=== PATIENT | male | born 1965 | race Caucasian/White ===

== ENCOUNTER 2017-08-13 16:33 | Emergency (ER) | payer OTHER, SELFPAY | END 2017-08-13 18:17 | disposition home or self-care (01) | PROVIDERS: Emergency Provider Nurse Practitioner Family; Visit Provider Nurse Practitioner Family | DX: S92.424A Nondisplaced fracture of distal phalanx of right great toe, initial encounter for closed fracture (principal); Y93.89 Activity, other specified; Y92.89 Other specified places as the place of occurrence of the external cause; Y99.0 Civilian activity done for income or pay; W20.8XXA Other cause of strike by thrown, projected or falling object, initial encounter | CPT/HCPCS: 73630; 73660; 99203 ==

== ENCOUNTER 2017-08-14 07:54 | Outpatient (POV) | payer SELFPAY | END 2017-08-14 13:50 | disposition home or self-care (01) | PROVIDERS: Visit Provider Podiatrist | DX: S92.404A Nondisplaced unspecified fracture of right great toe, initial encounter for closed fracture (principal); S91.201A Unspecified open wound of right great toe with damage to nail, initial encounter | CPT/HCPCS: 11730; 10140; 99202 ==

== ENCOUNTER 2017-08-21 08:04 | Outpatient (POV) | payer OTHER, SELFPAY | END 2017-08-21 13:59 | disposition home or self-care (01) | PROVIDERS: Visit Provider Podiatrist | DX: S92.404D Nondisplaced unspecified fracture of right great toe, subsequent encounter for fracture with routine healing (principal) | CPT/HCPCS: 99212 ==

== ENCOUNTER 2018-01-16 13:58 | Outpatient (CLI) | payer SELFPAY | END 2018-01-16 16:02 | disposition home or self-care (01) | LOC: UTC.OUT 13:59 | PROVIDERS: Visit Provider Nurse Practitioner Family | DX: Z02.4 Encounter for examination for driving license (principal) ==

== ENCOUNTER 2021-10-28 13:24 | Emergency (ER) | payer BC, SELFPAY ==
[2021-10-28 13:47] VITALS: BP 142/92; PULSE 65; RESP 16; TEMP 36.4; O2SAT 95; BMI 29.5
--- NOTE | 2021-10-28 14:40 | HMH.EDUTC ---
[facility] [place] Disposition Clinical Impression: Vertigo Disposition: Home, Self-Care Condition on Discharge: Good Instructions: Vertigo Additional Instructions: Drink plenty of fluids. Take tylenol or ibuprofen for pain. Take the medications as directed. Follow up with your regular doctor. GO TO THE ER FOR ANY WORSENING SYMPTOMS Referrals: Provider,Referral, MD [Primary Care Provider] - Forms: Work/School Release Time of Disposition: 15:32 Medical Decision Making - Medical Records Medical records reviewed: No: I reviewed the patient's medical records. - Jamil Inquiry Pt receiving controlled substance: No Vital Signs: 10/28/21 13:47 10/28/21 15:01 10/28/21 15:42 Temperature 97.6 F 97.6 F Temperature Source Temporal Artery Scan Pulse Rate 61 Pulse Rate [Left] 65 Pulse Rate [Orthostatic Lying] 61 Pulse Rate [Orthostatic Sitting] 63 Pulse Rate [Orthostatic Standing] 70 Respiratory Rate 16 16 Blood Pressure 132/81 Blood Pressure [Orthostatic Lying] 132/81 Blood Pressure [Orthostatic Sitting] 149/90 H Blood Pressure [Orthostatic Standing] 150/88 H Blood Pressure [Right Arm] 142/92 H Blood Pressure Mean [Right Arm] 108 02 Sat by Pulse Oximetry 95 - Lab Data Lab Results 10/28/21 15:35: WBC 9.6, RBC 5.54, Hgb 17.7, Hct 52.7 H, MCV 95.2 H, MCH 31.9 H, MCHC 33.5, RDW 13.1, Plt Count 333, MPV 7.7, Neut % (Auto) 56.7, Lymph % (Auto) 31.1, [place] % (Auto) 6.5, Eos % (Auto) 4.6, Baso % (Auto) 1.2, Neut # (Auto) 5.5, Lymph # (Auto) 3.0, [place] # (Auto) 0.6, Eos # (Auto) 0.4, Baso # (Auto) 0.1 10/28/21 15:35: Sodium 141, Potassium 4.6, Chloride 106, Carbon Dioxide 28, Anion Gap 11.6, BUN 22 H, Creatinine 0.90, Estimated Creat Clear 135, Estimated GFR 87, Est GFR ( Amer) 105, Glucose 105 H, Calcium 10.3 H, Total Bilirubin 0.9, AST 32, ALT 30, Alkaline Phosphatase 74, Total Protein 8.4 H, Albumin 4.7, Globulin 3.7 H, Albumin/Globulin Ratio 1.3 Result diagrams: 10/28/21 15:35 10/28/21 15:35 [facility] [place] HPI - General Stated complaint: elevated bp, dizziness Time Seen by Provider: 10/28/21 14:40 Mode of Arrival: Ambulatory Source of Information: Patient Limitations: No Limitations Description of Symptoms (Recalled from Triage Doc. by RN): pt states this am he had a episode of dizziness and weakness. pt states he is feeling completely fine at this time. HEENT Symptoms (Recalled from RN notes): No Resp Symptoms (Recalled from RN notes): No Skin Symptoms (Recalled from RN notes): No MS Symptoms (Recalled from RN notes): No Functional Status (Recalled from RN notes): wnl - History of Present Illness Provider Complaint: He states that when he first got out of bed this morning he had dizziness for a short period of time. He got ready and went on to work. The dizziness resolved after a few minutes. He has felt fine since. He denies any chest pain, shortness of breath - Related Data Previous Rx's Medication Instructions Recorded hydrOXYzine pamoate [Vistaril 25mg 25 mg PO Q6HP PRN #20 cap 07/12/18 capsule] Allergies Allergy/AdvReac Type Severity Reaction Status Date / Time CONTRAST DYE Allergy Unknown Uncoded 09/17/18 10:25 - Worker's Comp Is this a Worker's Comp case?: No [facility] History - Hepatitis A Screen Drug use history?: No High risk sexual behaviors?: No History of sexually transmitted infection?: No Currently employed?: No Childcare worker?: No Do you have indoor plumbing?: Yes Do you have electricity?: Yes Attestation statement:: This patient has been screened for Hepatitis A risk factors. I have reviewed the patient's past medical history: Yes - Social History Smoking Status: Former smoker Alcohol Intake: never Occupational Status: employed Family Hx:: Diabetes ROS Obtained: Yes All systems reviewed & no additional complaints - Constitutional Constitutional: Denies chills, Denies fever(s) - Eyes Eyes: Denies eye discharge - ENT
--- NOTE | 2021-10-28 14:50 | ECG_ITS ---
APPROVED REPORT Exam: Resting ECG HR:62 bpm ECG Measurements Heart Rate 62 AXES MS 165 P 53 QRSd 117 QRS 55 QT 389 T 43 QTc 395 Conclusion SINUS RHYTHM INCOMPLETE RIGHT BUNDLE BRANCH BLOCK [90+ ms QRS DURATION, TERMINAL R IN V1/V2, 40+ ms S IN I/aVL/V4/V5/V6] BORDERLINE ECG UNCONFIRMED REPORT Electronically signed by : Saroj Virgen MD 11/02/2021 16:16:55
[2021-10-28 15:01] VITALS: BP 132/81; BP 149/90; BP 150/88; PULSE 61; PULSE 63; PULSE 70
[2021-10-28 15:42] VITALS: BP 132/81; PULSE 61; RESP 16; TEMP 36.4
[2021-10-28 15:44] LABS: Basophils # 0.1 K/mm3 (0-0.2); Basophils % 1.2 % (0.1-2.0); Eosinophils # 0.4 K/mm3 (0.0-0.4); Eosinophils % 4.6 % (0.1-12.0); Hematocrit 52.7 % (42.0-52.0); Hemoglobin 17.7 g/dL (14.1-18.0); Lymphocytes % 31.1 % (10-50); Mean Corpuscular HGB Conc 33.5 g/dL (31.8-35.4); Mean Corpuscular Hemoglobin 31.9 pg (27.0-31.2); Mean Corpuscular Volume 95.2 fl (80-94); Mean Platelet Volume 7.7 fl (7.4-10.4); Monocytes # 0.6 K/mm3 (0.1-1.0); Monocytes % 6.5 % (1.7-9.3); Neutrophils # 5.5 K/mm3 (1.8-7.8); Neutrophils % 56.7 % (37.0-80.0); Platelet Count 333 K/mm3 (142-424); Red Blood Count 5.54 M/mm3 (4.60-6.20); Red Cell Distribution Width 13.1 % (11.5-17.5); White Blood Count 9.6 K/mm3 (4.8-10.8)
[2021-10-28 15:57] LABS: Alanine Aminotransferase 30 U/L (12-78); Albumin Level 4.7 g/dl (3.5-5.0); Albumin/Globulin Ratio 1.3 (1.1-1.8); Alkaline Phosphatase 74 U/L (38-126); Anion Gap 11.6 mEq/L (5-15); Aspartate Amino Transferase 32 U/L (17-59); Bilirubin,Total 0.9 mg/dl (0.2-1.3); Blood Urea Nitrogen 22 mg/dl (9-20); Carbon Dioxide 28 mmol/L (22.0-30.0); Chloride 106 mmol/L (98-107); Creatinine Clearance Estimated 135 mL/min (50-200); Estimated Glomerular Filt Rate 87 ml/min (>60); GFR (African American) 105 ML/MIN (>60); Globulin 3.7 g/dL (1.3-3.2); Potassium 4.6 mmoL/L (3.5-5.1); Sodium 141 mmol/L (136-145); Total Protein,Serum 8.4 g/dl (6.3-8.2)
[2021-10-28 16:03] LABS: Calcium 10.3 mg/dl (8.4-10.2); Glucose 105 mg/dl (74-100)
== END 2021-10-28 15:43 | disposition home or self-care (01) ==
PROVIDERS: Emergency Provider Nurse Practitioner Family
DX: R42 Dizziness and giddiness (principal); R03.0 Elevated blood-pressure reading, without diagnosis of hypertension; Z87.891 Personal history of nicotine dependence
CPT/HCPCS: 80053; 85025; 93005; 93041; 99202; 99212; 99213; G0463

== ENCOUNTER 2022-07-08 19:58 | Emergency (ER) | payer OTHER, SELFPAY ==
[2022-07-08 20:13] VITALS: BP 154/89; PULSE 58; RESP 18; TEMP 36.6; O2SAT 97; BMI 30.9
[2022-07-08 20:54] LABS: Microscopic, Urine URINE MICROSCOPIC (MICROSCOPIC)
[2022-07-08 20:58] LABS: Appearance,Urine CLEAR (Clear); Bilirubin,Urine Negative (Negative); Blood, Urine 2+ (Negative); Color,Urine YELLOW (Yellow); Glucose,Urine (UA) Negative (Negative); Ketones,Urine Negative (Negative); Leukocyte Esterase,Urine Negative (Negative); Nitrate,Urine Negative (Negative); Protein,Urine Negative (Negative); Specific Gravity, Urine 1.025 (1.005-1.030); Urobilinogen,Urine >=8.0 EU/dl (0.2)
[2022-07-08 21:00] VITALS: BP 156/87; PULSE 58; O2SAT 95
[2022-07-08 21:10] LABS: Basophils # 0.2 K/mm3 (0-0.2); Basophils % 1.6 % (0.1-2.0); Eosinophils # 0.4 K/mm3 (0.0-0.4); Eosinophils % 4.1 % (0.1-12.0); Hematocrit 46.4 % (42.0-52.0); Hemoglobin 15.2 g/dL (14.1-18.0); Lymphocytes # 3.6 K/mm3 (0.7-4.5); Lymphocytes % 33.1 % (10-50); Mean Corpuscular HGB Conc 32.9 g/dL (31.8-35.4); Mean Corpuscular Hemoglobin 31.2 pg (27.0-31.2); Mean Corpuscular Volume 94.9 fl (80-94); Mean Platelet Volume 7.9 fl (7.4-10.4); Monocytes # 0.8 K/mm3 (0.1-1.0); Monocytes % 7.2 % (1.7-9.3); Neutrophils # 5.9 K/mm3 (1.8-7.8); Neutrophils % 53.9 % (37.0-80.0); Platelet Count 310 K/mm3 (142-424); Red Blood Count 4.88 M/mm3 (4.60-6.20); Red Cell Distribution Width 13.2 % (11.5-17.5); White Blood Count 10.9 K/mm3 (4.8-10.8)
--- NOTE | 2022-07-08 21:10 | CT_ITS ---
PROCEDURE INFORMATION: Exam: CT Abdomen And Pelvis Without Contrast Exam date and time: 07/08/2022 10:15 PM Age: 57 years old Clinical indication: Abdominal pain; Localized; Lower; Additional info: Abd pain TECHNIQUE: Imaging protocol: Computed tomography of the abdomen and pelvis without contrast. Radiation optimization: All CT scans at this facility use at least one of these dose optimization techniques: automated exposure control; mA and/or kV adjustment per patient size (includes targeted exams where dose is matched to clinical indication); or iterative reconstruction. COMPARISON: No relevant prior studies available. FINDINGS: Lungs: Lung bases are unremarkable. Liver: No focal hepatic lesions within the limits of noncontrast examination. Hepatic steatosis noted Gallbladder and bile ducts: Gallbladder is distended without radiopaque cholelithiasis. No biliary ductal dilation. Pancreas: No peripancreatic fluid stranding. No main pancreatic ductal dilation. Spleen: Splenic granulomas noted. No splenomegaly Adrenal glands: Normal. No mass. Kidneys and ureters: No nephrolithiasis or hydroureteronephrosis on either side. Stomach and bowel: Unremarkable. No obstruction. No mucosal thickening. Appendix: A normal appendix is identified. Intraperitoneal space: Unremarkable. No free air. No significant fluid collection. Vasculature: Unremarkable. No abdominal aortic aneurysm. Lymph nodes: Unremarkable. No enlarged lymph nodes. Urinary bladder: Unremarkable as visualized. Reproductive: Unremarkable as visualized. Bones/joints: Mild multilevel degenerative changes more pronounced at L4-L5 and L5-S1. No acute osseous abnormality. Soft tissues: Unremarkable. IMPRESSION: No acute abnormality in the abdomen or pelvis
[2022-07-08 21:12] LABS: Chloride 105 mmol/L (98-107); Potassium 3.9 mmoL/L (3.5-5.1); Sodium 142 mmol/L (136-145)
[2022-07-08 21:13] LABS: Squamous Epithelial Cell,Urine Occasional #/hpf (0-5); WBC,Urine Occasional #/hpf (0-3)
[2022-07-08 21:15] LABS: Alanine Aminotransferase 23 U/L (12-78); Albumin Level 4.1 g/dl (3.5-5.0); Albumin/Globulin Ratio 1.3 (1.1-1.8); Alkaline Phosphatase 82 U/L (38-126); Anion Gap 14.9 mEq/L (5-15); Aspartate Amino Transferase 30 U/L (17-59); Bilirubin,Total 0.4 mg/dl (0.2-1.3); Blood Urea Nitrogen 18 mg/dl (9-20); Carbon Dioxide 26 mmol/L (22.0-30.0); Creatinine Clearance Estimated 141 mL/min (50-200); Estimated Glomerular Filt Rate 86 ml/min (>60); GFR (African American) 105 ML/MIN (>60); Globulin 3.1 g/dL (1.3-3.2); Total Protein,Serum 7.2 g/dl (6.3-8.2)
[2022-07-08 21:16] LABS: Glucose 94 mg/dl (74-100)
[2022-07-08 21:19] LABS: Amylase 62 U/L (30-110); Lipase 36 U/L (23-300)
--- NOTE | 2022-07-08 21:19 | PC.NURSE ---
PT gone to RAD for CT
[2022-07-08 21:30] VITALS: BP 153/87; PULSE 49; O2SAT 97
[2022-07-08 22:00] VITALS: BP 162/92; PULSE 53; O2SAT 97
--- NOTE | 2022-07-08 22:00 | HMH.EDABDPAI ---
Discharge Plan Disposition Patient Disposition: Home, Self-Care Chief Complaint: Abdominal Pain Prescriptions Prescriptions: No Action hydroxyzine pamoate 25 MG capsule 25 mg PO Q6HP PRN (Reason: Anxiety) Qty: 20 0RF Referrals Follow up/Referrals: Provider,MD Delilah [Primary Care Provider] - See instructions Bhaskar Moura MD [Staff Physician] - See instructions Smooth Flor MD [Staff Physician] - See instructions Clinical Impressions Clinical Impression: Hernia, umbilical Instructions Patient Instructions: DI for Ventral Hernia Discharge ED Provider: Dannie Toro Abdominal Pain HPI General Chief Complaint: Abdominal Pain Stated Complaint: ADM PAIN Time Seen by Provider: 07/08/22 22:00 Mode of Arrival: Ambulatory Source of Information: Patient, Relative and Medical Record Limitations: No Limitations Description of Symptoms (Recalled from ER Triage Doc. by RN): Pt c/o lower quadarnt abd pain that started this afternoon. He says pain is constant and sharp. Pt reports BM yesterday or the day before and he has frequent constipation at baseline. Pt deneis N/V/D or fevers. History of Present Illness HPI narrative: pt with periumbilcal pain today with no fever or vomiting complaint: abdominal pain Onset (ago): hour(s) Consistency: intermittent Location: periumbilical Severity: moderate Associated symptoms: nausea Related Data Previous Rx's Medication Instructions Recorded hydroxyzine pamoate 25 mg capsule 25 mg PO Q6HP PRN Anxiety #20 caps 07/12/18 Allergies Allergy/AdvReac Type Severity Reaction Status Date / Time CONTRAST DYE Allergy Unknown Uncoded 09/17/18 10:25 PFSH PFSH Social History Smoking Status: Former smoker alcohol intake: never current occupational status: employed Travel in the last 8 weeks: None ROS Obtained: Yes All systems reviewed & no additional complaints except as documented Physical Exam General General appearance: alert Head Head exam: normocephalic Eye Eye exam: Present PERRL and EOMI ENT ENT exam: Present mucous membranes moist Neck Neck exam: Present trachea midline Respiratory Respiratory exam: Present normal lung sounds bilaterally; Absent respiratory distress Cardiovascular Cardiovascular exam: Present regular rate Abdominal Exam Abdominal exam: Present soft and hernia (reducible umbilical hernia ) Abdominal tenderness: Present moderate Extremities Exam Extremities exam: Present full ROM Neurological Exam Neurological exam: Present alert, oriented X3 and CN II-XII intact Psychiatric Psychiatric exam: Present normal affect Skin Skin exam: Absent rash Medical Decision Making Medical Records Medical records reviewed: Yes I reviewed the patient's medical records. Jamil Inquiry Pt receiving controlled substance: No Vital Signs: 07/08/22 20:13 Temperature 97.9 F Temperature Source Oral Pulse Rate [Right Radial] 58 L Respiratory Rate 18 Blood Pressure [Right Arm] 154/89 H Blood Pressure Mean [Right Arm] 110 Blood Pressure Source [Right Arm] Automatic Cuff Blood Pressure Position [Right Arm] Sitting 02 Sat by Pulse Oximetry 97 Oxygen Delivery Method Room Air Lab Data Lab results reviewed: Yes I reviewed the patient's lab results. Lab Results 07/08/22 20:48: Urine Color Yellow, Urine Appearance Clear, Urine pH 6.0, Ur Specific [place] 1.025, Urine Protein Negative, Urine Glucose (UA) Negative, Urine Ketones Negative, Urine Blood 2+, Urine Nitrate Negative, Urine Bilirubin Negative, Urine Urobilinogen >=8.0, Ur Leukocyte Esterase Negative, Urine RBC 10-20, Urine WBC Occasional, Ur Squamous Epith Cells Occasional, Urine Bacteria None 07/08/22 21:02: WBC 10.9 H, RBC 4.88, Hgb 15.2, Hct 46.4, MCV 94.9 H, MCH 31.2, MCHC 32.9, RDW 13.2, Plt Count 310, MPV 7.9, Neut % (Auto) 53.9, Lymph % (Auto) 33.1, [place] % (Auto) 7.2, Eos % (Auto) 4.1, Baso % (Auto) 1.6, Neut # (Auto) 5.9, Lymph # (Auto) 3.6, [place] # (Auto) 0.8, Eos #
[2022-07-08 22:31] VITALS: BP 156/97; PULSE 54; O2SAT 97
[2022-07-08 22:48] VITALS: BP 161/94; PULSE 57; RESP 16; TEMP 36.7; O2SAT 98
== END 2022-07-08 22:55 | disposition home or self-care (01) ==
PROVIDERS: Emergency Provider Emergency Medicine
DX: K42.9 Umbilical hernia without obstruction or gangrene (principal)
CPT/HCPCS: 74176; 80053; 81001; 82150; 83690; 85025; 99284

== ENCOUNTER 2022-07-22 20:01 | Emergency (ER) | payer OTHER, SELFPAY ==
[2022-07-22 20:01] VITALS: BP 119/76; PULSE 85; RESP 16; TEMP 37.4; O2SAT 97; BMI 30.9
[2022-07-22 21:23] VITALS: BMI 30.9
--- NOTE | 2022-07-22 21:23 | XR_ITS ---
PROCEDURE INFORMATION: Exam: XR Chest Exam date and time: 07/22/2022 9:21 PM Age: 57 years old Clinical indication: Other: Congestion TECHNIQUE: Imaging protocol: Radiologic exam of the chest. Views: 2 views. COMPARISON: CR CXR2V XR chest 2V 07/11/2018 10:51 PM FINDINGS: Lungs: No evidence of pneumonia or interstitial edema. Pleural spaces: Unremarkable. No pleural effusion. No pneumothorax. Heart/Mediastinum: Unremarkable. No cardiomegaly. Bones/joints: Unremarkable. IMPRESSION: No evidence of pneumonia or interstitial edema.
[2022-07-22 21:30] LABS: Coronavirus 19, PCR Not Detected (NotDetected); Influenza B, PCR Not Detected (NotDetected)
[2022-07-22 21:53] LABS: Influenza A, PCR Detected (NotDetected)
[2022-07-22 22:05] VITALS: RESP 16; TEMP 37.4; O2SAT 97
--- NOTE | 2022-07-22 22:23 | HMH.EDURI ---
Discharge Plan Disposition Patient Disposition: Home, Self-Care Prescriptions Prescriptions: New oseltamivir [Tamiflu] 75 mg capsule 75 mg PO BID 5 Days Qty: 10 0RF No Action hydroxyzine pamoate 25 MG capsule 25 mg PO Q6HP PRN (Reason: Anxiety) Qty: 20 0RF Referrals Follow up/Referrals: Karen Diamond DO [Primary Care Provider] - See instructions Clinical Impressions Clinical Impression: Influenza A Instructions Patient Instructions: DI for Influenza -- Adult Discharge ED Provider: Dannie Toro URI/Sore Throat HPI General Chief Complaint: Upper Respiratory Infection Stated Complaint: h/a, body aches, cough, weakness Time Seen by Provider: 07/22/22 22:23 Mode of Arrival: Wheelchair Source of Information: Patient and Medical Record Limitations: No Limitations Description of Symptoms (Recalled from ER Triage Doc. by RN): pt c/o fever, Hart,body aches, cough, congestion that stareted last night History of Present Illness HPI Narrative: headache and cough over the last 24 hrs - no rash - MD Complaint: fever and cough Onset (ago): day(s) Duration: intermittent Severity: moderate Associated symptoms: denies other symptoms Related Data Previous Rx's Medication Instructions Recorded hydroxyzine pamoate 25 mg capsule 25 mg PO Q6HP PRN Anxiety #20 caps 07/12/18 oseltamivir 75 mg capsule (Tamiflu) 75 mg PO BID 5 days #10 caps 07/22/22 Allergies Allergy/AdvReac Type Severity Reaction Status Date / Time CONTRAST DYE Allergy Unknown Uncoded 07/16/22 10:07 [facility] Social History Smoking Status: Former smoker alcohol intake: never current occupational status: employed Travel in the last 8 weeks: None ROS Obtained: Yes All systems reviewed & no additional complaints except as documented Physical Exam General General appearance: alert Head Head exam: normocephalic Eye Eye exam: Present PERRL and EOMI; Absent scleral icterus ENT ENT exam: Present mucous membranes moist Neck Neck exam: Present trachea midline Respiratory Respiratory exam: Present normal lung sounds bilaterally; Absent respiratory distress Cardiovascular Cardiovascular exam: Present regular rate Abdominal Exam Abdominal exam: Present soft Extremities Exam Extremities exam: Present full ROM Neurological Exam Neurological exam: Present alert, oriented X3 and CN II-XII intact Psychiatric Psychiatric exam: Present normal affect Skin Skin exam: Absent rash Medical Decision Making Medical Records Medical records reviewed: Yes I reviewed the patient's medical records. Jamil Inquiry Pt receiving controlled substance: No Vital Signs: 07/22/22 20:01 07/22/22 22:05 Temperature 99.3 F 99.3 F Temperature Source Oral Oral Pulse Rate [Right] 85 Respiratory Rate 16 16 Blood Pressure [Right Arm] 119/76 Blood Pressure Mean [Right Arm] 90 02 Sat by Pulse Oximetry 97 97 Lab Data Lab results reviewed: Yes I reviewed the patient's lab results. Lab Results 07/22/22 21:22: SARS-CoV-2 (PCR) Not detected, Influenza A Untype (PCR) Detected A, Influenza Type B (PCR) Not detected Orders (Tests/Meds): ORDERS Category Date Time Status Chest XR 2 view (NOT portable) [XR chest 2V] Stat Exams 07/22/22 21:23 Completed Rapid PCR Covid and Flu A/B Stat Lab 07/22/22 21:22 Completed Radiology Data #1: Image(s): Chest Image Reviewed: Yes I have reviewed radiologist's interpretation Preliminary Findings: Normal/NAD Medical Decision Narrative: pt with stable exam and has positive flu a Critical Care Time Critical Care Time Critical Care Time: No Attestation: On 07/22/22, the high probability of a clinically significant, sudden or life threatening deterioration of the following system(s) required my full and direct attention, intervention and personal management. The time I documented below is in addition to time s
[2022-07-22 23:17] VITALS: BP 127/87; PULSE 80; RESP 16; TEMP 37.1; O2SAT 97
== END 2022-07-22 23:18 | disposition home or self-care (01) ==
PROVIDERS: Emergency Provider Emergency Medicine; PCP Family Medicine
DX: J10.1 Influenza due to other identified influenza virus with other respiratory manifestations (principal)
CPT/HCPCS: 71046; 99283; C9803; U0003; U0005

== ENCOUNTER → 2022-09-06 12:41 | Outpatient (CLI) | payer OTHER, SELFPAY ==
--- NOTE | 2022-09-06 12:45 | CT_ITS ---
FINAL REPORT TECHNIQUE: Axial images were obtained from the lung apex to the mid abdomen by computed tomography. Coronal reformatted images were obtained. This study was performed with techniques to keep radiation doses as low as reasonably achievable, (ALARA). Individualized dose reduction techniques using automated exposure control or adjustment of mA and/or kV according to the patient''s size were employed. CLINICAL HISTORY: weight loss, tobacco abuse, hoarseness COMPARISON: None FINDINGS: There is no axillary adenopathy. There is no hilar or mediastinal adenopathy. Heart size is normal. There is no pericardial or pleural effusion. Limited images of the upper abdomen are unremarkable. No suspicious infiltrate or nodule is identified. IMPRESSION: No acute process. Reviewed, Interpreted and Dictated by Tram Ortiz MD Transcribed by Abby Yao Authenticated and [facility]
--- NOTE | 2022-09-06 12:45 | CT_ITS ---
FINAL REPORT TECHNIQUE: Thin section axial CT images with coronal and sagittal reformats were performed through the neck. This study was performed with techniques to keep radiation doses as low as reasonably achievable (ALARA). Individualized dose reduction techniques using automated exposure control or adjustment of mA and/or kV according to the patient''s size were employed. CLINICAL HISTORY: weight loss, tobacco abuse, hoarseness COMPARISON: None FINDINGS: No adenopathy or mass lesion is present . Salivary glands are normal. Larynx is unremarkable. Thyroid gland is unremarkable. IMPRESSION: No acute process. Reviewed, Interpreted and Dictated by Tram Ortiz MD Transcribed by Abby Yao Authenticated and [facility]
== END ==
PROVIDERS: PCP Family Medicine; Visit Provider Family Medicine
DX: R49.0 Dysphonia (principal); R63.4 Abnormal weight loss; Z87.891 Personal history of nicotine dependence
CPT/HCPCS: 70490; 71250

== ENCOUNTER 2022-09-12 09:20 | Day surgery (SDC) | payer OTHER, SELFPAY ==
[2022-09-12 09:36] VITALS: BP 135/80; PULSE 59; RESP 18; TEMP 36.3; O2SAT 95; BMI 28.5
[2022-09-12 10:01] VITALS: O2SAT 95
--- NOTE | 2022-09-12 10:17 | HMH.SCOPE ---
Procedure: Date: 09/12/22 Patient Date of :: 1965 Procedure Performed:: screening colonoscopy Indications:: Screening for colorectal cancer, constipation Performing Provider:: Andie Valencia MD Referring Provider:: Karen Zamora Sedation:: Propofol Procedure:: After placing the patient in the left lateral decubitus position, the colonoscopy was gently inserted into the rectum and under direct visualization advanced to the cecum which was identified by transillumination in the right lower quadrant, identification of the ileocecal valve, appendiceal orifice, and cecal strap. Color, texture, mucosa, and anatomy of the colon were carefully examined with the scope. Findings:: Anal canal: normal Rectum: normal Sigmoid colon: normal without polyps or inflammatory changes Descending colon: normal without polyps or inflammatory changes Splenic flexure: normal Transverse colon: normal without polyps or inflammatory changes Hepatic flexure: normal Ascending colon: normal without polyps or inflammatory changes Cecum: normal Terminal ileum: not visualized Impression: Normal colonoscopy Specimens:: None Recommendations:: Follow up examination in about TEN years or so, sooner if clinically indicated Complications:: None Estimated blood obtained (mL): 0
[2022-09-12 10:19] VITALS: BP 109/72; PULSE 69; RESP 14; TEMP 36.2; O2SAT 90
--- NOTE | 2022-09-12 10:21 | EXP.ANES.CKL ---
[facility] Disclaimer: The information contained in this section may have been updated after the patient was seen, as this information can be updated by other users. Medical History Influenza A Osteophyte Urinary problem in male Vertigo Surgical History Hx of cardiac cath Family History Other Family history of diabetes mellitus type II Social History Smoking Status: Former smoker how long ago did patient quit smokin years alcohol intake: never substance use type: denies use current occupational status: employed Travel in the last 8 weeks: None household members: significant other housing: house lives independently: Yes marital status: special hallie needs: No agree to transfusion: No do you feel safe at home: Yes victim of physical abuse: No victim of emotional abuse: No victim of sexual abuse: No would you like helpful sources: No [facility] Anesthesia Checklist Patient Identification Patient Identification: Verbal (Name & ) Structural Data Admitted From: Home Planned Operative Procedure/s: colonoscopy Consent for Planned Operative Procedure(s) Verified: Yes Airway Assessment C-Spine Mobility Assessed: Yes TMJ Mobility Assessed: Yes Dentition: Good Dentition Neurological Assessment Level of Consciousness: Awake, Alert and Appropriate Anesthesia Plan Anesthesia Risk discussed: Yes Anesthesia Plan: Verified ASA Class: III Anesthesia Type: MAC
[2022-09-12 10:29] VITALS: BP 104/66; PULSE 56; RESP 16; O2SAT 94
[2022-09-12 10:39] VITALS: BP 113/69; PULSE 58; RESP 16; O2SAT 97
[2022-09-12 11:05] VITALS: BP 116/55; PULSE 59; RESP 17; O2SAT 97
== END 2022-09-12 11:05 | disposition home or self-care (01) ==
PROVIDERS: PCP Family Medicine; Visit Provider Internal Medicine Gastroenterology
PROC: 0DJD8ZZ Inspection of Lower Intestinal Tract, Via Natural or Artificial Opening Endoscopic (ICD-10-PCS; CPT 45378; principal; 2022-09-12 10:30)
DX: K59.00 Constipation, unspecified (principal); R63.4 Abnormal weight loss
CPT/HCPCS: 45378

== ENCOUNTER → 2022-10-01 11:31 | Outpatient (CLI) | payer OTHER, SELFPAY ==
[2022-10-01 11:43] LABS: MANUAL DIFFERENTIAL MANUAL DIFFERENTIAL (MANUAL DIFF)
[2022-10-01 11:43] LABS: Microscopic, Urine URINE MICROSCOPIC (MICROSCOPIC)
[2022-10-01 12:14] LABS: Basophils # 0.1 K/mm3 (0-0.2); Basophils % 1.4 % (0.1-2.0); Eosinophils # 0.3 K/mm3 (0.0-0.4); Eosinophils % 2.9 % (0.1-12.0); Hematocrit 53.2 % (42.0-52.0); Hemoglobin 17.4 g/dL (14.1-18.0); Lymphocytes # 2.4 K/mm3 (0.7-4.5); Lymphocytes % 25.7 % (10-50); Mean Corpuscular HGB Conc 32.7 g/dL (31.8-35.4); Mean Corpuscular Hemoglobin 31.3 pg (27.0-31.2); Mean Corpuscular Volume 95.8 fl (80-94); Mean Platelet Volume 8.2 fl (7.4-10.4); Monocytes # 0.6 K/mm3 (0.1-1.0); Monocytes % 6.6 % (1.7-9.3); Neutrophils % 63.3 % (37.0-80.0); Platelet Count 356 K/mm3 (142-424); Red Blood Count 5.55 M/mm3 (4.60-6.20); Red Cell Distribution Width 13.5 % (11.5-17.5); White Blood Count 9.4 K/mm3 (4.8-10.8)
[2022-10-01 12:16] LABS: Appearance,Urine CLEAR (Clear); Bilirubin,Urine Negative (Negative); Blood, Urine 1+ (Negative); Color,Urine YELLOW (Yellow); Glucose,Urine (UA) Negative (Negative); Ketones,Urine Negative (Negative); Leukocyte Esterase,Urine Negative (Negative); Nitrate,Urine Negative (Negative); Protein,Urine Negative (Negative)
[2022-10-01 12:52] LABS: Squamous Epithelial Cell,Urine Occasional #/hpf (0-5); WBC,Urine Occasional #/hpf (0-3)
[2022-10-01 12:59] LABS: Eosinophils % 1 % (0-3); Lymphocytes % 25 % (10-50); Monocytes % 4 % (2-9); Neutrophils % 70 % (42-76); Platelet Estimate Normal; RBC Morphology Normal; Total Cells Counted 100
[2022-10-01 13:28] LABS: Hemoglobin A1C 5.5 % (4.0-6.0)
[2022-10-01 15:10] LABS: Chloride 107 mmol/L (98-107); Potassium 4.8 mmoL/L (3.5-5.1); Sodium 141 mmol/L (136-145)
[2022-10-01 15:13] LABS: Alanine Aminotransferase 24 U/L (12-78); Albumin Level 4.6 g/dl (3.5-5.0); Albumin/Globulin Ratio 1.4 (1.1-1.8); Alkaline Phosphatase 90 U/L (38-126); Anion Gap 9.8 mEq/L (5-15); Aspartate Amino Transferase 25 U/L (17-59); Bilirubin,Total 0.6 mg/dl (0.2-1.3); Blood Urea Nitrogen 16 mg/dl (9-20); Calcium 10.4 mg/dl (8.4-10.2); Carbon Dioxide 29 mmol/L (22.0-30.0); Chol/HDL Ratio 5.4 (1-3.5); Cholesterol 249 mg/dl (140-200); Estimated Glomerular Filt Rate 76 ml/min (>60); GFR (African American) 93 ML/MIN (>60); Globulin 3.2 g/dL (1.3-3.2); Glucose 93 mg/dl (74-100); HDL Cholesterol 46 mg/dl (40-60); Total Protein,Serum 7.8 g/dl (6.3-8.2); Triglycerides 110 mg/dl (30-150); VLDL Cholesterol 22 mg/dL (0-40)
[2022-10-01 15:25] LABS: Direct LDL Cholesterol 163.96 mg/dL (100-129)
[2022-10-01 15:44] LABS: Thyroid Stimulating Hormone 2.09 uIU/mL (0.465-4.68)
[2022-10-01 16:44] LABS: Prostate Specific Ag Screen 0.3 ng/ml (0.0-4.0)
[2022-10-08 01:18] LABS: Testosterone, Total, LC/MS 503.7 ng/dL (264.0-916.0); Testosterone,Free 7.3 pg/mL (7.2-24.0)
== END ==
PROVIDERS: PCP Family Medicine; Visit Provider Family Medicine
DX: K59.00 Constipation, unspecified (principal); R05 Cough; R49.0 Dysphonia; R63.4 Abnormal weight loss; E11.9 Type 2 diabetes mellitus without complications; Z87.891 Personal history of nicotine dependence; Z12.5 Encounter for screening for malignant neoplasm of prostate
CPT/HCPCS: 36415; 80053; 80061; 81001; 83036; 84402; 84403; 84443; 85007; 85014; 85018; 85048; 85049; G0103

== ENCOUNTER → 2022-12-02 17:06 | Outpatient (CLI) | payer OTHER, SELFPAY | PROVIDERS: PCP Nurse Practitioner Family; Visit Provider Nurse Practitioner Family | DX: N39.0 Urinary tract infection, site not specified (principal) | CPT/HCPCS: 87086 ==

== ENCOUNTER 2022-12-17 18:35 | Emergency (ER) | payer OTHER, SELFPAY ==
--- NOTE | 2022-12-17 18:49 | EXP.UTC ---
Discharge Plan Disposition Patient Disposition: Home, Self-Care Condition: Good Prescriptions Prescriptions: New ibuprofen [ibuprofen] 600 mg tablet 600 mg PO Q6HP PRN (Reason: Mild Pain) Qty: 30 0RF Referrals Follow up/Referrals: Karen Diamond DO [Staff Physician] - See instructions Israel Hernandez JR, MD [Physician] - See instructions Activity Restrictions/Add. Instructions Additional Instructions/Restrictions: Rest the extremity, apply ice for 15 minutes as tolerated three or four times per day, Elevate the extremity as tolerated while you are resting. Take ibuprofen for pain. I sent in a prescription to your pharmacy. Follow up with Dr. Hernandez (orthopedics). I put in a referral but you need to call his office and schedule an appointment. Follow up with your regular doctor. 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 He fell backwards and caught himself with his left hand. Since then he has had left hand and wrist pain. Related Data Previous Rx's Medication Instructions Recorded ibuprofen 600 mg tablet 600 mg PO Q6HP PRN Mild Pain #30 12/17/22 tabs Allergies Allergy/AdvReac Type Severity Reaction Status Date / Time CONTRAST DYE Allergy Unknown Uncoded 12/17/22 19:19 [facility] Disclaimer: The information contained in this section may have been updated after the patient was seen, as this information can be updated by other users. Medical History Osteophyte Urinary problem in male Vertigo Surgical History Hx of cardiac cath Family History Other Family history of diabetes mellitus type II Social History Smoking Status: Former smoker how long ago did patient quit smokin years alcohol intake: never substance use type: denies use current occupational status: employed Travel in the last 8 weeks: None household members: significant other housing: house lives independently: Yes marital status: special hallie needs: No agree to transfusion: No do you feel safe at home: Yes victim of physical abuse: No victim of emotional abuse: No victim of sexual abuse: No would you like helpful sources: No ROS Obtained: Yes All systems reviewed & no additional complaints except as documented Constitutional Constitutional: Denies chills and Denies fever(s) Eyes Eyes: Denies eye discharge ENT Ears, Nose, Mouth, and Throat: Denies dizziness, Denies otalgia and Denies sore throat Cardiovascular Cardiovascular: Denies chest pain Respiratory Respiratory: Denies shortness of breath, Denies chest congestion, Denies cough, Denies stridor and Denies wheezing Gastrointestinal Gastrointestingal: Denies nausea or vomiting Musculoskeletal Musculoskeletal: Reports as per HPI Integumentary/Breasts Skin/Breast: Denies redness, Denies rash and Denies wounds Neurologic Neurologic: Denies dizziness and Denies paresthesias Allergic/Immunologic Allergic/Immunologic: Denies wheezing Physical Exam General General appearance: alert and in no apparent distress Head Head exam: atraumatic, normocephalic and normal inspection Eye Eye exam: Present normal appearance, PERRL and EOMI ENT ENT exam: Present normal exam, normal oropharynx, mucous membranes moist, TM's normal bilaterally and normal external ear exam Neck N
[2022-12-17 19:00] VITALS: BP 148/82; PULSE 63; RESP 20; TEMP 36.9; O2SAT 96; BMI 29.8
--- NOTE | 2022-12-17 19:09 | XR_ITS ---
PROCEDURE INFORMATION: Exam: XR Left Wrist Exam date and time: 12/17/2022 7:27 PM Age: 57 years old Clinical indication: Pain; Wrist; Left TECHNIQUE: Imaging protocol: Radiologic exam of the left wrist. Views: 3 or more views. COMPARISON: CR Hand L 12/17/2022 7:25 PM FINDINGS: Bones/joints: Acute fracture of the distal radius with nondisplaced central articular penetration in the distal radial articular surface and suspected nondisplaced oblique extension to the medial metaphyseal margin suggesting nondisplaced radial styloid type fracture. On the oblique view, question additional nondisplaced dorsal medial fracture extension towards the DRUJ. No significant scapholunate widening. No carpal bone fractures. Distal ulna intact. Soft tissues: Mild soft tissue swelling around the wrist. No foreign body. IMPRESSION: 1. Nondisplaced distal radial articular fracture detailed above. 2. Mild soft tissue swelling around the wrist.
--- NOTE | 2022-12-17 19:09 | XR_ITS ---
PROCEDURE INFORMATION: Exam: XR Left Hand Exam date and time: 12/17/2022 7:25 PM Age: 57 years old Clinical indication: Pain; Hand; Left TECHNIQUE: Imaging protocol: Radiologic exam of the left hand. Views: 3 or more views. COMPARISON: No relevant prior studies available. FINDINGS: Bones/joints: Acute fracture of the distal radius with dorsal metaphyseal involvement demonstrating about 2 mm displacement on the lateral view, and nondisplaced articular extension in the central portion of the distal radial articular surface on the AP view, with no significant articular gap or step-off. No other acute fractures. Carpal relationships are normal. Distal radioulnar alignment is normal. No blastic or lytic lesions. No articular erosive changes. Mild osteoarthritic changes in the distal interphalangeal joints. Soft tissues: Grid limits soft tissue detail. No periostitis or osteolysis. No gross soft tissue abnormalities. No radiopaque foreign bodies. IMPRESSION: 1. Distal radial fracture detailed above. 2. Minor osteoarthritic changes.
--- NOTE | 2022-12-17 19:09 | XR_ITS ---
PROCEDURE INFORMATION: Exam: XR Left Forearm Exam date and time: 12/17/2022 7:29 PM Age: 57 years old Clinical indication: Pain; Lower or forearm; Left TECHNIQUE: Imaging protocol: Radiologic exam of the left forearm. Views: 2 views. COMPARISON: CR Wrist L 12/17/2022 7:27 PM FINDINGS: Bones/joints: Acute nondisplaced fracture of the distal radius again noted, please see wrist x-ray report. No fractures are identified in the mid or proximal forearm. Proximal and distal radioulnar alignment is normal. Elbow joint alignment is normal. Carpal relationships are normal. No blastic or lytic lesions. No elbow joint effusion. No articular erosions. Soft tissues: No periostitis or osteolysis. Mild soft tissue swelling around the wrist and over the posterior elbow. No radiopaque foreign bodies are identified. IMPRESSION: 1. Acute nondisplaced articular fracture of the distal radius again noted, please see wrist x-ray report. 2. No fractures in the mid or proximal forearm. 3. Soft tissue swelling around the wrist and over the posterior elbow. No foreign body.
[2022-12-17 20:33] VITALS: BP 148/82; PULSE 63; RESP 20; TEMP 36.9; O2SAT 96
--- NOTE | 2022-12-17 20:35 | PC.NURSE ---
Orthoglass applied to pt and made sure that there was space in between for circulation. Pt said it felt fine and not to tight.
== END 2022-12-17 20:33 | disposition home or self-care (01) ==
PROVIDERS: Emergency Provider Nurse Practitioner Family; PCP Nurse Practitioner Family
DX: S52.572A Other intraarticular fracture of lower end of left radius, initial encounter for closed fracture (principal); W11.XXXA Fall on and from ladder, initial encounter; Z87.891 Personal history of nicotine dependence
CPT/HCPCS: 29125; 73090; 73110; 73130; 99213; 99214; G0463

== ENCOUNTER 2022-12-19 11:31 | Outpatient (RCR) | payer OTHER, SELFPAY | END 2022-12-19 12:30 | disposition home or self-care (01) | LOC: OT 11:31 | PROVIDERS: Visit Provider Orthopaedic Surgery | DX: S52.502A Unspecified fracture of the lower end of left radius, initial encounter for closed fracture (principal) | CPT/HCPCS: 97763 ==

== ENCOUNTER → 2023-01-16 09:42 | Outpatient (CLI) | payer OTHER, SELFPAY ==
--- NOTE | 2023-01-16 09:46 | XR_ITS ---
FINAL REPORT CLINICAL HISTORY: lt wrist fx COMPARISON: 12/17/2022 FINDINGS: LEFT WRIST Three views demonstrate a vertical fracture involving the distal radius extending to the radiocarpal joint. Bony alignment is stable. There is mild degenerative change of the radial aspect of the wrist. The soft tissues are unremarkable. IMPRESSION: Stable alignment distal radius fracture. Reviewed, Interpreted and Dictated by Bhaskar Castro III, MD Transcribed by Abby Yao Authenticated and [facility]
== END ==
PROVIDERS: PCP Nurse Practitioner Family; Visit Provider Orthopaedic Surgery
DX: S52.502A Unspecified fracture of the lower end of left radius, initial encounter for closed fracture (principal)
CPT/HCPCS: 73110

== ENCOUNTER → 2023-04-09 07:23 | Outpatient (CLI) | payer OTHER, SELFPAY ==
[2023-04-09 08:02] LABS: Basophils # 0.1 K/mm3 (0-0.2); Basophils % 1.2 % (0.1-2.0); Eosinophils # 0.3 K/mm3 (0.0-0.4); Eosinophils % 3.4 % (0.1-12.0); Hematocrit 50.3 % (42.0-52.0); Hemoglobin 16.1 g/dL (14.1-18.0); Lymphocytes # 2.4 K/mm3 (0.7-4.5); Lymphocytes % 30.5 % (10-50); Mean Corpuscular Hemoglobin 30.5 pg (27.0-31.2); Mean Corpuscular Volume 95.3 fl (80-94); Mean Platelet Volume 8.1 fl (7.4-10.4); Monocytes # 0.6 K/mm3 (0.1-1.0); Monocytes % 7.7 % (1.7-9.3); Neutrophils # 4.4 K/mm3 (1.8-7.8); Neutrophils % 57.1 % (37.0-80.0); Platelet Count 300 K/mm3 (142-424); Red Blood Count 5.29 M/mm3 (4.60-6.20); Red Cell Distribution Width 13.3 % (11.5-17.5); White Blood Count 7.8 K/mm3 (4.8-10.8)
[2023-04-09 08:58] LABS: Alanine Aminotransferase 20 U/L (12-78); Albumin Level 3.9 g/dl (3.5-5.0); Albumin/Globulin Ratio 1.4 (1.1-1.8); Alkaline Phosphatase 92 U/L (38-126); Anion Gap 10.4 mEq/L (5-15); Aspartate Amino Transferase 21 U/L (17-59); Bilirubin,Total 0.6 mg/dl (0.2-1.3); Blood Urea Nitrogen 18 mg/dl (9-20); Carbon Dioxide 24 mmol/L (22.0-30.0); Chloride 108 mmol/L (98-107); Chol/HDL Ratio 5.4 (1-3.5); Cholesterol 225 mg/dl (140-200); Estimated Glomerular Filt Rate 76 ml/min (>60); GFR (African American) 92 ML/MIN (>60); Globulin 2.8 g/dL (1.3-3.2); Glucose 101 mg/dl (74-100); HDL Cholesterol 42 mg/dl (40-60); Iron 96 ug/dL (49-181); Magnesium 2.1 mg/dl (1.6-2.3); Potassium 4.4 mmoL/L (3.5-5.1); Sodium 138 mmol/L (136-145); Total Protein,Serum 6.7 g/dl (6.3-8.2); Triglycerides 106 mg/dl (30-150); VLDL Cholesterol 21 mg/dL (0-40)
[2023-04-09 09:09] LABS: Direct LDL Cholesterol 143.36 mg/dL (100-129); Total Iron Binding Capacity 302 ug/dL (261-462)
[2023-04-09 09:34] LABS: Ferritin 83.2 ng/ml (17.9-464)
[2023-04-09 09:48] LABS: Vitamin B12 229 pg/mL (239-931)
== END ==
PROVIDERS: PCP Nurse Practitioner Family; Visit Provider Nurse Practitioner Family
DX: E78.5 Hyperlipidemia, unspecified (principal); I10 Essential (primary) hypertension; R25.2 Cramp and spasm
CPT/HCPCS: 36415; 80053; 80061; 82306; 82607; 82728; 83540; 83550; 83735; 85025

== ENCOUNTER → 2023-06-13 12:51 | Outpatient (CLI) | payer OTHER, SELFPAY ==
--- NOTE | 2023-06-13 12:53 | US_ITS ---
FINAL REPORT CLINICAL HISTORY: BLE numbness, tingling,HTN,HLD,EX SMOKER,REST PAIN, FINDINGS: ANKLE-BRACHIAL PRESSURE INDICES Pressure indices are as follows: RIGHT LOWER EXTREMITY: Ankle-brachial pressure index: 1.2 Comments: Normal LEFT LOWER EXTREMITY: Ankle-brachial pressure index: 1.1 Comments: Normal IMPRESSION: No evidence of significant obstructive peripheral vascular disease of the lower extremities Reviewed, Interpreted and Dictated by Bhaskar Castro III, MD Transcribed by Maria C Monge Authenticated and [facility]
== END ==
PROVIDERS: PCP Nurse Practitioner Family; Visit Provider Nurse Practitioner Family
DX: R20.0 Anesthesia of skin (principal); R20.2 Paresthesia of skin
CPT/HCPCS: 93923

== ENCOUNTER → 2023-07-18 13:18 | Outpatient (CLI) | payer OTHER, SELFPAY | PROVIDERS: PCP Nurse Practitioner Family; Visit Provider Internal Medicine | DX: R30.0 Dysuria (principal); R35.0 Frequency of micturition | CPT/HCPCS: 87086 ==

== ENCOUNTER 2024-11-19 07:50 | Outpatient (CLI) | payer OTHER, SELFPAY ==
--- NOTE | 2024-11-19 07:55 | XR_ITS ---
FINAL REPORT CLINICAL HISTORY: knee pain,,no truama COMPARISON: None FINDINGS: LEFT KNEE 3 views of the left knee were obtained. There is no acute fracture or dislocation. Visualized joint spaces are normally aligned. Mild degenerative changes present. No joint effusion is present. Soft tissues are unremarkable. IMPRESSION: Mild degenerative change with no acute bony abnormality. Reviewed, Interpreted and Dictated by Tram Ortiz MD Transcribed by Elle Main Authenticated and . [facility]
--- NOTE | 2024-11-19 07:55 | XR_ITS ---
FINAL REPORT CLINICAL HISTORY: knee pain..no trauma COMPARISON: None FINDINGS: RIGHT KNEE 3 views of the right knee were obtained. There is no acute fracture or dislocation. Mild degenerative changes present. Visualized joint spaces are normally aligned. Soft tissues are unremarkable. No joint effusion is noted. IMPRESSION: Mild degenerative change with no acute bony abnormality. Reviewed, Interpreted and Dictated by Tram Ortiz MD Transcribed by Elle Main Authenticated and . [facility]
== END 2024-11-19 23:59 | disposition home or self-care (01) ==
LOC: RAD 07:52
PROVIDERS: PCP Nurse Practitioner Family; Visit Provider Student in an Organized Health Care Education/Training Program
DX: M25.561 Pain in right knee (principal); M25.562 Pain in left knee
CPT/HCPCS: 73562

== ENCOUNTER 2024-11-25 17:29 | Emergency (ER) | payer OTHER, SELFPAY ==
[2024-11-25 17:49] VITALS: BP 157/82; PULSE 76; RESP 18; TEMP 36.6; O2SAT 100; BMI 29.5
[2024-11-25 17:52] VITALS: BP 150/84; PULSE 75; O2SAT 94
[2024-11-25 19:29] VITALS: BP 155/83; PULSE 71; RESP 18; TEMP 37; O2SAT 100
--- NOTE | 2024-11-25 21:11 | HMH.EDGENADL ---
Discharge Plan Disposition Patient Disposition: Home, Self-Care Condition: Good Prescriptions Prescriptions: No Action meloxicam 15 mg tablet 15 mg PO DAILY Qty: 30 0RF Referrals Follow up/Referrals: Provider,Referral, MD [Primary Care Provider] - See instructions Activity Restrictions/Add. Instructions Additional Instructions/Restrictions: You were evaluated in the ER and are appropriate for discharge at this time. Take Tylenol and ibuprofen if needed for pain, do not exceed the recommended dose on the bottle. Drink water and eat small snack each time you take these medications to avoid side effects make an appointment with your primary care doctor for reevaluation in 2 to 3 days. Return to the ER with any new, worsening, or otherwise concerning symptoms. Clinical Impressions Clinical Impression: Neck pain on left side Print Language Print Language: Malay Discharge ED Provider: Caleb Lynne General Adult HPI <Caleb Lynne MD - Last Filed: 11/25/24 23:08> General Chief complaint: PAIN Stated complaint: AO 3-25 knot on neck from box falling Time Seen by Provider: 11/25/24 20:54 Mode of Arrival: Ambulatory Source of Information: Patient Description of Symptoms (Recalled from ER Triage Doc. by RN): Pt states he was at work on friday and a box fell onto the left side of his neck and he is having pain to his left shoulder/neck History of Present Illness HPI narrative: Please note that above description of symptoms, in this electronic medical record under categorization of recalled from ER triage doctor by RN are reflective of an initial nursing assessment, however, is not reflective of my full history and physical exam that was personally taken and clarified. Consequentially, this preceding description of symptoms, which may include the patient's categorized chief complaint in the EMR, do not reflect my personal clinical impression, and the ultimate description of history of present illness and patient stated complaints should be deferred to this section of the note. Unless stated otherwise or congruent with this section of the note, additional signs, symptoms, or incongruence should be interpreted as inaccurate with my clinical impression. Related Data Previous Rx's ?Medication ?Instructions ?Recorded meloxicam 15 mg tablet 15 mg PO DAILY #30 tabs 11/15/24 Allergies Allergy/AdvReac Type Severity Reaction Status Date / Time CONTRAST DYE Allergy Unknown Uncoded 11/15/24 17:07 PFSH <Caleb Lynne MD - Last Filed: 11/25/24 23:08> [facility] Disclaimer: The information contained in this section may have been updated after the patient was seen, as this information can be updated by other users. Medical History Nasal bleeding right nare Paralysis of right vocal cord Dysphonia Distal radius fracture, left Urinary tract infection Osteophyte sciatica spur removed Constipation History of tobacco abuse Weight loss Hoarseness of voice Laryngitis Hernia, umbilical Vertigo Urinary problem in male Cough Surgical History Hx of cardiac cath Family History Other Family history of diabetes mellitus type II Social History Smoking Status: Never smoker how long ago did patient quit smokin years alcohol intake: never substance use type: denies use current occupational status: employed Travel in the last 8 weeks: None household members: none housing: house lives independently: Yes marital status: single special hallie needs: No agree to transfusion: No do you feel safe at home: Yes victim of physical abuse: No victim of emotional abuse: No victim of sexual abuse: No would you like helpful sources: No Have you lived/traveled outside [place] in past 30 days?: No Contact w/someone who lives/traveled outside US past 30 days?: No Exposure to someone with infectious disease in past 14 days?: No Do you have a fever (greater than 100.4 F or 38 C)?: No Have you tested positive for COVID-19: No Exposed to someone with COVID-19 in past 14 days?: No Do you have a sore throat?: No Do you have a cough?: No Do you have any weakness?: No Do you have any diarrhea?: No Are you experiencing any unusual bleeding?: No Do you have any muscle aches/pain?: No Do you have any abdominal pain?: No Are you experiencing loss of taste or smell?: No Other Medical History Have you received the Flu Vaccine for this season: No Have you received the Pneumonia Vaccine: No <Caleb Lynne MD - Last Filed: 11/25/24 23:08> CHONG Obtained: Yes All systems reviewed & no additional complaints except as documented Physical Exam <Caleb Lynne MD - Last Filed: 11/25/24 23:08> General General appearance: alert Head Head exam: atraumatic and normocephalic Eye Eye exam: Present normal appearance, PERRL and EOMI Neck Neck exam: Present normal inspection, full ROM, trachea midline and tenderness (Tenderness and swelling to the left side of the neck at the base of the neck near the clavicle) Respiratory Respiratory exam: Absent respiratory distress, wheezes, stridor, accessory muscle use or prolonged expiratory phase Cardiovascular Cardiovascular exam: Present other (Pulses equal symmetric in upper and lower extremities) Abdominal Exam Abdominal exam: Present soft; Absent distention, tenderness or pulsatile mass Extremities Exam Extremities exam: Absent edema Neurological Exam Neurological exam: Present alert, oriented X3 and CN II-XII intact; Absent motor sensory deficit Skin Skin exam: Present warm and dry; Absent diaphoresis or erythema Medical Decision Making <Caleb Lynne MD - Last Filed: 11/25/24 23:08> Medical Records Medical records reviewed: Yes I reviewed the patient's medical records. Screening: Per USPSTF and CDC recommendations, given the prevalence of disease in our region, it is our hospital?s policy to screen for HIV and viral Hepatitis for all patients aged 18 and over and those with ongoing risk factors. Jamil Inquiry Pt receiving controlled substance: No Jamil was queried for this patient: No Vital Signs: 11/25/24 17:49 11/25/24 17:52 11/25/24 19:29 Temperature 98 F 98.6 F Temperature Source Temporal Artery Scan Oral Pulse Rate 75 71 Pulse Rate [Right] 76 Respiratory Rate 18 18 Blood Pressure 150/84 H 155/83 H Blood Pressure [Right Arm] 157/82 H Blood Pressure Mean [Right Arm] 107 Blood Pressure Source Automatic Cuff Blood Pressure Source [Right Arm] Automatic Cuff Blood Pressure Position Supine Sitting Blood Pressure Position [Right Arm] Sitting 02 Sat by Pulse Oximetry 100 94 L 100 Oxygen Delivery Method Room Air Nasal Cannula Room Air Room Air Lab Data Lab Results 11/25/24 22:49: WBC 12.2 H, RBC 4.47 L, Hgb 13.4 L, Hct 41.1 L, MCV 91.9, MCH 30.0, MCHC 32.6, RDW 13.4, Plt Count 314, MPV 9.3, Neut % (Auto) 68.1, Lymph % (Auto) 18.6, [place] % (Auto) 9.0, Eos % (Auto) 3.1, Baso % (Auto) 0.8, Neut # (Auto) 8.3 H, Lymph # (Auto) 2.3, [place] # (Auto) 1.1 H, Eos # (Auto) 0.4, Baso # (Auto) 0.1, Sodium 136, Potassium 4.5, Chloride 103, Carbon Dioxide 25, Anion Gap 12.5, BUN 13, Creatinine 0.90, Estimated Creat Clear 117, Estimated GFR 86, Est GFR ( Amer) 104, Glucose 97, Calcium 10.4 H, Total Bilirubin 0.9, AST 22, ALT 14, Alkaline Phosphatase 106, Total Protein 7.4, Albumin 4.1, Globulin 3.3 H, Albumin/Globulin Ratio 1.2 11/25/24 22:49 11/25/24 22:49 Orders (Tests/Meds): ED MEDICATIONS Discontinued Medications Generic Name Dose Route Start Last Admin Trade Name Cori PRN Reason Stop Dose Admin Diphenhydramine HCl 25 mg 11/25/24 22:31 11/25/24 22:55 Diphenhydramine 50mg/Ml Vial IV 11/25/24 22:32 25 mg ONCE ONE Administration Iopamidol 80 ml 11/25/24 23:11 11/25/24 23:12 Iopamidol-370 (76%);100ml Bottle IV 11/25/24 23:12 80 ml ONCE ONE Administration Methylprednisolone Sodium Succinate 125 mg 11/25/24 22:31 11/25/24 22:54 Methylprednisolone Sod Succ 125mg Vial IV 11/25/24 22:32 125 mg ONCE ONE Administration Sodium Chloride 50 ml 11/25/24 23:11 11/25/24 23:13 0.9 % Sodium Chloride 50 Ml Vial IV 11/25/24 23:12 50 ml ONCE ONE Administration Sodium Chloride 10 ml 11/25/24 23:11 11/25/24 23:12 Sodium Chloride 0.9% 10ml Syr (Rad Only) IV 11/25/24 23:12 10 ml ONCE ONE Administration ORDERS Category Date Time Status CT angio neck Stat Cat Scan 11/25/24 21:41 Completed CBC w/Auto Diff [Complete Blood Count Auto Diff] Stat Lab 11/25/24 22:49 Completed CMP [Comprehensive Metabolic Panel] Stat Lab 11/25/24 22:49 Completed Medical Decision Narrative: 59-year-old male history of hypertension, hyperlipidemia presenting with left-sided neck pain. He states that he was working on a truck couple days prior to this, an 80 pound box slid and hit him in the neck at the base of his neck at his clavicle. No shortness of breath,, neurologic deficits, vision deficits, or any other concerns. On arrival, patient complaining of mild pain, but neurovascularly intact, vision is intact per report, motor and sensory exams normal. Neurologically intact. Does have some swelling at the base of his neck on the left with no audible bruit. Minimally tender. Differential includes venous injury, arterial injury, hematoma, benign MSK trauma, among others. Labs were obtained, hemoglobin 13.4. Chemistry pending. CT angiogram of the neck was ordered. Patient's contrast allergy is unknown. He states that he was told it was either contrast or anesthesia and it was just not feeling well, so Benadryl and Solu-Medrol were given out of abundance of caution prior to scan. Prior to scan and disposition, care handed off to oncoming physician. Bar Host/Hostess disclaimer Much of this encounter note is an electronic landfill gas collection operator spoken language to printed text. Electronic landfill gas collection operator of the spoken language may permit errors. Although I have reviewed the note, some errors may still exist. <Sonido Barillas MD - Last Filed: 11/26/24 00:43> Vital Signs: 11/25/24 17:49 11/25/24 17:52 11/25/24 19:29 Temperature 98 F 98.6 F Temperature Source Temporal Artery Scan Oral Pulse Rate 75 71 Pulse Rate [Right] 76 Respiratory Rate 18 18 Blood Pressure 150/84 H 155/83 H Blood Pressure [Right Arm] 157/82 H Blood Pressure Mean [Right Arm] 107 Blood Pressure Source Automatic Cuff Blood Pressure Source [Right Arm] Automatic Cuff Blood Pressure Position Supine Sitting Blood Pressure Position [Right Arm] Sitting 02 Sat by Pulse Oximetry 100 94 L 100 Oxygen Delivery Method Room Air Nasal Cannula Room Air Room Air Lab Data Lab Results 11/25/24 22:49: WBC 12.2 H, RBC 4.47 L, Hgb 13.4 L, Hct 41.1 L, MCV 91.9, MCH 30.0, MCHC 32.6, RDW 13.4, Plt Count 314, MPV 9.3, Neut % (Auto) 68.1, Lymph % (Auto) 18.6, [place] % (Auto) 9.0, Eos % (Auto) 3.1, Baso % (Auto) 0.8, Neut # (Auto) 8.3 H, Lymph # (Auto) 2.3, [place] # (Auto) 1.1 H, Eos # (Auto) 0.4, Baso # (Auto) 0.1, Sodium 136, Potassium 4.5, Chloride 103, Carbon Dioxide 25, Anion Gap 12.5, BUN 13, Creatinine 0.90, Estimated Creat Clear 117, Estimated GFR 86, Est GFR ( Amer) 104, Glucose 97, Calcium 10.4 H, Total Bilirubin 0.9, AST 22, ALT 14, Alkaline Phosphatase 106, Total Protein 7.4, Albumin 4.1, Globulin 3.3 H, Albumin/Globulin Ratio 1.2 Orders (Tests/Meds): ED MEDICATIONS Discontinued Medications Generic Name Dose Route Start Last Admin Trade Name Freq PRN Reason Stop Dose Admin Diphenhydramine HCl 25 mg 11/25/24 22:31 11/25/24 22:55 Diphenhydramine 50mg/Ml Vial IV 11/25/24 22:32 25 mg ONCE ONE Administration Iopamidol 80 ml 11/25/24 23:11 11/25/24 23:12 Iopamidol-370 (76%);100ml Bottle IV 11/25/24 23:12 80 ml ONCE ONE Administration Methylprednisolone Sodium Succinate 125 mg 11/25/24 22:31 11/25/24 22:54 Methylprednisolone Sod Succ 125mg Vial IV 11/25/24 22:32 125 mg ONCE ONE Administration Sodium Chloride 50 ml 11/25/24 23:11 11/25/24 23:13 0.9 % Sodium Chloride 50 Ml Vial IV 11/25/24 23:12 50 ml ONCE ONE Administration Sodium Chloride 10 ml 11/25/24 23:11 11/25/24 23:12 Sodium Chloride 0.9% 10ml Syr (Rad Only) IV 11/25/24 23:12 10 ml ONCE ONE Administration ORDERS Category Date Time Status CT angio neck Stat Cat Scan 11/25/24 21:41 Completed CBC w/Auto Diff [Complete Blood Count Auto Diff] Stat Lab 11/25/24 22:49 Completed CMP [Comprehensive Metabolic Panel] Stat Lab 11/25/24 22:49 Completed Medical Decision Narrative: 59-year-old male history of hypertension, hyperlipidemia presenting with left-sided neck pain. He states that he was working on a truck couple days prior to this, an 80 pound box slid and hit him in the neck at the base of his neck at his clavicle. No shortness of breath,, neurologic deficits, vision deficits, or any other concerns. On arrival, patient complaining of mild pain, but neurovascularly intact, vision is intact per report, motor and sensory exams normal. Neurologically intact. Does have some swelling at the base of his neck on the left with no audible bruit. Minimally tender. Differential includes venous injury, arterial injury, hematoma, benign MSK trauma, among others. Labs were obtained, hemoglobin 13.4. Chemistry pending. CT angiogram of the neck was ordered. Patient's contrast allergy is unknown. He states that he was told it was either contrast or anesthesia and it was just not feeling well, so Benadryl and Solu-Medrol were given out of abundance of caution prior to scan. Prior to scan and disposition, care handed off to oncoming physician. Bar Host/Hostess disclaimer Much of this encounter note is an electronic landfill gas collection operator spoken language to printed text. Electronic landfill gas collection operator of the spoken language may permit errors. Although I have reviewed the note, some errors may still exist. Barillas: Upon my assumption of care patient was stable and resting comfortably. I agree with the assessment and plan from Dr. Lynne. I reviewed labs which demonstrate mild leukocytosis and trace anemia but nothing actionable or specifically concerning, normal platelets, CMP nonactionable. Labs overall reassuring.. I personally interpreted CTA neck and do not appreciate obvious dissection or hematoma. See radiology read for full interpretation. Radiology read does not demonstrate any acute traumatic injuries or vascular injuries. On reassessment patient is resting comfortably. I discussed with him outpatient management and monitoring of symptoms, follow-up instructions, and strict return precautions for the ER. He indicated understanding to verbal and written instructions. Patient was discharged in stable condition. Critical Care <Caleb Lynne MD - Last Filed: 11/25/24 23:08> Critical Care Time Critical Care Time: No
--- NOTE | 2024-11-25 21:41 | CT_ITS ---
PROCEDURE INFORMATION: Exam: CTA Neck With Contrast Exam date and time: 11/25/2024 11:04 PM Age: 59 years old Clinical indication: Injury or trauma; Additional info: Trauma and hematoma L side of neck after trauma TECHNIQUE: Imaging protocol: Computed tomographic angiography of the neck with contrast. Exam focused on the cervical segments of the vasculature. 3D rendering (Not supervised by radiologist): MIP and/or 3D reconstructed images were created by the technologist. Radiation optimization: All CT scans at this facility use at least one of these dose optimization techniques: automated exposure control; mA and/or kV adjustment per patient size (includes targeted exams where dose is matched to clinical indication); or iterative reconstruction. Contrast material: ISOVUE; Contrast volume: 80 ml; Contrast route: INTRAVENOUS (IV); COMPARISON: No relevant prior studies available. FINDINGS: Right common carotid artery: No stenosis. No dissection or occlusion. Right internal carotid artery: No stenosis of the extracranial segment. No dissection or occlusion. Right external carotid artery: No occlusion or stenosis of the origin. Left common carotid artery: No stenosis. No dissection or occlusion. Left internal carotid artery: No stenosis of the extracranial segment. No dissection or occlusion. Left external carotid artery: No occlusion or stenosis of the origin. Right vertebral artery: No stenosis. No dissection or occlusion. Left vertebral artery: No stenosis. No dissection or occlusion. Soft tissues: Normal. No significant soft tissue swelling. Bones/joints: No acute fracture. IMPRESSION: No posttraumatic stenosis or occlusion. REFERENCES: NASCET CRITERIA. The degree of stenosis in the cervical segment of the internal carotid artery is based on NASCET criteria. Normal is no stenosis. Mild is less than 50% stenosis. Moderate is 50-69% stenosis. Severe is 70% to 99% stenosis. Total occlusion is no detectable patent lumen.
[2024-11-25] MEDS: METHYLPREDNISOLONE SOD SUCC 125MG VIAL 125 MG IV (22:54)
[2024-11-25 22:55] LABS: Basophils # 0.1 K/mm3 (0-0.2); Basophils % 0.8 % (0.1-2.0); Eosinophils # 0.4 K/mm3 (0.0-0.4); Eosinophils % 3.1 % (0.1-12.0); Hematocrit 41.1 % (42.0-52.0); Hemoglobin 13.4 g/dL (14.1-18.0); Lymphocytes # 2.3 K/mm3 (0.7-4.5); Lymphocytes % 18.6 % (10-50); Mean Corpuscular HGB Conc 32.6 g/dL (31.8-35.4); Mean Corpuscular Volume 91.9 fl (80-94); Mean Platelet Volume 9.3 fl (7.4-10.4); Monocytes # 1.1 K/mm3 (0.1-1.0); Neutrophils # 8.3 K/mm3 (1.8-7.8); Neutrophils % 68.1 % (37.0-80.0); Platelet Count 314 K/mm3 (142-424); Red Blood Count 4.47 M/mm3 (4.60-6.20); Red Cell Distribution Width 13.4 % (11.5-17.5); White Blood Count 12.2 K/mm3 (4.8-10.8)
[2024-11-25] MEDS: diphenhydrAMINE 50MG/ML VIAL 25 MG IV (22:55)
[2024-11-25 23:08] LABS: Albumin Level 4.1 g/dl (3.5-5.0); Chloride 103 mmol/L (98-107); Potassium 4.5 mmoL/L (3.5-5.1); Sodium 136 mmol/L (136-145)
[2024-11-25 23:11] LABS: Alanine Aminotransferase 14 U/L (12-78); Albumin/Globulin Ratio 1.2 (1.1-1.8); Alkaline Phosphatase 106 U/L (38-126); Anion Gap 12.5 mEq/L (5-15); Aspartate Amino Transferase 22 U/L (17-59); Bilirubin,Total 0.9 mg/dl (0.2-1.3); Blood Urea Nitrogen 13 mg/dl (9-20); Carbon Dioxide 25 mmol/L (22.0-30.0); Creatinine Clearance Estimated 117 mL/min (50-200); Estimated Glomerular Filt Rate 86 ml/min (>60); GFR (African American) 104 ML/MIN (>60); Globulin 3.3 g/dL (1.3-3.2); Total Protein,Serum 7.4 g/dl (6.3-8.2)
[2024-11-25 23:12] LABS: Calcium 10.4 mg/dl (8.4-10.2); Glucose 97 mg/dl (74-100)
[2024-11-25] MEDS: SODIUM CHLORIDE 0.9% 10ML SYR (RAD ONLY) 10 ML IV (23:12)
[2024-11-25] MEDS: IOPAMIDOL-370 (76%);100ML BOTTLE 80 ML IV (23:12)
[2024-11-25] MEDS: 0.9 % SODIUM CHLORIDE 50 ML VIAL IV (23:13)
[2024-11-26 00:40] VITALS: BP 148/82; PULSE 98; RESP 20; TEMP 36.6; O2SAT 99
--- NOTE | 2024-11-26 00:41 | PC.NURSE ---
Pt contacted and states he took out his own IV and stated he threw it in the trash can. Inventory Control/Shipping Receiving verified that a 20 gauge IV was in the trash can.
== END 2024-11-26 00:44 | disposition home or self-care (01) ==
PROVIDERS: Emergency Provider Emergency Medicine
DX: M54.2 Cervicalgia (principal); M25.512 Pain in left shoulder; I10 Essential (primary) hypertension; E78.5 Hyperlipidemia, unspecified; W22.8XXA Striking against or struck by other objects, initial encounter; Y93.89 Activity, other specified; Y92.9 Unspecified place or not applicable
CPT/HCPCS: 70498; 80053; 85025; 96374; 96375; 99285; J1200; J2919; Q9967

== ENCOUNTER 2025-03-12 08:33 | Outpatient (CLI) | payer OTHER, SELFPAY ==
[2025-03-12 09:18] LABS: Hematocrit 44.1 % (42.0-52.0); Hemoglobin 14.7 g/dL (14.1-18.0); Immature Granulocytes % 0.2 %; Mean Corpuscular HGB Conc 33.3 g/dL (31.8-35.4); Mean Corpuscular Hemoglobin 30.2 pg (27.0-31.2); Mean Corpuscular Volume 90.7 fl (80-94); Nucleated Red Blood Cells % 0 %; Platelet Count 399 K/mm3 (142-424); Red Blood Count 4.86 M/mm3 (4.60-6.20); Red Cell Distribution Width-SD 47.0 fL; White Blood Count 8.8 K/mm3 (4.8-10.8)
[2025-03-12 09:56] LABS: Alanine Aminotransferase 13 U/L (12-78); Albumin Level 3.4 g/dl (3.5-5.0); Albumin/Globulin Ratio 1.2 (1.1-1.8); Alkaline Phosphatase 112 U/L (38-126); Anion Gap 15.4 mEq/L (5-15); Aspartate Amino Transferase 18 U/L (17-59); Bilirubin,Total 0.5 mg/dl (0.2-1.3); Blood Urea Nitrogen 17 mg/dl (9-20); Calcium 10.0 mg/dl (8.4-10.2); Carbon Dioxide 21 mmol/L (22.0-30.0); Chloride 106 mmol/L (98-107); Cholesterol 192 mg/dl (140-200); Creatinine,Serum 0.90 mg/dl (0.66-1.25); Estimated Glomerular Filt Rate 86 ml/min (>60); GFR (African American) 103 ML/MIN (>60); Globulin 2.8 g/dL (1.3-3.2); Glucose 96 mg/dl (74-100); HDL Cholesterol 39 mg/dl (40-60); Potassium 4.4 mmoL/L (3.5-5.1); Sodium 138 mmol/L (136-145); Total Protein,Serum 6.2 g/dl (6.3-8.2); Triglycerides 67 mg/dl (30-150)
== END 2025-03-12 23:59 | disposition home or self-care (01) ==
LOC: LAB 08:33
PROVIDERS: PCP Internal Medicine; Visit Provider Internal Medicine
DX: E78.5 Hyperlipidemia, unspecified (principal); D64.9 Anemia, unspecified; E83.52 Hypercalcemia; Z13.220 Encounter for screening for lipoid disorders
CPT/HCPCS: 36415; 80053; 80061; 85025

== ENCOUNTER 2025-03-18 08:09 | Outpatient (CLI) | payer OTHER, SELFPAY ==
--- OUTSIDE RECORDS SUMMARY | 2025-03-18 08:11 | XMS_ITS | Clinical Summary ---
Author Organization [facility] Address [address] [place] [address] Care Team Providers Care Sinker Puller Name Role Phone Unavailable Primary Care Provider Unavailabl e Social History Tobacco Use Types Packs/Day Years Used Date Smoking Tobacco: Never Assessed Abuse Screen Answer Date Recorded Unsafe at Home or Work/School Not on file Feels Threatened by Someone? Not on file Does Anyone Keep You from Co ntacting Others or Doint Things Outside the Home? Not on file 05/21/2024 Physical Sign of Abuse Present Not on file 0 05/21/2024 Housing Stability Answer Date Recorded Current Living Arrangements Not on file 05/03 Potentially Unsafe Housing Conditions Not on cristiano e 05/21/2024 Family and Community Support Answer Rommel e Recorded Help with Day-to-Day Activities Not on file 05/21/2024 Lonely or Isolated Not on file 05/21/2024 Employment Answer Date Recorded Do you want help finding or keeping work or a nash b? Not on file 05/21/2024 Disabilities Answer Date Recorded Concentrating, Remembering, or Making Decisions Difficulty Not on file 05/21/2024 Doing Errands Independently Difficulty Not on fi le 05/21/2024 Education Answer Date Recorded Help with school or training? Not on file Preferred Language Not on file 05/21/2024 Sex and Gender Information Value Date Recorded Sex Assigned at Not on file Legal Sex Male 9:41 AM EDT Gender Identity Not on file Sexual Orientation Not on file Plan of Treatment Health Maintenance Due Date Last Done Comments ANNUAL PHYSICAL 1965 HEPATITIS C SCREENING 1965 TDAP/TD VACCINES (1 - Tdap) 1982 COLOGUARD 01/29/2008 COLON CANCER SCREENING 5 YEAR SIGMOIDOSCOPY 01/29/2008 COLONOSCOPY 01/29/2008 COLORECTAL CANCER SCREENING 01/29/2008 CT COLONOGRAPHY 01/29/2008 FECAL OCCULT BLOOD TEST 01/29/2008 FIT Testing (1 year) 01/29/2008 Pneumococcal Vaccine 50+ (1 of 1 - PCV) 2013 ZOSTER VACCINE (1 of 2) 2013 COVID-19 Vaccine (1 - 2023- season) 2024 INFLUENZA VACCINE 06/01/2025
--- NOTE | 2025-03-18 08:30 | US_ITS ---
FINAL REPORT TECHNIQUE: Multiple transverse and longitudinal images CLINICAL HISTORY: Umbilical hernia, pain FINDINGS: The gallbladder shows no wall thickening, distention or stone disease. No biliary ductal dilatation is appreciated. No fluid collections are seen. There is fatty infiltration of the liver. There is a dilated lower pole right renal collecting system. Pancreas is largely obscured. There is no obvious hernia or mass. IMPRESSION: Fatty changes of liver. No acute gallbladder disease or acute cholelithiasis. Dilated lower pole right renal collecting system. Further evaluation of CT recommended with contrast to include delayed imaging. No gross abnormality in the region of the umbilicus. Reviewed, Interpreted and Dictated by Tram Ortiz MD Transcribed by Sonja Arroyo Authenticated and [facility]
== END 2025-03-18 23:59 | disposition home or self-care (01) ==
LOC: RAD 08:09
PROVIDERS: PCP Internal Medicine; Visit Provider Internal Medicine
DX: K76.0 Fatty (change of) liver, not elsewhere classified (principal); N28.89 Other specified disorders of kidney and ureter
CPT/HCPCS: 76705

== ENCOUNTER 2025-03-18 17:10 | Emergency (ER) | payer OTHER, SELFPAY ==
--- NOTE | 2025-03-18 18:09 | ED_ITS ---
Discharge Plan Disposition Patient Disposition: Home, Self-Care Condition: Good Prescriptions Prescriptions: New levofloxacin 500 mg tablet 500 mg PO DAILY 10 Days Qty: 10 0RF No Action sennosides [Senna Lax] 8.6 mg tablet 8.6 mg PO BID PRN (Reason: constipation) Qty: 60 0RF meloxicam 15 mg tablet 15 mg PO DAILY Qty: 30 0RF Referrals Follow up/Referrals: Marlee Perrin DO [Emergency Provider, Emergency Medicine] - See instructions Travis Colon MD [Referring, Urology] - See instructions Dannie Burch MD [Staff Physician, Oncology] - See instructions Activity Restrictions/Add. Instructions Additional Instructions/Restrictions: You need to follow-up with both urology and oncology. I have sent you with the referrals, call Friday to schedule an appointment. Take the antibiotics as prescribed. Return to the emergency department if you have continued worsening swelling of your scrotum, severe pain or redness. Clinical Impressions Clinical Impression: Lymphadenopathy Print Language Print Language: Vietnamese Discharge ED Provider: Marlee Perrin General Adult HPI General Chief complaint: PAIN Stated complaint: Swelling in arms,feet,legs,private area Time Seen by Provider: 03/18/25 18:09 History of Present Illness HPI narrative: Patient is a 60-year-old gentleman who presented to the emergency department with swelling in multiple areas. Patient states that for the last 4 to 5 months he has had swelling in his left arm as well as his left leg. Patient states that he has noted some neck swelling as well that seems to be worse in the morning. Patient denies any flushing with this. Patient states that he has been followed by his primary care provider who is obtaining the labs. Patient states that over the last few days he has had some associated swelling in his scrotum as well which is what brought him here to the emergency department today. Patient denies any penile discharge fevers or significant pain of the scrotum. Patient denies any testicular pain. Patient denies any lower abdominal pain. Patient states that he feels that the swelling is worse on the left than on the right. Patient states that he does not have a history of blood clots. Patient denies any chest pain or shortness of breath. Related Data Previous Rx's ?Medication ?Instructions ?Recorded meloxicam 15 mg tablet 15 mg PO DAILY #30 tabs 10/30 03/25 sennosides 8.6 mg tablet (Senna 8.6 mg PO BID PRN cons tipation #60 03/11/25 Lax) tabs levofloxacin 500 mg tablet 500 mg PO DAILY 10 days #10 tabs 03/18/25 Allergies Allergy/AdvReac Type Severity Reaction Status Date / Time CONTRAST DYE Allergy Unknown Uncoded 03/18/25 08:40 [facility] Disclaimer: The information contained in this section may have been updated after the patient was seen, as this information can be updated by other users. Medical History (Updated 03/18/25 @ 22:07 by Marlee Perrin DO) Constipation Nasal bleeding Paralysis of right vocal cord Dysphonia Distal radius fracture, left Urinary tract infection Osteophyte History of tobacco abuse Weight loss Hoarseness of voice Laryngitis Hernia, umbilical Vertigo Urinary problem in male Cough Surgical History Hx of cardiac cath Family History Other Family history of diabetes mellitus type II Social History Smoking Status: Former smoker how long ago did patient quit smokin years alcohol intake: never substance use type: denies use current occupational status: employed Travel in the last 8 weeks?: None household members: none housing: house lives independently: Yes marital status: single special hallie needs: No agree to transfusion: No do you feel safe at home: Yes victim of physical abuse: No victim of emotional abuse: No victim of sexual abuse: No would you like helpful sources: No Other Medical History Have you received the Flu Vaccine for this season: No Have you received the Pneumonia Vaccine: No ROS Obtained: Yes All systems reviewed & no additional complaints except as documented and Yes Systems reviewed as appropriate & no additional complaints except as documented Physical Exam General General appearance: alert and in no apparent distress Head Head exam: atraumatic, normocephalic and normal inspection Eye Eye exam: Present normal appearance, PERRL and EOMI; Absent scleral icterus ENT ENT exam: Present normal exam and normal external ear exam Neck Neck exam: Present normal inspection, full ROM and other (No appreciable swelling of the neck) Chest Chest inspection: Present normal inspection and symmetric chest wall rise Respiratory Respiratory exam: Present normal lung sounds bilaterally; Absent respiratory distress or wheezes Cardiovascular Cardiovascular exam: Present regular rate, normal rhythm and normal heart sounds Abdominal Exam Abdominal exam: Present soft and distention; Absent tenderness, guarding or rebound exam: Present other (Scrotum with mild swelling, no redness no tenderness, normal lie of the testicles) Extremities Exam Extremities exam: Present normal inspection, full ROM and other (Mild swelling of the left upper extremity in comparison to the right, mild swelling at the left ankle comparison to right) Back Exam Back exam: Present normal inspection and full ROM Neurological Exam Neurological exam: Present alert and oriented X3 Psychiatric Psychiatric exam: Present normal affect and normal mood Skin Skin exam: Present warm and dry Medical Decision Making Medical Records Screening: Per USPSTF and CDC recommendations, given the prevalence of disease in our region, it is our hospital?s policy to screen for HIV and viral Hepatitis for all patients aged 18 and over and those with ongoing risk factors. Jamil Inquiry Pt receiving controlled substance: No Vital Signs: 03/18/25 18:15 03/18/25 22:28 Temperature 98.4 F 98 F Temperature Source Oral Pulse Rate 72 Pulse Rate [Right Brachial] 72 Respiratory Rate 20 20 Blood Pressure 155/83 H Blood Pressure [Right Arm] 155/83 H Blood Pressure Mean [Right Arm] 107 Blood Pressure Source [Right Arm] Automatic Cuff Blood Pressure Position [Right Arm] Sitting 02 Sat by Pulse Oximetry 97 Oxygen Delivery Method Room Air Room Air Lab Data Lab results reviewed: Yes I reviewed the patient's lab results. Lab Results 03/18/25 18:57: Urine Color Yellow, Urine Appearance Clear, Urine pH 6.0, Ur Specific Hector >= 1.030, Urine Protein Negative, Urine Glucose (UA) Negative, Urine Ketones Negative, Urine Blood 1+ A, Urine Nitrate Negative, Urine Bilirubin Negative, Urine Urobilinogen 4.0, Ur Leukocyte Esterase Negative, Urine RBC 3-5, Urine WBC Occasional, Ur Squamous Epith Cells Occasional, Calcium Oxalate Crystal 2+, Urine Bacteria 1+, Urine Mucus 1+, Ur C. trach DNA (PCR) Negative, U N.gonorrhoeae DNA PCR Negative, T. vaginalis (PCR) Negative 03/18/25 19:05: WBC 9.6, RBC 4.92, Hgb 14.7, Hct 45.1, MCV 91.7, MCH 29.9, MCHC 32.6, RDW 14.0, Plt Count 433 H, MPV 9.4, Neut % (Auto) 66.3, Lymph % (Auto) 17.9, [place] % (Auto) 9.2, Eos % (Auto) 5.0, Baso % (Auto) 1.3, Neut # (Auto) 6.3, Lymph # (Auto) 1.7, [place] # (Auto) 0.9, Eos # (Auto) 0.5 H, Baso # (Auto) 0.1, Sodium 139, Potassium 3.8, Chloride 107, Carbon Dioxide 28, Anion Gap 7.8, BUN 18, Creatinine 1.00, Estimated Creat Clear 115, Estimated GFR 76, Est GFR ( Amer) 92, Glucose 84, Calcium 10.3 H, Total Bilirubin 0.4, AST 23, ALT 14, Alkaline Phosphatase 108, Troponin I < 0.01, NT-Pro-B Natriuret Pep 112, Total Protein 7.0, Albumin 3.8, Globulin 3.2, Albumin/Globulin Ratio 1.2 03/18/25 19:05 03/18/25 19:05 Orders (Tests/Meds): ED MEDICATIONS Discontinued Medications Generic Name Dose Route Start Last Admin Trade Name Freq PRN Reason Stop Dose Admin Iopamidol 70 ml 03/18/25 19:34 03/18/25 19:35 Iopamidol-370 (76%);100ml Bottle IV 03/18/25 19:35 70 ml ONCE ONE Administration Sodium Chloride 50 ml 03/18/25 19:34 03/18/25 19:35 0.9 % Sodium Chloride 50 Ml Vial IV 03/18/25 19:35 50 ml ONCE ONE Administration Sodium Chloride 10 ml 03/18/25 19:34 03/18/25 19:35 Sodium Chloride 0.9% 10ml Syr (Rad Only) IV 03/18/25 19:35 10 ml ONCE ONE Administration ORDERS Category Date Time Status CT abdomen pelvis w con Stat Cat Scan 03/18/25 18:[address] angio chest PE protocol Stat Cat Scan 03/18/25 18:40 Completed BNP [NT Pro Brain Natriuretic Pep.] Stat Lab 03/18/25 19:05 Completed CBC w/Auto Diff [Complete Blood Count Auto Diff] Stat Lab 03/18/25 19:05 Completed CMP [Comprehensive Metabolic Panel] Stat Lab 03/18/25 19:05 Completed Trop I [Troponin I] Stat Lab 03/18/25 19:05 Completed UA [Urinalysis and Microscopic] Stat Lab 03/18/25 18:57 Completed Urine Chlam/Gono/Trich, MILLA Routine Lab 03/18/25 18:57 Completed Urine Culture Stat Micro 03/18/25 18:57 Completed Medical Decision Narrative: Patient is a 60-year-old gentleman who presented to the emergency department with swelling of his extremities as well as the scrotum. On arrival, patient was hemodynamically stable with unremarkable vital signs. Differential includes but not limited to heart failure, DVT, SVC syndrome, orchitis, testicular torsion, epididymitis, pulmonary embolism, amongst others. Given patient's unilateral swelling, CT chest and CT abdomen were obtained to evaluate for any compressive symptoms. Patient's exam showed mild swelling no tenderness no erythema no lower abdominal tenderness to suggest testicular torsion. Patient's exam likely consistent with orchitis at this time. Patient's labs were reviewed and interpreted by myself, CBC showed no leukocytosis, mildly elevated platelets, hemoglobin stable. CMP was unremarkable. UA had some bacteria white blood cells no leukocytes no nitrates. Initial troponin was less than 0.01. Gonorrhea and Chlamydia were negative. CT chest and CT abdomen showed concern for multiple enlarged lymphadenopathy throughout the chest and the left upper extremity. No other acute findings. At this time, given that patient was stable I felt that patient was appropriate for discharge home. However I discussed with the patient my concern that his new lymphadenopathy could be cancerous in nature. Patient was sent with outpatient oncology follow-up and recommends to call them on Friday to schedule an appointment. Patient was sent with [facility] for concern for bilateral hydroceles and possible orchitis. Patient was sent with urology follow-up and recommended to call on Friday to schedule an appointment as well. Patient was instructed to return to the emergency department for any acute or worsening symptoms. Patient understood and I discussed this care with the patient's daughter as well who understood and stated she would help the patient get his appointments set up. At this time, patient was stable and appropriate for discharge home. Critical Care Critical Care Time Critical Care Time: No
[2025-03-18 18:15] VITALS: BP 155/83; PULSE 72; RESP 20; TEMP 36.9; O2SAT 97; BMI 29.2
--- NOTE | 2025-03-18 18:40 | CT_ITS ---
PROCEDURE INFORMATION: Exam: CTA Chest With Contrast Exam date and time: 03/18/2025 7:35 PM Age: 60 years old Clinical indication: Other: Lue swelling TECHNIQUE: Imaging protocol: Computed tomographic angiography of the chest with contrast. Exam focused on the arteries. 3D rendering (Not supervised by radiologist): MIP and/or 3D reconstructed images were created by the technologist. Radiation optimization: All CT scans at this facility use at least one of these dose optimization techniques: automated exposure control; mA and/or kV adjustment per patient size (includes targeted exams where dose is matched to clinical indication); or iterative reconstruction. Contrast material: ISO 370; Contrast volume: 70 ml; Contrast route: INTRAVENOUS (IV); COMPARISON: CT CHEST WO CON 09/06/2022 12:55 PM FINDINGS: Pulmonary arteries: The bolus is not optimal. There is no definite acute pulmonary embolus appreciated. Aorta: Unremarkable. No aortic aneurysm. No aortic dissection. Lungs: See Pleural spaces finding. Pleural spaces: There are small bilateral pleural effusions. Motion artifact limits the evaluation of the lungs. There is scattered atelectasis. There is no focal consolidation appreciated. There is a tiny subpleural nodule within the anterior right middle lobe that was present on September 06, 2022. Heart: Unremarkable. No cardiomegaly. No pericardial effusion. Lymph nodes: There are several new small lymph nodes adjacent to the right trachea at the thoracic inlet that measure up to 9 mm in short axis diameter. There are several anterior and central mediastinal lymph nodes that are relatively small. There is an enlarged right hilar lymph node with a short axis diameter of 2.1 cm. There are small left hilar lymph nodes, some of which are calcified. There are small lymph nodes within the upper abdomen adjacent to the lesser curvature of the stomach and the inferior vena cava. Bones/joints: Unremarkable. No acute fracture. Soft tissues: There is mild subcutaneous edema of the chest that is much more prominent on the left. There are several left axillary lymph nodes that are larger than the right axillary lymph nodes. Mild enlargement of the lower left lobe of the thyroid however no discrete mass identified. IMPRESSION: 1. Suboptimal bolus. No acute pulmonary embolus identified. 2. Tiny bilateral pleural effusions. No focal consolidation seen within the lungs. 3. Several new and enlarged mediastinal lymph nodes compared to the previous examination with an enlarged right hilar lymph node measuring 2.1 cm in short axis diameter. 4. Left chest wall edema and mild edema within the upper mediastinal fat. Mildly enlarged left axillary lymph nodes. 5. Other findings as above. The extensive adenopathy seen within the left axilla, mediastinum, right hilum, mesentery and the inguinal regions on the comparison CT abdomen and pelvis performed at the same time raise the possibility of a lymphoproliferative process such as leukemia or lymphoma.
--- NOTE | 2025-03-18 18:40 | CT_ITS ---
PROCEDURE INFORMATION: Exam: CT Abdomen And Pelvis With Contrast Exam date and time: 03/18/2025 7:35 PM Age: 60 years old Clinical indication: Other: Swelling in lue/lle TECHNIQUE: Imaging protocol: Computed tomography of the abdomen and pelvis with contrast. 3D rendering (Not supervised by radiologist): MIP and/or 3D reconstructed images were created by the technologist. Radiation optimization: All CT scans at this facility use at least one of these dose optimization techniques: automated exposure control; mA and/or kV adjustment per patient size (includes targeted exams where dose is matched to clinical indication); or iterative reconstruction. Contrast material: ISOVUE; Contrast volume: 70 ml; Contrast route: IV; COMPARISON: CT ABDOMEN PELVIS WO CON 07/08/2022 10:15 PM FINDINGS: Pleural spaces: Tiny bilateral pleural effusions. Calcifications at the aortic root. Tiny pericardial effusion. Liver: Normal. No mass. Gallbladder and biliary ducts: Normal. No calcified stones. No ductal dilation. Pancreas: Normal. No ductal dilation. Spleen: Normal-size spleen with multiple calcified granulomata. Adrenal glands: Normal. No mass. Kidneys and ureters: Bilateral extrarenal pelvis again demonstrated that is similar to the previous examination. No definite hydronephrosis. Stomach and bowel: Unremarkable. No obstruction. No mucosal thickening. Appendix: Small atrophic retrocecal appendix again appears to be present. Intraperitoneal space: See Vasculature finding. Vasculature: Mild atherosclerotic plaquing abdominal aorta. No aneurysm. Mild narrowing at the origin of the celiac axis. There is a mild patchy increase in attenuation within the mesentery with prominent veins. There is probably mesenteric venous congestion. There is a small amount of free fluid within the pelvis. Lymph nodes: 1.5 cm lymph node with a short axis diameter anterior to the inferior vena cava within the upper abdomen. Second adjacent 0.9 cm lymph node. There are several small mesenteric lymph nodes. Urinary bladder: Unremarkable as visualized. Reproductive: Moderately large bilateral scrotal hydroceles. Bones/joints: L4-L5 fusion is again noted with facet joint arthritis within the lower lumbar spine. Soft tissues: There is mild subcutaneous edema there is mild edema involving the umbilicus. Small fat containing right inguinal hernia. Mild edema noted within the upper thighs. IMPRESSION: 1. Tiny pericardial effusion, tiny bilateral pleural effusions, subcutaneous edema, small amount of free fluid within the pelvis and bilateral scrotal hydroceles. The findings are consistent with generalized edema. 2. There does appear to be venous congestion within the mesentery which has a marnie appearance. No portal vein thrombosis. 3. Several small mesenteric lymph nodes are now present which do not appear bulky. Probable reactive lymph nodes. 4. There is no evidence of an obstruction or other acute finding seen within the abdomen or pelvis.
[2025-03-18 19:05] LABS: Microscopic, Urine URINE MICROSCOPIC (MICROSCOPIC)
[2025-03-18 19:08] LABS: Bilirubin,Urine Negative (Negative); Color,Urine YELLOW (Yellow); Glucose,Urine (UA) Negative (Negative); Ketones,Urine Negative (Negative); Leukocyte Esterase,Urine Negative (Negative); PH,Urine 6.0 (5.0-8.5); Protein,Urine Negative (Negative); Specific Gravity, Urine >= 1.030 (1.005-1.030); Urobilinogen,Urine 4.0 EU/dl (0.2)
[2025-03-18 19:13] LABS: Hematocrit 45.1 % (42.0-52.0); Hemoglobin 14.7 g/dL (14.1-18.0); Immature Granulocytes % 0.3 %; Mean Corpuscular HGB Conc 32.6 g/dL (31.8-35.4); Mean Corpuscular Hemoglobin 29.9 pg (27.0-31.2); Mean Corpuscular Volume 91.7 fl (80-94); Nucleated Red Blood Cells % 0 %; Platelet Count 433 K/mm3 (142-424); Red Blood Count 4.92 M/mm3 (4.60-6.20); Red Cell Distribution Width-SD 47.3 fL; White Blood Count 9.6 K/mm3 (4.8-10.8)
--- NOTE | 2025-03-18 19:16 | PC.NURSE ---
Report received on patient at this time
[2025-03-18 19:26] LABS: Alanine Aminotransferase 14 U/L (12-78); Albumin Level 3.8 g/dl (3.5-5.0); Albumin/Globulin Ratio 1.2 (1.1-1.8); Alkaline Phosphatase 108 U/L (38-126); Anion Gap 7.8 mEq/L (5-15); Aspartate Amino Transferase 23 U/L (17-59); Bilirubin,Total 0.4 mg/dl (0.2-1.3); Blood Urea Nitrogen 18 mg/dl (9-20); Calcium 10.3 mg/dl (8.4-10.2); Carbon Dioxide 28 mmol/L (22.0-30.0); Chloride 107 mmol/L (98-107); Creatinine Clearance Estimated 115 mL/min (50-200); Creatinine,Serum 1.00 mg/dl (0.66-1.25); Estimated Glomerular Filt Rate 76 ml/min (>60); GFR (African American) 92 ML/MIN (>60); Globulin 3.2 g/dL (1.3-3.2); Glucose 84 mg/dl (74-100); Potassium 3.8 mmoL/L (3.5-5.1); Sodium 139 mmol/L (136-145); Total Protein,Serum 7.0 g/dl (6.3-8.2)
[2025-03-18 19:28] LABS: Bacteria,Urine 1+ /lpf; Squamous Epithelial Cell,Urine Occasional #/hpf (0-5); WBC,Urine Occasional #/hpf (0-3)
[2025-03-18 19:29] LABS: Calcium Oxalate Crystals,Urine 2+ /lpf; Mucus,Urine 1+ /lpf
[2025-03-18] MEDS: SODIUM CHLORIDE 0.9% 10ML SYR (RAD ONLY) 10 ML IV (19:35)
[2025-03-18] MEDS: IOPAMIDOL-370 (76%);100ML BOTTLE 70 ML IV (19:35)
[2025-03-18] MEDS: 0.9 % SODIUM CHLORIDE 50 ML VIAL IV (19:35)
[2025-03-18 19:37] LABS: NT Pro Brain Natriuretic Pep. 112 pg/mL (0-125)
[2025-03-18 19:39] LABS: Troponin I < 0.01 ng/ml (0.00-0.034)
--- NOTE | 2025-03-18 21:29 | PC.NURSE ---
Decision to move patient to different room so provider can have sensitive conversation with patient.
[2025-03-18 22:28] VITALS: BP 155/83; PULSE 72; RESP 20; TEMP 36.6; O2SAT 97
== END 2025-03-18 22:30 | disposition home or self-care (01) ==
PROVIDERS: Emergency Provider Student in an Organized Health Care Education/Training Program; PCP Internal Medicine
DX: R59.1 Generalized enlarged lymph nodes (principal); I10 Essential (primary) hypertension; Z87.891 Personal history of nicotine dependence
CPT/HCPCS: 71275; 74177; 80053; 81001; 83880; 84484; 85025; 87086; 87491; 87591; 87661; 99284; Q9967

== ENCOUNTER 2025-03-31 14:41 | Outpatient (CLI) | payer OTHER, SELFPAY ==
--- OUTSIDE RECORDS SUMMARY | 2025-03-31 14:44 | XMS_ITS | Clinical Summary ---
[facility] Address [address] [place] [address] Care Team Providers Care Sonoscope Operator Name Role Phone Unavailable Primary Care Provider [...]
[2025-03-31 15:55] LABS: Creatine Kinase 47 U/L (55-170)
[2025-03-31 16:01] LABS: C-Reactive Protein 30.1 mg/L (0-4)
== END 2025-03-31 23:59 | disposition home or self-care (01) ==
LOC: LAB 14:41
PROVIDERS: PCP Internal Medicine; Visit Provider Internal Medicine Medical Oncology
DX: R59.1 Generalized enlarged lymph nodes (principal); D64.9 Anemia, unspecified
CPT/HCPCS: 36415; 82550; 83615; 85651; 86140

== ENCOUNTER 2025-04-01 08:56 | Outpatient (CLI) | payer OTHER, SELFPAY ==
--- OUTSIDE RECORDS SUMMARY | 2025-04-01 08:59 | XMS_ITS | Clinical Summary ---
[facility] Address [address] [place] [address] Care Team Providers Care Clerk General Name Role Phone Unavailable Primary Care Provider [...]
--- NOTE | 2025-04-01 09:30 | CA_ITS ---
APPROVED REPORT EXAM: Comprehensive 2D, Doppler, and color-flow Echocardiogram Physical Plant Manager: Isabela Connors RT(R) Ht: 6 ft 3 in Wt: 234lbs BSA: 2.35 BP: 143/77 mmHg Indications: pericardial effusion seen on CT abdomen, history of PE 03/18/25 2D Dimensions LVEF (Kate's) 64.00 % M: 52 - 72 LV Volume 120.30 mL M: 62 - 150 LV Volume Index 51.2 mL/m2 M: 34 - 74 LA Volume 18.90 mL LA Volume Index 8.04 mL/m2 (M/F) 16-34 EF AP4 66.00 % EF AP2 62.2 % EF BP 64.0 % GL Strain -16.6 % M-Mode Dimensions RVDd 3.10 cm (0.9-2.6) LA Diam 3.79 cm (1.9-4.0) LVDd 4.88 cm (3.5-5.7) LVDs 3.82 cm (3.5-5.7) IVSd 0.76 cm (0.6-1.1) PWd 0.85 cm (0.6-1.1) EF (Teich) 43.90% FS 21.70% EDV (Teich) 111.70 mL ESV (Teich) 62.70 mL LV Diastology E Decel Time 330 (160-240 msec) E/A Ratio 0.9 Mitral Valve MV E Max Jayce. 83.0 (40-130 cm/s) MV A Velocity 96.0 (40-130 cm/s) E/A Ratio 0.87 MV PHT 97.0 ms Left Ventricle The left ventricle is normal size. Left ventricular systolic function is normal. The left ventricular ejection fraction is within the normal range. There is increased left ventricular wall thickness. There is normal LV segmental wall motion. Transmitral Doppler flow pattern suggests impaired LV relaxation. LVEF is 55% Right Ventricle The right ventricle is normal size. The right ventricular systolic function is normal. Atria The left atrium size is normal. The right atrium size is normal. There is no color Doppler evidence of interatrial shunt. Aortic Valve The aortic valve is mildly thickened. There is no hemodynamically significant aortic valvular stenosis. No aortic regurgitation is present. Mitral Valve The mitral valve is normal in structure. No evidence of mitral valve stenosis. Trace mitral regurgitation is present. Tricuspid Valve The tricuspid valve leaflets are thin and pliable. Trace tricuspid regurgitation. There is insufficient TR jet to estimate RVSP. Pulmonic Valve The pulmonary valve is grossly normal in structure. Trace pulmonic valve regurgitation is present. Great Vessels The aortic root is normal in size. IVC is normal in size and collapses >50% with inspiration. Pericardium There is a small-sized, circumferential pericardial effusion. The largest pocket is noted anteriorly and measures 0.3 cm in diastole. No echo indications of tamponade. Other Information Study Quality: Fair Conclusion Normal biventricular size and systolic function. No significant valvular stenosis or regurgitation. Small-sized, circumferential pericardial effusion. The largest pocket is noted anteriorly and measures 0.3 cm in diastole. No echo indications of tamponade. Electronically signed by : Kathleen Gutierrez MD 04/02/2025 12:19:24
--- NOTE | 2025-04-01 10:25 | US_ITS ---
FINAL REPORT TECHNIQUE: Limited sonographic images of the thyroid were obtained. CLINICAL HISTORY: Thyroid mass FINDINGS: The right lobe of the thyroid measures 2.6 x 5.1 x 2.0 cm. There are 2 isoechoic nodules, largest measures 13 mm. There is a hyperechoic nodule measuring 9 mm. The left lobe of the thyroid measures 6.3 x 2.5 x 2.6 cm. Colloid cyst is seen in the upper pole. There is a 21 mm hypoechoic nodule in the deep left thyroid consistent with TR 4. There is a third isoechoic nodule measuring 20 mm consistent with TR 3. IMPRESSION: TR4 left thyroid nodule. FNA should be considered but may be difficult due to the depth of the nodule. Bilateral TR 3 nodules. Recommend continued follow-up. Reviewed, Interpreted and Dictated by Anayeli Rojas MD Transcribed by Sonja Arroyo Authenticated and . [facility]
--- NOTE | 2025-04-01 14:00 | US_ITS ---
FINAL REPORT CLINICAL HISTORY: Swelling FINDINGS: Limited sonographic images of the soft tissues in the neck were obtained. The right submandibular and parotid glands appear homogeneous. There are mildly enlarged lymph nodes in the right neck, largest measures 2.8 cm. The left submandibular and parotid glands appear homogeneous. There are mildly enlarged left cervical lymph nodes, largest measures 2.5 cm. IMPRESSION: No salivary gland mass. Bilateral nonspecific cervical lymphadenopathy. Reviewed, Interpreted and Dictated by Anayeli Rojas MD Transcribed by Sonja Arroyo Authenticated and [facility]
--- NOTE | 2025-04-01 14:30 | CA_ITS ---
FINAL REPORT TECHNIQUE: Graded compression, spectral analysis and ultrasound images of the venous system of the upper extremity were obtained. CLINICAL HISTORY: SWELLING LT ARM AND NECK X SEVERAL MONTHS FINDINGS: There is incomplete compression of the left internal jugular vein with nonocclusive thrombus. The other veins are patent and compressible. IMPRESSION: Nonocclusive left internal jugular vein thrombus. Reviewed, Interpreted and Dictated by Anayeli Rojas MD Transcribed by Sonja Arroyo Authenticated and [facility]
--- NOTE | 2025-04-01 15:15 | CA_ITS ---
FINAL REPORT TECHNIQUE: Ultrasound images of the deep venous system were obtained from the left groin to the calf veins. CLINICAL HISTORY: SWELLING LLE X SEVERAL MONTHS,NKI FINDINGS: The deep venous system is normally compressible. Normal flow is identified. There are enlarged but benign appearing lymph nodes in the left groin. IMPRESSION: No evidence of left lower extremity DVT. Reviewed, Interpreted and Dictated by Anayeli Rojas MD Transcribed by Sonja Arroyo Authenticated and [facility]
== END 2025-04-01 23:59 | disposition home or self-care (01) ==
LOC: RT 08:57
PROVIDERS: PCP Internal Medicine; Visit Provider Internal Medicine
DX: I31.39 Other pericardial effusion (noninflammatory) (principal); I82.C12 Acute embolism and thrombosis of left internal jugular vein; E04.1 Nontoxic single thyroid nodule; R59.1 Generalized enlarged lymph nodes; R60.0 Localized edema
CPT/HCPCS: 76536; 93306; 93971

== ENCOUNTER 2025-04-03 11:13 | Emergency (ER) | payer OTHER, SELFPAY ==
--- OUTSIDE RECORDS SUMMARY | 2025-04-02 18:54 | XMS_ITS | Encounter Summary ---
Author Organization [facility] Address [address] [place] [address] Care Team Providers Care Bander And Cellophaner Machine Helper Name Role Phone Rupesh Arvizu Primary Care Provider + Reason for Visit * Reason Comments Arm Swelling Encounter Details Date Type Department Care Team (Late st Contact Info) Description 04/02/2025 6:54 PM EDT - 04/02/2025 9:27 PM EDT Emergency [facility] [address] [facility] [place] [phone] Patric Cooney MD [address] [place] [address] Edema, unspecified type (Primary Dx) [...] 6:53 PM EDT Raegan Silva, PATI * [place] Suicide Severity Rating Scale (Screener/Recent Self-Report) Question [...] sent through Care Everywhere. * Peripheral Edema ([place]oz[place]) * Edema ([place]) documented in this encounter Medications at Time of Discharge furosemide (LASIX) 20 MG tablet Take 1 tablet by mouth Daily for 5 days. 5 tablet 04/02/2025 04/07/2025 documented as of this encounter Plan of Treatment Not on [...] * Telemetry Scan (04/02/2025 8:44 PM EDT) [facility] Onbase ECG ORDERABLES Final Result * (ABNORMAL) Urinalysis, Microscopic Only - Urine, Clean Catch (04/02/2025 7:50 PM EDT) RBC, UA 6-10(A) None Seen, 0-2 /HPF 04/02/2025 8:46 PM EDT [facility] WBC, UA 0-2 None Seen, 0-2 /HPF 04/02/2025 8:46 PM EDT [facility] Bacteria, UA None Seen None Seen /HPF 04/02/2025 8:46 PM EDT [facility] Squamous Epithelial Cells, UA 0-2 None Seen, 0-2 /HPF 04/02/2025 8:46 PM EDT [facility] Hyaline Casts, UA None Seen None Seen /LPF 04/02/2025 8:46 PM EDT [facility] Calcium Oxalate Crystals, UA Large/3+ None Seen /HPF 04/02/2025 8:46 PM EDT [facility] Methodology Manual Light Microscopy 04/02/2025 8:46 PM EDT [facility] Urine Urine specimen obtained by clean catch procedure / Unknown Collection / Unknown 04/02/2025 7:50 PM EDT 04/02/2025 7:57 PM EDT Oumar PALOMARES URINE ORDERABLES Final Result [facility]
[address] [place] [address], * (ABNORMAL) CBC Auto Differential (04/02/2025 7:50 PM EDT) WBC 11.29(H) 3.40 - 10.80 10*3/mm3 04/02/2025 7:59 PM EDT [facility] RBC 5.08 4.14 - 5.80 10*6/mm3 04/02/2025 7:59 PM EDT [facility] Hemoglobin 15.3 13.0 - 17.7 g/dL 04/02/2025 7:59 PM EDT [facility] Hematocrit 47.0 37.5 - 51.0 % 04/02/2025 7:59 PM EDT [facility] MCV 92.5 79.0 - 97.0 fL 04/02/2025 7:59 PM EDT [facility] MCH 30.1 26.6 - 33.0 pg 04/02/2025 7:59 PM EDT [facility] MCHC 32.6 31.5 - 35.7 g/dL 04/02/2025 7:59 PM EDT [facility] RDW 13.7 12.3 - 15.4 % 04/02/2025 7:59 PM EDT [facility] RDW-SD 46.5 37.0 - 54.0 fl 04/02/2025 7:59 PM EDT [facility] MPV 9.3 6.0 - 12.0 fL 04/02/2025 7:59 PM EDT [facility] Platelets 380 140 - 450 10*3/mm3 04/02/2025 7:59 PM EDT [facility] Neutrophil % 70.9 42.7 - 76.0 % 04/02/2025 7:59 PM EDT [facility] Lymphocyte % 15.5(L) 19.6 - 45.3 % 04/02/2025 7:59 PM EDT [facility] Monocyte % 8.9 5.0 - 12.0 % 04/02/2025 7:59 PM EDT [facility] Eosinophil % 3.4 0.3 - 6.2 % 04/02/2025 7:59 PM EDT [facility] Basophil % 0.9 0.0 - 1.5 % 04/02/2025 7:59 PM EDT [facility] Immature Grans % 0.4 0.0 - 0.5 % 04/02/2025 7:59 PM EDT [facility] Neutrophils, Absolute 8.02(H) 1.70 - 7.00 10*3/mm3 04/02/2025 7:59 PM EDT [facility] Lymphocytes, Absolute 1.75 0.70 - 3.10 10*3/mm3 04/02/2025 7:59 PM EDT [facility] Monocytes, Absolute 1.00(H) 0.10 - 0.90 10*3/mm3 04/02/2025 7:59 PM EDT [facility] Eosinophils, Absolute 0.38 0.00 - 0.40 10*3/mm3 04/02/2025 7:59 PM EDT [facility] Basophils, Absolute 0.10 0.00 - 0.20 10*3/mm3 04/02/2025 7:59 PM EDT [facility] Immature Grans, Absolute 0.04 0.00 - 0.05 10*3/mm3 04/02/2025 7:59 PM EDT [facility] nRBC 0.0 0.0 - 0.2 /100 WBC 04/02/2025 7:59 PM EDT [facility] Blood Venipuncture / Unknown 04/02/2025 7:50 PM EDT 04/02/2025 7:57 PM EDT us Oumar PALOMARES LAB BLOOD ORDERABLES Final Resu lt [facility]
[address] [place] [address], * BNP (04/02/2025 7:50 PM EDT) proBNP 107.0 0.0 - 900.0 pg/mL 04/02/2025 8:22 PM EDT [facility] Blood Venipuncture / Unknown 04/02/2025 7:50 PM EDT 04/02/2025 7:57 PM EDT Narrative [facility] - 04/02/2025 8:22 PM EDT [...] >75 Positive >1800 [place] 300-1800 Negative <300 us Oumar PALOMARES LAB BLOOD ORDERABLES Final Resu lt [facility]
[address] [place] [address], * (ABNORMAL) Urinalysis With Microscopic If Indicated (No Culture) - Urine, Clean Catch (04/02/2025 7:50 PM EDT) Color, UA Yellow Yellow, Straw 04/02/2025 8:27 PM EDT [facility] Appearance, UA Cloudy(A) Clear 04/02/2025 8:27 PM EDT [facility] pH, UA 6.5 5.0 - 8.0 04/02/2025 8:27 PM EDT [facility] Specific [place], UA 1.019 1.005 - 1.030 04/02/2025 8:27 PM EDT [facility] Glucose, UA Negative Negative 04/02/2025 8:27 PM EDT [facility] Ketones, UA Negative Negative 04/02/2025 8:27 PM EDT [facility] Bilirubin, UA Negative Negative 04/02/2025 8:27 PM EDT [facility] Blood, UA Trace(A) Negative 04/02/2025 8:27 PM EDT [facility] Protein, UA Negative Negative 04/02/2025 8:27 PM EDT [facility] Leuk Esterase, UA Negative Negative 04/02/2025 8:27 PM EDT [facility] Nitrite, UA Negative Negative 04/02/2025 8:27 PM EDT [facility] Urobilinogen, UA 1.0 E.U./dL 0.2 - 1.0 E.U./dL 04/02/2025 8:27 PM EDT [facility] Urine Urine specimen obtained by clean catch procedure / Unknown Collection / Unknown 04/02/2025 7:50 PM EDT 04/02/2025 7:57 PM EDT Oumra PALOMARES URINE ORDERABLES Final Result [facility]
[address] [place] [address], * (ABNORMAL) Comprehensive Metabolic Panel (04/02/2025 7:50 PM EDT) Pathologist [facility] Glucose 74 65 - 99 mg/dL 04/02/2025 8:22 PM EDT [facility] BUN 13.6 8.0 - 23.0 mg/dL 04/02/2025 8:22 PM EDT [facility] Creatinine 0.99 0.76 - 1.27 mg/dL 04/02/2025 8:22 PM EDT [facility] Sodium 139 136 - 145 mmol/L 04/02/2025 8:22 PM EDT [facility] Potassium 4.0 3.5 - 5.2 mmol/L 04/02/2025 8:22 PM EDT [facility] Chloride 108(H) 98 - 107 mmol/L 04/02/2025 8:22 PM EDT [facility] CO2 24.5 22.0 - 29.0 mmol/L 04/02/2025 8:22 PM EDT [facility] Calcium 9.6 8.6 - 10.5 mg/dL 04/02/2025 8:22 PM EDT [facility] Total Protein 6.2 6.0 - 8.5 g/dL 04/02/2025 8:22 PM EDT [facility] Albumin 2.9(L) 3.5 - 5.2 g/dL 04/02/2025 8:22 PM EDT [facility] ALT (SGPT) 8 1 - 41 U/L 04/02/2025 8:22 PM EDT [facility] AST (SGOT) 15 1 - 40 U/L 04/02/2025 8:22 PM EDT [facility] Alkaline Phosphatase 140(H) 39 - 117 U/L 04/02/2025 8:22 PM EDT [facility] Total Bilirubin 0.4 0.0 - 1.2 mg/dL 04/02/2025 8:22 PM EDT [facility] Globulin 3.3 gm/dL 04/02/2025 8:22 PM EDT [facility] Comment:Calculated Result A/G Ratio 0.9 g/dL 04/02/2025 8:22 PM EDT [facility] BUN/Creatinine Ratio 13.7 7.0 - 25.0 04/02/2025 8:22 PM EDT [facility] Anion Gap 6.5 5.0 - 15.0 mmol/L 04/02/2025 8:22 PM EDT [facility] eGFR 86.1 >60.0 mL/min/1.7 3 04/02/2025 8:22 PM EDT [facility] Blood Venipuncture / Unknown 04/02/2025 7:50 PM EDT 04/02/2025 7:57 PM EDT [facility] - 04/02/2025 8:22 PM EDT GFR [...] PALOMARES LAB BLOOD ORDERABLES Final Resu lt [facility]
[address] [place] [address], * XR Chest 1 View (04/02/2025 7:41 PM EDT) Anatomical Region Laterality Modality Body N/A Radiographic Sejal ging 04/02/2025 7:44 PM EDT Impressions 04/02/2025 7:47 PM EDT Impression: No acute cardiopulmonary process. Electronically Signed: Israel Euceda MD 04/02/2025 7:47 PM EDT Workstation ID: [id number] Narrative 04/02/2025 7:47 PM EDT XR CHEST [...] MD 04/02/2025 7:47 PM EDT Workstation ID: [id number] Oumar PALOMARES IMG DIAGNOSTIC IMAGING ORDERABL ES [...] RN) documented in this encounter Care Teams Bander And Cellophaner Machine Helper Relationship Specialty Start Date End Date Rupesh Arvizu DO [address] [place] [id number] PCP - General Internal Medicine 04/02/25 documented as of this encounter
--- OUTSIDE RECORDS SUMMARY | 2025-04-03 11:23 | XMS_ITS | Encounter Summary ---
Author Organization [facility] Address [address] [place] [address] Care Team Providers Care Farmworkers Name Role Phone Rupesh Arvizu Primary Care Provider + Encounter Details Date Type Department Care Team (Latest Contact Info) Description 04/02/2025 Travel Social History Tobacco Use Types Packs/Day Years [...] on file documented as of this encounter Functional Status * Calculated C-SSRS Risk Score (Lifetime/Recent) Answer Date of Assessment Author No Risk Indicated 04/02/2025 6:53 PM EDT Raegan Silva, PATI * [place] Suicide Severity Rating Scale (Screener/Recent Self-Report) Question Answer Date of Assessment Author 1. Wish to be (Past 1 Month) No 025 6:53 PM EDT Raegan Silva, PATI 2. Non-Specific Active Suici brendan Thoughts (Past 1 Month) No 04/02/2025 6:53 PM EDT Raegan Silva , PATI 6. Suicidal Behavior (Lifetime) No 5 6:53 PM EDT Raegan Silva, PATI documented as of this encounter Plan of Treatment Not on file documented as of this encounter Visit Diagnoses Not on filedocumented in this encounter Care Teams Farmworkers Relationship Specialty Start Date End Date Rupesh Arvizu DO [address] [place] [address] PCP - General Internal Medicine 04/02/25 documented as of this encounter
--- OUTSIDE RECORDS SUMMARY | 2025-04-03 11:23 | XMS_ITS | Clinical Summary ---
[facility] Organization [facility] Address [address] [place] [address] Care Team Providers Care Abstract Maker Name Role Phone Rupesh Arvizu Primary Care Provider + Allergies No known active allergies Medications furosemide (LASIX) 20 MG tablet Take 1 tablet by mouth Daily for 5 days. 5 tablet 04/02/2025 Active Encounters Date Type Department Care Team Description 04/02/2025 6:54 PM EDT - 04/02/2025 9:27 PM EDT Emergency [facility] [address] [place] [phone] Patric Cooney MD Edema, unspecified type (Primary Dx) Discharge Disposition: Home or Self Care 04/02/2025 Travel from Last 3 Months Social History Tobacco Use Types Packs/Day Years [...] on file Sexual Orientation Not on file Last Filed Vital Signs Vital Sign Reading [...] Mass Index 30.37 04/02/2025 6:48 PM EDT Plan of Treatment Health Maintenance Due Date Last Done Comments ANNUAL PHYSICAL 1965 HEPATITIS C SCREENING 1965 TDAP/TD VACCINES (2 - Tdap) 11/01/2006 11/01/1996 COLOGUARD 01/29/2008 COLON CANCER SCREENING 5 YEAR SIGMOIDOSCOPY 01/29/2008 COLONOSCOPY 01/29/2008 COLORECTAL CANCER SCREENING 01/29/2008 CT COLONOGRAPHY 01/29/2008 FECAL OCCULT BLOOD TEST 01/29/2008 FIT Testing (1 year) 01/29/2008 Pneumococcal Vaccine 50+ (1 of 1 - PCV) 2013 ZOSTER VACCINE (1 of 2) 2013 COVID-19 Vaccine (1 - season) 2024 INFLUENZA VACCINE 06/01/2025 Procedures Procedure Name Priority Date/Time Associated Diagnosis Comments SCANNED - TELEMETRY 04/02/2025 8 :44 PM EDT CBC AND DIFFERENTIAL STAT 04/02/2025 7:50 PM EDT URINALYSIS, MICROSCOPIC ONLY STAT 04/02/2025 7:50 PM EDT CBC WITH AUTO DIFFERENTIAL STAT 04/02/2025 7:50 PM EDT B-TYPE NATRIURETIC PEPTIDE STAT 04/02/2025 7:50 PM EDT URINALYSIS W/ MICROSCOPIC IF INDICATED (NO CULTURE) STAT 04/02/2025 7:50 PM EDT COMPREHENSIVE METABOLIC PANEL STAT 04/02/2025 7:50 PM EDT XR CHEST 1 VW STAT 04/02/2025 7:41 PM EDT from Last 3 Months Results * Telemetry Scan (04/02/2025 8:44 PM EDT) [facility] ORDER[facility] Final Result * (ABNORMAL) Urinalysis, Microscopic Only - Urine, Clean Catch (04/02/2025 7:50 PM EDT) RBC, UA 6-10(A) None Seen, 0-2 /HPF 04/02/2025 8:46 PM EDT [facility] WBC, UA 0-2 None Seen, 0-2 /HPF 04/02/2025 8:46 PM EDT [facility] Bacteria, UA None Seen None Seen /HPF 04/02/2025 8:46 PM EDT [facility] Squamous Epithelial Cells, UA 0-2 None Seen, 0-2 /HPF 04/02/2025 8:46 PM EDT [facility] Hyaline Casts, UA None Seen None Seen /LPF 04/02/2025 8:46 PM EDT [facility] Calcium Oxalate Crystals, UA Large/3+ None Seen /HPF 04/02/2025 8:46 PM EDT [facility] Methodology Manual Light Microscopy 04/02/2025 8:46 PM EDT [facility] Urine Urine specimen obtained by clean catch procedure / Unknown Collection / Unknown 04/02/2025 7:50 PM EDT 04/02/2025 7:57 PM EDT Oumar PALOMARES URINE ORDERABLES Final Result [facility]
[address] [place] [address], * (ABNORMAL) Urinalysis With Microscopic If Indicated (No Culture) - Urine, Clean Catch (04/02/2025 7:50 PM EDT) Color, UA Yellow Yellow, Straw 04/02/2025 8:27 PM EDT [facility] Appearance, UA Cloudy(A) Clear 04/02/2025 8:27 PM EDT [facility] pH, UA 6.5 5.0 - 8.0 04/02/2025 8:27 PM EDT [facility] Specific [place], UA 1.019 1.005 - 1.030 04/02/2025 8:27 PM EDT [facility] Glucose, UA Negative Negative 04/02/2025 8:27 PM EDT [facility] Ketones, UA Negative Negative 04/02/2025 8:27 PM EDT [facility] Bilirubin, UA Negative Negative 04/02/2025 8:27 PM EDT [facility] Blood, UA Trace(A) Negative 04/02/2025 8:27 PM EDT [facility] Protein, UA Negative Negative 04/02/2025 8:27 PM EDT [facility] Leuk Esterase, UA Negative Negative 04/02/2025 8:27 PM EDT [facility] Nitrite, UA Negative Negative 04/02/2025 8:27 PM EDT [facility] Urobilinogen, UA 1.0 E.U./dL 0.2 - 1.0 E.U./dL 04/02/2025 8:27 PM EDT [facility] Urine Urine specimen obtained by clean catch procedure / Unknown Collection / Unknown 04/02/2025 7:50 PM EDT 04/02/2025 7:57 PM EDT Oumar PALOMARES URINE ORDERABLES Final Result [facility]
[address] [place] [address], * (ABNORMAL) CBC Auto Differential (04/02/2025 7:50 PM EDT) WBC 11.29(H) 3.40 - 10.80 10*3/mm3 04/02/2025 7:59 PM EDT [facility] RBC 5.08 4.14 - 5.80 10*6/mm3 04/02/2025 7:59 PM EDT [facility] Hemoglobin 15.3 13.0 - 17.7 g/dL 04/02/2025 7:59 PM EDT [facility] Hematocrit 47.0 37.5 - 51.0 % 04/02/2025 7:59 PM EDT [facility] MCV 92.5 79.0 - 97.0 fL 04/02/2025 7:59 PM EDT [facility] MCH 30.1 26.6 - 33.0 pg 04/02/2025 7:59 PM EDT [facility] MCHC 32.6 31.5 - 35.7 g/dL 04/02/2025 7:59 PM EDT [facility] RDW 13.7 12.3 - 15.4 % 04/02/2025 7:59 PM EDT [facility] RDW-SD 46.5 37.0 - 54.0 fl 04/02/2025 7:59 PM EDT [facility] MPV 9.3 6.0 - 12.0 fL 04/02/2025 7:59 PM EDT [facility] Platelets 380 140 - 450 10*3/mm3 04/02/2025 7:59 PM [facility] Neutrophil % 70.9 42.7 - 76.0 % 04/02/2025 7:59 PM [facility] Lymphocyte % 15.5(L) 19.6 - 45.3 % 04/02/2025 7:59 PM [facility] Monocyte % 8.9 5.0 - 12.0 % 04/02/2025 7:59 PM [facility] Eosinophil % 3.4 0.3 - 6.2 % 04/02/2025 7:59 PM [facility] Basophil % 0.9 0.0 - 1.5 % 04/02/2025 7:59 PM [facility] Immature Grans % 0.4 0.0 - 0.5 % 04/02/2025 7:59 PM [facility] Neutrophils, Absolute 8.02(H) 1.70 - 7.00 10*3/mm3 04/02/2025 7:59 PM [facility] Lymphocytes, Absolute 1.75 0.70 - 3.10 10*3/mm3 04/02/2025 7:59 PM [facility] Monocytes, Absolute 1.00(H) 0.10 - 0.90 10*3/mm3 04/02/2025 7:59 PM [facility] Eosinophils, Absolute 0.38 0.00 - 0.40 10*3/mm3 04/02/2025 7:59 PM [facility] Basophils, Absolute 0.10 0.00 - 0.20 10*3/mm3 04/02/2025 7:59 PM [facility] Immature Grans, Absolute 0.04 0.00 - 0.05 10*3/mm3 04/02/2025 7:59 PM [facility] nRBC 0.0 0.0 - 0.2 /100 WBC 04/02/2025 7:59 PM [facility] Blood Venipuncture / Unknown 04/02/2025 7:50 PM EDT 04/02/2025 7:57 PM EDT Oumar PALOMARES LAB BLOOD ORDERABLES Final Resu lt Performing Organization Address [facility]/ZIP Co de Phone Number [facility]
[address] [place] [address], * BNP (04/02/2025 7:50 PM EDT) proBNP 107.0 0.0 - 900.0 pg/mL 04/02/2025 8:22 PM EDT [facility] Blood Venipuncture / Unknown 04/02/2025 7:50 PM EDT 04/02/2025 7:57 PM EDT Narrative [facility] - 04/02/2025 8:22 PM EDT [...] Positive >1800 [place] 300-1800 Negative <300 Oumar PALOAMRES LAB BLOOD ORDERABLES Final Resu lt Performing Organization Address [facility]/ZIP Co de Phone Number [facility]
[address] [place] [address], [place] [phone] * (ABNORMAL) Comprehensive Metabolic Panel (04/02/2025 7:50 PM EDT) Glucose 74 65 - 99 mg/dL 04/02/2025 8:22 PM EDT [facility] BUN 13.6 8.0 - 23.0 mg/dL 04/02/2025 8:22 PM [facility] Creatinine 0.99 0.76 - 1.27 mg/dL 04/02/2025 8:22 PM [facility] Sodium 139 136 - 145 mmol/L 04/02/2025 8:22 PM [facility] Potassium 4.0 3.5 - 5.2 mmol/L 04/02/2025 8:22 PM [facility] Chloride 108(H) 98 - 107 mmol/L 04/02/2025 8:22 PM [facility] CO2 24.5 22.0 - 29.0 mmol/L 04/02/2025 8:22 PM [facility] Calcium 9.6 8.6 - 10.5 mg/dL 04/02/2025 8:22 PM [facility] Total Protein 6.2 6.0 - 8.5 g/dL 04/02/2025 8:22 PM [facility] Albumin 2.9(L) 3.5 - 5.2 g/dL 04/02/2025 8:22 PM [facility] ALT (SGPT) 8 1 - 41 U/L 04/02/2025 8:22 PM [facility] AST (SGOT) 15 1 - 40 U/L 04/02/2025 8:22 PM [facility] Alkaline Phosphatase 140(H) 39 - 117 U/L 04/02/2025 8:22 PM [facility] Total Bilirubin 0.4 0.0 - 1.2 mg/dL 04/02/2025 8:22 PM [facility] Globulin 3.3 gm/dL 04/02/2025 8:22 PM [facility] Comment:Calculated Result A/G Ratio 0.9 g/dL 04/02/2025 8:22 PM [facility] BUN/Creatinine Ratio 13.7 7.0 - 25.0 04/02/2025 8:22 PM [facility] Anion Gap 6.5 5.0 - 15.0 mmol/L 04/02/2025 8:22 PM EDT [facility] eGFR 86.1 >60.0 mL/min/1.7 3 04/02/2025 8:22 PM EDT [facility] Blood Venipuncture / Unknown 04/02/2025 7:50 PM EDT 04/02/2025 7:57 PM EDT Narrative [facility] - 04/02/2025 8:22 PM EDT [...] PALOMARES LAB BLOOD ORDERABLES Final Resu lt [facility]
[address] [place] [address], * XR Chest 1 View (04/02/2025 7:41 PM EDT) Anatomical Region Laterality Modality Body N/A Radiographic Sejal ging 04/02/2025 7:44 PM EDT Impressions 04/02/2025 7:47 PM EDT Impression: No acute cardiopulmonary process. Electronically Signed: Israel Euceda MD 04/02/2025 7:47 PM EDT Workstation ID: [id number] Narrative 04/02/2025 7:47 PM EDT XR CHEST [...] MD 04/02/2025 7:47 PM EDT Workstation ID: [id number] Oumar PALOMARES IMG DIAGNOSTIC IMAGING ORDERABL ES Final Result from Last 3 Months Insurance [facility] Care Teams Abstract Maker Relationship Specialty Start Date End Date Rupesh Arvizu DO [address] [place] [id number] PCP - General Internal Medicine 04/02/25
[2025-04-03 11:25] VITALS: BP 126/82; PULSE 67; RESP 16; TEMP 36.7; O2SAT 96; BMI 29.2
[2025-04-03 11:37] LABS: Microscopic, Urine URINE MICROSCOPIC (MICROSCOPIC)
[2025-04-03 11:46] LABS: Bilirubin,Urine Negative (Negative); Color,Urine RED (Yellow); Glucose,Urine (UA) Negative (Negative); Ketones,Urine TRACE (Negative); Leukocyte Esterase,Urine 1+ (Negative); PH,Urine 7.0 (5.0-8.5); Protein,Urine 2+ (Negative); Specific Gravity, Urine 1.010 (1.005-1.030); Urobilinogen,Urine 4.0 EU/dl (0.2)
[2025-04-03 12:09] LABS: Hematocrit 46.2 % (42.0-52.0); Hemoglobin 15.5 g/dL (14.1-18.0); Immature Granulocytes % 0.3 %; Mean Corpuscular HGB Conc 33.5 g/dL (31.8-35.4); Mean Corpuscular Hemoglobin 30.6 pg (27.0-31.2); Mean Corpuscular Volume 91.3 fl (80-94); Nucleated Red Blood Cells % 0 %; Platelet Count 409 K/mm3 (142-424); Red Blood Count 5.06 M/mm3 (4.60-6.20); Red Cell Distribution Width-SD 46.5 fL; White Blood Count 10.2 K/mm3 (4.8-10.8)
[2025-04-03 12:10] LABS: Bacteria,Urine 2+ /lpf; RBC,Urine TNTC #/hpf (0-3)
[2025-04-03 12:15] LABS: Albumin Level 2.9 g/dl (3.5-5.0); Chloride 105 mmol/L (98-107); Potassium 4.0 mmoL/L (3.5-5.1); Sodium 134 mmol/L (136-145)
[2025-04-03 12:17] LABS: Activated Partial Thrombo Time 27.5 seconds (22.8-30.6); INR 1.05 (0.9-1.1); Prothrombin Time 11.6 seconds (10.1-12.5)
[2025-04-03 12:18] LABS: Alanine Aminotransferase 14 U/L (12-78); Albumin/Globulin Ratio 0.7 (1.1-1.8); Alkaline Phosphatase 167 U/L (38-126); Anion Gap 5.0 mEq/L (5-15); Aspartate Amino Transferase 23 U/L (17-59); Bilirubin,Total 0.6 mg/dl (0.2-1.3); Blood Urea Nitrogen 13 mg/dl (9-20); Carbon Dioxide 28 mmol/L (22.0-30.0); Creatinine Clearance Estimated 115 mL/min (50-200); Creatinine,Serum 0.80 mg/dl (0.66-1.25); Estimated Glomerular Filt Rate 98 ml/min (>60); GFR (African American) 119 ML/MIN (>60); Globulin 3.9 g/dL (1.3-3.2); Total Protein,Serum 6.8 g/dl (6.3-8.2)
[2025-04-03 12:19] LABS: Calcium 10.2 mg/dl (8.4-10.2); Glucose 93 mg/dl (74-100)
--- NOTE | 2025-04-03 12:38 | HMH.EDGENADL ---
Discharge Plan Disposition Patient Disposition: Home, Self-Care Condition: Fair Prescriptions Prescriptions: New cefdinir 300 mg capsule 300 mg PO BID 10 Days Qty: 20 0RF No Action sennosides [Senna Lax] 8.6 mg tablet 8.6 mg PO BID PRN (Reason: constipation) Qty: 60 0RF levofloxacin 500 mg tablet 500 mg PO DAILY 10 Days Qty: 10 0RF Referrals Follow up/Referrals: Rupesh Arvizu DO [Primary Care Provider, Family Practice] - See instructions Activity Restrictions/Add. Instructions Additional Instructions/Restrictions: Today you were evaluated in the emergency department and diagnosed with a complicated urinary tract infection and hematuria. Please increase your fluid intake, take your antibiotics as directed. Please call the urologist office in the morning and tell them about your hematuria and your recent diagnosis of UTI and that you are currently taking an antibiotic. Please return to the ED for any worsening of your condition as we discussed. Clinical Impressions Clinical Impression: Acute UTI, Hematuria, Complicated urinary tract infection Instructions Patient Instructions: DI for Urinary Tract Infection (UTI) Print Language Print Language: Armenian Discharge ED Provider: Marlee Perrin General Adult HPI <Radha Dhaliwal APRN - Last Filed: 04/03/25 13:33> General Chief complaint: Urogenital-Male Stated complaint: blood in urine Time Seen by Provider: 04/03/25 11:31 Mode of Arrival: Ambulatory Source of Information: Patient Description of Symptoms (Recalled from ER Triage Doc. by RN): pt reports urinating blood since last night. had a cystoscopy on . started on Eliquis and has taken it since. pt was also evaluated @[facility], [place], operated by [facility] last night. History of Present Illness HPI narrative: patient is a 60-year-old male PMHx hx of pericardial effusion, lymphadenopathy, hypertension, hyperlipidemia, history of thyroid mass on Eliquis who presents to the ED for complaints of hematuria that started today. Patient most recently had a cystoscopy this past , started having blood in his urine yesterday. Related Data Previous Rx's ?Medication ?Instructions ?Recorded sennosides 8.6 mg tablet (Senna 8.6 mg PO BID PRN constipation #60 03/11/25 Lax) tabs levofloxacin 500 mg tablet 500 mg PO DAILY 10 days #10 tabs 03/18/25 cefdinir 300 mg capsule 300 mg PO BID 10 days #20 caps 04/03/25 Allergies Allergy/AdvReac Type Severity Reaction Status Date / Time CONTRAST DYE Allergy Unknown Uncoded 04/01/25 08:33 [facility] <Radha Dhaliwal APRN - Last Filed: 04/03/25 13:33> [facility] Disclaimer: The information contained in this section may have been updated after the patient was seen, as this information can be updated by other users. Medical History Constipation Nasal bleeding right nare Paralysis of right vocal cord Dysphonia Distal radius fracture, left Urinary tract infection Osteophyte sciatica spur removed History of tobacco abuse Weight loss Hoarseness of voice Laryngitis Hernia, umbilical Vertigo Urinary problem in male Cough Surgical History Hx of cardiac cath Family History Other Family history of diabetes mellitus type II Social History Smoking Status: Former smoker how long ago did patient quit smokin years alcohol intake: never substance use type: denies use current occupational status: employed Travel in the last 8 weeks?: None household members: none housing: house lives independently: Yes marital status: single special hallie needs: No agree to transfusion: No do you feel safe at home: Yes victim of physical abuse: No victim of emotional abuse: No victim of sexual abuse: No would you like helpful sources: No Have you lived/traveled outside US in past 30 days?: No Contact w/someone who lives/traveled outside US past 30 days?: No Exposure to someone with infectious disease in past 14 days?: No Do you have a fever (greater than 100.4 F or 38 C)?: No Have you tested positive for COVID-19?: No Exposed to someone with COVID-19 in past 14 days?: No Do you have a sore throat?: No Do you have a cough?: No Do you have any weakness?: No Do you have any diarrhea?: No Are you experiencing any unusual bleeding?: No Do you have any muscle aches/pain?: No Do you have any abdominal pain?: No Are you experiencing loss of taste or smell?: No Other Medical History Have you received the Flu Vaccine for this season: No Have you received the Pneumonia Vaccine: No <Radha DhaliwalJENNIFER kwok - Last Filed: 04/03/25 13:33> ROS Obtained: Yes Systems reviewed as appropriate & no additional complaints except as documented Physical Exam <Radha DhaliwalJENNIFER kwok - Last Filed: 04/03/25 13:33> General General appearance: alert and in no apparent distress Head Head exam: atraumatic Eye Eye exam: Present normal appearance ENT ENT exam: Present normal exam Respiratory Respiratory exam: Present normal lung sounds bilaterally Cardiovascular Cardiovascular exam: Present regular rate Abdominal Exam Abdominal exam: Present soft; Absent distention or tenderness Back Exam Back exam: Present full ROM Neurological Exam Neurological exam: Present alert and oriented X3 Skin Skin exam: Present warm and dry Medical Decision Making <Radha DhaliwalJENNIFER kwok - Last Filed: 04/03/25 13:33> Medical Records Screening: Per USPSTF and CDC recommendations, given the prevalence of disease in our region, it is our hospital?s policy to screen for HIV and viral Hepatitis for all patients aged 18 and over and those with ongoing risk factors. Jamil Inquiry Pt receiving controlled substance: No Vital Signs: 04/03/25 11:25 04/03/25 13:31 Temperature 98.1 F 98.1 F Temperature Source Oral Pulse Rate 67 Pulse Rate [Right] 67 Respiratory Rate 16 16 Blood Pressure 126/82 Blood Pressure [Left Arm] 126/82 Blood Pressure Mean [Left Arm] 96 02 Sat by Pulse Oximetry 96 Oxygen Delivery Method Room Air Lab Data Lab Results 04/03/25 11:25: Urine Color Red, Urine Appearance Turbid, Urine pH 7.0, Ur Specific [place] 1.010, Urine Protein 2+ A, Urine Glucose (UA) Negative, Urine Ketones Trace, Urine Blood 3+ A, Urine Nitrate Positive A, Urine Bilirubin Negative, Urine Urobilinogen 4.0, Ur Leukocyte Esterase 1+ A, Urine RBC Tntc, Urine WBC 5-10, Ur Squamous Epith Cells None, Urine Bacteria 2+ 04/03/25 11:50: WBC 10.2, RBC 5.06, Hgb 15.5, Hct 46.2, MCV 91.3, MCH 30.6, MCHC 33.5, RDW 13.9, Plt Count 409, MPV 9.4, Neut % (Auto) 73.6, Lymph % (Auto) 14.1, [place] % (Auto) 7.7, Eos % (Auto) 3.2, Baso % (Auto) 1.1, Neut # (Auto) 7.5, Lymph # (Auto) 1.4, [place] # (Auto) 0.8, Eos # (Auto) 0.3, Baso # (Auto) 0.1, PT 11.6, INR 1.05, APTT 27.5, Sodium 134 L, Potassium 4.0, Chloride 105, Carbon Dioxide 28, Anion Gap 5.0, BUN 13, Creatinine 0.80, Estimated Creat Clear 115, Estimated GFR 98, Est GFR ( Amer) 119, Glucose 93, Calcium 10.2, Total Bilirubin 0.6, AST 23, ALT 14, Alkaline Phosphatase 167 H, Total Protein 6.8, Albumin 2.9 L, Globulin 3.9 H, Albumin/Globulin Ratio 0.7 L 04/03/25 11:50 04/03/25 11:50 Orders (Tests/Meds): ED MEDICATIONS Discontinued Medications Generic Name Dose Route Start Last Admin Trade Name Freq PRN Reason Stop Dose Admin Ceftriaxone Sodium 1 gm/ 50 mls @ 100 mls/hr 04/03/25 13:00 04/03/25 13:07 Sodium Chloride IV 04/03/25 13:29 100 mls/hr ONCE ONE Administration ORDERS Category Date Time Status CBC w/Auto Diff [Complete Blood Count Auto Diff] Stat Lab 04/03/25 11:50 Completed CMP [Comprehensive Metabolic Panel] Stat Lab 04/03/25 11:50 Completed PT/INR [Prothrombin Time INR] Stat Lab 04/03/25 11:50 Completed PTT [Activated Partial Thrombo Time] Stat Lab 04/03/25 11:50 Completed UA [Urinalysis and Microscopic] Stat Lab 04/03/25 11:25 Completed Urine Culture Stat Micro 04/03/25 11:25 Results Medical Decision Narrative: In summary, patient is a 60-year-old male PMHx hx of pericardial effusion, lymphadenopathy, hypertension, hyperlipidemia, history of thyroid mass on Eliquis who presents to the ED for complaints of hematuria that started today. Patient most recently had a cystoscopy this past , started having blood in his urine yesterday. Patient denies any additional symptoms other than the blood in the urine. He denies fever, chills, body aches, headache, posterior neck pain, chest pain, shortness of breath, abdominal pain, dysuria, frequency, nausea, vomiting, back pain. Upon initial evaluation patient is alert, oriented and cooperative. He is hemodynamically stable. His abdomen is soft and nontender. Discussed with patient that this is most likely expected post cystoscopy bleeding and is perhaps worse due to being on a blood thinner. I advised him we will proceed with labs and urinalysis. Labs reviewed, CBC unremarkable, stable H&H. CMP overall unremarkable. Bleeding times normal. Urinalysis positive for blood and nitrite. Discussed with patient and daughter that patient has a urinary tract infection which we will treat with Rocephin IV here in the ED and prescription for cefdinir at the pharmacy. I discussed increase fluid intake. Advised him to call the urologist office first thing in the morning to report the hematuria, UTI and new antibiotics. We discussed very strict return precautions to the ED and patient and daughter verbalized understanding. He was hemodynamically stable upon leaving the ED <Marlee Perrin, DO - Last Filed: 04/05/25 17:57> Vital Signs: 04/03/25 11:25 04/03/25 13:31 Temperature 98.1 F 98.1 F Temperature Source Oral Pulse Rate 67 Pulse Rate [Right] 67 Respiratory Rate 16 16 Blood Pressure 126/82 Blood Pressure [Left Arm] 126/82 Blood Pressure Mean [Left Arm] 96 02 Sat by Pulse Oximetry 96 Oxygen Delivery Method Room Air Lab Data Lab Results 04/03/25 11:25: Urine Color Red, Urine Appearance Turbid, Urine pH 7.0, Ur Specific [place] 1.010, Urine Protein 2+ A, Urine Glucose (UA) Negative, Urine Ketones Trace, Urine Blood 3+ A, Urine Nitrate Positive A, Urine Bilirubin Negative, Urine Urobilinogen 4.0, Ur Leukocyte Esterase 1+ A, Urine RBC Tntc, Urine WBC 5-10, Ur Squamous Epith Cells None, Urine Bacteria 2+ 04/03/25 11:50: WBC 10.2, RBC 5.06, Hgb 15.5, Hct 46.2, MCV 91.3, MCH 30.6, MCHC 33.5, RDW 13.9, Plt Count 409, MPV 9.4, Neut % (Auto) 73.6, Lymph % (Auto) 14.1, [place] % (Auto) 7.7, Eos % (Auto) 3.2, Baso % (Auto) 1.1, Neut # (Auto) 7.5, Lymph # (Auto) 1.4, [place] # (Auto) 0.8, Eos # (Auto) 0.3, Baso # (Auto) 0.1, PT 11.6, INR 1.05, APTT 27.5, Sodium 134 L, Potassium 4.0, Chloride 105, Carbon Dioxide 28, Anion Gap 5.0, BUN 13, Creatinine 0.80, Estimated Creat Clear 115, Estimated GFR 98, Est GFR ( Amer) 119, Glucose 93, Calcium 10.2, Total Bilirubin 0.6, AST 23, ALT 14, Alkaline Phosphatase 167 H, Total Protein 6.8, Albumin 2.9 L, Globulin 3.9 H, Albumin/Globulin Ratio 0.7 L Orders (Tests/Meds): ED MEDICATIONS Discontinued Medications Generic Name Dose Route Start Last Admin Trade Name Warrenq PRN Reason Stop Dose Admin Ceftriaxone Sodium 1 gm/ 50 mls @ 100 mls/hr 04/03/25 13:00 04/03/25 13:07 Sodium Chloride IV 04/03/25 13:29 100 mls/hr ONCE ONE Administration ORDERS Category Date Time Status CBC w/Auto Diff [Complete Blood Count Auto Diff] Stat Lab 04/03/25 11:50 Completed CMP [Comprehensive Metabolic Panel] Stat Lab 04/03/25 11:50 Completed PT/INR [Prothrombin Time INR] Stat Lab 04/03/25 11:50 Completed PTT [Activated Partial Thrombo Time] Stat Lab 04/03/25 11:50 Completed UA [Urinalysis and Microscopic] Stat Lab 04/03/25 11:25 Completed Urine Culture Stat Micro 04/03/25 11:25 Results Medical Decision Narrative: In summary, patient is a 60-year-old male PMHx hx of pericardial effusion, lymphadenopathy, hypertension, hyperlipidemia, history of thyroid mass on Eliquis who presents to the ED for complaints of hematuria that started today. Patient most recently had a cystoscopy this past , started having blood in his urine yesterday. Patient denies any additional symptoms other than the blood in the urine. He denies fever, chills, body aches, headache, posterior neck pain, chest pain, shortness of breath, abdominal pain, dysuria, frequency, nausea, vomiting, back pain. Upon initial evaluation patient is alert, oriented and cooperative. He is hemodynamically stable. His abdomen is soft and nontender. Differential includes but not limited to: Postoperative bleeding, supratherapeutic INR, UTI, hemorrhagic cystitis, amongst others Discussed with patient that this is most likely expected post cystoscopy bleeding and is perhaps worse due to being on a blood thinner. I advised him we will proceed with labs and urinalysis. Labs reviewed, CBC unremarkable, stable H&H. CMP overall unremarkable. Bleeding times normal. Urinalysis positive for blood and nitrite. Discussed with patient and daughter that patient has a urinary tract infection which we will treat with Rocephin IV here in the ED and prescription for cefdinir at the pharmacy. I discussed increase fluid intake. Advised him to call the urologist office first thing in the morning to report the hematuria, UTI and new antibiotics. We discussed very strict return precautions to the ED and patient and daughter verbalized understanding. He was hemodynamically stable upon leaving the ED Critical Care <Radha Dhaliwal APRN - Last Filed: 04/03/25 13:33> Critical Care Time Critical Care Time: No
[2025-04-03 13:31] VITALS: BP 126/82; PULSE 67; RESP 16; TEMP 36.7
== END 2025-04-03 13:32 | disposition home or self-care (01) ==
PROVIDERS: Nurse Practitioner; Emergency Provider Student in an Organized Health Care Education/Training Program; PCP Internal Medicine
DX: N39.0 Urinary tract infection, site not specified (principal); R31.9 Hematuria, unspecified; I10 Essential (primary) hypertension; E78.5 Hyperlipidemia, unspecified; Z87.891 Personal history of nicotine dependence
CPT/HCPCS: 80053; 81001; 85025; 85610; 85730; 87077; 87086; 96365; 99284; J0696

== ENCOUNTER 2025-04-08 11:05 | Outpatient (CLI) | payer OTHER, SELFPAY ==
--- OUTSIDE RECORDS SUMMARY | 2025-04-02 18:54 | XMS_ITS | Encounter Summary ---
Author Organization [facility] Address [address] [place] [address] Care Team Providers Care Cam Milling Machine Operator Name Role Phone Rupesh Arvizu Primary Care Provider + Reason for Visit * Reason Comments Arm Swelling Encounter Details Date Type Department Care Team (Late st Contact Info) Description 04/02/2025 6:54 PM EDT - 04/02/2025 9:27 PM EDT Emergency [facility] [address] [facility] [place] [phone] Patric Cooney MD [address] [place] [address] Edema, unspecified type (Primary Dx) [...] 6:53 PM EDT Raegan Silva, PATI * [place] Suicide Severity Rating Scale (Screener/Recent Self-Report) Question [...] sent through Care Everywhere. * Peripheral Edema (Welsh) * Edema (Welsh) documented in this encounter Medications at Time [...] care of Dr. Burch, an oncologist in [place], who diagnosed partial carotidartery blockage. The patient's daughter and [id number], who is a nurse, noted worsening of [...] pH, UA 6.5 5.0 - 8.0 Specific [place], UA 1.019 1.005 - 1.030 Glucose, UA [...] MD 04/02/2025 7:47 PM EDT Workstation ID: [id number] [x] Radiologist's Report Reviewed: I ordered and [...] DO [address] [place] [address] Schedule an appointment as soon as possible for a visit Call for follow up with primary care [facility] [address] [facility] [phone] Go to If symptoms worsen Medication List New Prescriptions furosemide 20 MG tablet Commonly known as: LASIX Take 1 tablet by mouth Daily for 5 days. Where to Get Your Medications These medications were sent to [facility] 59[facility] [place] [facility] [place] [address] [phone] [place] [phone] [place] [address] furosemide 20 MG tablet Oumar Valdez PA [...] * Telemetry Scan (04/02/2025 8:44 PM EDT) [facility] Final Result * (ABNORMAL) Urinalysis, Microscopic Only - Urine, Clean Catch (04/02/2025 7:50 PM EDT) RBC, UA 6-10(A) None Seen, 0-2 /HPF 04/02/2025 8:46 PM EDT [facility] WBC, UA 0-2 None Seen, 0-2 /HPF 04/02/2025 8:46 PM EDT [facility] Bacteria, UA None Seen None Seen /HPF 04/02/2025 8:46 PM EDT [facility] Squamous Epithelial Cells, UA 0-2 None Seen, 0-2 /HPF 04/02/2025 8:46 PM EDT [facility] Hyaline Casts, UA None Seen None Seen /LPF 04/02/2025 8:46 PM EDT [facility] Calcium Oxalate Crystals, UA Large/3+ None Seen /HPF 04/02/2025 8:46 PM EDT [facility] Methodology Manual Light Microscopy 04/02/2025 8:46 PM EDT [facility] Urine Urine specimen obtained by clean catch procedure / Unknown Collection / Unknown 04/02/2025 7:50 PM EDT 04/02/2025 7:57 PM EDT Oumar PALOMARES URINE ORDERABLES Final Result [facility]
[address] [place] [address], * (ABNORMAL) CBC Auto Differential (04/02/2025 7:50 PM EDT) WBC 11.29(H) 3.40 - 10.80 10*3/mm3 04/02/2025 7:59 PM EDT [facility] RBC 5.08 4.14 - 5.80 10*6/mm3 04/02/2025 7:59 PM EDT [facility] Hemoglobin 15.3 13.0 - 17.7 g/dL 04/02/2025 7:59 PM EDT [facility] Hematocrit 47.0 37.5 - 51.0 % 04/02/2025 7:59 PM EDT [facility] MCV 92.5 79.0 - 97.0 fL 04/02/2025 7:59 PM EDT [facility] MCH 30.1 26.6 - 33.0 pg 04/02/2025 7:59 PM EDT [facility] MCHC 32.6 31.5 - 35.7 g/dL 04/02/2025 7:59 PM EDT [facility] RDW 13.7 12.3 - 15.4 % 04/02/2025 7:59 PM EDT [facility] RDW-SD 46.5 37.0 - 54.0 fl 04/02/2025 7:59 [facility] MPV 9.3 6.0 - 12.0 fL 04/02/2025 7:59 PM EDT [facility] Platelets 380 140 - 450 10*3/mm3 04/02/2025 7:59 PM EDT [facility] Neutrophil % 70.9 42.7 - 76.0 % 04/02/2025 7:59 PM [facility] Lymphocyte % 15.5(L) 19.6 - 45.3 % 04/02/2025 7:59 PM [facility] Monocyte % 8.9 5.0 - 12.0 % 04/02/2025 7:59 PM [facility] Eosinophil % 3.4 0.3 - 6.2 % 04/02/2025 7:59 PM [facility] Basophil % 0.9 0.0 - 1.5 % 04/02/2025 7:59 PM [facility] Immature Grans % 0.4 0.0 - 0.5 % 04/02/2025 7:59 PM [facility] Neutrophils, Absolute 8.02(H) 1.70 - 7.00 10*3/mm3 04/02/2025 7:59 PM EDT [facility] Lymphocytes, Absolute 1.75 0.70 - 3.10 10*3/mm3 04/02/2025 7:59 PM EDT [facility] Monocytes, Absolute 1.00(H) 0.10 - 0.90 10*3/mm3 04/02/2025 7:59 PM [facility] Eosinophils, Absolute 0.38 0.00 - 0.40 10*3/mm3 04/02/2025 7:59 PM EDT [facility] Basophils, Absolute 0.10 0.00 - 0.20 10*3/mm3 04/02/2025 7:59 PM EDT [facility] Immature Grans, Absolute 0.04 0.00 - 0.05 10*3/mm3 04/02/2025 7:59 PM EDT [facility] nRBC 0.0 0.0 - 0.2 /100 WBC 04/02/2025 7:59 PM EDT [facility] Blood Venipuncture / Unknown 04/02/2025 7:50 PM EDT 04/02/2025 7:57 PM EDT Oumar PALOMARES LAB BLOOD ORDERABLES Final Resu lt Performing Organization Address [facility] Co de Phone Number [facility]
[address] [place] [address], * BNP (04/02/2025 7:50 PM EDT) [facility] proBNP 107.0 0.0 - 900.0 pg/mL 04/02/2025 8:22 PM EDT [facility] Blood Venipuncture / Unknown 04/02/2025 7:50 PM EDT 04/02/2025 7:57 PM EDT Narrative [facility] - 04/02/2025 8:22 PM EDT [...] PALOMARES LAB BLOOD ORDERABLES Final Resu lt [facility]
[address] [place] [address], [place] [phone] * (ABNORMAL) Urinalysis With Microscopic If Indicated (No Culture) - Urine, Clean Catch (04/02/2025 7:50 PM EDT) Color, UA Yellow Yellow, Straw 04/02/2025 8:27 PM EDT [facility] Appearance, UA Cloudy(A) Clear 04/02/2025 8:27 PM EDT [facility] pH, UA 6.5 5.0 - 8.0 04/02/2025 8:27 PM EDT [facility] Specific [place], UA 1.019 1.005 - 1.030 04/02/2025 8:27 PM EDT [facility] Glucose, UA Negative Negative 04/02/2025 8:27 PM EDT [facility] Ketones, UA Negative Negative 04/02/2025 8:27 PM EDT [facility] Bilirubin, UA Negative Negative 04/02/2025 8:27 PM EDT [facility] Blood, UA Trace(A) Negative 04/02/2025 8:27 PM EDT [facility] Protein, UA Negative Negative 04/02/2025 8:27 PM EDT [facility] Leuk Esterase, UA Negative Negative 04/02/2025 8:27 PM EDT [facility] Nitrite, UA Negative Negative 04/02/2025 8:27 PM EDT [facility] Urobilinogen, UA 1.0 E.U./dL 0.2 - 1.0 E.U./dL 04/02/2025 8:27 PM EDT [facility] Urine Urine specimen obtained by clean catch procedure / Unknown Collection / Unknown 04/02/2025 7:50 PM EDT 04/02/2025 7:57 PM EDT Oumar PALOMARES URINE ORDERABLES Final Result [facility]
[address] [place] [address], * (ABNORMAL) Comprehensive Metabolic Panel (04/02/2025 7:50 PM EDT) [facility] Glucose 74 65 - 99 mg/dL 04/02/2025 8:22 PM EDT [facility] BUN 13.6 8.0 - 23.0 mg/dL 04/02/2025 8:22 PM EDT [facility] Creatinine 0.99 0.76 - 1.27 mg/dL 04/02/2025 8:22 PM EDT [facility] Sodium 139 136 - 145 mmol/L 04/02/2025 8:22 PM EDT [facility] Potassium 4.0 3.5 - 5.2 mmol/L 04/02/2025 8:22 PM EDT [facility] Chloride 108(H) 98 - 107 mmol/L 04/02/2025 8:22 PM EDT [facility] CO2 24.5 22.0 - 29.0 mmol/L 04/02/2025 8:22 PM EDT [facility] Calcium 9.6 8.6 - 10.5 mg/dL 04/02/2025 8:22 PM EDT [facility] Total Protein 6.2 6.0 - 8.5 g/dL 04/02/2025 8:22 PM EDT [facility] Albumin 2.9(L) 3.5 - 5.2 g/dL 04/02/2025 8:22 PM EDT [facility] ALT (SGPT) 8 1 - 41 U/L 04/02/2025 8:22 PM EDT [facility] AST (SGOT) 15 1 - 40 U/L 04/02/2025 8:22 PM EDT [facility] Alkaline Phosphatase 140(H) 39 - 117 U/L 04/02/2025 8:22 PM EDT [facility] Total Bilirubin 0.4 0.0 - 1.2 mg/dL 04/02/2025 8:22 PM EDT [facility] Globulin 3.3 gm/dL 04/02/2025 8:22 PM EDT [facility] Comment:Calculated Result A/G Ratio 0.9 g/dL 04/02/2025 8:22 PM EDT [facility] BUN/Creatinine Ratio 13.7 7.0 - 25.0 04/02/2025 8:22 PM EDT [facility] Anion Gap 6.5 5.0 - 15.0 mmol/L 04/02/2025 8:22 PM EDT [facility] eGFR 86.1 >60.0 mL/min/1.7 3 04/02/2025 8:22 PM EDT [facility] Blood Venipuncture / Unknown 04/02/2025 7:50 PM EDT 04/02/2025 7:57 PM EDT Narrative [facility] - 04/02/2025 8:22 PM EDT [...] [facility] BLOOD ORDERABLES Final Resu lt [facility]
[address] [place] [address], * XR Chest 1 View (04/02/2025 7:41 PM EDT) Anatomical Region Laterality Modality Body N/A Radiographic Sejal ging 04/02/2025 7:44 PM EDT Impressions 04/02/2025 7:47 PM EDT Impression: No acute cardiopulmonary process. Electronically Signed: Israel Euceda MD 04/02/2025 7:47 PM EDT Workstation ID: [id number] Narrative 04/02/2025 7:47 PM EDT XR CHEST [...] MD 04/02/2025 7:47 PM EDT Workstation ID: [id number] [facility] ORDERABL ES [...] RN) documented in this encounter Care Teams Cam Milling Machine Operator Relationship Specialty Start Date End Date Rupesh Arvizu DO [address] [place] [id number] PCP - General Internal Medicine 04/02/25 documented as of this encounter
--- OUTSIDE RECORDS SUMMARY | 2025-04-08 11:16 | XMS_ITS | Clinical Summary ---
[facility] Address [address] [place] [address] Care Team Providers Care Laboratory Administrative Director Name Role Phone Rupesh Arvizu Primary Care Provider + Allergies No known active allergies Medications furosemide (LASIX) 20 MG tablet Take 1 tablet by mouth Daily for 5 days. 5 tablet 04/02/2025 Active Encounters Date Type Department Care Team Description 04/02/2025 6:54 PM EDT - 04/02/2025 9:27 PM EDT Emergency [facility] [address] [place] [address] Patric Cooney MD Edema, unspecified type [...] PM EDT) [facility] ECG ORDERABLES Final Result * (ABNORMAL) Urinalysis, Microscopic Only - Urine, Clean Catch (04/02/2025 7:50 PM EDT) RBC, UA 6-10(A) None Seen, 0-2 /HPF 04/02/2025 8:46 PM EDT [facility] WBC, UA 0-2 None Seen, 0-2 /HPF 04/02/2025 8:46 PM EDT [facility] Bacteria, UA None Seen None Seen /HPF 04/02/2025 8:46 PM EDT [facility] Squamous Epithelial Cells, UA 0-2 None Seen, 0-2 /HPF 04/02/2025 8:46 PM EDT [facility] Hyaline Casts, UA None Seen None Seen /LPF 04/02/2025 8:46 PM EDT [facility] Calcium Oxalate Crystals, UA Large/3+ None Seen /HPF 04/02/2025 8:46 PM EDT [facility] Methodology Manual Light Microscopy 04/02/2025 8:46 PM EDT [facility] Urine Urine specimen obtained by clean catch procedure / Unknown Collection / Unknown 04/02/2025 7:50 PM EDT 04/02/2025 7:57 PM EDT [facility]AR[facility] URINE ORDERABLES Final Result [facility]
[address] [place] [address], * (ABNORMAL) Urinalysis With Microscopic If Indicated (No Culture) - Urine, Clean Catch (04/02/2025 7:50 PM EDT) Color, UA Yellow Yellow, Straw 04/02/2025 8:27 PM EDT [facility] Appearance, UA Cloudy(A) Clear 04/02/2025 8:27 PM EDT [facility] pH, UA 6.5 5.0 - 8.0 04/02/2025 8:27 PM EDT [facility] Specific [place], UA 1.019 1.005 - 1.030 04/02/2025 8:27 PM EDT [facility] Glucose, UA Negative Negative 04/02/2025 8:27 PM EDT [facility] Ketones, UA Negative Negative 04/02/2025 8:27 PM EDT [facility] Bilirubin, UA Negative Negative 04/02/2025 8:27 PM EDT [facility] Blood, UA Trace(A) Negative 04/02/2025 8:27 PM EDT [facility] Protein, UA Negative Negative 04/02/2025 8:27 PM EDT [facility] Leuk Esterase, UA Negative Negative 04/02/2025 8:27 PM EDT [facility] Nitrite, UA Negative Negative 04/02/2025 8:27 PM EDT [facility] Urobilinogen, UA 1.0 E.U./dL 0.2 - 1.0 E.U./dL 04/02/2025 8:27 PM EDT [facility] Urine Urine specimen obtained by clean catch procedure / Unknown Collection / Unknown 04/02/2025 7:50 PM EDT 04/02/2025 7:57 PM EDT [facility] PALOMAR[facility] URINE ORDERABLES Final Result [facility]
[address] [place] [address], * (ABNORMAL) CBC Auto Differential (04/02/2025 7:50 PM EDT) WBC 11.29(H) 3.40 - 10.80 10*3/mm3 04/02/2025 7:59 PM EDT [facility] RBC 5.08 4.14 - 5.80 10*6/mm3 04/02/2025 7:59 PM EDT [facility] Hemoglobin 15.3 13.0 - 17.7 g/dL 04/02/2025 7:59 PM EDT [facility] Hematocrit 47.0 37.5 - 51.0 % 04/02/2025 7:59 PM EDT [facility] MCV 92.5 79.0 - 97.0 fL 04/02/2025 7:59 PM EDT [facility] MCH 30.1 26.6 - 33.0 pg 04/02/2025 7:59 PM EDT [facility] MCHC 32.6 31.5 - 35.7 g/dL 04/02/2025 7:59 PM EDT [facility] RDW 13.7 12.3 - 15.4 % 04/02/2025 7:59 PM EDT [facility] RDW-SD 46.5 37.0 - 54.0 fl 04/02/2025 7:59 PM EDT [facility] MPV 9.3 6.0 - 12.0 fL 04/02/2025 7:59 PM EDT [facility] Platelets 380 140 - 450 10*3/mm3 04/02/2025 7:59 PM [facility] Neutrophil % 70.9 42.7 - 76.0 % 04/02/2025 7:59 PM [facility] Lymphocyte % 15.5(L) 19.6 - 45.3 % 04/02/2025 7:59 PM [facility] Monocyte % 8.9 5.0 - 12.0 % 04/02/2025 7:59 PM [facility] Eosinophil % 3.4 0.3 - 6.2 % 04/02/2025 7:59 PM [facility] Basophil % 0.9 0.0 - 1.5 % 04/02/2025 7:59 PM [facility] Immature Grans % 0.4 0.0 - 0.5 % 04/02/2025 7:59 PM [facility] Neutrophils, Absolute 8.02(H) 1.70 - 7.00 10*3/mm3 04/02/2025 7:59 PM [facility] Lymphocytes, Absolute 1.75 0.70 - 3.10 10*3/mm3 04/02/2025 7:59 PM [facility] Monocytes, Absolute 1.00(H) 0.10 - 0.90 10*3/mm3 04/02/2025 7:59 PM [facility] Eosinophils, Absolute 0.38 0.00 - 0.40 10*3/mm3 04/02/2025 7:59 PM [facility] Basophils, Absolute 0.10 0.00 - 0.20 10*3/mm3 04/02/2025 7:59 PM [facility] Immature Grans, Absolute 0.04 0.00 - 0.05 10*3/mm3 04/02/2025 7:59 PM [facility] nRBC 0.0 0.0 - 0.2 /100 WBC 04/02/2025 7:59 PM [facility] Blood Venipuncture / Unknown 04/02/2025 7:50 PM EDT 04/02/2025 7:57 PM EDT [facility] BLOOD ORDERABLES Final Resu lt Performing Organization Address [facility] Co de Phone Number [facility]
[address] [place] [address], * BNP (04/02/2025 7:50 PM EDT) proBNP 107.0 0.0 - 900.0 pg/mL 04/02/2025 8:22 PM EDT [facility] Blood Venipuncture / Unknown 04/02/2025 7:50 PM EDT 04/02/2025 7:57 PM EDT Narrative [facility] - 04/02/2025 8:22 PM EDT [...] ORDERABLES Final Resu lt Performing Organization Address [facility]/ZIP Co de Phone Number [facility]
[address] [place] [address], [place] [phone] * (ABNORMAL) Comprehensive Metabolic Panel (04/02/2025 7:50 PM EDT) Glucose 74 65 - 99 mg/dL 04/02/2025 8:22 PM EDT [facility] BUN 13.6 8.0 - 23.0 mg/dL 04/02/2025 8:22 PM [facility] Creatinine 0.99 0.76 - 1.27 mg/dL 04/02/2025 8:22 PM [facility] Sodium 139 136 - 145 mmol/L 04/02/2025 8:22 PM [facility] Potassium 4.0 3.5 - 5.2 mmol/L 04/02/2025 8:22 PM [facility] Chloride 108(H) 98 - 107 mmol/L 04/02/2025 8:22 PM [facility] CO2 24.5 22.0 - 29.0 mmol/L 04/02/2025 8:22 PM [facility] Calcium 9.6 8.6 - 10.5 mg/dL 04/02/2025 8:22 PM [facility] Total Protein 6.2 6.0 - 8.5 g/dL 04/02/2025 8:22 PM [facility] Albumin 2.9(L) 3.5 - 5.2 g/dL 04/02/2025 8:22 PM [facility] ALT (SGPT) 8 1 - 41 U/L 04/02/2025 8:22 PM [facility] AST (SGOT) 15 1 - 40 U/L 04/02/2025 8:22 PM [facility] Alkaline Phosphatase 140(H) 39 - 117 U/L 04/02/2025 8:22 PM [facility] Total Bilirubin 0.4 0.0 - 1.2 mg/dL 04/02/2025 8:22 PM [facility] Globulin 3.3 gm/dL 04/02/2025 8:22 PM [facility] Comment:Calculated Result A/G Ratio 0.9 g/dL 04/02/2025 8:22 PM [facility] BUN/Creatinine Ratio 13.7 7.0 - 25.0 04/02/2025 8:22 PM [facility] Anion Gap 6.5 5.0 - 15.0 mmol/L 04/02/2025 8:22 PM EDT [facility] eGFR 86.1 >60.0 mL/min/1.7 3 04/02/2025 8:22 PM EDT [facility] Blood Venipuncture / Unknown 04/02/2025 7:50 PM EDT 04/02/2025 7:57 PM EDT Narrative [facility] - 04/02/2025 8:22 PM EDT [...] does not include race as a factor [facility] BLOOD ORDERABLES Final Resu lt [facility]
[address] [place] [address], * XR Chest 1 View (04/02/2025 7:41 PM EDT) Anatomical Region Laterality Modality Body N/A Radiographic Sejal ging 04/02/2025 7:44 PM EDT Impressions 04/02/2025 7:47 PM EDT Impression: No acute cardiopulmonary process. Electronically Signed: Israel Euceda MD 04/02/2025 7:47 PM EDT Workstation ID: [id number] Narrative 04/02/2025 7:47 PM EDT XR CHEST [...] MD 04/02/2025 7:47 PM EDT Workstation ID: [id number] us [facility] IMG DIAGNOSTIC IMAGING ORDERABL ES Final Result from Last 3 Months Insurance [facility] Care Teams Laboratory Administrative Director Relationship Specialty Start Date End Date Rupesh Arvizu DO [address] [place] [id number] PCP - General Internal Medicine 04/02/25
--- OUTSIDE RECORDS SUMMARY | 2025-04-08 11:16 | XMS_ITS | Encounter Summary ---
[facility] Address [address] [place] [address] Care Team Providers Care Hasher Machine Operator Name Role Phone Rupesh Arvizu [...] PM EDT Raegan Silva, PATI * [place] Suicide Severity Rating Scale (Screener/Recent Self-Report) Question [...] on filedocumented in this encounter Care Teams Hasher Machine Operator Relationship Specialty Start Date End Date Rupesh Arvizu DO [address] [place] [id number] PCP - General Internal Medicine 04/02/25 documented as of this encounter
[2025-04-08 12:58] LABS: Hepatitis C Ab Qual. W/ RFX NEGATIVE (Negative)
[2025-04-09 05:09] LABS: Hepatitis B Surface Antigen Negative (Negative)
[2025-04-09 11:11] LABS: Toxoplasma gondii Ab,IgG,Qn <3.0 IU/mL (0.0-7.1); Toxoplasma gondii Ab,IgM,Qn <3.0 AU/mL (0.0-7.9)
[2025-04-11 13:19] LABS: Albumin 2.7 g/dL (2.9-4.4); Alpha-1-Globulin 0.3 g/dL (0.0-0.4); Alpha-2-Globulin 1.0 g/dL (0.4-1.0); Gamma Globulin 1.1 g/dL (0.4-1.8)
[2025-04-11 15:19] LABS: IgG, Subclass 1 675 mg/dL (248-810); IgG, Subclass 2 203 mg/dL (130-555); IgG, Subclass 3 43 mg/dL (15-102); IgG, Subclass 4 50 mg/dL (2-96); Immunoglobulin G, Qn 1207 mg/dL (603-1613)
== END 2025-04-08 23:59 | disposition home or self-care (01) ==
PROVIDERS: PCP Internal Medicine; Visit Provider Internal Medicine Medical Oncology
DX: R59.1 Generalized enlarged lymph nodes (principal)
CPT/HCPCS: 36415; 82784; 82787; 83521; 84155; 84165; 86777; 86803; 87340; 87389

== ENCOUNTER 2025-04-16 08:54 | Outpatient (CLI) | payer OTHER, SELFPAY ==
--- OUTSIDE RECORDS SUMMARY | 2025-04-02 18:54 | XMS_ITS | Encounter Summary ---
Author Organization [facility] Address [address] [place] [address] Care Team Providers Care M48 M60 Armor Crewman Name Role Phone Rupesh Arvizu Primary Care Provider + Reason for Visit * Reason Comments Arm Swelling Encounter Details Date Type Department Care Team (Late st Contact Info) Description 04/02/2025 6:54 PM EDT - 04/02/2025 9:27 PM EDT Emergency [facility] [address] [facility] [place] [phone] Patric Cooney MD [address] [place] [address] Edema, unspecified type (Primary Dx) [...] 6:53 PM EDT Raegan Silva, PATI * [place] Suicide Severity Rating Scale (Screener/Recent Self-Report) Question [...] sent through Care Everywhere. * Peripheral Edema ([place] Irish) * Edema ([place]) documented in this encounter Medications at Time [...] of Dr. Burch, an oncologist in [place], who diagnosed partial carotidartery blockage. The patient's daughter and [id number], who is a nurse, noted worsening of [...] pH, UA 6.5 5.0 - 8.0 Specific Hall, UA 1.019 1.005 - 1.030 Glucose, UA [...] MD 04/02/2025 7:47 PM EDT Workstation ID: [id number] [x] Radiologist's Report Reviewed: I ordered and [...] DO [address] [place] [address] Schedule an appointment as soon as possible for a visit Call for follow up with primary care [facility] [address] [facility] [phone] Go to If symptoms worsen Medication List New Prescriptions furosemide 20 MG tablet Commonly known as: LASIX Take 1 tablet by mouth Daily for 5 days. Where to Get Your Medications These medications were sent to [facility] [place] [facility] [address] [phone] [place] [phone] [place] [address] furosemide 20 MG tablet Oumar Valdez PA [...] * Telemetry Scan (04/02/2025 8:44 PM EDT) [facility] [place] ECG ORDERABLES Final Result * (ABNORMAL) Urinalysis, Microscopic Only - Urine, Clean Catch (04/02/2025 7:50 PM EDT) RBC, UA 6-10(A) None Seen, 0-2 /HPF 04/02/2025 8:46 PM EDT [facility] WBC, UA 0-2 None Seen, 0-2 /HPF 04/02/2025 8:46 PM EDT [facility] Bacteria, UA None Seen None Seen /HPF 04/02/2025 8:46 PM EDT [facility] Squamous Epithelial Cells, UA 0-2 None Seen, 0-2 /HPF 04/02/2025 8:46 PM EDT [facility] Hyaline Casts, UA None Seen None Seen /LPF 04/02/2025 8:46 PM EDT [facility] Calcium Oxalate Crystals, UA Large/3+ None Seen /HPF 04/02/2025 8:46 PM EDT [facility] Methodology Manual Light Microscopy 04/02/2025 8:46 PM EDT [facility] Urine Urine specimen obtained by clean catch procedure / Unknown Collection / Unknown 04/02/2025 7:50 PM EDT 04/02/2025 7:57 PM EDT Oumar PALOMARES URINE ORDERABLES Final Result [facility]
[address] [place] [address], * (ABNORMAL) CBC Auto Differential (04/02/2025 7:50 PM EDT) WBC 11.29(H) 3.40 - 10.80 10*3/mm3 04/02/2025 7:59 PM EDT [facility] RBC 5.08 4.14 - 5.80 10*6/mm3 04/02/2025 7:59 PM EDT [facility] Hemoglobin 15.3 13.0 - 17.7 g/dL 04/02/2025 7:59 PM EDT [facility] Hematocrit 47.0 37.5 - 51.0 % 04/02/2025 7:59 PM EDT [facility] MCV 92.5 79.0 - 97.0 fL 04/02/2025 7:59 PM EDT [facility] MCH 30.1 26.6 - 33.0 pg 04/02/2025 7:59 PM EDT [facility] MCHC 32.6 31.5 - 35.7 g/dL 04/02/2025 7:59 PM EDT [facility] RDW 13.7 12.3 - 15.4 % 04/02/2025 7:59 PM EDT [facility] RDW-SD 46.5 37.0 - 54.0 fl 04/02[facility]2025 7[facility] MPV 9.3 6.0 - 12.0 fL 04/02/2025 7:59 PM EDT [facility] Platelets 380 140 - 450 10*3/mm3 04/02/2025 7:59 PM EDT [facility] Neutrophil % 70.9 42.7 - 76.0 % 04/02/2025 7:59 [facility] Lymphocyte % 15.5(L) 19.6 - 45.3 % 04/02/2025 7:59 PM [facility] Monocyte % 8.9 5.0 - 12.0 % 04/02/2025 7:59 PM [facility] Eosinophil % 3.4 0.3 - 6.2 % 04/02/2025 7:59 PM [facility] Basophil % 0.9 0.0 - 1.5 % 04/02/2025 7:59 PM [facility] Immature Grans % 0.4 0.0 - 0.5 % 04/02/2025 7:59 PM [facility] Neutrophils, Absolute 8.02(H) 1.70 - 7.00 10*3/mm3 04/02/2025 7:59 PM EDT [facility] Lymphocytes, Absolute 1.75 0.70 - 3.10 10*3/mm3 04/02/2025 7:59 PM EDT [facility] Monocytes, Absolute 1.00(H) 0.10 - 0.90 10*3/mm3 04/02/2025 7:59 PM [facility] Eosinophils, Absolute 0.38 0.00 - 0.40 10*3/mm3 04/02/2025 7:59 PM EDT [facility] Basophils, Absolute 0.10 0.00 - 0.20 10*3/mm3 04/02/2025 7:59 PM EDT [facility] Immature Grans, Absolute 0.04 0.00 - 0.05 10*3/mm3 04/02/2025 7:59 PM EDT [facility] nRBC 0.0 0.0 - 0.2 /100 WBC 04/02/2025 7:59 PM EDT [facility] Blood Venipuncture / Unknown 04/02/2025 7:50 PM EDT 04/02/2025 7:57 PM EDT Oumar PALOMARES LAB BLOOD ORDERABLES Final Resu lt Performing Organization Address [facility] Co de Phone Number [facility]
[address] [place] [address], * BNP (04/02/2025 7:50 PM EDT) [facility] proBNP 107.0 0.0 - 900.0 pg/mL 04/02/2025 8:22 PM EDT [facility] Blood Venipuncture / Unknown 04/02/2025 7:50 PM EDT 04/02/2025 7:57 PM EDT Narrative [facility] - 04/02/2025 8:22 PM [...] [facility]OM[facility]ES LAB BLOOD ORDERABLES Final Resu lt [facility]
[address] [place] [address], [place] [phone] * (ABNORMAL) Urinalysis With Microscopic If Indicated (No Culture) - Urine, Clean Catch (04/02/2025 7:50 PM EDT) Color, UA Yellow Yellow, Straw 04/02/2025 8:27 PM EDT [facility] Appearance, UA Cloudy(A) Clear 04/02/2025 8:27 PM EDT [facility] pH, UA 6.5 5.0 - 8.0 04/02/2025 8:27 PM EDT [facility] Specific [place], UA 1.019 1.005 - 1.030 04/02/2025 8:27 PM EDT [facility] Glucose, UA Negative Negative 04/02/2025 8:27 PM EDT [facility] Ketones, UA Negative Negative 04/02/2025 8:27 PM EDT [facility] Bilirubin, UA Negative Negative 04/02/2025 8:27 PM EDT [facility] Blood, UA Trace(A) Negative 04/02/2025 8:27 PM EDT [facility] Protein, UA Negative Negative 04/02/2025 8:27 PM EDT [facility] Leuk Esterase, UA Negative Negative 04/02/2025 8:27 PM EDT [facility] Nitrite, UA Negative Negative 04/02/2025 8:27 PM EDT [facility] Urobilinogen, UA 1.0 E.U./dL 0.2 - 1.0 E.U./dL 04/02/2025 8:27 PM EDT [facility] Urine Urine specimen obtained by clean catch procedure / Unknown Collection / Unknown 04/02/2025 7:50 PM EDT 04/02/2025 7:57 PM EDT Oumar PALOMARES URINE ORDERABLES Final Result [facility]
[address] [place] [address], * (ABNORMAL) Comprehensive Metabolic Panel (04/02/2025 7:50 PM EDT) [facility] Glucose 74 65 - 99 mg/dL 04/02/2025 8:22 PM EDT [facility] BUN 13.6 8.0 - 23.0 mg/dL 04/02/2025 8:22 PM EDT [facility] Creatinine 0.99 0.76 - 1.27 mg/dL 04/02/2025 8:22 PM EDT [facility] Sodium 139 136 - 145 mmol/L 04/02/2025 8:22 PM EDT [facility] Potassium 4.0 3.5 - 5.2 mmol/L 04/02/2025 8:22 PM EDT [facility] Chloride 108(H) 98 - 107 mmol/L 04/02/2025 8:22 PM EDT [facility] CO2 24.5 22.0 - 29.0 mmol/L 04/02/2025 8:22 PM EDT [facility] Calcium 9.6 8.6 - 10.5 mg/dL 04/02/2025 8:22 PM EDT [facility] Total Protein 6.2 6.0 - 8.5 g/dL 04/02/2025 8:22 PM EDT [facility] Albumin 2.9(L) 3.5 - 5.2 g/dL 04/02/2025 8:22 PM EDT [facility] ALT (SGPT) 8 1 - 41 U/L 04/02/2025 8:22 PM EDT [facility] AST (SGOT) 15 1 - 40 U/L 04/02/2025 8:22 PM EDT [facility] Alkaline Phosphatase 140(H) 39 - 117 U/L 04/02/2025 8:22 PM EDT [facility] Total Bilirubin 0.4 0.0 - 1.2 mg/dL 04/02/2025 8:22 PM EDT [facility] Globulin 3.3 gm/dL 04/02/2025 8:22 PM EDT [facility] Comment:Calculated Result A/G Ratio 0.9 g/dL 04/02/2025 8:22 PM EDT [facility] BUN/Creatinine Ratio 13.7 7.0 - 25.0 04/02/2025 8:22 PM EDT [facility] Anion Gap 6.5 5.0 - 15.0 mmol/L 04/02/2025 8:22 PM EDT [facility] eGFR 86.1 >60.0 mL/min/1.7 3 04/02/2025 8:22 PM EDT [facility] Blood Venipuncture / Unknown 04/02/2025 7:50 PM EDT 04/02/2025 7:57 PM EDT Narrative [facility] - 04/02/2025 8:22 PM [...] PALOMARES LAB BLOOD ORDERABLES Final Resu lt [facility]
[address] [place] [address], * XR Chest 1 View (04/02/2025 7:41 PM EDT) Anatomical Region Laterality Modality Body N/A Radiographic Sejal ging 04/02/2025 7:44 PM EDT Impressions 04/02/2025 7:47 PM EDT Impression: No acute cardiopulmonary process. Electronically Signed: Israel Euceda MD 04/02/2025 7:47 PM EDT Workstation ID: [id number] Narrative 04/02/2025 7:47 PM EDT XR CHEST [...] MD 04/02/2025 7:47 PM EDT Workstation ID: [id number] Oumar PALOMARES IMG DIAGNOSTIC IMAGING ORDERABL ES [...] RN) documented in this encounter Care Teams M48 M60 Armor Crewman Relationship Specialty Start Date End Date Rupesh Arvizu DO [address] [place] [address] PCP - General Internal Medicine 04/02/25 documented as of this encounter
--- NOTE | 2025-04-16 08:55 | XR_ITS ---
PROCEDURE INFORMATION: Exam: XR Chest Exam date and time: 04/16/2025 8:57 AM Age: 60 years old Clinical indication: Shortness of breath; Additional info: Shortness of breath x few weeks, swelling in legs & neck x few weeks TECHNIQUE: Imaging protocol: Radiologic exam of the chest. Views: 2 views. COMPARISON: CT ANGIO CHEST PE PROTOCOL 03/18/2025 7:35 PM FINDINGS: Lungs: Minimal amount of infiltrate in the right lateral base. Prominent right hilum which corresponds to adenopathy on a CT scan of 03/18/25. Pleural spaces: There is now a soft tissue density involving the left costophrenic angle likely pleural effusion although there could be some adjacent atelectasis as it has a straight margin. Heart/Mediastinum: See Lungs finding. Bones/joints: Unremarkable. IMPRESSION: New pleural effusion with possible adjacent atelectasis left lateral base with a minimal amount of infiltrate in the right base.
--- OUTSIDE RECORDS SUMMARY | 2025-04-16 08:57 | XMS_ITS | Encounter Summary ---
[facility] Address [address] [place] [address] Care Team Providers Care Scaler Packer Name Role Phone Rupesh Arvizu Primary Care [...] 6:53 PM EDT Raegan Silva, PATI * [place] Suicide Severity Rating Scale (Screener/Recent Self-Report) Question [...] on filedocumented in this encounter Care Teams Scaler Packer Relationship Specialty Start Date End Date Rupesh Arvizu DO [address] [place] [id number] PCP - General Internal Medicine 04/02/25 documented as of this encounter
--- OUTSIDE RECORDS SUMMARY | 2025-04-16 08:57 | XMS_ITS | Clinical Summary ---
[facility] Address [address] [place] [address] Care Team Providers Care Drywaller Name Role Phone Rupesh Arvizu Primary Care Provider + Allergies No known active allergies Medications furosemide (LASIX) 20 MG tablet Take 1 tablet by mouth Daily for 5 days. 5 tablet 04/02/2025 Active Encounters Date Type Department Care Team Description 04/02/2025 6:54 PM EDT - 04/02/2025 9:27 PM EDT Emergency [facility] EMERGENCY DEPARTMENT [address] [place] [address] Patric Cooney MD Edema, unspecified [...] * Telemetry Scan (04/02/2025 8:44 PM EDT) [facility] ECG ORDERABLES Final Result * (ABNORMAL) Urinalysis, Microscopic Only - Urine, Clean Catch (04/02/2025 7:50 PM EDT) RBC, UA 6-10(A) None Seen, 0-2 /HPF 04/02/2025 8:46 PM EDT [facility] WBC, UA 0-2 None Seen, 0-2 /HPF 04/02/2025 8:46 PM EDT [facility] Bacteria, UA None Seen None Seen /HPF 04/02/2025 8:46 PM EDT [facility] Squamous Epithelial Cells, UA 0-2 None Seen, 0-2 /HPF 04/02/2025 8:46 PM EDT [facility] Hyaline Casts, UA None Seen None Seen /LPF 04/02/2025 8:46 PM EDT [facility] Calcium Oxalate Crystals, UA Large/3+ None Seen /HPF 04/02/2025 8:46 PM EDT [facility] Methodology Manual Light Microscopy 04/02/2025 8:46 PM EDT [facility] Urine Urine specimen obtained by clean catch procedure / Unknown Collection / Unknown 04/02/2025 7:50 PM EDT 04/02/2025 7:57 PM EDT Oumar PALOMARES URINE ORDERABLES Final Result [facility]
[address] [place] [address], * (ABNORMAL) Urinalysis With Microscopic If Indicated (No Culture) - Urine, Clean Catch (04/02/2025 7:50 PM EDT) Color, UA Yellow Yellow, Straw 04/02/2025 8:27 PM EDT [facility] Appearance, UA Cloudy(A) Clear 04/02/2025 8:27 PM EDT [facility] pH, UA 6.5 5.0 - 8.0 04/02/2025 8:27 PM EDT [facility] Specific [place], UA 1.019 1.005 - 1.030 04/02/2025 8:27 PM EDT [facility] Glucose, UA Negative Negative 04/02/2025 8:27 PM EDT [facility] Ketones, UA Negative Negative 04/02/2025 8:27 PM EDT [facility] Bilirubin, UA Negative Negative 04/02/2025 8:27 PM EDT [facility] Blood, UA Trace(A) Negative 04/02/2025 8:27 PM EDT [facility] Protein, UA Negative Negative 04/02/2025 8:27 PM EDT [facility] Leuk Esterase, UA Negative Negative 04/02/2025 8:27 PM EDT [facility] Nitrite, UA Negative Negative 04/02/2025 8:27 PM EDT [facility] Urobilinogen, UA 1.0 E.U./dL 0.2 - 1.0 E.U./dL 04/02/2025 8:27 PM EDT [facility] Urine Urine specimen obtained by clean catch procedure / Unknown Collection / Unknown 04/02/2025 7:50 PM EDT 04/02/2025 7:57 PM EDT Oumar PALOMARES URINE ORDERABLES Final Result [facility]
[address] [place] [address], * (ABNORMAL) CBC Auto Differential (04/02/2025 7:50 PM EDT) WBC 11.29(H) 3.40 - 10.80 10*3/mm3 04/02/2025 7:59 PM EDT [facility] RBC 5.08 4.14 - 5.80 10*6/mm3 04/02/2025 7:59 PM EDT [facility] Hemoglobin 15.3 13.0 - 17.7 g/dL 04/02/2025 7:59 PM EDT [facility] Hematocrit 47.0 37.5 - 51.0 % 04/02/2025 7:59 PM EDT [facility] MCV 92.5 79.0 - 97.0 fL 04/02/2025 7:59 PM EDT [facility] MCH 30.1 26.6 - 33.0 pg 04/02/2025 7:59 PM EDT [facility] MCHC 32.6 31.5 - 35.7 g/dL 04/02/2025 7:59 PM EDT [facility] RDW 13.7 12.3 - 15.4 % 04/02/2025 7:59 PM EDT [facility] RDW-SD 46.5 37.0 - 54.0 fl 04/02/2025 7:59 PM EDT [facility] MPV 9.3 6.0 - 12.0 fL 04/02/2025 7:59 PM EDT [facility] Platelets 380 140 - 450 10*3/mm3 04/02/2025 7:59 PM [facility] Neutrophil % 70.9 42.7 - 76.0 % 04/02/2025 7:59 PM [facility] Lymphocyte % 15.5(L) 19.6 - 45.3 % 04/02/2025 7:59 PM [facility] Monocyte % 8.9 5.0 - 12.0 % 04/02/2025 7:59 PM [facility] Eosinophil % 3.4 0.3 - 6.2 % 04/02/2025 7:59 PM [facility] Basophil % 0.9 0.0 - 1.5 % 04/02/2025 7:59 PM [facility] Immature Grans % 0.4 0.0 - 0.5 % 04/02/2025 7:59 PM [facility] Neutrophils, Absolute 8.02(H) 1.70 - 7.00 10*3/mm3 04/02/2025 7:59 PM [facility] Lymphocytes, Absolute 1.75 0.70 - 3.10 10*3/mm3 04/02/2025 7:59 PM [facility] Monocytes, Absolute 1.00(H) 0.10 - 0.90 10*3/mm3 04/02/2025 7:59 PM [facility] Eosinophils, Absolute 0.38 0.00 - 0.40 10*3/mm3 04/02/2025 7:59 PM [facility] Basophils, Absolute 0.10 0.00 - 0.20 10*3/mm3 04/02/2025 7:59 PM [facility] Immature Grans, Absolute 0.04 0.00 - 0.05 10*3/mm3 04/02/2025 7:59 PM [facility] nRBC 0.0 0.0 - 0.2 /100 WBC 04/02/2025 7:59 PM [facility] Blood Venipuncture / Unknown 04/02/2025 7:50 PM EDT 04/02/2025 7:57 PM EDT Oumar PALOMARES LAB BLOOD ORDERABLES Final Resu lt Performing Organization Address [facility] Co de Phone Number [facility]
[address] [place] [address], * BNP (04/02/2025 7:50 PM EDT) proBNP 107.0 0.0 - 900.0 pg/mL 04/02/2025 8:22 PM EDT [facility] Blood Venipuncture / Unknown 04/02/2025 7:50 PM EDT 04/02/2025 7:57 PM EDT Narrative [facility] - 04/02/2025 8:22 PM EDT [...] ORDERABLES Final Resu lt Performing Organization Address [facility]/ZIP Co de Phone Number [facility]
[address] [place] [address], [place] [phone] * (ABNORMAL) Comprehensive Metabolic Panel (04/02/2025 7:50 PM EDT) Glucose 74 65 - 99 mg/dL 04/02/2025 8:22 PM EDT [facility] BUN 13.6 8.0 - 23.0 mg/dL 04/02/2025 8:22 PM [facility] Creatinine 0.99 0.76 - 1.27 mg/dL 04/02/2025 8:22 PM [facility] Sodium 139 136 - 145 mmol/L 04/02/2025 8:22 PM [facility] Potassium 4.0 3.5 - 5.2 mmol/L 04/02/2025 8:22 PM [facility] Chloride 108(H) 98 - 107 mmol/L 04/02/2025 8:22 PM [facility] CO2 24.5 22.0 - 29.0 mmol/L 04/02/2025 8:22 PM [facility] Calcium 9.6 8.6 - 10.5 mg/dL 04/02/2025 8:22 PM [facility] Total Protein 6.2 6.0 - 8.5 g/dL 04/02/2025 8:22 PM [facility] Albumin 2.9(L) 3.5 - 5.2 g/dL 04/02/2025 8:22 PM [facility] ALT (SGPT) 8 1 - 41 U/L 04/02/2025 8:22 PM [facility] AST (SGOT) 15 1 - 40 U/L 04/02/2025 8:22 PM [facility] Alkaline Phosphatase 140(H) 39 - 117 U/L 04/02/2025 8:22 PM [facility] Total Bilirubin 0.4 0.0 - 1.2 mg/dL 04/02/2025 8:22 PM [facility] Globulin 3.3 gm/dL 04/02/2025 8:22 PM [facility] Comment:Calculated Result A/G Ratio 0.9 g/dL 04/02/2025 8:22 PM [facility] BUN/Creatinine Ratio 13.7 7.0 - 25.0 04/02/2025 8:22 PM [facility] Anion Gap 6.5 5.0 - 15.0 mmol/L 04/02/2025 8:22 PM EDT [facility] eGFR 86.1 >60.0 mL/min/1.7 3 04/02/2025 8:22 PM EDT [facility] Blood Venipuncture / Unknown 04/02/2025 7:50 PM EDT 04/02/2025 7:57 PM EDT Narrative [facility] - 04/02/2025 8:22 PM EDT [...] does not include race as a factor Oumra PALOMARES LAB BLOOD ORDERABLES Final Resu lt [facility]
[address] [place] [address], * XR Chest 1 View (04/02/2025 7:41 PM EDT) Anatomical Region Laterality Modality Body N/A Radiographic Sejal ging 04/02/2025 7:44 PM EDT Impressions 04/02/2025 7:47 PM EDT Impression: No acute cardiopulmonary process. Electronically Signed: Israel Euceda MD 04/02/2025 7:47 PM EDT Workstation ID: [id number] Narrative 04/02/2025 7:47 PM EDT XR CHEST [...] MD 04/02/2025 7:47 PM EDT Workstation ID: [id number] us Oumar PALOMARES IMG DIAGNOSTIC IMAGING ORDERABL ES Final Result from Last 3 Months Insurance [facility] Care Teams Drywaller Relationship Specialty Start Date End Date Rupesh Arvizu DO [address] [place] [id number] PCP - General Internal Medicine 04/02/25
== END 2025-04-16 23:59 | disposition home or self-care (01) ==
LOC: LAB 08:55
PROVIDERS: PCP Internal Medicine; Visit Provider Internal Medicine Medical Oncology
DX: J90 Pleural effusion, not elsewhere classified (principal); R91.8 Other nonspecific abnormal finding of lung field
CPT/HCPCS: 71046

== ENCOUNTER 2025-04-18 08:02 | Outpatient (CLI) | payer OTHER, SELFPAY ==
--- OUTSIDE RECORDS SUMMARY | 2025-04-02 18:54 | XMS_ITS | Encounter Summary ---
Author Organization [facility] Address [address] [place] [address] Care Team Providers Care Inclusion Teacher Name Role Phone Rupesh Arvizu Primary Care Provider + Reason for Visit * Reason Comments Arm Swelling Encounter Details Date Type Department Care Team (Late st Contact Info) Description 04/02/2025 6:54 PM EDT - 04/02/2025 9:27 PM EDT Emergency [facility] [address] [facility] [place] [id number] Patric Cooney MD [address] [place] [address] Edema, unspecified type (Primary Dx) [...] 6:53 PM EDT Raegan Silva, PATI * [place] Suicide Severity Rating Scale (Screener/Recent Self-Report) Question [...] sent through Care Everywhere. * Peripheral Edema (Emirati) * Edema (Emirati) documented in this encounter Medications at Time [...] care of Dr. Burch, an oncologist in [place], who diagnosed partial carotidartery blockage. The patient's daughter and [id number], who is a nurse, noted worsening of [...] pH, UA 6.5 5.0 - 8.0 Specific Gans, UA 1.019 1.005 - 1.030 Glucose, UA [...] MD 04/02/2025 7:47 PM EDT Workstation ID: [id number] [x] Radiologist's Report Reviewed: I ordered and [...] case was discussed with attending physician Dr. Cooney, who concurred with the proposed treatment and [...] DO [address] [place] [address] Schedule an appointment as soon as possible for a visit Call for follow up with primary care [facility] [address] [facility] [phone] Go to If symptoms worsen Medication List New Prescriptions furosemide 20 MG tablet Commonly known as: LASIX Take 1 tablet by mouth Daily for 5 days. Where to Get Your Medications These medications were sent to [facility] [place] [facility] [address] [phone] [place] [phone] [place] [address] furosemide 20 MG tablet Oumar Valdez PA [...] * Telemetry Scan (04/02/2025 8:44 PM EDT) [facility] Final Result * (ABNORMAL) Urinalysis, Microscopic Only - Urine, Clean Catch (04/02/2025 7:50 PM EDT) RBC, UA 6-10(A) None Seen, 0-2 /HPF 04/02/2025 8:46 PM EDT [facility] WBC, UA 0-2 None Seen, 0-2 /HPF 04/02/2025 8:46 PM EDT [facility] Bacteria, UA None Seen None Seen /HPF 04/02/2025 8:46 PM EDT [facility] Squamous Epithelial Cells, UA 0-2 None Seen, 0-2 /HPF 04/02/2025 8:46 PM EDT [facility] Hyaline Casts, UA None Seen None Seen /LPF 04/02/2025 8:46 PM EDT [facility] Calcium Oxalate Crystals, UA Large/3+ None Seen /HPF 04/02/2025 8:46 PM EDT [facility] Methodology Manual Light Microscopy 04/02/2025 8:46 PM EDT [facility] Urine Urine specimen obtained by clean catch procedure / Unknown Collection / Unknown 04/02/2025 7:50 PM EDT 04/02/2025 7:57 PM EDT Oumar PALOMARES URINE ORDERABLES Final Result [facility]
[address] [place] [address], * (ABNORMAL) CBC Auto Differential (04/02/2025 7:50 PM EDT) WBC 11.29(H) 3.40 - 10.80 10*3/mm3 04/02/2025 7:59 PM EDT [facility] RBC 5.08 4.14 - 5.80 10*6/mm3 04/02/2025 7:59 PM EDT [facility] Hemoglobin 15.3 13.0 - 17.7 g/dL 04/02/2025 7:59 PM EDT [facility] Hematocrit 47.0 37.5 - 51.0 % 04/02/2025 7:59 PM EDT [facility] MCV 92.5 79.0 - 97.0 fL 04/02/2025 7:59 PM EDT [facility] MCH 30.1 26.6 - 33.0 pg 04/02/2025 7:59 PM EDT [facility] MCHC 32.6 31.5 - 35.7 g/dL 04/02/2025 7:59 PM EDT [facility] RDW 13.7 12.3 - 15.4 % 04/02/2025 7:59 PM EDT [facility] RDW-SD 46.5 37.0 - 54.0 fl 04/[facility]25 [facility] MPV 9.3 6.0 - 12.0 fL 04/02/2025 7:59 PM EDT [facility] Platelets 380 140 - 450 10*3/mm3 04/02/2025 7:59 PM EDT [facility] Neutrophil % 70.9 42.7 - 76.0 % 04/02/2025 7:59 [facility] Lymphocyte % 15.5(L) 19.6 - 45.3 % 04/02/2025 7:59 [facility] Monocyte % 8.9 5.0 - 12.0 % 04/02/2025 7:59 PM [facility] Eosinophil % 3.4 0.3 - 6.2 % 04/02/2025 7:59 [facility] Basophil % 0.9 0.0 - 1.5 % 04/02/2025 7:59 [facility] Immature Grans % 0.4 0.0 - 0.5 % 04/02/2025 7:59 [facility] Neutrophils, Absolute 8.02(H) 1.70 - 7.00 10*3/mm3 04/02/2025 7:59 PM EDT [facility] Lymphocytes, Absolute 1.75 0.70 - 3.10 10*3/mm3 04/02/2025 7:59 PM EDT [facility] Monocytes, Absolute 1.00(H) 0.10 - 0.90 10*3/mm3 04/02/2025 7:59 [facility] Eosinophils, Absolute 0.38 0.00 - 0.40 10*3/mm3 04/02/2025 7:59 PM EDT [facility] Basophils, Absolute 0.10 0.00 - 0.20 10*3/mm3 04/02/2025 7:59 PM EDT [facility] Immature Grans, Absolute 0.04 0.00 - 0.05 10*3/mm3 04/02/2025 7:59 PM EDT [facility] nRBC 0.0 0.0 - 0.2 /100 WBC 04/02/2025 7:59 PM EDT [facility] Blood Venipuncture / Unknown 04/02/2025 7:50 PM EDT 04/02/2025 7:57 PM EDT O[facility] LAB BLOOD ORDERABLES Final Resu lt Performing Organization Address [facility] Co de Phone Number [facility]
[address] [place] [address], * BNP (04/02/2025 7:50 PM EDT) [facility] proBNP 107.0 0.0 - 900.0 pg/mL 04/02/2025 8:22 PM EDT [facility] Blood Venipuncture / Unknown 04/02/2025 7:50 PM EDT 04/02/2025 7:57 PM EDT Narrative [facility] - 04/02/2025 8:22 PM EDT [...] [facility] LAB BLOOD ORDERABLES Final Resu lt [facility]
[address] [place] [address], [place] [phone] * (ABNORMAL) Urinalysis With Microscopic If Indicated (No Culture) - Urine, Clean Catch (04/02/2025 7:50 PM EDT) Color, UA Yellow Yellow, Straw 04/02/2025 8:27 PM EDT [facility] Appearance, UA Cloudy(A) Clear 04/02/2025 8:27 PM EDT [facility] pH, UA 6.5 5.0 - 8.0 04/02/2025 8:27 PM EDT [facility] Specific Gans, UA 1.019 1.005 - 1.030 04/02/2025 8:27 PM EDT [facility] Glucose, UA Negative Negative 04/02/2025 8:27 PM EDT [facility] Ketones, UA Negative Negative 04/02/2025 8:27 PM EDT [facility] Bilirubin, UA Negative Negative 04/02/2025 8:27 PM EDT [facility] Blood, UA Trace(A) Negative 04/02/2025 8:27 PM EDT [facility] Protein, UA Negative Negative 04/02/2025 8:27 PM EDT [facility] Leuk Esterase, UA Negative Negative 04/02/2025 8:27 PM EDT [facility] Nitrite, UA Negative Negative 04/02/2025 8:27 PM EDT [facility] Urobilinogen, UA 1.0 E.U./dL 0.2 - 1.0 E.U./dL 04/02/2025 8:27 PM EDT [facility] Urine Urine specimen obtained by clean catch procedure / Unknown Collection / Unknown 04/02/2025 7:50 PM EDT 04/02/2025 7:57 PM EDT Oumar PALOMARES URINE ORDERABLES Final Result [facility]
[address] [place] [address], * (ABNORMAL) Comprehensive Metabolic Panel (04/02/2025 7:50 PM EDT) [facility] Glucose 74 65 - 99 mg/dL 04/02/2025 8:22 PM EDT [facility] BUN 13.6 8.0 - 23.0 mg/dL 04/02/2025 8:22 PM EDT [facility] Creatinine 0.99 0.76 - 1.27 mg/dL 04/02/2025 8:22 PM EDT [facility] Sodium 139 136 - 145 mmol/L 04/02/2025 8:22 PM EDT [facility] Potassium 4.0 3.5 - 5.2 mmol/L 04/02/2025 8:22 PM EDT [facility] Chloride 108(H) 98 - 107 mmol/L 04/02/2025 8:22 PM EDT [facility] CO2 24.5 22.0 - 29.0 mmol/L 04/02/2025 8:22 PM EDT [facility] Calcium 9.6 8.6 - 10.5 mg/dL 04/02/2025 8:22 PM EDT [facility] Total Protein 6.2 6.0 - 8.5 g/dL 04/02/2025 8:22 PM EDT [facility] Albumin 2.9(L) 3.5 - 5.2 g/dL 04/02/2025 8:22 PM EDT [facility] ALT (SGPT) 8 1 - 41 U/L 04/02/2025 8:22 PM EDT [facility] AST (SGOT) 15 1 - 40 U/L 04/02/2025 8:22 PM EDT [facility] Alkaline Phosphatase 140(H) 39 - 117 U/L 04/02/2025 8:22 PM EDT [facility] Total Bilirubin 0.4 0.0 - 1.2 mg/dL 04/02/2025 8:22 PM EDT [facility] Globulin 3.3 gm/dL 04/02/2025 8:22 PM EDT [facility] Comment:Calculated Result A/G Ratio 0.9 g/dL 04/02/2025 8:22 PM EDT [facility] BUN/Creatinine Ratio 13.7 7.0 - 25.0 04/02/2025 8:22 PM EDT [facility] Anion Gap 6.5 5.0 - 15.0 mmol/L 04/02/2025 8:22 PM EDT [facility] eGFR 86.1 >60.0 mL/min/1.7 3 04/02/2025 8:22 PM EDT [facility] Blood Venipuncture / Unknown 04/02/2025 7:50 PM EDT 04/02/2025 7:57 PM EDT Narrative [facility] - 04/02/2025 8:22 PM EDT [...] PALOMARES LAB BLOOD ORDERABLES Final Resu lt [facility]
[address] [place] [address], * XR Chest 1 View (04/02/2025 7:41 PM EDT) Anatomical Region Laterality Modality Body N/A Radiographic Sejal ging 04/02/2025 7:44 PM EDT Impressions 04/02/2025 7:47 PM EDT Impression: No acute cardiopulmonary process. Electronically Signed: Israel Euceda MD 04/02/2025 7:47 PM EDT Workstation ID: [id number] Narrative 04/02/2025 7:47 PM EDT XR CHEST [...] MD 04/02/2025 7:47 PM EDT Workstation ID: [id number] Oumar PALOMARES IMG DIAGNOSTIC IMAGING ORDERABL ES [...] RN) documented in this encounter Care Teams Inclusion Teacher Relationship Specialty Start Date End Date Rupesh Arvizu DO [address] [place] [address] PCP - General Internal Medicine 04/02/25 documented as of this encounter
[2025-04-18] VITALS (12 sets, daily range): BP systolic 99–147; BP diastolic 52–87; PULSE 62–77; RESP 18; TEMP 36.2–36.3; O2SAT 93–100; BMI 31.1
--- OUTSIDE RECORDS SUMMARY | 2025-04-18 08:04 | XMS_ITS | Encounter Summary ---
[facility] Address [address] [place] [address] Care Team Providers Care Home Decorator Name Role Phone Rupesh Arvizu Primary Care [...] 6:53 PM EDT Raegan Silva, PATI * [place] Suicide Severity Rating Scale (Screener/Recent Self-Report) Question [...] on filedocumented in this encounter Care Teams Home Decorator Relationship Specialty Start Date End Date Rupesh Arvizu DO [address] [place] [id number] PCP - General Internal Medicine 04/02/25 documented as of this encounter
--- OUTSIDE RECORDS SUMMARY | 2025-04-18 08:04 | XMS_ITS | Clinical Summary ---
[facility] Organization [facility] Address [address] [place] [address] Care Team Providers Care Business Office Manager Name Role Phone Rupesh Arvizu Primary Care Provider + Allergies No known active allergies Medications furosemide (LASIX) 20 MG tablet Take 1 tablet by mouth Daily for 5 days. 5 tablet 04/02/2025 Active Encounters Date Type Department Care Team Description 04/02/2025 6:54 PM EDT - 04/02/2025 9:27 PM EDT Emergency [facility] EMERGENCY DEPARTMENT [address] [place] [address] Patric Cooney MD Edema, unspecified [...] (04/02/2025 8:44 PM EDT) [facility] ORDERABLES Final Result * (ABNORMAL) Urinalysis, Microscopic Only - Urine, Clean Catch (04/02/2025 7:50 PM EDT) RBC, UA 6-10(A) None Seen, 0-2 /HPF 04/02/2025 8:46 PM EDT [facility] WBC, UA 0-2 None Seen, 0-2 /HPF 04/02/2025 8:46 PM EDT [facility] Bacteria, UA None Seen None Seen /HPF 04/02/2025 8:46 PM EDT [facility] Squamous Epithelial Cells, UA 0-2 None Seen, 0-2 /HPF 04/02/2025 8:46 PM EDT [facility] Hyaline Casts, UA None Seen None Seen /LPF 04/02/2025 8:46 PM EDT [facility] Calcium Oxalate Crystals, UA Large/3+ None Seen /HPF 04/02/2025 8:46 PM EDT [facility] Methodology Manual Light Microscopy 04/02/2025 8:46 PM EDT [facility] Urine Urine specimen obtained by clean catch procedure / Unknown Collection / Unknown 04/02/2025 7:50 PM EDT 04/02/2025 7:57 PM EDT Oumar PALOMARES URINE ORDERABLES Final Result [facility]
[address] [place] [address], * (ABNORMAL) Urinalysis With Microscopic If Indicated (No Culture) - Urine, Clean Catch (04/02/2025 7:50 PM EDT) Color, UA Yellow Yellow, Straw 04/02/2025 8:27 PM EDT [facility] Appearance, UA Cloudy(A) Clear 04/02/2025 8:27 PM EDT [facility] pH, UA 6.5 5.0 - 8.0 04/02/2025 8:27 PM EDT [facility] Specific [place], UA 1.019 1.005 - 1.030 04/02/2025 8:27 PM EDT [facility] Glucose, UA Negative Negative 04/02/2025 8:27 PM EDT [facility] Ketones, UA Negative Negative 04/02/2025 8:27 PM EDT [facility] Bilirubin, UA Negative Negative 04/02/2025 8:27 PM EDT [facility] Blood, UA Trace(A) Negative 04/02/2025 8:27 PM EDT [facility] Protein, UA Negative Negative 04/02/2025 8:27 PM EDT [facility] Leuk Esterase, UA Negative Negative 04/02/2025 8:27 PM EDT [facility] Nitrite, UA Negative Negative 04/02/2025 8:27 PM EDT [facility] Urobilinogen, UA 1.0 E.U./dL 0.2 - 1.0 E.U./dL 04/02/2025 8:27 PM EDT [facility] Urine Urine specimen obtained by clean catch procedure / Unknown Collection / Unknown 04/02/2025 7:50 PM EDT 04/02/2025 7:57 PM EDT Oumar PALOMARES URINE ORDERABLES Final Result [facility]
[address] [place] [address], * (ABNORMAL) CBC Auto Differential (04/02/2025 7:50 PM EDT) WBC 11.29(H) 3.40 - 10.80 10*3/mm3 04/02/2025 7:59 PM EDT [facility] RBC 5.08 4.14 - 5.80 10*6/mm3 04/02/2025 7:59 PM EDT [facility] Hemoglobin 15.3 13.0 - 17.7 g/dL 04/02/2025 7:59 PM EDT [facility] Hematocrit 47.0 37.5 - 51.0 % 04/02/2025 7:59 PM EDT [facility] MCV 92.5 79.0 - 97.0 fL 04/02/2025 7:59 PM EDT [facility] MCH 30.1 26.6 - 33.0 pg 04/02/2025 7:59 PM EDT [facility] MCHC 32.6 31.5 - 35.7 g/dL 04/02/2025 7:59 PM EDT [facility] RDW 13.7 12.3 - 15.4 % 04/02/2025 7:59 PM EDT [facility] RDW-SD 46.5 37.0 - 54.0 fl 04/02/2025 7:59 PM EDT [facility] MPV 9.3 6.0 - 12.0 fL 04/02/2025 7:59 PM EDT [facility] Platelets 380 140 - 450 10*3/mm3 04/02/2025 7:59 PM [facility] Neutrophil % 70.9 42.7 - 76.0 % 04/02/2025 7:59 PM [facility] Lymphocyte % 15.5(L) 19.6 - 45.3 % 04/02/2025 7:59 PM [facility] Monocyte % 8.9 5.0 - 12.0 % 04/02/2025 7:59 PM [facility] Eosinophil % 3.4 0.3 - 6.2 % 04/02/2025 7:59 PM [facility] Basophil % 0.9 0.0 - 1.5 % 04/02/2025 7:59 PM [facility] Immature Grans % 0.4 0.0 - 0.5 % 04/02/2025 7:59 PM [facility] Neutrophils, Absolute 8.02(H) 1.70 - 7.00 10*3/mm3 04/02/2025 7:59 PM [facility] Lymphocytes, Absolute 1.75 0.70 - 3.10 10*3/mm3 04/02/2025 7:59 PM [facility] Monocytes, Absolute 1.00(H) 0.10 - 0.90 10*3/mm3 04/02/2025 7:59 PM [facility] Eosinophils, Absolute 0.38 0.00 - 0.40 10*3/mm3 04/02/2025 7:59 PM [facility] Basophils, Absolute 0.10 0.00 - 0.20 10*3/mm3 04/02/2025 7:59 PM [facility] Immature Grans, Absolute 0.04 0.00 - 0.05 10*3/mm3 04/02/2025 7:59 PM [facility] nRBC 0.0 0.0 - 0.2 /100 WBC 04/02/2025 7:59 PM [facility] Blood Venipuncture / Unknown 04/02/2025 7:50 PM EDT 04/02/2025 7:57 PM EDT Oumar PALOMARES LAB BLOOD ORDERABLES Final Resu lt Performing Organization Address [facility] Co de Phone Number [facility]
[address] [place] [address], * BNP (04/02/2025 7:50 PM EDT) proBNP 107.0 0.0 - 900.0 pg/mL 04/02/2025 8:22 PM EDT [facility] Blood Venipuncture / Unknown 04/02/2025 7:50 PM EDT 04/02/2025 7:57 PM EDT Narrative [facility] - 04/02/2025 8:22 PM EDT [...] ORDERABLES Final Resu lt Performing Organization Address [facility]/ZIP Co de Phone Number [facility]
[address] [place] [address], [place] [phone] * (ABNORMAL) Comprehensive Metabolic Panel (04/02/2025 7:50 PM EDT) Glucose 74 65 - 99 mg/dL 04/02/2025 8:22 PM EDT [facility] BUN 13.6 8.0 - 23.0 mg/dL 04/02/2025 8:22 PM [facility] Creatinine 0.99 0.76 - 1.27 mg/dL 04/02/2025 8:22 PM [facility] Sodium 139 136 - 145 mmol/L 04/02/2025 8:22 PM [facility] Potassium 4.0 3.5 - 5.2 mmol/L 04/02/2025 8:22 PM [facility] Chloride 108(H) 98 - 107 mmol/L 04/02/2025 8:22 PM [facility] CO2 24.5 22.0 - 29.0 mmol/L 04/02/2025 8:22 PM [facility] Calcium 9.6 8.6 - 10.5 mg/dL 04/02/2025 8:22 PM [facility] Total Protein 6.2 6.0 - 8.5 g/dL 04/02/2025 8:22 PM [facility] Albumin 2.9(L) 3.5 - 5.2 g/dL 04/02/2025 8:22 PM [facility] ALT (SGPT) 8 1 - 41 U/L 04/02/2025 8:22 PM [facility] AST (SGOT) 15 1 - 40 U/L 04/02/2025 8:22 PM [facility] Alkaline Phosphatase 140(H) 39 - 117 U/L 04/02/2025 8:22 PM [facility] Total Bilirubin 0.4 0.0 - 1.2 mg/dL 04/02/2025 8:22 PM [facility] Globulin 3.3 gm/dL 04/02/2025 8:22 PM [facility] Comment:Calculated Result A/G Ratio 0.9 g/dL 04/02/2025 8:22 PM [facility] BUN/Creatinine Ratio 13.7 7.0 - 25.0 04/02/2025 8:22 PM [facility] Anion Gap 6.5 5.0 - 15.0 mmol/L 04/02/2025 8:22 PM EDT [facility] eGFR 86.1 >60.0 mL/min/1.7 3 04/02/2025 8:22 PM EDT [facility] Blood Venipuncture / Unknown 04/02/2025 7:50 PM EDT 04/02/2025 7:57 PM EDT Narrative [facility] - 04/02/2025 8:22 PM EDT [...] PALOMARES LAB BLOOD ORDERABLES Final Resu lt [facility]
[address] [place] [address], * XR Chest 1 View (04/02/2025 7:41 PM EDT) Anatomical Region Laterality Modality Body N/A Radiographic Sejal ging 04/02/2025 7:44 PM EDT Impressions 04/02/2025 7:47 PM EDT Impression: No acute cardiopulmonary process. Electronically Signed: Israel Euceda MD 04/02/2025 7:47 PM EDT Workstation ID: [id number] Narrative 04/02/2025 7:47 PM EDT XR CHEST [...] MD 04/02/2025 7:47 PM EDT Workstation ID: [id number] us [facility] ORDERABL ES Final Result from Last 3 Months Insurance [facility] Care Teams Business Office Manager Relationship Specialty Start Date End Date Rupesh Arvizu DO [address] [place] [id number] PCP - General Internal Medicine 04/02/25
--- NOTE | 2025-04-18 08:30 | CT_ITS ---
FINAL REPORT CLINICAL HISTORY: Abnormal swelling Left axillary lymph node biopsy FINDINGS: CT-GUIDED LEFT AXILLARY LYMPH NODE BIOPSY HISTORY: Scattered lymph nodes. ATTENDING PHYSICIAN: Dr. Ortiz. PHYSICIAN CIRCULAR RIPSAW OPERATOR: Jena Bazan PA-C. CONSCIOUS SEDATION: 2 mg of IV Versed and 50 mcg of fentanyl were administered. Continuous vital sign monitoring was used. Nursing staff was present during the sedation process. Overall sedation time was 15 minutes. TECHNIQUE: Informed consent was obtained from the patient. Timeout procedure was performed prior to beginning. The left axilla was prepped in a routine sterile fashion and locally anesthetized with 1% lidocaine. Using CT guidance a 19 gauge guide needle was directed toward the lymph node of interest. The needle was positioned within the outer periphery of the Lymph node. Coaxial technique was utilized. A total of 6 passes were made with a 18 gauge core biopsy needle . Limited postbiopsy CT showed no evidence of significant hemorrhage . Procedure was well tolerated . Incidental note is made of new moderate bilateral pleural effusions. CONCLUSION: 1. Technically successful CT guided biopsy of left axillary lymph node as above. 2. Incidental note is made of new moderate bilateral pleural effusions. Reviewed, Interpreted and Dictated by Tram Ortiz MD Transcribed by Jena Bazan PA-C Authenticated and [facility]
== END 2025-04-18 12:00 | disposition home or self-care (01) ==
PROVIDERS: PCP Internal Medicine; Visit Provider Internal Medicine Medical Oncology
DX: R59.1 Generalized enlarged lymph nodes (principal)
CPT/HCPCS: 10009; 99152; 99153; J2250; J3010

== ENCOUNTER 2025-04-28 06:05 | Day surgery (SDC) | payer OTHER, SELFPAY ==
[2025-04-26 13:05] VITALS: BMI 31.3
--- NOTE | 2025-04-27 15:06 | P.HP_ITS ---
History of Present Illness *Admission Date: 04/28/25 *History of present illness: Mr. Sierra is a 60-year-old gentleman who is here for diagnostic EGD and colonoscopy. He had a CAT scan showing small lymph nodes in multiple areas/lymphadenopathy. 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 The patient did have a colonoscopy (Andie Valencia MD) in September 2022 that was normal. The examination is deemed medically necessary for diagnostic EGD and colonoscopy. The patient has been seen, interviewed and examined prior to the procedure by both myself and the anesthesia provider. [facility] Disclaimer: The information contained in this section may have been updated after the patient was seen, as this information can be updated by other users. Medical History Metastatic signet ring cell carcinoma Carotid stenosis Constipation Nasal bleeding Paralysis of right vocal cord Dysphonia Distal radius fracture, left Urinary tract infection Osteophyte History of tobacco abuse Weight loss Hoarseness of voice Laryngitis Hernia, umbilical Vertigo Urinary problem in male Cough Surgical History Hx of cardiac cath Family History Other Family history of diabetes mellitus type II Social History (Updated 04/28/25 @ 06:28 by Francisca De La Cruz RN) Smoking Status: Former smoker how long ago did patient quit smokin years alcohol intake: never substance use type: denies use current occupational status: employed Travel in the last 8 weeks?: None household members: none housing: house lives independently: Yes marital status: single special hallie needs: No agree to transfusion: No do you feel safe at home: Yes victim of physical abuse: No victim of emotional abuse: No victim of sexual abuse: No would you like helpful sources: No Have you lived/traveled outside US in past 30 days?: No Contact w/someone who lives/traveled outside US past 30 days?: No Exposure to someone with infectious disease in past 14 days?: No Do you have a fever (greater than 100.4 F or 38 C)?: No Have you tested positive for COVID-19?: No Exposed to someone with COVID-19 in past 14 days?: No Do you have a sore throat?: No Do you have a cough?: No Do you have any weakness?: No Are you experiencing any nausea/vomitting?: No Do you have any diarrhea?: No Are you experiencing any unusual bleeding?: No Do you have any muscle aches/pain?: No Do you have any abdominal pain?: No Are you experiencing loss of taste or smell?: No Other Medical History Have you received the Flu Vaccine for this season: No Have you received the Pneumonia Vaccine: No Review of Systems Review of Systems Review of systems (narrative): Negative *Cardiovascular Comments: Negative *Gastrointestinal Comments: Negative *Genitourinary Comments: Negative *Musculoskeletal Comments: Negative *Neurologic Comments: Negative Meds Home Medications and Allergies Home Medications ?Medication ?Instructions ?Recorded ?Confirmed ?Type mecobalamin (vitamin B12) 1,000 1,000 mcg PO DAILY #60 ea 04/06/25 04/28/25 Rx mcg lozenges sodium,potassium,mag sulfates 17.5 See Rx Instructions PO .COMPLEX 04/22/25 04/28/25 Rx gram-3.13 gram-1.6 gram oral soln #354 mL (Suprep Bowel Prep Kit) apixaban 5 mg tablet (Eliquis) See Rx Instructions .Ro haider 04/25/25 04/28/25 Rx .COMPLEX #74 tabs New Prescriptions to Start Prescriptions: Allergies Allergy/AdvReac Type Severity Reaction Status Date / Time Iodinated Contrast Media Allergy Unknown Verified 04/28/25 07:26 allergy reaction Exam Data for Last 24 hours I & O for Last 24 hours: Intake & Output 04/24/25 04/25/25 04/26/25 04/27/25 23:59 23:59 23:59 23:59 Weight 244 lb *Routine HEENT Exam Head: Present normocephalic Eye: Present EOMI and PERRL ENT: Present mucous membranes moist *Routine Neck Exam Neck: Present supple *Routine Respiratory Exam Respiratory: Present CTA bilaterally *Routine Cardiovascular Exam Cardiovascular: Present RRR *Routine Abdominal Exam Abdominal: Present soft and normoactive bowel sounds; Absent tenderness *Routine Rectal Exam Rectal:: deferred *Routine Genitalia Exam Genitalia:: deferred *Routine Extremities Exam Extremities: Absent cyanosis, clubbing or edema *Routine Skin Exam Skin: Present warm; Absent rash *Routine Neurological Exam Neurological: Present alert and oriented X3 Assessment and Plan *Assessment and plan (1) Metastatic signet ring cell carcinoma: Status: Acute Category: Medical Code(s): C79.9 - Secondary malignant neoplasm of unspecified site Plan A/P: 1. Metastatic signet ring cell carcinoma with unknown primary is the preprocedural diagnosis. The patient will be anesthetized/sedated using MAC sedation. The patient has been seen and examined. Cardiac and lung assessment prior to the examination is stable. Proceed with planned diagnostic EGD and colonoscopy.
--- NOTE | 2025-04-27 15:10 | P.PCN_ITS ---
[facility] Procedure Note Date: 04/28/25 Time: 07:58 Procedure Note:: Colonoscopy Procedure Report: Colonoscopy with cold snare polypectomy Endoscopist: Guru Wild II, MD Referring physician: Dannie Burch MD Date of Procedure: April 28, 2025 Equipment: Olympus [id number] adult colonoscope Sedation: MAC sedation Indication: Mr. Sierra is a 60-year-old gentleman who is here for diagnostic EGD and colonoscopy. He had a CAT scan showing small lymph nodes in multiple areas/lymphadenopathy. 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 The patient did have a colonoscopy (Andie Valencia MD) in September 2022 that was normal. The patient reports no heartburn, reflux, dysphagia or indigestion. He does state that he has never had an upper endoscopy. He reports no rectal bleeding, weight loss, change in his bowel habits or family history of stomach or colon cancer. He has had constipation for 2 decades. He has noted lately that he gets some abdominal pain with coughing or with a bowel movement. This is often relieved with a bowel movement. The patient did have a CT scan of the abdomen and pelvis and there did appear to be some venous congestion within the mesentery with a dusky appearance and scattered mesenteric lymph nodes. The stomach and bowel were unremarkable in appearance with no mucosal thickening. The pancreas, gallbladder, biliary system and liver were normal with no masses. Procedure: Prior to the procedure, a history and physical exam was performed, and patient's medications and allergies were reviewed. The risks, benefits and alternatives of the sedation and procedure were discussed with the patient. All questions were answered and informed consent was obtained. The patient was brought to the procedure room. Patient identification and proposed procedure were verified by the physician and the nurse. The patient was placed in a left lateral decubitus position and the scope was passed under direct vision. Throughout the procedure, the patient's blood pressure, pulse, and oxygen saturations were monitored continuously. The colonoscopy was accomplished without difficulty. The patient tolerated the procedure well. Findings: On digital rectal examination there was normal rectal tone. There were no external hemorrhoids. There was some internal hemorrhoidal prolapse. The prostate was soft and symmetric but there was a tiny pea-sized nodule in the left lower margin of the prostate. The colonoscope was introduced through the anal canal to the rectum and advanced to the cecum. The ileocecal valve and appendiceal orifice were identified. The scope was advanced a short distance into the ileum which appeared grossly normal. The scope was then withdrawn into the colon. There was a single diminutive 4 mm polyp in the transverse colon removed via cold snare polypectomy. The remaining cecum, ascending, transverse, descending, sigmoid and rectum were grossly normal. There were no other mucosal abnormalities identified. Upon retroflexion within the rectum there were grade 2-3 internal hemorrhoids. The preparation was excellent throughout with [place] Preparation Score of 9. The cecal time was 12. Impression: 1. Diminutive transverse colon polyp (4 mm) 2. Grade 2-3 internal hemorrhoids 3. Small pea-sized nodule left lower margin prostate Plan: I will follow-up the polyp histology. Again, there was no primary identified from the colon for the signet ring metastatic carcinoma. With small prostate nodule, we will check to see if he has had PSA level.
--- NOTE | 2025-04-27 15:10 | P.PCN_ITS ---
[facility] Procedure Note Date: 04/28/25 Procedure Note:: Upper Endoscopy Procedure Report: Esophagogastroduodenoscopy with cold biopsies Endoscopost: Guru Wild II, MD Referring Physician: Dannie Burch MD Date of Procedure: April 28, 2025 Equipment: Olympus GIF-1100 standard upper endoscope Sedation: MAC sedation Indications: Mr. Seirra is a 60-year-old gentleman who is here for diagnostic EGD and colonoscopy. He had a CAT scan showing small lymph nodes in multiple areas/lymphadenopathy. 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 The patient did have a colonoscopy (Andie Valencia MD) in September 2022 that was normal. The patient repor ts no heartburn, reflux, dysphagia or indigestion. He does state that he has never had an upper endoscopy. He reports no rectal bleeding, weight loss, change in his bowel habits or family history of stomach or colon cancer. He has had constipation for 2 decades. He has noted lately that he gets some abdominal pain with coughing or with a bowel movement. This is often relieved with a bowel movement. The patient did have a CT scan of the abdomen and pelvis and there did appear to be some venous congestion within the mesentery with a dusky appearance and scattered mesenteric lymph nodes. The stomach and bowel were unremarkable in appearance with no mucosal thickening. The pancreas, gallbladder, biliary system and liver were normal with no masses. Procedure: Prior to the procedure, a history and physical exam was performed, and patient's medications and allergies were reviewed. The risks, benefits and alternatives of the sedation and procedure were discussed with the patient. All questions were answered and informed consent was obtained. The patient was brought to the procedure room. Patient identification and proposed procedure were verified by the physician and the nurse. The patient was placed in a left lateral decubitus position and the scope was passed under direct vision. Throughout the procedure, the patient's blood pressure, pulse, and oxygen saturations were monitored continuously. The upper GI endoscopy was accomplished without difficulty. The patient tolerated the procedure well. Findings: The scope was passed directly into the upper esophagus and advanced to the third portion of the duodenum. The post bulbar duodenum, ampulla and duodenal bulb were normal with normal mucosa and conniventes. There is very mild peptic duodenitis of the first portion of the duodenum. The ampulla was inspected carefully and was normal. The scope was withdrawn through a normal duodenal bulb and pylorus into the stomach. There was moderate chronic gastritis and the gastric mucosa was inspected carefully and there were no thickened folds/rugae, ulcerations, masses or indentation. The antrum body and fundus had the chronic gastritis and biopsies were taken from both the lesser and greater curvature. Upon retroflexion there was no hiatal hernia. The scope was then withdrawn into the esophagus. There was no evidence of reflux esophagitis or Martin's. Biopsies were taken at the GE junction. The remainder of the esophageal mucosa was normal. Impression: 1. Moderate chronic gastritis Plan: There is no mucosal findings that would suggest an upper GI tract primary for his signet ring carcinoma. I will proceed with colonoscopy. I will follow- up the biopsies.
[2025-04-28 06:23] VITALS: BP 109/75; PULSE 81; RESP 18; O2SAT 95; BMI 31.3
[2025-04-28] MEDS: LACTATED RINGERS 1000ML 1,000 ML 50 ML IV (06:49)
--- NOTE | 2025-04-28 07:38 | EXP.ANES.CKL ---
[facility] Disclaimer: The information contained in this section may have been updated after the patient was seen, as this information can be updated by other users. Medical History Metastatic signet ring cell carcinoma Carotid stenosis Constipation Nasal bleeding Paralysis of right vocal cord Dysphonia Distal radius fracture, left Urinary tract infection Osteophyte History of tobacco abuse Weight loss Hoarseness of voice Laryngitis Hernia, umbilical Vertigo Urinary problem in male Cough Surgical History Hx of cardiac cath Family History Other Family history of diabetes mellitus type II Social History (Updated 04/28/25 @ 06:28 by Francisca De La Cruz RN) Smoking Status: Former smoker how long ago did patient quit smokin years alcohol intake: never substance use type: denies use current occupational status: employed Travel in the last 8 weeks?: None household members: none housing: house lives independently: Yes marital status: single special hallie needs: No agree to transfusion: No do you feel safe at home: Yes victim of physical abuse: No victim of emotional abuse: No victim of sexual abuse: No would you like helpful sources: No Have you lived/traveled outside US in past 30 days?: No Contact w/someone who lives/traveled outside US past 30 days?: No Exposure to someone with infectious disease in past 14 days?: No Do you have a fever (greater than 100.4 F or 38 C)?: No Have you tested positive for COVID-19?: No Exposed to someone with COVID-19 in past 14 days?: No Do you have a sore throat?: No Do you have a cough?: No Do you have any weakness?: No Are you experiencing any nausea/vomitting?: No Do you have any diarrhea?: No Are you experiencing any unusual bleeding?: No Do you have any muscle aches/pain?: No Do you have any abdominal pain?: No Are you experiencing loss of taste or smell?: No [facility] Anesthesia Checklist Patient Identification Patient Identification: Arm Band and Verbal (Name & ) Structural Data Admitted From: Home Planned Operative Procedure/s: EGD + colonoscopy Consent for Planned Operative Procedure(s) Verified: Yes Verified Documents: Surgical Consent NPO Status Verified Time NPO: 00:00 Additional verifications Anesthesia Reactions: No Hx Blood Transfusions: No Blood Transfusion Reaction: No Airway Assessment Mallampati Score:: Class II C-Spine Mobility Assessed: Yes TMJ Mobility Assessed: Yes Dentition: Edentulous Neurological Assessment Level of Consciousness: Awake, Alert and Appropriate Hx Seizures: No Numbness or tingling in extremities: No Anesthesia Plan Anesthesia Risk discussed: Yes Anesthesia Plan: Verified ASA Class: III Anesthesia Type: MAC
[2025-04-28 07:58] VITALS: BP 120/67; PULSE 77; RESP 16; TEMP 36.1; O2SAT 91
[2025-04-28 08:08] VITALS: BP 132/68; PULSE 74; RESP 16; TEMP 36.1; O2SAT 92
[2025-04-28 08:18] VITALS: BP 132/86; PULSE 67; RESP 16; TEMP 36.1; O2SAT 95
[2025-04-28 08:28] VITALS: BP 138/95; PULSE 74; RESP 18; TEMP 36.1; O2SAT 96
== END 2025-04-28 09:00 | disposition home or self-care (01) ==
PROVIDERS: PCP Internal Medicine; Visit Provider Internal Medicine Gastroenterology
PROC: 0DJ08ZZ Inspection of Upper Intestinal Tract, Via Natural or Artificial Opening Endoscopic (ICD-10-PCS; CPT 45378; principal; 2025-04-28 07:30)
DX: K29.50 Unspecified chronic gastritis without bleeding (principal); B96.81 Helicobacter pylori [H. pylori] as the cause of diseases classified elsewhere; K63.5 Polyp of colon; C96.9 Malignant neoplasm of lymphoid, hematopoietic and related tissue, unspecified; K64.2 Third degree hemorrhoids; I65.29 Occlusion and stenosis of unspecified carotid artery; Z87.891 Personal history of nicotine dependence; Z91.041 Radiographic dye allergy status; Z79.899 Other long term (current) drug therapy
CPT/HCPCS: 45385; J2003; J2704; J7120

== ENCOUNTER 2025-05-03 16:04 | Outpatient (CLI) | payer OTHER, SELFPAY ==
--- OUTSIDE RECORDS SUMMARY | 2025-04-02 18:54 | XMS_ITS | Encounter Summary ---
Author Organization [facility] Address [address] [place] [address] Care Team Providers Care Production Tester Name Role Phone Rupesh Arvizu Primary Care Provider + Reason for Visit * Reason Comments Arm Swelling Encounter Details Date Type Department Care Team (Late st Contact Info) Description 04/02/2025 6:54 PM EDT - 04/02/2025 9:27 PM EDT Emergency [facility] [address] [facility] [place] [id number] Patric Cooney MD [address] [place] [address] Edema, unspecified type (Primary Dx) [...] 6:53 PM EDT Raegan Silva, PATI * [place] Suicide Severity Rating Scale (Screener/Recent Self-Report) Question [...] sent through Care Everywhere. * Peripheral Edema (Surinamese) * Edema (Surinamese) documented in this encounter Medications at Time [...] care of Dr. Burch, an oncologist in [place], who diagnosed partial carotidartery blockage. The patient's daughter and [id number], who is a nurse, noted worsening of [...] pH, UA 6.5 5.0 - 8.0 Specific [place], UA 1.019 1.005 - 1.030 Glucose, UA [...] MD 04/02/2025 7:47 PM EDT Workstation ID: [id number] [x] Radiologist's Report Reviewed: I ordered and [...] DO [address] [place] [address] Schedule an appointment as soon as possible for a visit Call for follow up with primary care [facility] [address] [facility] [phone] Go to If symptoms worsen Medication List New Prescriptions furosemide 20 MG tablet Commonly known as: LASIX Take 1 tablet by mouth Daily for 5 days. Where to Get Your Medications These medications were sent to [facility] [address] [phone] [place] [phone] [place] [address] furosemide 20 MG tablet Oumar Valdez PA [...] (04/02/2025 8:44 PM EDT) [facility] ORDER[facility] Final Result * (ABNORMAL) Urinalysis, Microscopic Only - Urine, Clean Catch (04/02/2025 7:50 PM EDT) RBC, UA 6-10(A) None Seen, 0-2 /HPF 04/02/2025 8:46 PM EDT [facility] WBC, UA 0-2 None Seen, 0-2 /HPF 04/02/2025 8:46 PM EDT [facility] Bacteria, UA None Seen None Seen /HPF 04/02/2025 8:46 PM EDT [facility] Squamous Epithelial Cells, UA 0-2 None Seen, 0-2 /HPF 04/02/2025 8:46 PM EDT [facility] Hyaline Casts, UA None Seen None Seen /LPF 04/02/2025 8:46 PM EDT [facility] Calcium Oxalate Crystals, UA Large/3+ None Seen /HPF 04/02/2025 8:46 PM EDT [facility] Methodology Manual Light Microscopy 04/02/2025 8:46 PM EDT [facility] Urine Urine specimen obtained by clean catch procedure / Unknown Collection / Unknown 04/02/2025 7:50 PM EDT 04/02/2025 7:57 PM EDT Oumar PALOMARES URINE ORDERABLES Final Result [facility]
[address] [place] [address], * (ABNORMAL) CBC Auto Differential (04/02/2025 7:50 PM EDT) WBC 11.29(H) 3.40 - 10.80 10*3/mm3 04/02/2025 7:59 PM EDT [facility] RBC 5.08 4.14 - 5.80 10*6/mm3 04/02/2025 7:59 PM EDT [facility] Hemoglobin 15.3 13.0 - 17.7 g/dL 04/02/2025 7:59 PM EDT [facility] Hematocrit 47.0 37.5 - 51.0 % 04/02/2025 7:59 PM EDT [facility] MCV 92.5 79.0 - 97.0 fL 04/02/2025 7:59 PM EDT [facility] MCH 30.1 26.6 - 33.0 pg 04/02/2025 7:59 PM EDT [facility] MCHC 32.6 31.5 - 35.7 g/dL 04/02/2025 7:59 PM EDT [facility] RDW 13.7 12.3 - 15.4 % 04/02/2025 7:59 PM EDT [facility] RDW-SD 46.5 37.0 - 54.0 fl 04/02[facility]2025 7[facility] MPV 9.3 6.0 - 12.0 fL 04/02/2025 7:59 PM EDT [facility] Platelets 380 140 - 450 10*3/mm3 04/02/2025 7:59 PM EDT [facility] Neutrophil % 70.9 42.7 - 76.0 % 04/02/2025 7:59 [facility] Lymphocyte % 15.5(L) 19.6 - 45.3 % 04/02/2025 7:59 [facility] Monocyte % 8.9 5.0 - 12.0 % 04/02/2025 7:59 PM [facility] Eosinophil % 3.4 0.3 - 6.2 % 04/02/2025 7:59 PM [facility] Basophil % 0.9 0.0 - 1.5 % 04/02/2025 7:59 PM [facility] Immature Grans % 0.4 0.0 - 0.5 % 04/02/2025 7:59 PM [facility] Neutrophils, Absolute 8.02(H) 1.70 - 7.00 10*3/mm3 04/02/2025 7:59 PM EDT [facility] Lymphocytes, Absolute 1.75 0.70 - 3.10 10*3/mm3 04/02/2025 7:59 PM EDT [facility] Monocytes, Absolute 1.00(H) 0.10 - 0.90 10*3/mm3 04/02/2025 7:59 [facility] Eosinophils, Absolute 0.38 0.00 - 0.40 10*3/mm3 04/02/2025 7:59 PM EDT [facility] Basophils, Absolute 0.10 0.00 - 0.20 10*3/mm3 04/02/2025 7:59 PM EDT [facility] Immature Grans, Absolute 0.04 0.00 - 0.05 10*3/mm3 04/02/2025 7:59 PM EDT [facility] nRBC 0.0 0.0 - 0.2 /100 WBC 04/02/2025 7:59 PM EDT [facility] Blood Venipuncture / Unknown 04/02/2025 7:50 PM EDT 04/02/2025 7:57 PM EDT Oumar PALOMARES LAB BLOOD ORDERABLES Final Resu lt Performing Organization Address [facility] Co de Phone Number [facility]
[address] [place] [address], * BNP (04/02/2025 7:50 PM EDT) [facility] proBNP 107.0 0.0 - 900.0 pg/mL 04/02/2025 8:22 PM EDT [facility] Blood Venipuncture / Unknown 04/02/2025 7:50 PM EDT 04/02/2025 7:57 PM EDT Narrative [facility] - 04/02/2025 8:22 PM [...] PALOMARES LAB BLOOD ORDERABLES Final Resu lt [facility]
[address] [place] [address], [place] [phone] * (ABNORMAL) Urinalysis With Microscopic If Indicated (No Culture) - Urine, Clean Catch (04/02/2025 7:50 PM EDT) Color, UA Yellow Yellow, Straw 04/02/2025 8:27 PM EDT [facility] Appearance, UA Cloudy(A) Clear 04/02/2025 8:27 PM EDT [facility] pH, UA 6.5 5.0 - 8.0 04/02/2025 8:27 PM EDT [facility] Specific [place], UA 1.019 1.005 - 1.030 04/02/2025 8:27 PM EDT [facility] Glucose, UA Negative Negative 04/02/2025 8:27 PM EDT [facility] Ketones, UA Negative Negative 04/02/2025 8:27 PM EDT [facility] Bilirubin, UA Negative Negative 04/02/2025 8:27 PM EDT [facility] Blood, UA Trace(A) Negative 04/02/2025 8:27 PM EDT [facility] Protein, UA Negative Negative 04/02/2025 8:27 PM EDT [facility] Leuk Esterase, UA Negative Negative 04/02/2025 8:27 PM EDT [facility] Nitrite, UA Negative Negative 04/02/2025 8:27 PM EDT [facility] Urobilinogen, UA 1.0 E.U./dL 0.2 - 1.0 E.U./dL 04/02/2025 8:27 PM EDT [facility] Urine Urine specimen obtained by clean catch procedure / Unknown Collection / Unknown 04/02/2025 7:50 PM EDT 04/02/2025 7:57 PM EDT Oumar PALOMARES URINE ORDERABLES Final Result [facility]
[address] [place] [address], * (ABNORMAL) Comprehensive Metabolic Panel (04/02/2025 7:50 PM EDT) [facility] Glucose 74 65 - 99 mg/dL 04/02/2025 8:22 PM EDT [facility] BUN 13.6 8.0 - 23.0 mg/dL 04/02/2025 8:22 PM EDT [facility] Creatinine 0.99 0.76 - 1.27 mg/dL 04/02/2025 8:22 PM EDT [facility] Sodium 139 136 - 145 mmol/L 04/02/2025 8:22 PM EDT [facility] Potassium 4.0 3.5 - 5.2 mmol/L 04/02/2025 8:22 PM EDT [facility] Chloride 108(H) 98 - 107 mmol/L 04/02/2025 8:22 PM EDT [facility] CO2 24.5 22.0 - 29.0 mmol/L 04/02/2025 8:22 PM EDT [facility] Calcium 9.6 8.6 - 10.5 mg/dL 04/02/2025 8:22 PM EDT [facility] Total Protein 6.2 6.0 - 8.5 g/dL 04/02/2025 8:22 PM EDT [facility] Albumin 2.9(L) 3.5 - 5.2 g/dL 04/02/2025 8:22 PM EDT [facility] ALT (SGPT) 8 1 - 41 U/L 04/02/2025 8:22 PM EDT [facility] AST (SGOT) 15 1 - 40 U/L 04/02/2025 8:22 PM EDT [facility] Alkaline Phosphatase 140(H) 39 - 117 U/L 04/02/2025 8:22 PM EDT [facility] Total Bilirubin 0.4 0.0 - 1.2 mg/dL 04/02/2025 8:22 PM EDT [facility] Globulin 3.3 gm/dL 04/02/2025 8:22 PM EDT [facility] Comment:Calculated Result A/G Ratio 0.9 g/dL 04/02/2025 8:22 PM EDT [facility] BUN/Creatinine Ratio 13.7 7.0 - 25.0 04/02/2025 8:22 PM EDT [facility] Anion Gap 6.5 5.0 - 15.0 mmol/L 04/02/2025 8:22 PM EDT [facility] eGFR 86.1 >60.0 mL/min/1.7 3 04/02/2025 8:22 PM EDT [facility] Blood Venipuncture / Unknown 04/02/2025 7:50 PM EDT 04/02/2025 7:57 PM EDT Narrative [facility] - 04/02/2025 8:22 PM [...] PALOMARES LAB BLOOD ORDERABLES Final Resu lt [facility]
[address] [place] [address], * XR Chest 1 View (04/02/2025 7:41 PM EDT) Anatomical Region Laterality Modality Body N/A Radiographic Sejal ging 04/02/2025 7:44 PM EDT Impressions 04/02/2025 7:47 PM EDT Impression: No acute cardiopulmonary process. Electronically Signed: Israel Euceda MD 04/02/2025 7:47 PM EDT Workstation ID: [id number] Narrative 04/02/2025 7:47 PM EDT XR CHEST [...] MD 04/02/2025 7:47 PM EDT Workstation ID: [id number] Oumar PALOMARES IMG DIAGNOSTIC IMAGING ORDERABL ES [...] RN) documented in this encounter Care Teams Production Tester Relationship Specialty Start Date End Date Rupesh Arvizu DO [address] [place] [address] PCP - General Internal Medicine 04/02/25 documented as of this encounter
--- OUTSIDE RECORDS SUMMARY | 2025-05-03 16:07 | XMS_ITS | Clinical Summary ---
[facility] Address [address] [place] [address] Care Team Providers Care Slot Host Name Role Phone Rupesh Arvizu Primary Care Provider + Allergies No known active allergies Medications furosemide (LASIX) 20 MG tablet Take 1 tablet by mouth Daily for 5 days. 5 tablet 04/02/2025 Active Encounters Date Type Department Care Team Description 04/02/2025 6:54 PM EDT - 04/02/2025 9:27 PM EDT Emergency [facility] EM[facility]GENCY DEPARTMENT [address] [place] [address] Patric Cooney MD Edema, unspecified [...] * Telemetry Scan (04/02/2025 8:44 PM EDT) [facility] [...] Final Result [facility]
[address] [place] [address], * (ABNORMAL) Urinalysis With Microscopic If Indicated (No Culture) - Urine, Clean Catch (04/02/2025 7:50 PM EDT) Color, UA Yellow Yellow, Straw 04/02/2025 8:27 PM EDT [facility] Appearance, UA Cloudy(A) Clear 04/02/2025 8:27 PM EDT [facility] pH, UA 6.5 5.0 - 8.0 04/02/2025 8:27 PM EDT [facility] Specific [place], UA 1.019 1.005 - 1.030 04/02/2025 8:27 [...] Final Result [facility]
[address] [place] [address], * (ABNORMAL) CBC Auto Differential (04/02/2025 7:50 [...] 140 - 450 10*3/mm3 04/02/2025 7:59 PM [facility] Neutrophil % 70.9 42.7 - 76.0 % 04/02/2025 7:59 PM [facility] Lymphocyte % 15.5(L) 19.6 - 45.3 % 04/02/2025 7:59 PM [facility] Monocyte % 8.9 5.0 - 12.0 % 04/02/2025 7:59 PM [facility] Eosinophil % 3.4 0.3 - 6.2 % 04/02/2025 7:59 PM [facility] Basophil % 0.9 0.0 - 1.5 % 04/02/2025 7:59 PM [facility] Immature Grans % 0.4 0.0 - 0.5 % 04/02/2025 7:59 PM [facility] Neutrophils, Absolute 8.02(H) 1.70 - 7.00 10*3/mm3 04/02/2025 7:59 PM [facility] Lymphocytes, Absolute 1.75 0.70 - 3.10 10*3/mm3 04/02/2025 7:59 PM [facility] Monocytes, Absolute 1.00(H) 0.10 - 0.90 10*3/mm3 04/02/2025 7:59 PM [facility] Eosinophils, Absolute 0.38 0.00 - 0.40 10*3/mm3 04/02/2025 7:59 PM [facility] Basophils, Absolute 0.10 0.00 - 0.20 10*3/mm3 04/02/2025 7:59 PM [facility] Immature Grans, Absolute 0.04 0.00 - 0.05 10*3/mm3 04/02/2025 7:59 PM [facility] nRBC 0.0 0.0 - 0.2 /100 WBC 04/02/2025 7:59 PM [facility] Blood Venipuncture / Unknown 04/02/2025 7:50 PM EDT 04/02/2025 7:57 PM EDT O[facility] LAB BLOOD ORDERABLES Final Resu lt Performing Organization Address [facility] Co de Phone Number [facility]
[address] [place] [address], * BNP (04/02/2025 7:50 PM EDT) proBNP [...] ORDERABLES Final Resu lt Performing Organization Address [facility]/ZIP Co de Phone Number [facility]
[address] [place] [address], [place] [phone] * (ABNORMAL) Comprehensive Metabolic Panel (04/02/2025 7:50 PM EDT) Glucose 74 65 - 99 mg/dL 04/02/2025 8:22 PM EDT [facility] BUN 13.6 8.0 - 23.0 mg/dL 04/02/2025 8:22 PM [facility] Creatinine 0.99 0.76 - 1.27 mg/dL 04/02/2025 8:22 PM [facility] Sodium 139 136 - 145 mmol/L 04/02/2025 8:22 PM [facility] Potassium 4.0 3.5 - 5.2 mmol/L 04/02/2025 8:22 PM [facility] Chloride 108(H) 98 - 107 mmol/L 04/02/2025 8:22 PM [facility] CO2 24.5 22.0 - 29.0 mmol/L 04/02/2025 8:22 PM [facility] Calcium 9.6 8.6 - 10.5 mg/dL 04/02/2025 8:22 PM [facility] Total Protein 6.2 6.0 - 8.5 g/dL 04/02/2025 8:22 PM [facility] Albumin 2.9(L) 3.5 - 5.2 g/dL 04/02/2025 8:22 PM [facility] ALT (SGPT) 8 1 - 41 U/L 04/02/2025 8:22 PM [facility] AST (SGOT) 15 1 - 40 U/L 04/02/2025 8:22 PM [facility] Alkaline Phosphatase 140(H) 39 - 117 U/L 04/02/2025 8:22 PM [facility] Total Bilirubin 0.4 0.0 - 1.2 mg/dL 04/02/2025 8:22 PM [facility] Globulin 3.3 gm/dL 04/02/2025 8:22 PM [facility] Comment:Calculated Result A/G Ratio 0.9 g/dL 04/02/2025 8:22 PM [facility] BUN/Creatinine Ratio 13.7 7.0 - 25.0 04/02/2025 8:22 PM [facility] Anion Gap 6.5 5.0 [...] lt [facility]
[address] [place] [address], * XR Chest 1 View (04/02/2025 7:41 PM EDT) Anatomical Region Laterality Modality Body N/A Radiographic Sejal ging 04/02/2025 7:44 PM EDT Impressions 04/02/2025 7:47 PM EDT Impression: No acute cardiopulmonary process. Electronically Signed: Israel Euceda MD 04/02/2025 7:47 PM EDT Workstation ID: [id number] Narrative 04/02/2025 7:47 PM EDT XR CHEST [...] MD 04/02/2025 7:47 PM EDT Workstation ID: [id number] us Oumar [facility] IMG DIAGNOSTIC IMAGING ORDERABL ES Final Result from Last 3 Months Insurance [facility] Care Teams Slot Host Relationship Specialty Start Date End Date Rupesh Arvizu DO [address] [place] [id number] PCP - General Internal Medicine 04/02/25
--- OUTSIDE RECORDS SUMMARY | 2025-05-03 16:07 | XMS_ITS | Encounter Summary ---
[facility] Address [address] [place] [address] Care Team Providers Care Blow Mold Machine Operator Name Role Phone Rupesh Arvizu [...] 6:53 PM EDT Raegan Silva, PATI * [place] Suicide Severity Rating Scale (Screener/Recent Self-Report) Question [...] on filedocumented in this encounter Care Teams Blow Mold Machine Operator Relationship Specialty Start Date End Date Rupesh Arvizu DO [address] [place] [id number] PCP - General Internal Medicine 04/02/25 documented as of this encounter
[2025-05-03 17:33] LABS: Occult Blood,Stool Negative (Negative)
== END 2025-05-03 23:59 | disposition home or self-care (01) ==
LOC: LAB 16:05
PROVIDERS: PCP Internal Medicine; Visit Provider Internal Medicine Gastroenterology
DX: C79.9 Secondary malignant neoplasm of unspecified site (principal); D50.9 Iron deficiency anemia, unspecified
CPT/HCPCS: 82272; G0328

== ENCOUNTER 2025-05-05 12:49 | Outpatient (CLI) | payer OTHER, SELFPAY ==
--- OUTSIDE RECORDS SUMMARY | 2025-04-02 18:54 | XMS_ITS | Encounter Summary ---
Author Organization [facility] Address [address] [place] [address] Care Team Providers Care Recreation Facility Attendant Name Role Phone Rupesh Arvizu Primary Care Provider + Reason for Visit * Reason Comments Arm Swelling Encounter Details Date Type Department Care Team (Late st Contact Info) Description 04/02/2025 6:54 PM EDT - 04/02/2025 9:27 PM EDT Emergency [facility] [address] [facility] [place] [id number] Patric Cooney MD [address] [place] [address] Edema, unspecified type (Primary Dx) Discharge Disposition: Home or Self Care Social History Tobacco Use Types Packs/Day Years Used Date Smoking Tobacco: Never Assessed Abuse Screen Answer Date Recorded Feels Unsafe at Home or Work/School no 04/02/2025 Feels Threatened by Someone no 10/2024 Does Anyone Try to Keep You From Having Contact with Others or Doing Things Outside Your Home? no 04/02/2025 Physical Signs of Abuse Present no 04/02/2025 Housing Stability Answer Date Recorded Current Living [...] on file Sexual Orientation Not on file documented as of this encounter Last Filed Vital Signs Vital Sign Reading Time Taken Comments Blood Pressure 141/100 04/02/2025 9:00 PM EDT Pulse 78 04/02/2025 9:00 PM EDT Temperature 36.4 C (97.6 F) 04/02/2025 6:48 PM EDT Respiratory Rate 22 04/02/2025 6:48 PM EDT Oxygen Saturation 96% 04/02/2025 9:00 PM EDT Inhaled Oxygen Concentration - - Weight 110 kg (243 lb) 04/02/2025 6:48 PM EDT Height 190.5 cm (6' 3 ) 04/02/2025 6:48 PM EDT Body Mass Index 30.37 04/02/2025 6:48 PM EDT documented in this encounter Functional Status * Calculated C-SSRS Risk Score (Lifetime/Recent) Answer Date of Assessment Author No Risk Indicated 04/02/2025 6:53 PM EDT Raegan Silva, PATI * [place] Suicide Severity Rating Scale (Screener/Recent Self-Report) Question Answer Date of Assessment Author 1. Wish to be (Past 1 Month) No 025 6:53 PM EDT Raegan Silva, PATI 2. Non-Specific Active Suici brendan Thoughts (Past 1 Month) No 04/02/2025 6:53 PM EDT Raegan Silva , RN 6. Suicidal Behavior (Lifetime) No 6:53 PM EDT Raegan Silva, PATI documented as of this encounter Discharge Instructions * Discharge Instructions* Oumar Valdez PA - 04/02/2025 9:08 PM EDT Symptomatic care is recommended. Take all medications as prescribed and instructed. Follow up with primary care as directed or return to Emergency Department with worsening of symptoms. * Attachments The following attachments cannot be sent through Care Everywhere. * Peripheral Edema (Prydeinig) * Edema (Prydeinig) documented in this encounter Medications at Time of Discharge furosemide (LASIX) 20 MG tablet Take 1 tablet by mouth Daily for 5 days. 5 tablet 04/02/2025 documented as of this encounter ED Notes * Oumar Valdez PA - 04/02/2025 9:00 PM EDT EMERGENCY DEPARTMENT ENCOUNTER Pt Name: Easton Sierra Pt : 1965 Room Number: Date of encounter: 04/02/2025 PCP: Rupesh Arvizu DO ED Provider: JELANI Hu Historian: Patient HPI: Chief Complaint: Swelling in left arm and left leg Context: Easton Sierra is a 60 y.o. male who presents to the ED c/o with progressive unilateral swelling affecting the right upper and lower extremity. The patient reports hand swelling began approximately 5-6 days ago and has worsened significantly, with swelling that was previously limited to the wrist now extending into the hand. Ankle swelling has been present for a couple of weeks. The patientis currently under the care of Dr. Burch, an oncologist in [place], who diagnosed partial carotidartery blockage. The patient's daughter and [id number], who is a nurse, noted worsening of the swelling and recommended seeking medical attention. The patient denies chest pain or additional complaints on exam. HPI REVIEW OF SYSTEMS A chief complaint appropriate review of systems was completed and is negative except as noted in the HPI. PAST MEDICAL HISTORY No past medical history on file. PAST SURGICAL HISTORY No past surgical history on file. FAMILY HISTORY No family history on file. SOCIAL HISTORY Social History Socioeconomic History Marital status: Single ALLERGIES Patient has no known allergies. PHYSICAL EXAM Physical Exam Vitals and nursing note reviewed. Constitutional: General: He is not in acute distress. Appearance: Normal appearance. He is not ill-appearing or toxic-appearing. HENT: Head: Normocephalic and atraumatic. Nose: Nose normal. Mouth/Throat: Mouth: Mucous membranes are moist. Eyes: Extraocular Movements: Extraocular movements intact. Cardiovascular: Rate and Rhythm: Normal rate and regular rhythm. Pulses: Normal pulses. Pulmonary: Effort: Pulmonary effort is normal. No respiratory distress. Breath sounds: Normal breath sounds. Abdominal: General: There is no distension. Genitourinary: Comments: Scrotal edema Musculoskeletal: General: Normal range of motion. Cervical back: Normal range of motion and neck supple. Right lower leg: No edema. Left lower leg: Edema present. Skin: General: Skin is warm and dry. Capillary Refill: Capillary refill takes less than 2 seconds. Neurological: General: No focal deficit present. Mental Status: He is alert. Sensory: No sensory deficit. Psychiatric: Mood and Affect: Mood normal. Behavior: Behavior normal. LAB RESULTS Results for orders placed or performed during the hospital encounter of 04/02/25 Comprehensive Metabolic Panel Collection Time: 04/02/25 7:50 PM Specimen: Blood Result Value Ref Range Glucose 74 65 - 99 mg/dL BUN 13.6 8.0 - 23.0 mg/dL Creatinine 0.99 0.76 - 1.27 mg/dL Sodium 139 136 - 145 mmol/L Potassium 4.0 3.5 - 5.2 mmol/L Chloride 108 (H) 98 - 107 mmol/L CO2 24.5 22.0 - 29.0 mmol/L Calcium 9.6 8.6 - 10.5 mg/dL Total Protein 6.2 6.0 - 8.5 g/dL Albumin 2.9 (L) 3.5 - 5.2 g/dL ALT (SGPT) 8 1 - 41 U/L AST (SGOT) 15 1 - 40 U/L Alkaline Phosphatase 140 (H) 39 - 117 U/L Total Bilirubin 0.4 0.0 - 1.2 mg/dL Globulin 3.3 gm/dL A/G Ratio 0.9 g/dL BUN/Creatinine Ratio 13.7 7.0 - 25.0 Anion Gap 6.5 5.0 - 15.0 mmol/L eGFR 86.1 >60.0 mL/min/1.73 Urinalysis With Microscopic If Indicated (No Culture) - Urine, Clean Catch Collection Time: 04/02/25 7:50 PM Specimen: Urine, Clean Catch Result Value Ref Range Color, UA Yellow Yellow, Straw Appearance, UA Cloudy (A) Clear pH, UA 6.5 5.0 - 8.0 Specific Conger, UA 1.019 1.005 - 1.030 Glucose, UA Negative Negative Ketones, UA Negative Negative Bilirubin, UA Negative Negative Blood, UA Trace (A) Negative Protein, UA Negative Negative Leuk Esterase, UA Negative Negative Nitrite, UA Negative Negative Urobilinogen, UA 1.0 E.U./dL 0.2 - 1.0 E.U./dL BNP Collection Time: 04/02/25 7:50 PM Specimen: Blood Result Value Ref Range proBNP 107.0 0.0 - 900.0 pg/mL CBC Auto Differential Collection Time: 04/02/25 7:50 PM Specimen: Blood Result Value Ref Range WBC 11.29 (H) 3.40 - 10.80 10*3/mm3 RBC 5.08 4.14 - 5.80 10*6/mm3 Hemoglobin 15.3 13.0 - 17.7 g/dL Hematocrit 47.0 37.5 - 51.0 % MCV 92.5 79.0 - 97.0 fL MCH 30.1 26.6 - 33.0 pg MCHC 32.6 31.5 - 35.7 g/dL RDW 13.7 12.3 - 15.4 % RDW-SD 46.5 37.0 - 54.0 fl MPV 9.3 6.0 - 12.0 fL Platelets 380 140 - 450 10*3/mm3 Neutrophil % 70.9 42.7 - 76.0 % Lymphocyte % 15.5 (L) 19.6 - 45.3 % Monocyte % 8.9 5.0 - 12.0 % Eosinophil % 3.4 0.3 - 6.2 % Basophil % 0.9 0.0 - 1.5 % Immature Grans % 0.4 0.0 - 0.5 % Neutrophils, Absolute 8.02 (H) 1.70 - 7.00 10*3/mm3 Lymphocytes, Absolute 1.75 0.70 - 3.10 10*3/mm3 Monocytes, Absolute 1.00 (H) 0.10 - 0.90 10*3/mm3 Eosinophils, Absolute 0.38 0.00 - 0.40 10*3/mm3 Basophils, Absolute 0.10 0.00 - 0.20 10*3/mm3 Immature Grans, Absolute 0.04 0.00 - 0.05 10*3/mm3 nRBC 0.0 0.0 - 0.2 /100 WBC Urinalysis, Microscopic Only - Urine, Clean Catch Collection Time: 04/02/25 7:50 PM Specimen: Urine, Clean Catch Result Value Ref Range RBC, UA 6-10 (A) None Seen, 0-2 /HPF WBC, UA 0-2 None Seen, 0-2 /HPF Bacteria, UA None Seen None Seen /HPF Squamous Epithelial Cells, UA 0-2 None Seen, 0-2 /HPF Hyaline Casts, UA None Seen None Seen /LPF Calcium Oxalate Crystals, UA Large/3+ None Seen /HPF Methodology Manual Light Microscopy If labs were ordered, I independently reviewed the results and considered them in treating the patient. RADIOLOGY XR Chest 1 View Final Result Impression: No acute cardiopulmonary process. Electronically Signed: Israel Euceda MD 04/02/2025 7:47 PM EDT Workstation ID: [id number] [x] Radiologist's Report Reviewed: I ordered and independently interpreted the above noted radiographic studies. See radiologist's dictation for official interpretation. PROCEDURES Procedures Telemetry Scan Final Result MEDICATIONS GIVEN IN ER Medications furosemide (LASIX) tablet 40 mg (40 mg Oral Given 04/02/252121) MEDICAL DECISION MAKING, PROGRESS, and CONSULTS Medical Decision Making A 60-year-old nontoxic-appearing male presented to the emergency department for evaluation of worsening edema. The patient reported a history of chronic edema in his left lower extremity, which had recently progressed to include his left upper extremity and scrotum. He noted prior evaluations by outside providers, but no specific diagnosis or treatments had been established. On examination, no acute or emergent findings were identified. The patient exhibited strong radial, dorsalis pedis, and posterior tibialis pulses with brisk distal capillary refill. Laboratory studies, including BNP and urinalysis, revealed no acute abnormalities. A chest x-ray showed no evidence of an acute cardiopulmon dino process. The case was discussed with attending physician Dr. Conoey, who concurred with the proposed treatment and disposition plan. The patient received a dose of Lasix in the ED and was prescribed a short course for outpatient symptomatic management. The patient and his family were agreeable to the plan of care. He was discharged in stable condition with detailed return precautions and instructions for close follow-up with his primary care team. Problems Addressed: Edema, unspecified type: complicated acute illness or injury Amount and/or Complexity of Data Reviewed Independent Historian: caregiver Labs: ordered. Decision-making details documented in ED Course. Radiology: ordered and independent interpretation performed. Decision-making details documented in ED Course. Risk Prescription drug management. Discussion below represents my analysis of pertinent findings related to patient's condition, differential diagnosis, treatment plan and final disposition. Assessment includes with Differential diagnosis including but is not limited to: Venous insufficiency, cellulitis, stasis dermatitis Additional sources Discussed/ obtained information from independent historians: [] Spouse [] Parent [x] Family member [] Friend [] EMS [] Other: External (non-ED) record review: [] Inpatient record: [] Office record: [] Outpatient record: [] Prior Outpatient labs: [] Prior Outpatient radiology: [] Primary Care record: [] Outside ED record: [] Other: Patient's care impacted by: [] Diabetes [] Hypertension [] Hyperlipidemia [] Hypothyroidism [] Coronary Artery Disease [] Congestive Heart Failure [] COPD [] Cancer [] Obesity [] GERD [] Tobacco Abuse [] Substance Abuse [] Anxiety [] Depression [] Other: Care significantly affected by Social Determinants of Health (housing and economic circumstances, unemployment) [] Yes [x] No If yes, Patient's care significantly limited by Social Determinants of Health including: [] Inadequate housing [] Low income [] Alcoholism and drug addiction in family [] Problems related to primary support group [] Unemployment [] Problems related to employment [] Other Social Determinants of Health: Orders placed during this visit: Orders Placed This Encounter Procedures XR Chest 1 View Comprehensive Metabolic Panel Urinalysis With Microscopic If Indicated (No Culture) - Urine, Clean Catch BNP CBC Auto Differential Urinalysis, Microscopic Only - Urine, Clean Catch Telemetry Scan CBC & Differential ED Course: ED Course as of 04/02/252234 Sat Apr 02, [id number] Vitals and Telemetry tracing was reviewed and directly interpreted by myself demonstrating blood pressure 144/95, temperature 97.6 ??F, heart rate is 77, respirations 22 breaths/min and oxygen saturation 98% on room air [J] 1910 BP: 144/95 [JG] 1910 Temp: 97.6 ??F (36.4 ??C) [JG] 191 Heart Rate: 77 [JG] 191 Resp: 22 [JG] 1911 SpO2: 98 % [JG] 2003 XR Chest 1 View Imaging of chest personally interpreted by myself with official read provided by radiology demonstrated no acute cardiopulmonary process. [JG] ED Course User Index [JG] Oumar Valdez PA DIAGNOSIS Final diagnoses: Edema, unspecified type DISPOSITION ED Disposition ED Disposition Discharge Condition Stable Comment -- DISCHARGE Patient discharged in stable condition. Reviewed implications of results, diagnosis, meds, responsibility to follow up, warning signs and symptoms of possible worsening, potential complications and reasons to return to ER. Patient/Family voiced understanding of above instructions. Discussed plan for discharge, as there is no emergent indication for admission. Pt/family is agreeable and understands need for follow up and possible repeat testing. Pt/family is aware that discharge does not mean that nothing is wrong but that it indicates no emergency is currently present that requires admission and they must continue care with follow-up as given below or with a physician of their choice. FOLLOW-UP Rupesh Arvizu, DO [address] [place] [address] Schedule an appointment as soon as possible for a visit Call for follow up with primary care [facility] EMERGENCY [facility]PART[facility] [address] [facility] [phone] Go to If symptoms worsen Medication List New Prescriptions furosemide 20 MG tablet Commonly known as: LASIX Take 1 tablet by mouth Daily for 5 days. Where to Get Your Medications These medications were sent to [facility] [place] [facility] [address] [phone] [place] [phone] [place] [address] furosemide 20 MG tablet Oumar Valdez PA 04/02/25 2235 Cosigned by Patric Cooney MD at 04/04/2025 1:37 AM EDT Associated attestation - Patric Cooney MD - 04/04/2025 1:37 AM EDT SUPERVISE: For this patient encounter, I reviewed the APC's documentation, treatment plan, and medical decision making. Patric Cooney MD 04/04/2025 01:37 EDT documented in this encounter Plan of Treatment Not on file documented as of this encounter Procedures Procedure Name Priority Date/Time Associated Diagnosis Comments SCANNED - TELEMETRY 04/02/2025 8 :44 PM EDT URINALYSIS, MICROSCOPIC ONLY STAT 04/02/2025 7:50 PM EDT URINALYSIS W/ MICROSCOPIC IF INDICATED (NO CULTURE) STAT 04/02/2025 7:50 PM EDT CBC WITH AUTO DIFFERENTIAL STAT 04/02/2025 7:50 PM EDT CBC AND DIFFERENTIAL STAT 04/02/2025 7:50 PM EDT B-TYPE NATRIURETIC PEPTIDE STAT 04/02/2025 7:50 PM EDT COMPREHENSIVE METABOLIC PANEL STAT 04/02/2025 7:50 PM EDT XR CHEST 1 VW STAT 04/02/2025 7:41 PM EDT documented in this encounter Results * Telemetry Scan (04/02/2025 8:44 PM EDT) [facility] ORDERABLES Final Result * (ABNORMAL) Urinalysis, Microscopic Only - Urine, Clean Catch (04/02/2025 7:50 PM EDT) RBC, UA 6-10(A) None Seen, 0-2 /HPF 04/02/2025 8:46 PM EDT [facility] WBC, UA 0-2 None Seen, 0-2 /HPF 04/02/2025 8:46 PM EDT [facility] Bacteria, UA None Seen None Seen /HPF 04/02/2025 8:46 PM EDT [facility] Squamous Epithelial Cells, UA 0-2 None Seen, 0-2 /HPF 04/02/2025 8:46 PM EDT [facility] Hyaline Casts, UA None Seen None Seen /LPF 04/02/2025 8:46 PM EDT [facility] Calcium Oxalate Crystals, UA Large/3+ None Seen /HPF 04/02/2025 8:46 PM EDT [facility] Methodology Manual Light Microscopy 04/02/2025 8:46 PM EDT [facility] Urine Urine specimen obtained by clean catch procedure / Unknown Collection / Unknown 04/02/2025 7:50 PM EDT 04/02/2025 7:57 PM EDT Oumar PALOMARES URINE ORDERABLES Final Result [facility]
[address] [place] [address], * (ABNORMAL) CBC Auto Differential (04/02/2025 7:50 PM EDT) WBC 11.29(H) 3.40 - 10.80 10*3/mm3 04/02/2025 7:59 PM EDT [facility] RBC 5.08 4.14 - 5.80 10*6/mm3 04/02/2025 7:59 PM EDT [facility] Hemoglobin 15.3 13.0 - 17.7 g/dL 04/02/2025 7:59 PM EDT [facility] Hematocrit 47.0 37.5 - 51.0 % 04/02/2025 7:59 PM EDT [facility] MCV 92.5 79.0 - 97.0 fL 04/02/2025 7:59 PM EDT [facility] MCH 30.1 26.6 - 33.0 pg 04/02/2025 7:59 PM EDT [facility] MCHC 32.6 31.5 - 35.7 g/dL 04/02/2025 7:59 PM EDT [facility] RDW 13.7 12.3 - 15.4 % 04/02/2025 7:59 PM EDT [facility] RDW-SD 46.5 37.0 - 54.0 fl 04/02/2025 7:[facility] MPV 9.3 6.0 - 12.0 fL 04/02/2025 7:59 PM EDT [facility] Platelets 380 140 - 450 10*3/mm3 04/02/2025 7:59 PM EDT [facility] Neutrophil % 70.9 42.7 - 76.0 % 04/02/2025 7:59 PM [facility] Lymphocyte % 15.5(L) 19.6 - 45.3 % 04/02/2025 7:59 PM [facility] Monocyte % 8.9 5.0 - 12.0 % 04/02/2025 7:59 PM [facility] Eosinophil % 3.4 0.3 - 6.2 % 04/02/2025 7:59 PM [facility] Basophil % 0.9 0.0 - 1.5 % 04/02/2025 7:59 PM [facility] Immature Grans % 0.4 0.0 - 0.5 % 04/02/2025 7:59 PM [facility] Neutrophils, Absolute 8.02(H) 1.70 - 7.00 10*3/mm3 04/02/2025 7:59 PM EDT [facility] Lymphocytes, Absolute 1.75 0.70 - 3.10 10*3/mm3 04/02/2025 7:59 PM EDT [facility] Monocytes, Absolute 1.00(H) 0.10 - 0.90 10*3/mm3 04/02/2025 7:59 PM [facility] Eosinophils, Absolute 0.38 0.00 - 0.40 10*3/mm3 04/02/2025 7:59 PM EDT [facility] Basophils, Absolute 0.10 0.00 - 0.20 10*3/mm3 04/02/2025 7:59 PM EDT [facility] Immature Grans, Absolute 0.04 0.00 - 0.05 10*3/mm3 04/02/2025 7:59 PM EDT [facility] nRBC 0.0 0.0 - 0.2 /100 WBC 04/02/2025 7:59 PM EDT [facility] Blood Venipuncture / Unknown 04/02/2025 7:50 PM EDT 04/02/2025 7:57 PM EDT Oumar PALOMARES LAB BLOOD ORDERABLES Final Resu lt Performing Organization Address [facility] Co de Phone Number [facility]
[address] [place] [address], * BNP (04/02/2025 7:50 PM EDT) [facility] proBNP 107.0 0.0 - 900.0 pg/mL 04/02/2025 8:22 PM EDT [facility] Blood Venipuncture / Unknown 04/02/2025 7:50 PM EDT 04/02/2025 7:57 PM EDT Narrative [facility] - 04/02/2025 8:22 PM EDT This assay is used as an aid in the diagnosis of individuals suspected of having heart failure. It can be used as an aid in the diagnosis of acute decompensated heart failure (ADHF) in patients presenting with signs and symptoms of ADHF to the emergency department (ED). In addition, NT-proBNP of <300 pg/mL indicates ADHF is not likely. Age Range Result Interpretation NT-proBNP Concentration (pg/mL: <50 Positive >450 [place] 300-450 Negative <300 50-75 Positive >900 Lyon 300-900 Negative <300 >75 Positive >1800 Lyon 300-1800 Negative <300 Oumar PALOMARES LAB BLOOD ORDERABLES Final Resu lt [facility]
[address] [place] [address], [place] [phone] * (ABNORMAL) Urinalysis With Microscopic If Indicated (No Culture) - Urine, Clean Catch (04/02/2025 7:50 PM EDT) Color, UA Yellow Yellow, Straw 04/02/2025 8:27 PM EDT [facility] Appearance, UA Cloudy(A) Clear 04/02/2025 8:27 PM EDT [facility] pH, UA 6.5 5.0 - 8.0 04/02/2025 8:27 PM EDT [facility] Specific Conger, UA 1.019 1.005 - 1.030 04/02/2025 8:27 PM EDT [facility] Glucose, UA Negative Negative 04/02/2025 8:27 PM EDT [facility] Ketones, UA Negative Negative 04/02/2025 8:27 PM EDT [facility] Bilirubin, UA Negative Negative 04/02/2025 8:27 PM EDT [facility] Blood, UA Trace(A) Negative 04/02/2025 8:27 PM EDT [facility] Protein, UA Negative Negative 04/02/2025 8:27 PM EDT [facility] Leuk Esterase, UA Negative Negative 04/02/2025 8:27 PM EDT [facility] Nitrite, UA Negative Negative 04/02/2025 8:27 PM EDT [facility] Urobilinogen, UA 1.0 E.U./dL 0.2 - 1.0 E.U./dL 04/02/2025 8:27 PM EDT [facility] Urine Urine specimen obtained by clean catch procedure / Unknown Collection / Unknown 04/02/2025 7:50 PM EDT 04/02/2025 7:57 PM EDT Oumar PALOAMRES URINE ORDERABLES Final Result [facility]
[address] [place] [address], * (ABNORMAL) Comprehensive Metabolic Panel (04/02/2025 7:50 PM EDT) [facility] Glucose 74 65 - 99 mg/dL 04/02/2025 8:22 PM EDT [facility] BUN 13.6 8.0 - 23.0 mg/dL 04/02/2025 8:22 PM EDT [facility] Creatinine 0.99 0.76 - 1.27 mg/dL 04/02/2025 8:22 PM EDT [facility] Sodium 139 136 - 145 mmol/L 04/02/2025 8:22 PM EDT [facility] Potassium 4.0 3.5 - 5.2 mmol/L 04/02/2025 8:22 PM EDT [facility] Chloride 108(H) 98 - 107 mmol/L 04/02/2025 8:22 PM EDT [facility] CO2 24.5 22.0 - 29.0 mmol/L 04/02/2025 8:22 PM EDT [facility] Calcium 9.6 8.6 - 10.5 mg/dL 04/02/2025 8:22 PM EDT [facility] Total Protein 6.2 6.0 - 8.5 g/dL 04/02/2025 8:22 PM EDT [facility] Albumin 2.9(L) 3.5 - 5.2 g/dL 04/02/2025 8:22 PM EDT [facility] ALT (SGPT) 8 1 - 41 U/L 04/02/2025 8:22 PM EDT [facility] AST (SGOT) 15 1 - 40 U/L 04/02/2025 8:22 PM EDT [facility] Alkaline Phosphatase 140(H) 39 - 117 U/L 04/02/2025 8:22 PM EDT [facility] Total Bilirubin 0.4 0.0 - 1.2 mg/dL 04/02/2025 8:22 PM EDT [facility] Globulin 3.3 gm/dL 04/02/2025 8:22 PM EDT [facility] Comment:Calculated Result A/G Ratio 0.9 g/dL 04/02/2025 8:22 PM EDT [facility] BUN/Creatinine Ratio 13.7 7.0 - 25.0 04/02/2025 8:22 PM EDT [facility] Anion Gap 6.5 5.0 - 15.0 mmol/L 04/02/2025 8:22 PM EDT [facility] eGFR 86.1 >60.0 mL/min/1.7 3 04/02/2025 8:22 PM EDT [facility] Blood Venipuncture / Unknown 04/02/2025 7:50 PM EDT 04/02/2025 7:57 PM EDT Narrative [facility] - 04/02/2025 8:22 PM EDT GFR Categories in Chronic Kidney Disease (CKD) GFR Category GFR (mL/min/1.73) Interpretation G1 90 or greater Normal or high (1) G2 60-89 Mild decrease (1) G3a 45-59 Mild to moderate decrease G3b 30-44 Moderate to severe decrease G4 15-29 Severe decrease G5 14 or less Kidney failure (1)In the absence of evidence of kidney disease, neither GFR category G1 or G2 fulfill the criteria for CKD. eGFR calculation 2020 CKD-EPI creatinine equation, which does not include race as a factor us Oumar PALOMARES LAB BLOOD ORDERABLES Final Resu lt [facility]
[address] [place] [address], * XR Chest 1 View (04/02/2025 7:41 PM EDT) Anatomical Region Laterality Modality Body N/A Radiographic Sejal ging 04/02/2025 7:44 PM EDT Impressions 04/02/2025 7:47 PM EDT Impression: No acute cardiopulmonary process. Electronically Signed: Israel Euceda MD 04/02/2025 7:47 PM EDT Workstation ID: [id number] Narrative 04/02/2025 7:47 PM EDT XR CHEST 1 VW Date of Exam: 04/02/2025 7:13 PM EDT Indication: Edema Comparison: None available. Findings: The lungs are clear. The heart and mediastinal contours appear normal. There is no pleural effusion. The pulmonary vasculature appears normal. The osseous structures appear intact. Procedure Note Israel Euceda MD - 04/02/2025 XR CHEST 1 VW Date of Exam: 04/02/2025 7:13 PM EDT Indication: Edema Comparison: None available. Findings: The lungs are clear. The heart and mediastinal contours appear normal.There is no pleural effusion. The pulmonary vasculature appears normal.The osseous structures appear intact. IMPRESSION: Impression: No acute cardiopulmonary process. Electronically Signed: Israel Euceda MD 04/02/2025 7:47 PM EDT Workstation ID: [id number] Oumar PALOMARES IMG DIAGNOSTIC IMAGING ORDERABL ES Final Result documented in this encounter Visit Diagnoses Diagnosis Edema, unspecified type- Primary documented in this encounter Administered Medications Inactive Administered Medications - up to 3 most recent administrations Medication Order MAR Action Action Date Dose Rate Site furosemide (LASIX) tablet 40 mg 40 mg, Oral, Once, On 04/02/25 at 2121, For 1 dose Given 04/02/2025 9:22 PM EDT 40 mg documented in this encounter Active and Recently Administered Medications Times are shown in EDT. Scheduled Medication Order 03/31/2025 04/01/2025 04/02/2025 furosemide (LASIX) tablet 40 mg (COMPLETED) 40 mg, Oral, Once, On 04/02/25 at 2121, For 1 dose 2121 (Given - Provid er: Claudia Vela RN) documented in this encounter Care Teams Recreation Facility Attendant Relationship Specialty Start Date End Date Rupesh Arvizu DO [address] [place] [address] PCP - General Internal Medicine 04/02/25 documented as of this encounter
--- OUTSIDE RECORDS SUMMARY | 2025-05-05 12:52 | XMS_ITS | Encounter Summary ---
[facility] Address [address] [place] [address] Care Team Providers Care Chain Machine Operator Name Role Phone Rupesh Arvizu [...] 6:53 PM EDT Raegan Silva, PATI * [place] Suicide Severity Rating Scale (Screener/Recent Self-Report) Question [...] on filedocumented in this encounter Care Teams Chain Machine Operator Relationship Specialty Start Date End Date Rupesh Arvizu DO [address] [place] [id number] PCP - General Internal Medicine 04/02/25 documented as of this encounter
--- OUTSIDE RECORDS SUMMARY | 2025-05-05 12:52 | XMS_ITS | Clinical Summary ---
[facility] Address [address] [place] [address] Care Team Providers Care Logistics Clerk Name Role Phone Rupesh Arvizu Primary Care Provider + Allergies No known active allergies Medications furosemide (LASIX) 20 MG tablet Take 1 tablet by mouth Daily for 5 days. 5 tablet 04/02/2025 Active Encounters Date Type Department Care Team Description 04/02/2025 6:54 PM EDT - 04/02/2025 9:27 PM EDT Emergency [facility] EMERGENCY DEPARTMENT [address] [place] [address] Patirc Cooney MD Edema, unspecified type (Primary Dx) [...] * Telemetry Scan (04/02/2025 8:44 PM EDT) [facility] ORDERABLES Final Result * (ABNORMAL) Urinalysis, Microscopic Only - Urine, Clean Catch (04/02/2025 7:50 PM EDT) RBC, UA 6-10(A) None Seen, 0-2 /HPF 04/02/2025 8:46 PM EDT [facility] WBC, UA 0-2 None Seen, 0-2 /HPF 04/02/2025 8:46 PM EDT [facility] Bacteria, UA None Seen None Seen /HPF 04/02/2025 8:46 PM EDT [facility] Squamous Epithelial Cells, UA 0-2 None Seen, 0-2 /HPF 04/02/2025 8:46 PM EDT [facility] Hyaline Casts, UA None Seen None Seen /LPF 04/02/2025 8:46 PM EDT [facility] Calcium Oxalate Crystals, UA Large/3+ None Seen /HPF 04/02/2025 8:46 PM EDT [facility] Methodology Manual Light Microscopy 04/02/2025 8:46 PM EDT [facility] Urine Urine specimen obtained by clean catch procedure / Unknown Collection / Unknown 04/02/2025 7:50 PM EDT 04/02/2025 7:57 PM EDT Oumar PALOMARES URINE ORDERABLES Final Result [facility]
[address] [place] [address], * (ABNORMAL) Urinalysis With Microscopic If Indicated (No Culture) - Urine, Clean Catch (04/02/2025 7:50 PM EDT) Color, UA Yellow Yellow, Straw 04/02/2025 8:27 PM EDT [facility] Appearance, UA Cloudy(A) Clear 04/02/2025 8:27 PM EDT [facility] pH, UA 6.5 5.0 - 8.0 04/02/2025 8:27 PM EDT [facility] Specific [place], UA 1.019 1.005 - 1.030 04/02/2025 8:27 PM EDT [facility] Glucose, UA Negative Negative 04/02/2025 8:27 PM EDT [facility] Ketones, UA Negative Negative 04/02/2025 8:27 PM EDT [facility] Bilirubin, UA Negative Negative 04/02/2025 8:27 PM EDT [facility] Blood, UA Trace(A) Negative 04/02/2025 8:27 PM EDT [facility] Protein, UA Negative Negative 04/02/2025 8:27 PM EDT [facility] Leuk Esterase, UA Negative Negative 04/02/2025 8:27 PM EDT [facility] Nitrite, UA Negative Negative 04/02/2025 8:27 PM EDT [facility] Urobilinogen, UA 1.0 E.U./dL 0.2 - 1.0 E.U./dL 04/02/2025 8:27 PM EDT [facility] Urine Urine specimen obtained by clean catch procedure / Unknown Collection / Unknown 04/02/2025 7:50 PM EDT 04/02/2025 7:57 PM EDT Oumar PALOMARES URINE ORDERABLES Final Result [facility]
[address] [place] [address], * (ABNORMAL) CBC Auto Differential (04/02/2025 7:50 PM EDT) WBC 11.29(H) 3.40 - 10.80 10*3/mm3 04/02/2025 7:59 PM EDT [facility] RBC 5.08 4.14 - 5.80 10*6/mm3 04/02/2025 7:59 PM EDT [facility] Hemoglobin 15.3 13.0 - 17.7 g/dL 04/02/2025 7:59 PM EDT [facility] Hematocrit 47.0 37.5 - 51.0 % 04/02/2025 7:59 PM EDT [facility] MCV 92.5 79.0 - 97.0 fL 04/02/2025 7:59 PM EDT [facility] MCH 30.1 26.6 - 33.0 pg 04/02/2025 7:59 PM EDT [facility] MCHC 32.6 31.5 - 35.7 g/dL 04/02/2025 7:59 PM EDT [facility] RDW 13.7 12.3 - 15.4 % 04/02/2025 7:59 PM EDT [facility] RDW-SD 46.5 37.0 - 54.0 fl 04/02/2025 7:59 PM EDT [facility] MPV 9.3 6.0 - 12.0 fL 04/02/2025 7:59 PM EDT [facility] Platelets 380 140 - 450 10*3/mm3 04/02/2025 7:59 PM [facility] Neutrophil % 70.9 42.7 - 76.0 % 04/02/2025 7:59 PM [facility] Lymphocyte % 15.5(L) 19.6 - 45.3 % 04/02/2025 7:59 PM [facility] Monocyte % 8.9 5.0 - 12.0 % 04/02/2025 7:59 PM [facility] Eosinophil % 3.4 0.3 - 6.2 % 04/02/2025 7:59 PM [facility] Basophil % 0.9 0.0 - 1.5 % 04/02/2025 7:59 PM [facility] Immature Grans % 0.4 0.0 - 0.5 % 04/02/2025 7:59 PM [facility] Neutrophils, Absolute 8.02(H) 1.70 - 7.00 10*3/mm3 04/02/2025 7:59 PM [facility] Lymphocytes, Absolute 1.75 0.70 - 3.10 10*3/mm3 04/02/2025 7:59 PM [facility] Monocytes, Absolute 1.00(H) 0.10 - 0.90 10*3/mm3 04/02/2025 7:59 PM [facility] Eosinophils, Absolute 0.38 0.00 - 0.40 10*3/mm3 04/02/2025 7:59 PM [facility] Basophils, Absolute 0.10 0.00 - 0.20 10*3/mm3 04/02/2025 7:59 PM [facility] Immature Grans, Absolute 0.04 0.00 - 0.05 10*3/mm3 04/02/2025 7:59 PM [facility] nRBC 0.0 0.0 - 0.2 /100 WBC 04/02/2025 7:59 PM [facility] Blood Venipuncture / Unknown 04/02/2025 7:50 PM EDT 04/02/2025 7:57 PM EDT [facility] LAB BLOOD ORDERABLES Final Resu lt Performing Organization Address [facility] Co de Phone Number [facility]
[address] [place] [address], * BNP (04/02/2025 7:50 PM EDT) proBNP 107.0 0.0 - 900.0 pg/mL 04/02/2025 8:22 PM EDT [facility] Blood Venipuncture / Unknown 04/02/2025 7:50 PM EDT 04/02/2025 7:57 PM EDT Narrative [facility] - 04/02/2025 8:22 PM EDT [...] ORDERABLES Final Resu lt Performing Organization Address [facility]/ZIP Co de Phone Number [facility]
[address] [place] [address], [place] [phone] * (ABNORMAL) Comprehensive Metabolic Panel (04/02/2025 7:50 PM EDT) Glucose 74 65 - 99 mg/dL 04/02/2025 8:22 PM EDT [facility] BUN 13.6 8.0 - 23.0 mg/dL 04/02/2025 8:22 PM [facility] Creatinine 0.99 0.76 - 1.27 mg/dL 04/02/2025 8:22 PM [facility] Sodium 139 136 - 145 mmol/L 04/02/2025 8:22 PM [facility] Potassium 4.0 3.5 - 5.2 mmol/L 04/02/2025 8:22 PM [facility] Chloride 108(H) 98 - 107 mmol/L 04/02/2025 8:22 PM [facility] CO2 24.5 22.0 - 29.0 mmol/L 04/02/2025 8:22 PM [facility] Calcium 9.6 8.6 - 10.5 mg/dL 04/02/2025 8:22 PM [facility] Total Protein 6.2 6.0 - 8.5 g/dL 04/02/2025 8:22 PM [facility] Albumin 2.9(L) 3.5 - 5.2 g/dL 04/02/2025 8:22 PM [facility] ALT (SGPT) 8 1 - 41 U/L 04/02/2025 8:22 PM [facility] AST (SGOT) 15 1 - 40 U/L 04/02/2025 8:22 PM [facility] Alkaline Phosphatase 140(H) 39 - 117 U/L 04/02/2025 8:22 PM [facility] Total Bilirubin 0.4 0.0 - 1.2 mg/dL 04/02/2025 8:22 PM [facility] Globulin 3.3 gm/dL 04/02/2025 8:22 PM [facility] Comment:Calculated Result A/G Ratio 0.9 g/dL 04/02/2025 8:22 PM [facility] BUN/Creatinine Ratio 13.7 7.0 - 25.0 04/02/2025 8:22 PM [facility] Anion Gap 6.5 5.0 - 15.0 mmol/L 04/02/2025 8:22 PM EDT [facility] eGFR 86.1 >60.0 mL/min/1.7 3 04/02/2025 8:22 PM EDT [facility] Blood Venipuncture / Unknown 04/02/2025 7:50 PM EDT 04/02/2025 7:57 PM EDT Narrative [facility] - 04/02/2025 8:22 PM EDT [...] [facility] LAB BLOOD ORDERABLES Final Resu lt [facility]
[address] [place] [address], * XR Chest 1 View (04/02/2025 7:41 PM EDT) Anatomical Region Laterality Modality Body N/A Radiographic Sejal ging 04/02/2025 7:44 PM EDT Impressions 04/02/2025 7:47 PM EDT Impression: No acute cardiopulmonary process. Electronically Signed: Israel Euceda MD 04/02/2025 7:47 PM EDT Workstation ID: [id number] Narrative 04/02/2025 7:47 PM EDT XR CHEST [...] MD 04/02/2025 7:47 PM EDT Workstation ID: [id number] us Oumar PALOMARES IMG DIAGNOSTIC IMAGING ORDERABL ES Final Result from Last 3 Months Insurance [facility] Care Teams Logistics Clerk Relationship Specialty Start Date End Date Rupesh Arvizu DO [address] [place] [id number] PCP - General Internal Medicine 04/02/25
[2025-05-05 13:54] LABS: Hematocrit 48.0 % (42.0-52.0); Hemoglobin 15.8 g/dL (14.1-18.0); Immature Granulocytes % 0.5 %; Mean Corpuscular HGB Conc 32.9 g/dL (31.8-35.4); Mean Corpuscular Hemoglobin 30.5 pg (27.0-31.2); Mean Corpuscular Volume 92.7 fl (80-94); Nucleated Red Blood Cells % 0 %; Platelet Count 358 K/mm3 (142-424); Red Blood Count 5.18 M/mm3 (4.60-6.20); Red Cell Distribution Width-SD 46.5 fL; White Blood Count 10.6 K/mm3 (4.8-10.8)
[2025-05-05 14:12] LABS: Chloride 107 mmol/L (98-107)
[2025-05-05 14:13] LABS: Albumin Level 3.1 g/dl (3.5-5.0); Potassium 4.3 mmoL/L (3.5-5.1); Sodium 137 mmol/L (136-145)
[2025-05-05 14:15] LABS: Blood Urea Nitrogen 14 mg/dl (9-20); Creatinine,Serum 0.80 mg/dl (0.66-1.25); Estimated Glomerular Filt Rate 98 ml/min (>60); GFR (African American) 119 ML/MIN (>60)
[2025-05-05 14:16] LABS: Alanine Aminotransferase 12 U/L (12-78); Albumin/Globulin Ratio 1.1 (1.1-1.8); Alkaline Phosphatase 184 U/L (38-126); Anion Gap 7.3 mEq/L (5-15); Aspartate Amino Transferase 24 U/L (17-59); Bilirubin,Total 0.7 mg/dl (0.2-1.3); Calcium 10.5 mg/dl (8.4-10.2); Carbon Dioxide 27 mmol/L (22.0-30.0); Globulin 2.8 g/dL (1.3-3.2); Glucose 89 mg/dl (74-100); Total Protein,Serum 5.9 g/dl (6.3-8.2)
== END 2025-05-05 23:59 | disposition home or self-care (01) ==
LOC: LAB 12:49
PROVIDERS: PCP Internal Medicine; Visit Provider Internal Medicine Medical Oncology
DX: C79.9 Secondary malignant neoplasm of unspecified site (principal); R59.9 Enlarged lymph nodes, unspecified
CPT/HCPCS: 36415; 80053; 85025; 87449

== ENCOUNTER 2025-06-05 16:43 | Inpatient (IN) | payer OTHER, SELFPAY ==
--- OUTSIDE RECORDS SUMMARY | 2025-05-03 09:23 | XMS_ITS | Encounter Summary ---
Author Organization [employer] ([place], [place], [place], [place]) Address [address] [place] [address] Care Team Providers Care Wood Ski Maker Name Role Phone Unavailable Primary Care Provider Unavailabl e Reason for Referral * CAT Scan (Routine) - New Request Specialty Diagnoses / Procedures Referred By Dg zafar Referred To Contact Radiology Diagnoses Malignant neoplasm of body of stomach (HCC) Procedures PET/CT Skull Base-Mid Thigh (Whole Body) Dannie Burch MD [address] [place] [address] Phone: tel: fax: Referral ID Status Reason Start Date Expiration Date V isits Requested Visits Authorized [id number] New Request 04/28/2025 04/28/2026 1 1 Reason for Visit * CAT Scan (Routine) - New Request Specialty Diagnoses / Procedures Referred By Dg zafar Referred To Contact Radiology Diagnoses Malignant neoplasm of body of stomach (HCC) Procedures PET/CT Skull Base-Mid Thigh (Whole Body) Dannie Burch MD [address] [place] [address] Phone: tel: fax: Referral ID Status Reason Start Date Expiration Date V isits Requested Visits Authorized [id number] New Request 04/28/2025 04/28/2026 1 1 Encounter Details Date Type Department Care Team (Latest Contact Info) Description 05/03/2025 9:23 AM EDT - 05/03/2025 11:59 PM EDT Hospital Encounter [facility] PET CT - [address] [employer] [address] [place] [address] Dannie Burch MD [address] [place] [address] Malignant neoplasm of body of stomach (HCC) [...]
--- OUTSIDE RECORDS SUMMARY | 2025-05-03 09:23 | XMS_ITS | Encounter Summary ---
Author Organization [employer] ([place], [place], [place], [place]) Address [address] [place] [address] Care Team Providers Care Road Engineer Freight Name Role Phone Unavailable Primary Care Provider Unavailabl e Reason for Referral * CAT Scan (Routine) - New Request Specialty Diagnoses / Procedures Referred By Dg zafar Referred To Contact Radiology Diagnoses Malignant neoplasm of body of stomach (HCC) Procedures PET/CT Skull Base-Mid Thigh (Whole Body) Dannie Burch MD [address] [place] [address] Phone: tel: fax: Referral ID Status Reason Start Date Expiration Date V isits Requested Visits Authorized [id number] New Request 04/28/2025 04/28/2026 1 1 Reason for Visit * CAT Scan (Routine) - New Request Specialty Diagnoses / Procedures Referred By Dg zafar Referred To Contact Radiology Diagnoses Malignant neoplasm of body of stomach (HCC) Procedures PET/CT Skull Base-Mid Thigh (Whole Body) Dannie Burch MD [address] [place] [address] Phone: tel: fax: Referral ID Status Reason Start Date Expiration Date V isits Requested Visits Authorized [id number] New Request 04/28/2025 04/28/2026 1 1 Encounter Details Date Type Department Care Team (Latest Contact Info) Description 05/03/2025 9:23 AM EDT - 05/03/2025 11:59 PM EDT Hospital Encounter [facility] PET CT - [address] [employer] [email or web address] [place] [address] Dannie Burch MD [address] [place] [address] Malignant neoplasm of body of stomach (HCC) [...]
[2025-06-05] VITALS (9 sets, daily range): BP systolic 125–149; BP diastolic 80–93; PULSE 78–99; RESP 15–30; TEMP 36.4–36.9; O2SAT 83–100; BMI 30.4; BMI 29.8
--- OUTSIDE RECORDS SUMMARY | 2025-06-05 16:54 | XMS_ITS | Clinical Summary ---
Author Organization [facility] Address [address] [place] [address] Care Team Providers Care Track Manager Name Role Phone Rupesh Arvizu Primary Care Provider + Allergies No known active allergies Medications furosemide (LASIX) 20 MG tablet Take 1 tablet by mouth Daily for 5 days. 5 tablet 04/02/2025 Active Encounters Date Type Department Care Team Description 04/02/2025 6:54 PM EDT - 04/02/2025 9:27 PM EDT Emergency [facility] EMERGENCY DEPARTMENT [address] [place] [address] Patric Cooney MD Edema, unspecified [...] 2013 ZOSTER VACCINE (1 of 2) 2013 INFLUENZA VACCINE 04/01/2025 Procedures Procedure Name Priority Date/Time Associated Diagnosis [...] * Telemetry Scan (04/02/2025 8:44 PM EDT) [facility] ECG ORDERABLES Final Result * (ABNORMAL) Urinalysis, Microscopic Only - Urine, Clean Catch (04/02/2025 7:50 PM EDT) RBC, UA 6-10(A) None Seen, 0-2 /HPF 04/02/2025 8:46 PM EDT [facility] WBC, UA 0-2 None Seen, 0-2 /HPF 04/02/2025 8:46 PM EDT [facility] Bacteria, UA None Seen None Seen /HPF 04/02/2025 8:46 PM EDT [facility] Squamous Epithelial Cells, UA 0-2 None Seen, 0-2 /HPF 04/02/2025 8:46 PM EDT [facility] Hyaline Casts, UA None Seen None Seen /LPF 04/02/2025 8:46 PM EDT [facility] Calcium Oxalate Crystals, UA Large/3+ None Seen /HPF 04/02/2025 8:46 PM EDT [facility] Methodology Manual Light Microscopy 04/02/2025 8:46 PM EDT [facility] Urine Urine specimen obtained by clean catch procedure / Unknown Collection / Unknown 04/02/2025 7:50 PM EDT 04/02/2025 7:57 PM EDT [facility] URINE ORDERABLES Final Result [facility]
[address] [place] [address], * (ABNORMAL) Urinalysis With Microscopic If Indicated (No Culture) - Urine, Clean Catch (04/02/2025 7:50 PM EDT) Color, UA Yellow Yellow, Straw 04/02/2025 8:27 PM EDT [facility] Appearance, UA Cloudy(A) Clear 04/02/2025 8:27 PM EDT [facility] pH, UA 6.5 5.0 - 8.0 04/02/2025 8:27 PM EDT [facility] Specific [place], UA 1.019 1.005 - 1.030 04/02/2025 8:27 PM EDT [facility] Glucose, UA Negative Negative 04/02/2025 8:27 PM EDT [facility] Ketones, UA Negative Negative 04/02/2025 8:27 PM EDT [facility] Bilirubin, UA Negative Negative 04/02/2025 8:27 PM EDT [facility] Blood, UA Trace(A) Negative 04/02/2025 8:27 PM EDT [facility] Protein, UA Negative Negative 04/02/2025 8:27 PM EDT [facility] Leuk Esterase, UA Negative Negative 04/02/2025 8:27 PM EDT [facility] Nitrite, UA Negative Negative 04/02/2025 8:27 PM EDT [facility] Urobilinogen, UA 1.0 E.U./dL 0.2 - 1.0 E.U./dL 04/02/2025 8:27 PM EDT [facility] Urine Urine specimen obtained by clean catch procedure / Unknown Collection / Unknown 04/02/2025 7:50 PM EDT 04/02/2025 7:57 PM EDT [facility] URINE ORDERABLES Final Result [facility]
[address] [place] [address], * (ABNORMAL) CBC Auto Differential (04/02/2025 7:50 PM EDT) WBC 11.29(H) 3.40 - 10.80 10*3/mm3 04/02/2025 7:59 PM EDT [facility] RBC 5.08 4.14 - 5.80 10*6/mm3 04/02/2025 7:59 PM EDT [facility] Hemoglobin 15.3 13.0 - 17.7 g/dL 04/02/2025 7:59 PM EDT [facility] Hematocrit 47.0 37.5 - 51.0 % 04/02/2025 7:59 PM EDT [facility] MCV 92.5 79.0 - 97.0 fL 04/02/2025 7:59 PM EDT [facility] MCH 30.1 26.6 - 33.0 pg 04/02/2025 7:59 PM EDT [facility] MCHC 32.6 31.5 - 35.7 g/dL 04/02/2025 7:59 PM EDT [facility] RDW 13.7 12.3 - 15.4 % 04/02/2025 7:59 PM EDT [facility] RDW-SD 46.5 37.0 - 54.0 fl 04/02/2025 7:59 PM EDT [facility] MPV 9.3 6.0 - 12.0 fL 04/02/2025 7:59 PM EDT [facility] Platelets 380 140 - 450 10*3/mm3 04/02/2025 7:59 PM EDT [facility] Neutrophil % 70.9 42.7 - 76.0 % 04/02/2025 7:59 PM EDT [facility] Lymphocyte % 15.5(L) 19.6 - 45.3 % 04/02/2025 7:59 PM EDT [facility] Monocyte % 8.9 5.0 - 12.0 % 04/02/2025 7:59 PM EDT [facility] Eosinophil % 3.4 0.3 - 6.2 % 04/02/2025 7:59 PM EDT [facility] Basophil % 0.9 0.0 - 1.5 % 04/02/2025 7:59 PM EDT [facility] Immature Grans % 0.4 0.0 - 0.5 % 04/02/2025 7:59 PM EDT [facility] Neutrophils, Absolute 8.02(H) 1.70 - 7.00 10*3/mm3 04/[facility]2025 7:[facility] Lymphocytes, Absolute 1.75 0.70 - 3.10 10*3/mm3 04/02/2025 7:59 PM EDT [facility] Monocytes, Absolute 1.00(H) 0.10 - 0.90 10*3/mm3 04/02/2025 7:59 PM EDT [facility] Eosinophils, Absolute 0.38 0.00 - 0.40 10*3/mm3 04/02/2025 7:59 PM [facility] Basophils, Absolute 0.10 0.00 - 0.20 10*3/mm3 04/02/2025 7:59 PM [facility] Immature Grans, Absolute 0.04 0.00 - 0.05 10*3/mm3 04/02/2025 7:59 PM T [facility] nRBC 0.0 0.0 - 0.2 /100 WBC 04/02/2025 7:59 PM [facility] Blood Venipuncture / Unknown 04/02/2025 7:50 PM EDT 04/02/2025 7:57 PM EDT [facility] LAB BLOOD ORDERABLES Final Resu lt Performing Organization Address [facility] Co de Phone Number PSYCHIATRIC LABORATORY
[address] [place] [address], * BNP (04/02/2025 7:50 PM EDT) proBNP 107.0 0.0 - 900.0 pg/mL 04/02/2025 8:22 PM EDT [facility] Blood Venipuncture / Unknown 04/02/2025 7:50 PM EDT 04/02/2025 7:57 PM EDT Narrative [facility] LAB[facility] - 04/02/2025 8:22 PM EDT This [...] ORDERABLES Final Resu lt Performing Organization Address [facility] Co de Phone Number PSYCHIATRIC LABORATORY
[address] [place] [address], [place] [phone] * (ABNORMAL) Comprehensive Metabolic Panel (04/02/2025 7:50 PM EDT) Glucose 74 65 - 99 mg/dL 04/02/2025 8:22 PM EDT [facility] BUN 13.6 8.0 - 23.0 mg/dL 04/02/2025 8:22 PM EDT [facility] Creatinine 0.99 0.76 - 1.27 mg/dL 04/02/2025 8:22 PM [facility] Sodium 139 136 - 145 mmol/L 04/02/2025 8:22 PM [facility] Potassium 4.0 3.5 - 5.2 mmol/L 04/02/2025 8:22 PM [facility] Chloride 108(H) 98 - 107 mmol/L 04/02/2025 8:22 PM [facility] CO2 24.5 22.0 - 29.0 mmol/L 04/02/2025 8:22 PM [facility] Calcium 9.6 8.6 - 10.5 mg/dL 04/02/2025 8:22 PM [facility] Total Protein 6.2 6.0 - 8.5 g/dL 04/02/2025 8:22 PM [facility] Albumin 2.9(L) 3.5 - 5.2 g/dL 04/02/2025 8:22 PM [facility] ALT (SGPT) 8 1 - 41 U/L 04/02/2025 8:22 PM [facility] AST (SGOT) 15 1 - 40 U/L 04/02/2025 8:22 PM [facility] Alkaline Phosphatase 140(H) 39 - 117 U/L 04/02/2025 8:22 PM [facility] Total Bilirubin 0.4 0.0 - 1.2 mg/dL 04/02/2025 8:22 PM [facility] Globulin 3.3 gm/dL 04/02/2025 8:22 PM [facility] Comment:Calculated Result A/G Ratio 0.9 g/dL 04/02/2025 8:22 PM [facility] BUN/Creatinine Ratio 13.7 7.0 - 25.0 04/02/2025 8:22 PM [facility] Anion Gap 6.5 5.0 - 15.0 mmol/L 04/02/2025 8:22 PM [facility] eGFR 86.1 >60.0 mL/min/1.7 3 04/02/2025 8:22 PM EDT [facility] Blood Venipuncture / Unknown 04/02/2025 7:50 PM EDT 04/02/2025 7:57 PM EDT Narrative [facility]IC LAB[facility]ORY - 04/02/2025 8:22 PM EDT GFR [...] [facility] LAB BLOOD ORDERABLES Final Resu lt [facility] LAB[facility]ORY
[address] [place] [address], * XR Chest 1 View (04/02/2025 7:41 PM EDT) Anatomical Region Laterality Modality Body N/A Radiographic Sejal ging 04/02/2025 7:44 PM EDT Impressions 04/02/2025 7:47 PM EDT Impression: No acute cardiopulmonary process. Electronically Signed: Israel Euceda MD 04/02/2025 7:47 PM EDT Workstation ID: [id number] Narrative 04/02/2025 7:47 PM EDT XR CHEST [...] MD 04/02/2025 7:47 PM EDT Workstation ID: [id number] [facility] IMG DIAGNOSTIC IMAGING ORDERABL ES Final Result from Last 3 Months Insurance [facility] [place] [facility] Care Teams Track Manager Relationship Specialty Start Date End Date Rupesh Arvizu DO [address] [place] [address] [address] PCP - General Internal Medicine 04/02/25
--- OUTSIDE RECORDS SUMMARY | 2025-06-05 16:54 | XMS_ITS | Referral Summary ---
Author Organization [employer] ([place], [place], [place], [place]) Address [address] [place] [address] Care Team Providers Care Import/Export Clerk Name Role Phone Unavailable Primary Care Provider Unavailabl e Encounters Date Type Department Care Team Description 05/03/2025 9:23 AM EDT - 05/03/2025 11:59 PM EDT Hospital Encounter [facility] PET CT - [address] [place] [id number] Dannie Burch MD Malignant neoplasm of body of stomach (HCC) Discharge Disposition: Home or Self Care from Last 3 Months Social History Tobacco Use Types Packs/Day Years Used Date Smoking Tobacco: Never Assessed Sex and Gender Information Value Date Recorded Sex Assigned at Not on file Legal Sex Male 4:55 PM CDT Gender Identity Not on file Sexual Orientation Not on file Plan of Treatment Not on file Procedures Procedure Name Priority Date/Time Associated Diagnosis Comments P.E.T./CT SKULL BASE TO MID-THIGH Routine 05/03/2025 11:39 AM EDT Malignant neoplasm of body of stomach (HCC) from Last 3 Months Results * PET/CT Skull Base-Mid Thigh (Whole [...] Burch MD IMG CT ORDERABLES Final Result from Last 3 Months Insurance [facility] [facility] OF MD
--- OUTSIDE RECORDS SUMMARY | 2025-06-05 16:55 | XMS_ITS | Data Portability ---
Author Organization [facility] & TARAS Lucas ADMIN Address [address] [place] [id number] Assessment Encounter Date Assessment Date Assessment LastModified by Organization Details LastModified Time 03/31/2025 03/31/2025 ASSESSMENT: Deshawn Sierra is a 60-year-old male with generalized swelling, urinary symptoms, and a history of blood in the urine. PLAN: 1. Order PSA blood test for prostate cancer screening. 2. Send urine sample for cytology to evaluate for abnormal cells. 3. Schedule cystoscopy to examine the bladder lining for potential abnormalities. 4. Prescribe Tamsulosin for urinary symptoms, with instructions to take the medication at night to minimize potential side effects such as lightheadedness. Discuss potential harmless side effects, including reduced semen during ejaculation and transient blood pressure changes. 5. Advise the patient to follow up with hematology/oncol nicholas for further evaluation of generalized swelling. 6. Provide the patient with imaging discs and reports for his oncologist appointment. Please note this report was created using voice recognition/text compilation software documentation services during the encounter with the patient. [email or web address] Not available 03/31/2025 10:25:09 04/01/2025 04/01/2025 ASSESSMENT: Deshawn Sierra is a 60-year-old male with hematuria and penoscrotal edema. PLAN: 1. Cytology results from the urine sample are pending and will be reviewed upon availability. 2. The patient has undergone a complete urologic workup, including evaluation for hematuria with no abnormalities detected. 3. The patient is advised that microscopic blood in the urine may persist and does not require repeated workup unless clinically indicated. 4. Follow-up with the oncologist and other specialists regarding generalized edema and swelling in the arm, foot, and leg. 5. The patient is informed that the first urination post-procedure may result in pink-colored urine due to minor trauma from the cystoscopy. 6. The patient is encouraged to contact the clinic if any concerns arise or if cytology results are abnormal. Please note this report was created using voice recognition/text compilation software documentation services during the encounter with the patient. [email or web address] Not available 04/01/2025 12:16:01 Plan of Treatment Reminders Order Date Submit Date Provider Last Modified By Organization Details Last Modified Time Details Appointments None recorded. Lab urinalysis, dipstick [address] [facility], [address], [place], [address], 5 12:53:03 cytology, urine [address] [place] [address] (Registration ), [address], [place], [address], 08:38:22 PSA, serum or plasma 2024 025 [facility] (Registration ), [address], [place], [address], 12:07:30 urinalysis, dipstick [address] [facility], [address], [place], [address], 10:25:55 Referral None recorded. Procedures bladder scan (PROC) [address] [facility], [address], [place], [address], 10:25:55 Surgeries None recorded. Imaging None recorded. Medication Orders tamsulosin 0.4 mg capsule 2024 025 [email or web address] Not available 14:42:29 Patient TargetsNo targets recorded. Patient InstructionsNo instructions recorded. Reason for Referral None Reported. Results Created Date Observation Date Name Description Value Unit Range Abnormal Flag Note LastModifiedBy Organization Detail LastModifiedTime 03/31/20 25 03/31/2025 PROST ATE SPECI FIC AG (PSA) prostate specific Ag (PSA) 0.4 NG/mL 0-4.0 Not Available [facility] ([facility]) [address], [place], [address], 03/31/2025 12:07:30 03/31/20 25 04/07/2025 CYTOL OGY SPECI MEN cyto SEE SCANNE D RPT Not Available [facility] ([facility]) [address], [place], [address], 04/07/2025 09:27:54 03/31/20 25 03/31/2025 bladd er scan (PROC ) Calculated Residual Urine: 17ml Not Available [facility] [address] [address] [facility] [address], [place], [address], 03/31/2025 10:07:03 03/31/20 25 03/31/2025 urina lysis , dipst ick Leukocytes (reference range) negati ve Not Available [place] [address] [address] [facility] [address], [place], [address], 03/31/2025 10:05:34 03/31/20 25 03/31/2025 urina lysis , dipst ick Nitrite (reference range:) negati ve Not Available [place] [address] [address] [facility] [address], [place], [address], 03/31/2025 10:05:34 03/31/20 25 03/31/2025 urina lysis , dipst ick Urobilinogen (reference range) 0.2 Not Available [facility] [place] [address] [address] [facility] [address], [place], [address], 03/31/2025 10:05:34 03/31/20 25 03/31/2025 urina lysis , dipst ick Protein (reference range) negati ve Not Available [place] [address] [address] [facility] [address], [place], [address], 03/31/2025 10:05:34 03/31/20 25 03/31/2025 urina lysis , dipst ick pH (reference range 5-8.5) 7.0 Not Available [facility] [place] [address] [address] [facility] [address], [place], [address], 03/31/2025 10:05:34 03/31/20 25 03/31/2025 urina lysis , dipst ick Blood (reference range:) non-He molyze d: Trace Not Available [place] [address] [address] [facility] [address], [place], [address], 03/31/2025 10:05:34 03/31/20 25 03/31/2025 urina lysis , dipst ick Specific [place] (reference range) 1.015 Not Available [facility] [place] [address] [address] [facility] [address], [place], [address], 03/31/2025 10:05:34 03/31/20 25 03/31/2025 urina lysis , dipst ick Ketone (reference range) negati ve Not Available [place] [address] [address] [facility] [address], [place], [address], 03/31/2025 10:05:34 03/31/20 25 03/31/2025 urina lysis , dipst ick Bilirubin (reference range) negati ve Not Available [place] [address] [address] [facility] [address], [place], [address], 03/31/2025 10:05:34 03/31/20 25 03/31/2025 urina lysis , dipst ick Glucose (reference range) negati ve Not Available [place] [address] [address] [facility] [address], [place], [address], 03/31/2025 10:05:34 03/31/20 25 03/31/2025 urina lysis , dipst ick Color (reference range: yellow-brown ) Yellow Not Available [place] [address] [address] [facility] [address], [place], [address], 03/31/2025 10:05:34 04/01/20 25 04/01/2025 urina lysis , dipst ick Leukocytes (reference range) negati ve Not Available [place] [address] [address] [facility] [address], [place], [address], 04/01/2025 11:42:25 04/01/20 25 04/01/2025 urina lysis , dipst ick Nitrite (reference range:) negati ve Not Available [place] [address] [address] [facility] [address], [place], [address], 04/01/2025 11:42:25 04/01/20 25 04/01/2025 urina lysis , dipst ick Urobilinogen (reference range) 0.2 Not Available [place] [address] [address] [facility] [address], [place], [address], 04/01/2025 11:42:25 04/01/20 25 04/01/2025 urina lysis , dipst ick Protein (reference range) negati ve Not Available [place] [address] [address] [facility] [address], [place], [address], 04/01/2025 11:42:25 04/01/20 25 04/01/2025 urina lysis , dipst ick pH (reference range 5-8.5) 5.0 Not Available [place] [address] [address] [facility] [address], [place], [address], 04/01/2025 11:42:25 04/01/20 25 04/01/2025 urina lysis , dipst ick Blood (reference range:) negati ve Not Available [place] [address] [address] [facility] [address], [place], [address], 04/01/2025 11:42:25 04/01/20 25 04/01/2025 urina lysis , dipst ick Specific [place] (reference range) 1.000 Not Available [place] [address] [address] [facility] [address], [place], [address], 04/01/2025 11:42:25 04/01/20 25 04/01/2025 urina lysis , dipst ick Ketone (reference range) negati ve Not Available [place] [address] [address] [facility] [address], [place], [address], 04/01/2025 11:42:25 04/01/20 25 04/01/2025 urina lysis , dipst ick Bilirubin (reference range) negati ve Not Available [place] [address] [address] [facility] [address], [place], [address], 04/01/2025 11:42:25 04/01/20 25 04/01/2025 urina lysis , dipst ick Glucose (reference range) negati ve Not Available [place] [address] [address] [facility] [address], [place], [address], 04/01/2025 11:42:25 04/01/20 25 04/01/2025 urina lysis , dipst ick Color (reference range: yellow-brown ) Yellow Not Available [place] [address] [address] [facility] [address], [place], [address], 04/01/2025 11:42:25 Result Notes None recorded. Problems Name Problem SNOMED Code Status Onset Date Resolution Date Notes Provider Name and Address Organization Details Recorded Time Edema of scrotum 44428273 Active 2024 KLEBER LIM MD [address], [place], [address] , [facility] & [place] 5 10:24:40 Microscopic hematuria 097179635 Active [address], [facility] [address] , [facility] & [place] 5 10:24:47 Poor stream of urine 719207670 Active [address], [facility] [address] , [facility] & [place] 10:25:08 Problem Notes None recorded. Procedures Surgical History Date Name Laterality Status Provider Name and Address Organization Details Recorded Time 04/01/2025 Cystoscopy -Male completed MD [address], [facility] [address], [facility] & [place] 04/01/2025 12:15:26 Imaging Results None recorded. Procedure Notes None recorded. Medical Equipment None Reported. Allergies No known drug allergies Medications Name Sig Start Date Stop Date Status Note LastModified by Organization Details LastModified Time tamsulosin 0.4 mg capsule Take 1 capsule every day by oral route in the evening for 30 days. 2024 active Not Available Not Available Not Avai lable levofloxaci n 500 mg tablet TAKE 1 TABLET BY MOUTH ONCE DAILY FOR 10 DAYS 04/01 completed Not Available Not Available Not Available Isabel-javan 8.6 mg tablet TAKE 1 TABLET BY MOUTH TWICE DAILY NEEDED FOR CONSTIPAT ION active Not Available Not Available No t Available Vitals Date Recorded Body weight Oxygen saturation Oxygen saturation in Arterial blood by Pulse oximetry Heart rate Systolic And Diastolic Provider Name and Address Organization Details Last Updated DateTime 5 839335. 51 g 94 % 94 % 74 /min 130/80 mm[Hg] Adeline Holliday [facility] & [place] 10:04:51 Date Recorded Body height Body mass index (BMI) Body weight Oxygen saturation Oxygen saturation in Arterial blood by Pulse oximetry Systolic And Diastolic Provider Name and Address Organization Details Last Updated DateTime 190.5 cm 30.6 kg/m2 781999. 41 g 98 % 98 % 134/84 mm[Hg] Annette Moran [place] - [facility] - [place] & [place] 11:40:00 Social History None recorded. Functional Status None recorded. Mental Status None recorded. Family History Nothing Reported. Medical History No medical history recorded. Past Encounters Encounter ID Performer Location Encounter Start Date Encounter Closed Date Diagnosis/Indication Diagnosis SNOMED-CT Code Diagnosis ICD10 Code Diagnosis IMO Codes Diagnosis Note [id number] KLEBER LIM MD [facility] [address] [facility] [address] [place] [address] 03/31/2025 09:47:08 03/31/2025 10:35:25 Edema of scrotum 79749755 N50.89 198190 Microscopic hematuria 19 2717525 R31.29 397205 Finding of tobacco use and exposure 652995392 Z87.032 7306976 Poor stream of urine 162 256039 R39.12 27182 [id number] KLEBER LIM MD [facility] [address] [facility] [address] [place] [address] 04/01/2025 11:16:25 04/01/2025 12:19:52 Microscopic hematuria 795707696 R31.29 106843 Health Concerns Section Related Observation LastModified by Organization Detai ls LastModified Time None Recorded Concern Status LastModified by Organization Details LastModified Time None Recorded Advance Directives Directive None Recorded Payers Insurance Date Sequence Insurance Name Policy Number Policy Arciniega Covered Member ID Arciniega Member ID Guarantor Name 04/01/2025 1 AETNA [facility] (MEDICAID HMO) Deshawn Sierra [id number] Deshawn Sierra Notes Date Note Type Note Provider Name and Address Organization Details Recorded Time 03/31/2025 text/html 03/31/25 14-umqe-loe-year present to my office for swollen testicles.Deshawn Sierra is a 60-year-old male who presents for a new patient visit. He reports generalized swelling that initially began in the left arm, accompanied by sensations of coldness and discomfort radiating down to two fingers. The swelling subsequently progressed to the left leg, testicles (with the right testicle being approximately double the size of the left), scrotum, neck, and ankles. He denies any associated pain with the swelling. 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 He was advised to follow up with a doctor but has not undergone any workup for this issue. He denies visibly seeing blood in his urine. He reports urinary symptoms, including frequent nighttime urination approximately every 1.5 to 2 hours for the past seven to eight months. He describes his urinary stream as not super strong but adequate. He has not received treatment for these symptoms. He has a significant smoking history, having smoked for nearly 50 years, with a peak consumption of five packs per day. He quit smoking approximately 10 years ago. He denies any family history of prostate, kidney, or bladder cancer. His grandmother had congestive heart failure. He is not currently taking any medications regularly but has been prescribed a stool softener for bowel issues. He is unsure of the name of the medication but describes it as a small green pill. 03/31/25 19-ckjn-mkq-year present to my office for swollen testicles. 03/18/25 CT chest w ([facility]): Impression: 1. Suboptimal bolus. No acute pulmonary embolus identified. 2. Tiny bilateral pleural effusions. No focal consolidation seen within the lungs. 3. Several new and enlarged mediastinal lymph nodes compared to the previous examination with an enlarged right hilar lymph node measuring 2.1cm in short axis diameter. 4. Left chest wall edema and mild edema within the upper mediastinal fat. Mildly enlarged left axillary lymph nodes. 03/18/25 CT abd/pel w ([facility]): Impression: 1. Tiny pericardia effusion, tiny bilateral pleural effusions, subcutaneous edema, small amount of free fluid within the pelvis and bilateral scrotal hydrocele. The findings are consistent with generalized edema. 2. There does appear to be venous congestion within the mesentry which has a marnie appearance. No portal vein thrombosis. 3. Several small mesenteric lymph nodes are now present which do not appear bulky. Probable reactive lymph nodes. 4. There is no evidence of an obstruction or other acute findings seen within the abdomen or pelvis. 03/18/25 Hgb 14.7, Hct 45.1Cr 1.00, GFR 76, Troponin <0. UA: Blood 1+; Urine Micro: RBC 3-5, WBC occasional, Squ Epith occasional, CaOxCrys 2+, Bacteria 1+, Mucus 1+; UC: no growth 48hrs KLEBER LIM MD [address], [place], [address], [place] - [facility] - [place] & [place] 04/05/2025 07:54:01 04/01/2025 text/html 04/01/25 Patient returns to my office for cystoscopy.Deshawn Seirra is a 60-year-old male who presents for a cystoscopy. PSA levels are normal, comparable to those of an 18-year-old. Cytology results are pending, typically taking approximately one week. The patient has undergone a complete urologic workup, including evaluation for hematuria, microscopic blood in the urine, and enlarged lymph nodes. Enlarged lymph nodes were noted on a CT scan, measuring approximately two centimeters, which is not considered worrisome. The patient has a history of penoscrotal edema, which is consistent with generalized edema observed in other areas of the body. The patient has consulted with an oncologist and other specialists regarding swelling in the arm, foot, and leg. The oncologist has avoided prescribing fluid pills due to potential kidney dehydration and steroids due to interference with Doppler testing. The patient has also undergone a heart evaluation, including an echocardiogram, which was reported as normal. 03/31/25 32-pbji-mrp-year present to my office for swollen testicles.Deshawn Sierra is a 60-year-old male who presents for a new patient visit. He reports generalized swelling that initially began in the left arm, accompanied by sensations of coldness and discomfort radiating down to two fingers. The swelling subsequently progressed to the left leg, testicles (with the right testicle being approximately double the size of the left), scrotum, neck, and ankles. 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 He was advised to follow up with a doctor but has not undergone any workup for this issue. He denies visibly seeing blood in his urine.He reports urinary symptoms, including frequent nighttime urination approximately every 1.5 to 2 hours for the past seven to eight months. He describes his urinary stream as not super strong but adequate. He has not received treatment for these symptoms.He has a significant smoking history, having smoked for nearly 50 years, with a peak consumption of five packs per day. He quit smoking approximately 10 years ago.He denies any family history of prostate, kidney, or bladder cancer. His grandmother had congestive heart failure.He is not currently taking any medications regularly but has been prescribed a stool softener for bowel issues. He is unsure of the name of the medication but describes it as a small green pill.03/31/[age]-year -old-year present to my office for swollen testicles. 03/31/[address] chest w ([facility]): Impression: 1. Suboptimal bolus. No acute pulmonary embolus identified. 2. Tiny bilateral pleural effusions. No focal consolidation seen within the lungs. 3. Several new and enlarged mediastinal lymph nodes compared to the previous examination with an enlarged right hilar lymph node measuring 2.1cm in short axis diameter. 4. Left chest wall edema and mild edema within the upper mediastinal fat. Mildly enlarged left axillary lymph nodes.03/18/25 CT abd/pel w ([facility]): Impression: 1. Tiny pericardia effusion, tiny bilateral pleural effusions, subcutaneous edema, small amount of free fluid within the pelvis and bilateral scrotal hydrocele. The findings are consistent with generalized edema. 2. There does appear to be venous congestion within the mesentry which has a marnie appearance. No portal vein thrombosis. 3. Several small mesenteric lymph nodes are now present which do not appear bulky. Probable reactive lymph nodes. 4. There is no evidence of an obstruction or other acute findings seen within the abdomen or pelvis.03/18/25 Hgb 14.7, Hct 45.1Cr 1.00, GFR 76, Troponin <0. UA: Blood 1+; Urine Micro: RBC 3-5, WBC occasional, Squ Epith occasional, CaOxCrys 2+, Bacteria 1+, Mucus 1+; UC: no growth 48hrs KLEBER LIM MD [address], [place], [address], [facility] - [place] & [place] 04/05/2025 07:36:04
--- OUTSIDE RECORDS SUMMARY | 2025-06-05 16:55 | XMS_ITS | Clinical Summary ---
Author Organization [employer] ([place], [place], [place], [place]) Address [address] [place] [address] Care Team Providers Care Osteopathic Physician Name Role Phone Unavailable Primary Care Provider Unavailabl e Encounters Date Type Department Care Team Description 05/03/2025 9:23 AM EDT - 05/03/2025 11:59 PM EDT Hospital Encounter [facility] PET CT - [address] [place] [address] Dannie Burch MD Malignant neoplasm of body [...] Health Maintenance Due Date Last Done Comments CT Colonography 1963 Colonoscopy 1963 Colorectal Cancer Screening 1963 FOBT/FIT 1963 Fit-DNA (Cologuard) 1963 Sigmoidoscopy 1963 Depression Screening (12+) 1975 Tobacco Cessation Counseling and Screening (12+) 01/28 HIV Screening 1978 Hepatitis C Screening 1981 Lipid Panel 1998 DTAP/TDAP/TD VACCINES (2 - Td or Tdap) 11/01/2006 Pneumococcal 50+ years (1 of 1 - PCV) 2013 Shingles Vaccine (Zoster) (1 of 2) 2013 COVID-19 VACCINE (1 - season) 2025 Influenza Vaccine (#1) 2025 Respiratory Syncytial Virus (RSV) Adult or (1 - 1-dose 75+ series) 2038 Procedures Procedure Name Priority Date/Time Associated Diagnosis [...] by Son Santiago PA-C. Dannie Burch MD [facility] CT ORDERABLES Final Result from Last 3 Months Insurance AETNA [facility]
--- NOTE | 2025-06-05 17:44 | CT_ITS ---
PROCEDURE INFORMATION: Exam: CT Abdomen And Pelvis Without Contrast Exam date and time: 06/05/2025 7:09 PM Age: 60 years old Clinical indication: Other: SOA; Additional info: Short of breath TECHNIQUE: Imaging protocol: Computed tomography of the abdomen and pelvis without contrast. Radiation optimization: All CT scans at this facility use at least one of these dose optimization techniques: automated exposure control; mA and/or kV adjustment per patient size (includes targeted exams where dose is matched to clinical indication); or iterative reconstruction. COMPARISON: CT ABDOMEN PELVIS W CON 03/18/2025 7:35 PM FINDINGS: Liver: Normal. No mass. Gallbladder and biliary ducts: Normal. No calcified stones. No ductal dilation. Pancreas: Normal. No ductal dilation. Spleen: Multiple benign-appearing calcific densities of the spleen. Adrenal glands: Normal. No mass. Kidneys and ureters: Normal. No hydronephrosis. Stomach and bowel: Unremarkable. No obstruction. No mucosal thickening. Appendix: No evidence of appendicitis. Intraperitoneal space: Moderate volume ascites surrounds the liver and spleen extend to the pelvis. Vasculature: Moderate calcific atherosclerotic disease of the abdominal aorta without aneurysmal dilatation is present. Lymph nodes: Unremarkable. No enlarged lymph nodes. Urinary bladder: Unremarkable as visualized. Reproductive: Large hydrocele in edema in the scrotum. Bones/joints: L4 on L5 are fused. Moderate loss of intervertebral disc space with degenerative changes involving the lower thoracic and lumbar spine. Soft tissues: Moderate anasarca of the abdomen and pelvis soft tissues. IMPRESSION: 1. Moderate volume ascites surrounds the liver and spleen extend to the pelvis. 2. Large hydrocele in edema in the scrotum. 3. Moderate anasarca of the abdomen and pelvis soft tissues.
--- NOTE | 2025-06-05 17:44 | CT_ITS ---
PROCEDURE INFORMATION: Exam: CT Chest Without Contrast; Diagnostic Exam date and time: 06/05/2025 7:03 PM Age: 60 years old Clinical indication: Pain; Shortness of breath; Chest pressure TECHNIQUE: Imaging protocol: Diagnostic computed tomography of the chest without contrast. Radiation optimization: All CT scans at this facility use at least one of these dose optimization techniques: automated exposure control; mA and/or kV adjustment per patient size (includes targeted exams where dose is matched to clinical indication); or iterative reconstruction. COMPARISON: CT ANGIO CHEST PE PROTOCOL 03/18/2025 7:35 PM FINDINGS: Lungs: Compressive atelectasis of the lungs. Pleural spaces: Moderate bilateral pleural effusions are present. Heart: Unremarkable. No cardiomegaly. No pericardial effusion. Coronary arteries: Mild three-vessel calcific atherosclerotic disease of the coronary arteries is present. Lymph nodes: Unremarkable. No enlarged lymph nodes. Vasculature: Unremarkable. No aortic aneurysm. Intraperitoneal space: Moderate volume ascites around the liver and spleen. Bones/joints: Unremarkable. No acute fracture. Soft tissues: Unremarkable. IMPRESSION: 1. Moderate bilateral pleural effusions with compressive atelectasis. 2. Moderate volume ascites surround the liver and spleen.
[2025-06-05] MEDS: HYDROMORPHONE 2MG/ML SYRINGE 1 MG IV (18:04)
[2025-06-05] MEDS: ORPHENADRINE CITRATE 60MG/2ML VIAL 60 MG IV (18:04)
[2025-06-05 18:17] LABS: Hematocrit 37.6 % (42.0-52.0); Hemoglobin 12.6 g/dL (14.1-18.0); Immature Granulocytes % 3.9 %; Mean Corpuscular HGB Conc 33.5 g/dL (31.8-35.4); Mean Corpuscular Hemoglobin 31.1 pg (27.0-31.2); Mean Corpuscular Volume 92.8 fl (80-94); Nucleated Red Blood Cells % 0.2 %; Platelet Count 100 K/mm3 (142-424); Red Blood Count 4.05 M/mm3 (4.60-6.20); Red Cell Distribution Width-SD 54.4 fL; White Blood Count 13.0 K/mm3 (4.8-10.8)
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
--- NOTE | 2025-06-05 18:28 | ECG_ITS ---
APPROVED REPORT Exam: Resting ECG HR:96 bpm ECG Measurements Heart Rate 96 AXES CA 157 P 29 QRSd 116 QRS 51 QT 346 T -5 QTc 399 Conclusion SINUS RHYTHM INFERIOR MYOCARDIAL INFARCTION , PROBABLY OLD [40+ ms Q WAVE AND/OR ST/T ABNORMALITY IN II/aVF] ABNORMAL ECG UNCONFIRMED REPORT Electronically signed by : RONA JACK, 06/05/2025 23:58:47
[2025-06-05 18:31] LABS: Alanine Aminotransferase 22 U/L (12-78); Albumin Level 3.0 g/dl (3.5-5.0); Albumin/Globulin Ratio 1.1 (1.1-1.8); Alkaline Phosphatase 446 U/L (38-126); Anion Gap 8.0 mEq/L (5-15); Aspartate Amino Transferase 36 U/L (17-59); Bilirubin,Total 3.4 mg/dl (0.2-1.3); Blood Urea Nitrogen 31 mg/dl (9-20); Calcium 9.7 mg/dl (8.4-10.2); Carbon Dioxide 25 mmol/L (22.0-30.0); Chloride 105 mmol/L (98-107); Creatinine Clearance Estimated 119 mL/min (50-200); Creatinine,Serum 0.90 mg/dl (0.66-1.25); Estimated Glomerular Filt Rate 86 ml/min (>60); GFR (African American) 103 ML/MIN (>60); Globulin 2.7 g/dL (1.3-3.2); Glucose 88 mg/dl (74-100); Lipase 70 U/L (23-300); Magnesium 2.3 mg/dl (1.6-2.3); Potassium 4.0 mmoL/L (3.5-5.1); Sodium 134 mmol/L (136-145); Total Protein,Serum 5.7 g/dl (6.3-8.2)
[2025-06-05 18:42] LABS: NT Pro Brain Natriuretic Pep. 160 pg/mL (0-125)
[2025-06-05 18:44] LABS: Activated Partial Thrombo Time 30.8 seconds (22.8-30.6); INR 1.11 (0.9-1.1); Prothrombin Time 12.2 seconds (10.1-12.5)
[2025-06-05 18:47] LABS: Troponin I 0.29 ng/ml (0.00-0.034)
[2025-06-05] MEDS: ASPIRIN 325MG TABLET 325 MG PO (19:28)
[2025-06-05] MEDS: MORPHINE 4MG/ML SYRINGE 4 MG IV (19:28)
--- NOTE | 2025-06-05 19:45 | PC.NURSE ---
Dr Montes and this RN at bedside speaking with pt and pts family
[2025-06-05 19:49] LABS: D-Dimer > 8.10 ug/mL (0.0-0.5)
[2025-06-05 20:30] LABS: RBC Morphology Normal; Total Cells Counted 100
--- NOTE | 2025-06-05 21:09 | EXP.HP ---
History of Present Illness *Admission Date: 06/05/25 *Reason for visit:: Dyspnea, pain *History of present illness: Mr. 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 He presented to the ER due to complaint of pain in his right lower back and right hip area over the past 2 to 3 days. States he tripped going up stairs when he felt like he pulled a muscle. Denies falling or any jorge a trauma. Caught himself but felt a pop. Pain is just gotten worse over the past few days. Came in because of that and some shortness of breath. Daughter accompanies him and states that the shortness of breath has been progressive over the past 2 to 3 weeks. On arrival, satting 83% on room air. Does not wear oxygen normally. Has marked edema in his left arm and bilateral lower extremities with some distention of his abdomen. Imaging of his chest abdomen and pelvis shows moderately sized bilateral pleural effusions. Requiring 3 L for goal sats in the 90s. White count marginally elevated at 13. Kidney function more or less at his baseline to BUN 31, creatinine 0.9. Medicine was consulted for admission and management of his acute respiratory failure with new oxygen requirement in the setting of large effusions and need for possible diagnostic and therapeutic thoracentesis. Patient also noted to have NSTEMI with troponin of 0.29. From review of his chart, he saw oncology on 05/05. Continued to complain of swelling at that time. Having mainly swelling in his scrotum, left upper extremity, legs and neck. Was started on Medrol Dosepak that helped his breathing and neck swelling but less or benefit on the swelling in his extremities and groin. Not using any diuretics at this time. He denies fevers, nausea, vomiting, syncope, confusion, chest pain. He is seeing Dr. Burch in oncology with diagnosis of his cancer, but states he is considering a second opinion. [facility] Disclaimer: The information contained in this section may have been updated after the patient was seen, as this information can be updated by other users. Medical History Metastatic signet ring cell carcinoma Carotid stenosis Constipation Nasal bleeding Paralysis of right vocal cord Dysphonia Distal radius fracture, left Urinary tract infection Osteophyte History of tobacco abuse Weight loss Hoarseness of voice Laryngitis Hernia, umbilical Vertigo Urinary problem in male Cough Surgical History Hx of cardiac cath Family History Other Family history of diabetes mellitus type II Social History Smoking Status: Former smoker tobacco type: cigarettes packs per day: 5 smoking status stop date: 2014 how long ago did patient quit smokin alcohol intake: never substance use type: denies use current occupational status: employed Travel in the last 8 weeks?: None household members: none housing: house lives independently: Yes marital status: single special hallie needs: No agree to transfusion: No do you feel safe at home: Yes victim of physical abuse: No victim of emotional abuse: No victim of sexual abuse: No would you like helpful sources: No Have you lived/traveled outside US in past 30 days?: No Contact w/someone who lives/traveled outside US past 30 days?: No Exposure to someone with infectious disease in past 14 days?: No Do you have a fever (greater than 100.4 F or 38 C)?: No Have you tested positive for COVID-19?: No Exposed to someone with COVID-19 in past 14 days?: No Do you have a sore throat?: No Do you have a cough?: No Do you have any weakness?: No Do you have any diarrhea?: No Are you experiencing any unusual bleeding?: No Do you have any muscle aches/pain?: No Do you have any abdominal pain?: No Are you experiencing loss of taste or smell?: No Other Medical History Have you received the Flu Vaccine for this season: No Have you received the Pneumonia Vaccine: No Review of Systems Review of Systems Review of systems (narrative): 14 point review of systems performed, pertinent positives and negatives as per HPI Meds Home Medications and Allergies Home Medications ?Medication ?Instructions ?Recorded ?Confirmed ?Type mecobalamin (vitamin B12) 1,000 1,000 mcg PO DAILY #60 ea 04/06/25 06/05/25 Rx mcg lozenges dexamethasone 4 mg tablet 4 mg PO DAILY #30 tabs 05/05/25 06/05/25 Rx famotidine 20 mg tablet (Pepcid) 20 mg PO DAILY #30 tabs 05/05/25 06/05/25 Rx Lactobacillus rhamnosus GG 20 20 cell PO DAILY 05/19/25 06/05/25 History billion cell capsule (Probiotic Digestive Care) buspirone 15 mg tablet 15 mg PO BID #60 tabs 05/19/25 06/05/25 Rx hydroxyzine HCl 25 mg tablet 25 mg PO TID PRN anxiety #30 tabs 05/19/25 06/05/25 Rx apixaban 5 mg tablet (Eliquis) 5 mg PO BID #60 tabs 05/26/25 06/05/25 Rx furosemide 20 mg tablet (Lasix) 20 mg PO BID PRN edema #60 tabs 05/31/25 06/05/25 Rx New Prescriptions to Start Prescriptions: Allergies Allergy/AdvReac Type Severity Reaction Status Date / Time Iodinated Contrast Media Allergy Unknown Verified 05/26/25 11:33 allergy reaction Exam Data for Last 24 hours Vital signs and Labs for Last 24 Hours: Temp Pulse Resp BP Pulse Ox O2 Del Method O2 Flow Rate 98.4 F 82 25 H 143/92 H 97 Nasal Cannula 3 06/05/25 16:59 06/05/25 20:00 06/05/25 20:00 06/05/25 20:00 06/05/25 20:00 06/05/25 18:30 06/05/25 18:30 Laboratory Results - last 24 hr 06/05/25 17:56: WBC 13.0 H, RBC 4.05 L, Hgb 12.6 L, Hct 37.6 L, MCV 92.8, MCH 31.1, MCHC 33.5, RDW 16.1, Plt Count 100 L, MPV 11.5 H, Neut % (Auto) 78.5, Lymph % (Auto) 10.0, [place] % (Auto) 6.4, Eos % (Auto) 0.8, Baso % (Auto) 0.4, Neut # (Auto) 10.2 H, Lymph # (Auto) 1.3, [place] # (Auto) 0.8, Eos # (Auto) 0.1, Baso # (Auto) 0.1, Total Counted 100, Neutrophils % (Manual) 77 H, Lymphocytes % (Manual) 16, Monocytes % (Manual) 5, Eosinophils % (Manual) 1, Basophils % (Manual) 1.0, Platelet Estimate Marked decrease, RBC Morphology Normal, PT 12.2, INR 1.11 H, APTT 30.8 H, D-Dimer > 8.10 H, Sodium 134 L, Potassium 4.0, Chloride 105, Carbon Dioxide 25, Anion Gap 8.0, BUN 31 H, Creatinine 0.90, Estimated Creat Clear 119, Estimated GFR 86, Est GFR ( Amer) 103, Glucose 88, Calcium 9.7, Magnesium 2.3, Total Bilirubin 3.4 H, AST 36, ALT 22, Alkaline Phosphatase 446 H, Troponin I 0.29 H, NT-Pro-B Natriuret Pep 160 H, Total Protein 5.7 L, Albumin 3.0 L, Globulin 2.7, Albumin/Globulin Ratio 1.1, Lipase 70 I & O for Last 24 hours: Intake & Output 06/02/25 06/03/25 06/04/25 06/05/25 23:59 23:59 23:59 23:59 Weight 110.223 kg Constitutional Constitutional: mild distress, obese, chronically ill appearing and cooperative *Routine HEENT Exam Head: Present normocephalic Eye: Present EOMI and PERRL ENT: Present mucous membranes moist *Routine Neck Exam Neck: Present supple *Routine Respiratory Exam Respiratory: Present accessory muscle use, crackles (With deep inspiration) and diminished air movement (Bases and posterior lung jackson); Absent rhonchi or wheezes *Routine Cardiovascular Exam Cardiovascular: Present RRR *Routine Abdominal Exam Abdominal: Present soft, normoactive bowel sounds and distended; Absent tenderness *Routine Rectal Exam Rectal:: deferred *Routine Genitalia Exam Genitalia:: deferred *Routine Extremities Exam Extremities: Present edema (2+ bilateral lower extremities to the knee, left upper extremity with 3+ edema); Absent cyanosis or clubbing *Routine Skin Exam Skin: Present intact and warm; Absent rash *Routine Neurological Exam Neurological: Present alert, oriented X3 and moving all extremities; Absent altered mental status Assessment and Plan *Assessment and plan (1) Acute hypoxemic respiratory failure: Status: Acute Category: Medical Code(s): J96.01 - Acute respiratory failure with hypoxia (2) Pleural effusion: Status: Acute Category: Medical Code(s): J90 - Pleural effusion, not elsewhere classified (3) Non-ST elevation [place] (NSTEMI): Status: Acute Category: Medical Code(s): I21.4 - Non-ST elevation (NSTEMI) myocardial infarction (4) Metastatic signet ring cell carcinoma: Status: Acute Category: Medical Code(s): C79.9 - Secondary malignant neoplasm of unspecified site (5) HTN (hypertension): Status: Acute Category: Medical Code(s): I10 - Essential (primary) hypertension (6) Hyperlipidemia: Status: Acute Category: Medical Code(s): E78.5 - Hyperlipidemia, unspecified Plan 60-year-old male with history of metastatic signet ring cell carcinoma. Presented with shortness of breath and back pain. Found to have pleural effusions. Discussed case with ER physician, request admission for evaluation by pulmonology for thoracentesis and further management of his effusions. Agreed to admit for further care. Currently on 3 L nasal cannula oxygen. Problems addressed as follows: Acute hypoxemic respiratory failure Pleural effusions, suspected malignant - New oxygen requirement 3 L. Hypoxic in the 80s on arrival. White count 13. Hemoglobin 12.6. - Supplemental oxygen as needed for goal sats greater 90%. Currently on 3 L - Pulmonology consulted to evaluate patient in the morning for therapeutic and diagnostic thoracentesis - Holding Eliquis, last dose evening of 06/04 - CT of chest per my review with moderate to large bilateral pleural effusions. Also has ascites in his abdomen around liver and spleen - Initiate Bumex 1 mg IV once on admission. Continue 1 mg IV daily. - Holding antibiotics at this time, low concern for infection, reevaluate for superimposed infection in the morning. - Repeat CBC, CMP, magnesium ordered for the morning. Resume famotidine 20 mg daily for GERD Resume home BuSpar 15 mg twice daily for anxiety Back pain and history of neuropathy: Initiate gabapentin 100 mg 3 times a day, Dilaudid 1 mg IV every 4 hours as needed for severe breakthrough pain, Tylenol for mild pain, and hydrocodone 5 mg/325 1 tablet every 4 hours as needed for moderate to severe pain. Monitor for toxicity Metastatic signet ring cell carcinoma: resume dexamethasone 4 mg daily started by his oncologist for swelling will continue to have goals of care discussions; pending results from thoracentesis Full code Holding Eliquis due to potential thoracentesis Regular diet
--- NOTE | 2025-06-05 21:30 | PC.NURSE ---
report called to Jeri KRUEGER
[2025-06-05] MEDS: BUMETANIDE 1MG/4ML VIAL 1 MG IV (22:42)
[2025-06-05 23:27] LABS: Troponin I 0.34 ng/ml (0.00-0.034)
[2025-06-06] VITALS (11 sets, daily range): BP systolic 133–167; BP diastolic 59–90; PULSE 70–100; RESP 16–28; TEMP 36.5–36.8; O2SAT 95–100; BMI 29.3
[2025-06-06] MEDS: HYDROCODONE/APAP 5/325 MG TABLET 1 TAB PO ×4 (02:27→20:53)
--- NOTE | 2025-06-06 02:38 | PC.NURSE ---
New admit this shift. Pt AOx4, pleasant. 3+ pitting edema to left arm and leg, in the scrotum, and abdomen also looks to be swollen. Pt had some low back pain and received prn pain meds per OCT. Pt is room air at baseline, requiring 3L upon admission. Now tolerating 2L nasal cannula. Pt is currently lying in bed with eyes closed. Respirations even and unlabored. Bed is low, locked, and call light is in reach. Daughter at bedside.
[2025-06-06 04:11] LABS: Hematocrit 36.0 % (42.0-52.0); Hemoglobin 12.0 g/dL (14.1-18.0); Immature Granulocytes % 4.4 %; Mean Corpuscular HGB Conc 33.3 g/dL (31.8-35.4); Mean Corpuscular Hemoglobin 31.2 pg (27.0-31.2); Mean Corpuscular Volume 93.5 fl (80-94); Nucleated Red Blood Cells % 0.1 %; Platelet Count 92 K/mm3 (142-424); Red Blood Count 3.85 M/mm3 (4.60-6.20); Red Cell Distribution Width-SD 54.3 fL; White Blood Count 14.0 K/mm3 (4.8-10.8)
[2025-06-06 04:38] LABS: RBC Morphology Normal; Total Cells Counted 100
[2025-06-06 04:44] LABS: Albumin Level 2.5 g/dl (3.5-5.0); Chloride 106 mmol/L (98-107); Potassium 4.0 mmoL/L (3.5-5.1); Sodium 133 mmol/L (136-145)
[2025-06-06 04:46] LABS: Alanine Aminotransferase 25 U/L (12-78); Aspartate Amino Transferase 42 U/L (17-59)
[2025-06-06 04:47] LABS: Albumin/Globulin Ratio 1.0 (1.1-1.8); Alkaline Phosphatase 496 U/L (38-126); Anion Gap 7.0 mEq/L (5-15); Bilirubin,Total 3.0 mg/dl (0.2-1.3); Calcium 9.5 mg/dl (8.4-10.2); Carbon Dioxide 24 mmol/L (22.0-30.0); Globulin 2.6 g/dL (1.3-3.2); Glucose 103 mg/dl (74-100); Magnesium 2.2 mg/dl (1.6-2.3); Total Protein,Serum 5.1 g/dl (6.3-8.2)
[2025-06-06 06:31] LABS: Troponin I 0.43 ng/ml (0.00-0.034)
[2025-06-06] MEDS: FAMOTIDINE 20MG TABLET 20 MG PO (08:12)
[2025-06-06] MEDS: GABAPENTIN 100MG CAPSULE 100 MG PO ×3 (08:12→20:50)
[2025-06-06] MEDS: DEXAMETHASONE 4MG TABLET 4 MG PO (08:12)
[2025-06-06] MEDS: BUSPIRONE HCL 10 MG TABLET 15 MG PO ×2 (08:13→20:50)
[2025-06-06] MEDS: BUMETANIDE 1MG/4ML VIAL 1 MG IV ×2 (08:13→12:29)
--- NOTE | 2025-06-06 08:58 | HMH.PHAINT1 ---
Pharmacy Intervention Comments: MEDICATION RECONCILIATION COMPLETED ON PATIENT USING EXTERNAL FILL HISTORY FROM PHARMACY. -CORNEL HOLGUIN, ANND
--- NOTE | 2025-06-06 09:36 | EXP.PULM.CON ---
History of Present Illness History of present illness: Mr. Sierra is a 61-year-old male with a recent diagnosis of metastatic signet ring cell adenocarcinoma presented to the ER complaining of right lower back pain and hip pain, also found to be in respiratory distress and pulmonary was called for further evaluation and management. Greater than 26-[id number]-[id number] smoking history. Not using any oxygen supplementation or inhalers at baseline. [facility] Disclaimer: The information contained in this section may have been updated after the patient was seen, as this information can be updated by other users. Medical History Metastatic signet ring cell carcinoma Carotid stenosis Constipation Nasal bleeding Paralysis of right vocal cord Dysphonia Distal radius fracture, left Urinary tract infection Osteophyte History of tobacco abuse Weight loss Hoarseness of voice Laryngitis Hernia, umbilical Vertigo Urinary problem in male Cough Surgical History Hx of cardiac cath Family History Other Family history of diabetes mellitus type II Social History Smoking Status: Former smoker tobacco type: cigarettes packs per day: 5 smoking status stop date: 2014 how long ago did patient quit smokin alcohol intake: never substance use type: denies use current occupational status: employed Travel in the last 8 weeks?: None household members: none housing: house lives independently: Yes marital status: single special hallie needs: No agree to transfusion: No do you feel safe at home: Yes victim of physical abuse: No victim of emotional abuse: No victim of sexual abuse: No would you like helpful sources: No Have you lived/traveled outside US in past 30 days?: No Contact w/someone who lives/traveled outside US past 30 days?: No Exposure to someone with infectious disease in past 14 days?: No Do you have a fever (greater than 100.4 F or 38 C)?: No Have you tested positive for COVID-19?: No Exposed to someone with COVID-19 in past 14 days?: No Do you have a sore throat?: No Do you have a cough?: No Do you have any weakness?: No Do you have any diarrhea?: No Are you experiencing any unusual bleeding?: No Do you have any muscle aches/pain?: No Do you have any abdominal pain?: No Are you experiencing loss of taste or smell?: No Review of Systems Constitutional Constitutional: Reports anorexia, Reports body ache(s) and Reports fatigue Eyes Eyes: Denies eye discharge, Denies dry eyes, Denies irritation and Denies itchy eyes ENT Ears, Nose, Mouth, and Throat: Denies epistaxis, Denies facial pain, Denies lip swelling and Denies throat swelling *Cardiovascular Cardiovascular: Reports dyspnea, Reports dyspnea on exertion, Reports leg edema, Reports orthopnea and Reports pedal edema *Respiratory Respiratory: Reports chest congestion, Reports cough, Reports dyspnea, Reports dyspnea on exertion, Denies excessive phlegm production, Denies hemoptysis, Denies pain on inspiration, Denies pain with cough and Denies wheezing *Gastrointestinal Gastrointestinal: Denies abdominal pain, Denies belching and Denies cramping *Musculoskeletal Musculoskeletal: Reports back pain, Reports myalgias and Reports other (No small joint swelling or Pain) Psychiatric Psychiatric: Denies homicidal ideation and Denies suicidal ideation Endocrine Endocrine: Reports fatigue and Denies heat intolerance Hematologic/Lymphatic Hematologic/Lymphatic: Denies easy bleeding and Denies lymphadenopathy Allergic/Immunologic Allergic/Immunologic: Denies itchy eyes, Denies lip swelling, Denies throat swelling and Denies wheezing Pulmonology Exam Inpatient Vital signs and Labs for Last 24 Hours: Temp Pulse Resp BP Pulse Ox O2 Del Method O2 Flow Rate 97.7 F 83 28 H 167/90 H 100 Nasal Cannula 2 06/06/25 08:00 06/06/25 08:00 06/06/25 08:00 06/06/25 08:00 06/06/25 08:00 06/06/25 08:00 06/06/25 08:00 Laboratory Results - last 24 hr 06/05/25 17:56: WBC 13.0 H, RBC 4.05 L, Hgb 12.6 L, Hct 37.6 L, MCV 92.8, MCH 31.1, MCHC 33.5, RDW 16.1, Plt Count 100 L, MPV 11.5 H, Neut % (Auto) 78.5, Lymph % (Auto) 10.0, [place] % (Auto) 6.4, Eos % (Auto) 0.8, Baso % (Auto) 0.4, Neut # (Auto) 10.2 H, Lymph # (Auto) 1.3, [place] # (Auto) 0.8, Eos # (Auto) 0.1, Baso # (Auto) 0.1, Total Counted 100, Neutrophils % (Manual) 77 H, Lymphocytes % (Manual) 16, Monocytes % (Manual) 5, Eosinophils % (Manual) 1, Basophils % (Manual) 1.0, Platelet Estimate Marked decrease, RBC Morphology Normal, PT 12.2, INR 1.11 H, APTT 30.8 H, D-Dimer > 8.10 H, Sodium 134 L, Potassium 4.0, Chloride 105, Carbon Dioxide 25, Anion Gap 8.0, BUN 31 H, Creatinine 0.90, Estimated Creat Clear 119, Estimated GFR 86, Est GFR ( Amer) 103, Glucose 88, Calcium 9.7, Magnesium 2.3, Total Bilirubin 3.4 H, AST 36, ALT 22, Alkaline Phosphatase 446 H, Troponin I 0.29 H, NT-Pro-B Natriuret Pep 160 H, Total Protein 5.7 L, Albumin 3.0 L, Globulin 2.7, Albumin/Globulin Ratio 1.1, Lipase 70 06/05/25 22:41: Troponin I 0.34 H 06/06/25 03:57: WBC 14.0 H, RBC 3.85 L, Hgb 12.0 L, Hct 36.0 L, MCV 93.5, MCH 31.2, MCHC 33.3, RDW 16.2, Plt Count 92 L, MPV 11.8 H, Neut % (Auto) 78.0, Lymph % (Auto) 10.0, [place] % (Auto) 6.2, Eos % (Auto) 0.8, Baso % (Auto) 0.6, Neut # (Auto) 10.9 H, Lymph # (Auto) 1.4, [place] # (Auto) 0.9, Eos # (Auto) 0.1, Baso # (Auto) 0.1, Total Counted 100, Neutrophils % (Manual) 82 H, Lymphocytes % (Manual) 8 L, Monocytes % (Manual) 9, Eosinophils % (Manual) 1, Platelet Estimate Slight decrease, RBC Morphology Normal, Sodium 133 L, Potassium 4.0, Chloride 106, Carbon Dioxide 24, Anion Gap 7.0, Glucose 103 H, Calcium 9.5, Magnesium 2.2, Total Bilirubin 3.0 H, AST 42, ALT 25, Alkaline Phosphatase 496 H, Troponin I 0.43 H, Total Protein 5.1 L, Albumin 2.5 L D, Globulin 2.6, Albumin/Globulin Ratio 1.0 L I & O for Labs for Last 24 Hours: Intake & Output 06/03/25 06/04/25 06/05/25 06/06/25 23:59 23:59 23:59 23:59 Intake Total 270 / 270 Output Total 0 / 0 600 / 600 Balance 0 / 0 -330 / -330 Weight 239 lb 12.8 oz 236 lb 4.8 oz Constitutional: Present mild distress Head: Present normocephalic and atraumatic ENT: Present normal exam, normal oropharynx and mucous membranes moist Neck: Present normal inspection and full ROM Respiratory: Present respiratory distress, distant breath sounds, diminished air movement and able to speak in complete sentences; Absent prolonged expiratory phase or wheezes Cardiac: Present S1/S2, Tachycardia and radial pulses present GI: Present soft and distention; Absent tenderness or guarding Skin: Present intact; Absent cyanosis or jaundice Neuro: Present alert, awake and oriented x 3 Extremities: Present normal inspection and edema; Absent clubbing or cyanosis Psychiatric: Present normal affect and cooperative Meds Home Medications and Allergies Home Medications ?Medication ?Instructions ?Recorded ?Confirmed ?Type mecobalamin (vitamin B12) 1,000 1,000 mcg PO DAILY #60 ea 04/06/25 06/05/25 Rx mcg lozenges dexamethasone 4 mg tablet 4 mg PO DAILY #30 tabs 05/05/25 06/05/25 Rx famotidine 20 mg tablet (Pepcid) 20 mg PO DAILY #30 tabs 05/05/25 06/05/25 Rx Lactobacillus rhamnosus GG 20 20 cell PO DAILY 05/19/25 06/05/25 History billion cell capsule (Probiotic Digestive Care) buspirone 15 mg tablet 15 mg PO BID #60 tabs 05/19/25 06/05/25 Rx hydroxyzine HCl 25 mg tablet 25 mg PO TID PRN anxiety #30 tabs 05/19/25 06/05/25 Rx apixaban 5 mg tablet (Eliquis) 5 mg PO BID #60 tabs 05/26/25 06/05/25 Rx furosemide 20 mg tablet (Lasix) 20 mg PO BID PRN edema #60 tabs 05/31/25 06/05/25 Rx New Prescriptions to Start Prescriptions: Allergies Allergy/AdvReac Type Severity Reaction Status Date / Time Iodinated Contrast Media Allergy Unknown Verified 05/26/25 11:33 allergy reaction Results Laboratory Findings 06/06/25 03:57 06/06/25 03:57 PT/INR, D-dimer PT 12.2 seconds (10.1-12.5) 06/05/25 17:56 INR 1.11 (0.9-1.1) H 06/05/25 17:56 D-Dimer > 8.10 ug/mL (0.0-0.5) H 06/05/25 17:56 Abnormal lab findings: Abnormal Labs 06/05/25 06/05/25 06/06/25 17:56 22:41 03:57 WBC 13.0 H 14.0 H RBC 4.05 L 3.85 L Hgb 12.6 L 12.0 L Hct 37.6 L 36.0 L Plt Count 100 L 92 L MPV 11.5 H 11.8 H Neut # (Auto) 10.2 H 10.9 H Neutrophils % (Manual) 77 H 82 H Lymphocytes % (Manual) 8 L INR 1.11 H APTT 30.8 H D-Dimer > 8.10 H Sodium 134 L 133 L BUN 31 H Glucose 103 H Total Bilirubin 3.4 H 3.0 H Alkaline Phosphatase 446 H 496 H Troponin I 0.29 H 0.34 H 0.43 H NT-Pro-B Natriuret Pep 160 H Total Protein 5.7 L 5.1 L Albumin 3.0 L 2.5 L D Albumin/Globulin Ratio 1.0 L Assessment and Plan *Assessment and plan (1) Acute hypoxemic respiratory failure: Status: Acute Category: Medical Code(s): J96.01 - Acute respiratory failure with hypoxia (2) Pleural effusion: Status: Acute Category: Medical Code(s): J90 - Pleural effusion, not elsewhere classified Plan Mr. Sierra is a 61-year-old male with a recent diagnosis of metastatic signet ring cell adenocarcinoma presented to the ER complaining of right lower back pain and hip pain, also found to be in respiratory distress and pulmonary was called for further evaluation and management. Greater than 20-tdtx-douq smoking history. Not using any oxygen supplementation or inhalers at baseline. Afebrile. Hemodynamically stable. Mild neutrophilic predominant leukocytosis. CT chest without contrast upon admission bilateral right greater than left pleural effusions along with moderate volume ascites. Tolerated/airspace changes noted. Pleural effusions has been present on his prior imagings, significantly worse on his current imaging. Echo April 2025 diastolic dysfunction. LVEF at 55%. On examination bilateral decreased breath sounds in the lower lung jackson. No significant wheezing noted on auscultation. Bilateral lower extremity edema left greater than right. Lower extremity Doppler from April negative for DVT. Mild respiratory distress. Saturating 98% on 2 L, with 95% and above. Plan: - Will schedule thoracentesis after coordinating with patient undergoing paracentesis. - DuoNebs every 6 hours on a scheduled basis -Oxygen supplementation to saturation goal of 90% and above - No need for antibiotics or steroids from pulmonary standpoint # Thank you for involving pulmonary in this patient care. Will continue to follow.
--- NOTE | 2025-06-06 10:39 | CA_ITS ---
APPROVED REPORT EXAM: Comprehensive 2D, Doppler, and color-flow Echocardiogram Telehealth Coordinator: Kajal Zuñiga RVT Ht: 6 ft 3 in Wt: 236lbs BSA: 2.35 BP: 135/70 mmHg Indications: NSTEMI,EDEMA,SHORTNESS OF BREATH,BILATERAL PLEURAL EFFUSIONS 2D Dimensions IVSd 0.96 cm M: 0.6-1.2 LVEF (Visual) 52.30 % PWd 0.68 cm M: 0.6 - 1.2 LA Volume 21.60 mL LVDd 4.94 cm M: 4.2 - 5.9 LA Volume Index 9.15 mL/m2 (M/F) 16-34 LVDs 3.61 cm M: 2.5 - 4.0 M-Mode Dimensions LA Diam 2.60 cm (1.9-4.0) TAPSE 2.59 (<1.7) LV Diastology E Decel Time 250 (160-240 msec) E/A Ratio 0.8 Aortic Valve AoV Peak Jayce. 192.0 (50-130 cm/s) AI PHT 1025.00 ms AO Peak GR. 14.70 mmHg AO Mean GR. 7.20 (<5 mmHg) AO VTI 30.4 (18-25 cm) Mitral Valve MV E Max Jayce. 73.0 (40-130 cm/s) MV A Velocity 91.0 (40-130 cm/s) E/A Ratio 0.80 MV PHT 73.0 ms Pulmonary Valve PV Peak Velocity 110.0 (50-150 cm/s) Left Ventricle The left ventricle is normal size. Left ventricular systolic function is normal. The left ventricular ejection fraction is within the normal range. There is increased left ventricular wall thickness. There is normal LV segmental wall motion. Transmitral Doppler flow pattern suggests impaired LV relaxation. LVEF is 55% Right Ventricle The right ventricle is normal size. The right ventricular systolic function is normal. Atria The left atrium size is normal. The right atrium size is normal. There is no color Doppler evidence of interatrial shunt. Aortic Valve The aortic valve is mildly thickened. There is no hemodynamically significant aortic valvular stenosis. Mild aortic regurgitation is present. Mitral Valve The mitral valve is normal in structure. No evidence of mitral valve stenosis. Trace mitral regurgitation is present. Tricuspid Valve The tricuspid valve leaflets are thin and pliable. Trace tricuspid regurgitation. There is insufficient TR jet to estimate RVSP. Pulmonic Valve The pulmonary valve is grossly normal in structure. Trace pulmonic valve regurgitation is present. Great Vessels The aortic root is normal in size. The ascending aorta is mildly dilated, measuring 4.2 cm in diameter. IVC is normal in size and collapses >50% with inspiration. Pericardium There is no pericardial effusion. Other Information Study Quality: Fair Conclusion Normal biventricular systolic function. Mild AI. Ascending aorta is mildly dilated, measuring 4.2 cm in diameter. Electronically signed by : Kathleen Gutierrez MD 06/06/2025 22:29:07
[2025-06-06] MEDS: IPRATROPIUM/ALBUTEROL 3 ML NEB IH ×3 (11:15→23:04)
--- NOTE | 2025-06-06 12:10 | CA_ITS ---
FINAL REPORT TECHNIQUE: Graded compression, spectral analysis and ultrasound images of the venous system of the upper extremity were obtained. CLINICAL HISTORY: EDEMA LUE X SEVERAL MONTHS,SIGNET CELL CANCER,ELEVATED D-DIMER FINDINGS: The jugular vein, subclavian vein, axillary vein, brachial vein, cephalic vein and basilic venous system are fully compressible and demonstrate no evidence of thrombosis. Nonspecific edema is noted. IMPRESSION: No evidence of thrombosis of the venous system of the left upper extremity. Reviewed, Interpreted and Dictated by Anayeli Rojas MD Transcribed by Abby Yao Authenticated and [facility]
--- NOTE | 2025-06-06 12:10 | CA_ITS ---
FINAL REPORT CLINICAL HISTORY: Cignet cell cancer, bilateral lower extremity swelling x several months, HTN, elevated d-dimer FINDINGS: DUPLEX VENOUS SONOGRAPHY OF THE BILATERAL LOWER EXTREMITIES Multiple transverse and longitudinal scans were performed of the femoropopliteal deep venous systems, with augmentation and compression maneuvers. FINDINGS: Normal phasic flow was noted in the visualized deep venous systems. No intraluminal increased echogenicity is noted to suggest thrombus. There is normal compression and augmentation of the venous structures. No abnormal venous collaterals are seen. IMPRESSION: No evidence of deep venous thrombosis of the bilateral lower extremities. Reviewed, Interpreted and Dictated by Anayeli Rojas MD Transcribed by Abby Yao Authenticated and . [facility]
[2025-06-06] MEDS: SPIRONOLACTONE 25MG TABLET 50 MG PO (12:29)
[2025-06-06 12:56] LABS: Blood Urea Nitrogen 32 mg/dl (9-20); Creatinine Clearance Estimated 116 mL/min (50-200); Creatinine,Serum 0.90 mg/dl (0.66-1.25); Estimated Glomerular Filt Rate 86 ml/min (>60); GFR (African American) 103 ML/MIN (>60)
--- OUTSIDE RECORDS SUMMARY | 2025-06-06 15:14 | XMS_ITS | Referral Summary ---
Author Organization [employer] ([place], [place], [place], [place]) Address [address] [place] [address] Care Team Providers Care Branch Banker Name Role Phone Unavailable Primary Care Provider Unavailabl e Encounters Date Type Department Care Team Description 05/03/2025 9:23 AM EDT - 05/03/2025 11:59 PM EDT Hospital Encounter [facility] PET CT - [address] [place] [id number] Dannie Burch MD Malignant neoplasm of body [...] Result from Last 3 Months Insurance [employer] [facility] [place]
--- OUTSIDE RECORDS SUMMARY | 2025-06-06 15:14 | XMS_ITS | Clinical Summary ---
[facility] Address [address] [place] [address] Care Team Providers Care Physiotherapy Aide Name Role Phone Rupesh Arvizu Primary Care Provider + Allergies No known active allergies Medications furosemide (LASIX) 20 MG tablet Take 1 tablet by mouth Daily for 5 days. 5 tablet 04/02/2025 Active Encounters Date Type Department Care Team Description 04/02/2025 6:54 PM EDT - 04/02/2025 9:27 PM EDT Emergency [facility] [address] [place] [address] Patric Cooney MD Edema, unspecified [...] 8:44 PM EDT) [facility] ECG ORDERABLES Final Result * (ABNORMAL) Urinalysis, Microscopic Only - Urine, Clean Catch (04/02/2025 7:50 PM EDT) RBC, UA 6-10(A) None Seen, 0-2 /HPF 04/02/2025 8:46 PM EDT [facility] WBC, UA 0-2 None Seen, 0-2 /HPF 04/02/2025 8:46 PM EDT [facility] Bacteria, UA None Seen None Seen /HPF 04/02/2025 8:46 PM EDT [facility] Squamous Epithelial Cells, UA 0-2 None Seen, 0-2 /HPF 04/02/2025 8:46 PM EDT [facility] Hyaline Casts, UA None Seen None Seen /LPF 04/02/2025 8:46 PM EDT [facility] Calcium Oxalate Crystals, UA Large/3+ None Seen /HPF 04/02/2025 8:46 PM EDT [facility] Methodology Manual Light Microscopy 04/02/2025 8:46 PM EDT [facility] Urine Urine specimen obtained by clean catch procedure / Unknown Collection / Unknown 04/02/2025 7:50 PM EDT 04/02/2025 7:57 PM EDT [facility] URINE ORDERABLES Final Result [facility]
[address] [place] [address], * (ABNORMAL) Urinalysis With Microscopic If Indicated (No Culture) - Urine, Clean Catch (04/02/2025 7:50 PM EDT) Color, UA Yellow Yellow, Straw 04/02/2025 8:27 PM EDT [facility] Appearance, UA Cloudy(A) Clear 04/02/2025 8:27 PM EDT [facility] pH, UA 6.5 5.0 - 8.0 04/02/2025 8:27 PM EDT [facility] Specific [place], UA 1.019 1.005 - 1.030 04/02/2025 8:27 PM EDT [facility] Glucose, UA Negative Negative 04/02/2025 8:27 PM EDT [facility] Ketones, UA Negative Negative 04/02/2025 8:27 PM EDT [facility] Bilirubin, UA Negative Negative 04/02/2025 8:27 PM EDT [facility] Blood, UA Trace(A) Negative 04/02/2025 8:27 PM EDT [facility] Protein, UA Negative Negative 04/02/2025 8:27 PM EDT [facility] Leuk Esterase, UA Negative Negative 04/02/2025 8:27 PM EDT [facility] Nitrite, UA Negative Negative 04/02/2025 8:27 PM EDT [facility] Urobilinogen, UA 1.0 E.U./dL 0.2 - 1.0 E.U./dL 04/02/2025 8:27 PM EDT [facility] Urine Urine specimen obtained by clean catch procedure / Unknown Collection / Unknown 04/02/2025 7:50 PM EDT 04/02/2025 7:57 PM EDT [facility] URINE ORDERABLES Final Result [facility]
[address] [place] [address], * (ABNORMAL) CBC Auto Differential (04/02/2025 7:50 PM EDT) WBC 11.29(H) 3.40 - 10.80 10*3/mm3 04/02/2025 7:59 PM EDT [facility] RBC 5.08 4.14 - 5.80 10*6/mm3 04/02/2025 7:59 PM EDT [facility] Hemoglobin 15.3 13.0 - 17.7 g/dL 04/02/2025 7:59 PM EDT [facility] Hematocrit 47.0 37.5 - 51.0 % 04/02/2025 7:59 PM EDT [facility] MCV 92.5 79.0 - 97.0 fL 04/02/2025 7:59 PM EDT [facility] MCH 30.1 26.6 - 33.0 pg 04/02/2025 7:59 PM EDT [facility] MCHC 32.6 31.5 - 35.7 g/dL 04/02/2025 7:59 PM EDT [facility] RDW 13.7 12.3 - 15.4 % 04/02/2025 7:59 PM EDT [facility] RDW-SD 46.5 37.0 - 54.0 fl 04/02/2025 7:59 PM EDT [facility] MPV 9.3 6.0 - 12.0 fL 04/02/2025 7:59 PM EDT [facility] Platelets 380 140 - 450 10*3/mm3 04/02/2025 7:59 PM EDT [facility] Neutrophil % 70.9 42.7 - 76.0 % 04/02/2025 7:59 PM EDT [facility] Lymphocyte % 15.5(L) 19.6 - 45.3 % 04/02/2025 7:59 PM EDT [facility] Monocyte % 8.9 5.0 - 12.0 % 04/02/2025 7:59 PM EDT [facility] Eosinophil % 3.4 0.3 - 6.2 % 04/02/2025 7:59 PM EDT [facility] Basophil % 0.9 0.0 - 1.5 % 04/02/2025 7:59 PM EDT [facility] Immature Grans % 0.4 0.0 - 0.5 % 04/02/2025 7:59 PM EDT [facility] Neutrophils, Absolute 8.02(H) 1.70 - 7.00 10*3/mm3 04/02/2025 7:59 [facility] Lymphocytes, Absolute 1.75 0.70 - 3.10 10*3/mm3 04/02/2025 7:59 PM EDT [facility] Monocytes, Absolute 1.00(H) 0.10 - 0.90 10*3/mm3 04/02/2025 7:59 PM EDT [facility] Eosinophils, Absolute 0.38 0.00 - 0.40 10*3/mm3 04/02/2025 7:59 PM [facility] Basophils, Absolute 0.10 0.00 - 0.20 10*3/mm3 04/02/2025 7:59 PM [facility] Immature Grans, Absolute 0.04 0.00 - 0.05 10*3/mm3 04/02/2025 7:59 PM T [facility] nRBC 0.0 0.0 - 0.2 /100 WBC 04/02/2025 7:59 PM [facility] Blood Venipuncture / Unknown 04/02/2025 7:50 PM EDT 04/02/2025 7:57 PM EDT [facility] BLOOD ORDERABLES Final Resu lt Performing Organization Address [facility] Co de Phone Number [facility]
[address] [place] [address], * BNP (04/02/2025 7:50 PM EDT) proBNP 107.0 0.0 - 900.0 pg/mL 04/02/2025 8:22 PM EDT [facility] Blood Venipuncture / Unknown 04/02/2025 7:50 PM EDT 04/02/2025 7:57 PM EDT Narrative [facility] - 04/02/2025 8:22 PM EDT This [...] ORDERABLES Final Resu lt Performing Organization Address [facility] Co de Phone Number [facility]
[address] [place] [address], [place] [phone] * (ABNORMAL) Comprehensive Metabolic Panel (04/02/2025 7:50 PM EDT) Glucose 74 65 - 99 mg/dL 04/02/2025 8:22 PM EDT [facility] BUN 13.6 8.0 - 23.0 mg/dL 04/02/2025 8:22 PM EDT [facility] Creatinine 0.99 0.76 - 1.27 mg/dL 04/02/2025 8:22 PM [facility] Sodium 139 136 - 145 mmol/L 04/02/2025 8:22 PM [facility] Potassium 4.0 3.5 - 5.2 mmol/L 04/02/2025 8:22 PM [facility] Chloride 108(H) 98 - 107 mmol/L 04/02/2025 8:22 PM [facility] CO2 24.5 22.0 - 29.0 mmol/L 04/02/2025 8:22 PM [facility] Calcium 9.6 8.6 - 10.5 mg/dL 04/02/2025 8:22 PM [facility] Total Protein 6.2 6.0 - 8.5 g/dL 04/02/2025 8:22 PM [facility] Albumin 2.9(L) 3.5 - 5.2 g/dL 04/02/2025 8:22 PM [facility] ALT (SGPT) 8 1 - 41 U/L 04/02/2025 8:22 PM [facility] AST (SGOT) 15 1 - 40 U/L 04/02/2025 8:22 PM [facility] Alkaline Phosphatase 140(H) 39 - 117 U/L 04/02/2025 8:22 PM [facility] Total Bilirubin 0.4 0.0 - 1.2 mg/dL 04/02/2025 8:22 PM [facility] Globulin 3.3 gm/dL 04/02/2025 8:22 PM [facility] Comment:Calculated Result A/G Ratio 0.9 g/dL 04/02/2025 8:22 PM [facility] BUN/Creatinine Ratio 13.7 7.0 - 25.0 04/02/2025 8:22 PM [facility] Anion Gap 6.5 5.0 - 15.0 mmol/L 04/02/2025 8:22 PM [facility] eGFR 86.1 >60.0 mL/min/1.7 3 04/02/2025 8:22 PM EDT [facility] Blood Venipuncture / Unknown 04/02/2025 7:50 PM EDT 04/02/2025 7:57 PM EDT Narrative [facility] - 04/02/2025 8:22 PM EDT GFR [...] [facility] BLOOD ORDERABLES Final Resu lt [facility]
[address] [place] [address], * XR Chest 1 View (04/02/2025 7:41 PM EDT) Anatomical Region Laterality Modality Body N/A Radiographic Sejal ging 04/02/2025 7:44 PM EDT Impressions 04/02/2025 7:47 PM EDT Impression: No acute cardiopulmonary process. Electronically Signed: Israel Euceda MD 04/02/2025 7:47 PM EDT Workstation ID: [id number] Narrative 04/02/2025 7:47 PM EDT XR CHEST [...] MD 04/02/2025 7:47 PM EDT Workstation ID: [id number] [facility] IMG DIAGNOSTIC IMAGING ORDERABL ES Final Result from Last 3 Months Insurance [facility] [employer] [facility] Care Teams Physiotherapy Aide Relationship Specialty Start Date End Date Rupesh Arvizu DO [address] [place] [address] [address] PCP - General Internal Medicine 04/02/25
--- OUTSIDE RECORDS SUMMARY | 2025-06-06 15:14 | XMS_ITS | Clinical Summary ---
Author Organization [employer] ([place], [place], [place], [place]) Address [address] [place] [address] Care Team Providers Care Thread Spinner Name Role Phone Unavailable Primary Care Provider Unavailabl e Encounters Date Type Department Care Team Description 05/03/2025 9:23 AM EDT - 05/03/2025 11:59 PM EDT Hospital Encounter [facility] PET CT - [address] [place] [address] Dannie Burch MD Malignant neoplasm [...] by Son Santiago PA-C. Dannie Burch MD [facility] ORDERABLES Final Result from Last 3 Months Insurance [employer] [facility]
[2025-06-06 15:55] LABS: PTT Heparin (inpatient only) 30.4 Seconds (50-75)
--- NOTE | 2025-06-06 16:13 | EXP.CARD.CON ---
History of Present Illness History of Present Illness Consult date: 06/06/25 Requesting physician: Mega Singh Consult reason: shortness of breath Chief complaint: SOA Additional Medical History:: 1. 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 MRI of the brain no evidence of metastatic disease, 04/26/2025 B. EGD and colonoscopy, 04/28/2025, no evidence of primary site C. PET/CT scan, 05/04/2025, hypermetabolic lesions in the lower thoracic spine, left lower neck lymph nodes, right hilum with enlarged left axillary lymph nodes. 2. Bilateral pleural effusions, 06/05/2025 History of present illness: Mr. 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 He presented to the ER due to complaint of pain in his right lower back and right hip area over the past 2 to 3 days. States he tripped going up stairs when he felt like he pulled a muscle. Denies falling or any jorge a trauma. Caught himself but felt a pop. Pain is just gotten worse over the past few days. Came in because of that and some shortness of breath. Daughter accompanies him and states that the shortness of breath has been progressive over the past 2 to 3 weeks. On arrival, satting 83% on room air. Does not wear oxygen normally. Has marked edema in his left arm and bilateral lower extremities with some distention of his abdomen. Imaging of his chest abdomen and pelvis shows moderately sized bilateral pleural effusions. Requiring 3 L for goal sats in the 90s. White count marginally elevated at 13. Kidney function more or less at his baseline to BUN 31, creatinine 0.9. Medicine was consulted for admission and management of his acute respiratory failure with new oxygen requirement in the setting of large effusions and need for possible diagnostic and therapeutic thoracentesis. Patient also noted to have NSTEMI with troponin of 0.29. From review of his chart, he saw oncology on 05/05. Continued to complain of swelling at that time. Having mainly swelling in his scrotum, left upper extremity, legs and neck. Was started on Medrol Dosepak that helped his breathing and neck swelling but less or benefit on the swelling in his extremities and groin. Not using any diuretics at this time. He denies fevers, nausea, vomiting, syncope, confusion, chest pain. He is seeing Dr. Burch in oncology with diagnosis of his cancer, but states he is considering a second opinion. The above per Dr. Noguera Cardiology consulted for evaluation of elevated troponins. Patient relates remote cardiac cath in the mid to late without need for coronary stenting. He does relate he had a reaction to the contrast where he flatlined. He has had no testing with contrast since that time. Echocardiogram today shows some right sided enlargement with increased pressure in the right side concerning for possible pulmonary embolus. In light of the patient's presumed contrast allergy, we will treat him as if he has a pulmonary embolus. He will be started on heparin which can be turned off quickly in preparation for his thoracentesis and paracentesis tomorrow. At a later date consideration could be given for a VQ scan. [facility] Disclaimer: The information contained in this section may have been updated after the patient was seen, as this information can be updated by other users. Medical History Metastatic signet ring cell carcinoma Carotid stenosis Constipation Nasal bleeding Paralysis of right vocal cord Dysphonia Distal radius fracture, left Urinary tract infection Osteophyte History of tobacco abuse Weight loss Hoarseness of voice Laryngitis Hernia, umbilical Vertigo Urinary problem in male Cough Surgical History Hx of cardiac cath Family History Other Family history of diabetes mellitus type II Social History Smoking Status: Former smoker tobacco type: cigarettes packs per day: 5 smoking status stop date: 2014 how long ago did patient quit smokin alcohol intake: never substance use type: denies use current occupational status: employed Travel in the last 8 weeks?: None household members: none housing: house lives independently: Yes marital status: single special hallie needs: No agree to transfusion: No do you feel safe at home: Yes victim of physical abuse: No victim of emotional abuse: No victim of sexual abuse: No would you like helpful sources: No Have you lived/traveled outside [place] in past 30 days?: No Contact w/someone who lives/traveled outside US past 30 days?: No Exposure to someone with infectious disease in past 14 days?: No Do you have a fever (greater than 100.4 F or 38 C)?: No Have you tested positive for COVID-19?: No Exposed to someone with COVID-19 in past 14 days?: No Do you have a sore throat?: No Do you have a cough?: No Do you have any weakness?: No Do you have any diarrhea?: No Are you experiencing any unusual bleeding?: No Do you have any muscle aches/pain?: No Do you have any abdominal pain?: No Are you experiencing loss of taste or smell?: No Review of Systems Review of Systems Review of systems:: pertinent systems reviewed and negative unless documented below *Cardiovascular Cardiovascular: Denies chest pain, Reports dyspnea and Reports dyspnea on exertion *Respiratory Respiratory: Reports dyspnea and Reports dyspnea on exertion Exam Data for Last 24 hours Vital signs and Labs for Last 24 Hours: Temp Pulse Resp BP Pulse Ox O2 Del Method O2 Flow Rate 98.0 F 70 22 138/82 96 Nasal Cannula 1 06/06/25 11:48 06/06/25 12:00 06/06/25 11:48 06/06/25 11:48 06/06/25 11:48 06/06/25 15:00 06/06/25 15:00 Laboratory Results - last 24 hr 06/05/25 17:56: WBC 13.0 H, RBC 4.05 L, Hgb 12.6 L, Hct 37.6 L, MCV 92.8, MCH 31.1, MCHC 33.5, RDW 16.1, Plt Count 100 L, MPV 11.5 H, Neut % (Auto) 78.5, Lymph % (Auto) 10.0, [place] % (Auto) 6.4, Eos % (Auto) 0.8, Baso % (Auto) 0.4, Neut # (Auto) 10.2 H, Lymph # (Auto) 1.3, [place] # (Auto) 0.8, Eos # (Auto) 0.1, Baso # (Auto) 0.1, Total Counted 100, Neutrophils % (Manual) 77 H, Lymphocytes % (Manual) 16, Monocytes % (Manual) 5, Eosinophils % (Manual) 1, Basophils % (Manual) 1.0, Platelet Estimate Marked decrease, RBC Morphology Normal, PT 12.2, INR 1.11 H, APTT 30.8 H, D-Dimer > 8.10 H, Sodium 134 L, Potassium 4.0, Chloride 105, Carbon Dioxide 25, Anion Gap 8.0, BUN 31 H, Creatinine 0.90, Estimated Creat Clear 119, Estimated GFR 86, Est GFR ( Amer) 103, Glucose 88, Calcium 9.7, Magnesium 2.3, Total Bilirubin 3.4 H, AST 36, ALT 22, Alkaline Phosphatase 446 H, Troponin I 0.29 H, NT-Pro-B Natriuret Pep 160 H, Total Protein 5.7 L, Albumin 3.0 L, Globulin 2.7, Albumin/Globulin Ratio 1.1, Lipase 70 06/05/25 22:41: Troponin I 0.34 H 06/06/25 03:57: WBC 14.0 H, RBC 3.85 L, Hgb 12.0 L, Hct 36.0 L, MCV 93.5, MCH 31.2, MCHC 33.3, RDW 16.2, Plt Count 92 L, MPV 11.8 H, Neut % (Auto) 78.0, Lymph % (Auto) 10.0, [place] % (Auto) 6.2, Eos % (Auto) 0.8, Baso % (Auto) 0.6, Neut # (Auto) 10.9 H, Lymph # (Auto) 1.4, [place] # (Auto) 0.9, Eos # (Auto) 0.1, Baso # (Auto) 0.1, Total Counted 100, Neutrophils % (Manual) 82 H, Lymphocytes % (Manual) 8 L, Monocytes % (Manual) 9, Eosinophils % (Manual) 1, Platelet Estimate Slight decrease, RBC Morphology Normal, Sodium 133 L, Potassium 4.0, Chloride 106, Carbon Dioxide 24, Anion Gap 7.0, BUN 32 H, Creatinine 0.90, Estimated Creat Clear 116, Estimated GFR 86, Est GFR ( Amer) 103, Glucose 103 H, Calcium 9.5, Magnesium 2.2, Total Bilirubin 3.0 H, AST 42, ALT 25, Alkaline Phosphatase 496 H, Troponin I 0.43 H, Total Protein 5.1 L, Albumin 2.5 L D, Globulin 2.6, Albumin/Globulin Ratio 1.0 L 10/06/25 15:23: APTT 30.4 L I & O for Last 24 hours: Intake & Output 06/04/25 06/05/25 06/06/25 06/07/25 11:59 11:59 11:59 11:59 Intake Total 270 / 270 270 / 270 Output Total 1025 / 1025 850 / 850 Balance -755 / -755 -580 / -580 Weight 236 lb 4.8 oz Constitutional Constitutional: no acute distress *Routine Respiratory Exam Respiratory: Present decreased breath sounds and diminished air movement; Absent rhonchi or wheezes *Routine Cardiovascular Exam Cardiovascular: Present RRR; Absent murmur, gallop or rubs *Routine Extremities Exam Extremities: Present edema Comments: Left upper extremity swelling and bilateral lower extremity swelling along with abdominal distention Meds Home Medications and Allergies Home Medications ?Medication ?Instructions ?Recorded ?Confirmed ?Type mecobalamin (vitamin B12) 1,000 1,000 mcg PO DAILY #60 ea 04/06/25 06/05/25 Rx mcg lozenges dexamethasone 4 mg tablet 4 mg PO DAILY #30 tabs 05/05/25 06/05/25 Rx famotidine 20 mg tablet (Pepcid) 20 mg PO DAILY #30 tabs 05/05/25 06/05/25 Rx Lactobacillus rhamnosus GG 20 20 cell PO DAILY 05/19/25 06/05/25 History billion cell capsule (Probiotic Digestive Care) buspirone 15 mg tablet 15 mg PO BID #60 tabs 05/19/25 06/05/25 Rx hydroxyzine HCl 25 mg tablet 25 mg PO TID PRN anxiety #30 tabs 05/19/25 06/05/25 Rx apixaban 5 mg tablet (Eliquis) 5 mg PO BID #60 tabs 05/26/25 06/05/25 Rx furosemide 20 mg tablet (Lasix) 20 mg PO BID PRN edema #60 tabs 05/31/25 06/05/25 Rx New Prescriptions to Start Prescriptions: Allergies Allergy/AdvReac Type Severity Reaction Status Date / Time Iodinated Contrast Media Allergy Unknown Verified 05/26/25 11:33 allergy reaction Assessment and Plan *Assessment and plan (1) Acute hypoxemic respiratory failure: Status: Acute Category: Medical Code(s): J96.01 - Acute respiratory failure with hypoxia (2) Pleural effusion: Status: Acute Category: Medical Code(s): J90 - Pleural effusion, not elsewhere classified (3) Hypoxia: Status: Acute Category: Medical Code(s): R09.02 - Hypoxemia (4) Metastatic signet ring cell carcinoma: Status: Acute Category: Medical Code(s): C79.9 - Secondary malignant neoplasm of unspecified site (5) Non-ST elevation IL (NSTEMI): Status: Acute Category: Medical Code(s): I21.4 - Non-ST elevation (NSTEMI) myocardial infarction (6) Allergic to IV contrast: Status: Acute Category: Medical Code(s): Z91.041 - Radiographic dye allergy status Plan 1. Bilateral pleural effusion with acute hypoxic respiratory failure and hypoxia, improved with supplemental oxygen. -Plan for thoracentesis tomorrow 2. Abdominal ascites, scrotal edema with hydrocele and moderate anasarca of the abdomen and pelvis -Plans for paracentesis tomorrow 3. Elevated troponin/non-STEMI with high D-dimer of 8.1 and suspected pulmonary embolus -Mild coronary artery calcification noted on chest CT -Patient intolerant of statin therapy in the past -Echo shows normal left ventricular systolic function with mild RV dilation and increased RV pressure -Unable to obtain CTA of the chest due to IV contrast allergy -Starting IV heparin therapy -Will transition to Eliquis therapy (which patient has taken before) prior to discharge 4. Metastatic signet ring cell carcinoma No plans for invasive procedures from a cardiac standpoint. Transition to Eliquis therapy prior to discharge for suspected pulmonary embolus. Consider VQ scan in the future.
[2025-06-06] MEDS: HEPARIN SODIUM,PORCINE/D5W 500 ML 20 UNIT IV (16:17)
[2025-06-06] MEDS: HEPARIN SODIUM 5,000 UNIT/ML VIAL 4000 UNIT IV (16:17)
[2025-06-06 16:18] LABS: Troponin I 0.29 ng/ml (0.00-0.034)
[2025-06-06] MEDS: BUMETANIDE 1MG/4ML VIAL 2 MG IV (16:24)
--- NOTE | 2025-06-06 17:01 | PC.NURSE ---
pt resting supine in bed with daughter at bedside. heparin drip infusing at 20ml/hr. complained of intermittent pain in his hip- treated with norco per oct. no needs at this time.
--- NOTE | 2025-06-06 17:53 | P.PN_ITS ---
Subjective *Date: 06/06/25 *Time: 17:53 Interval history: Patient denies chest pain, shortness of breath. Continues to have anasarca. Increase diuretics. Planning for thoracentesis, paracentesis in the morning. Hold Eliquis, aspirin. Started heparin drip for NSTEMI. Exam Data for Last 24 hours Vital signs and Labs for Last 24 Hours: Temp Pulse Resp BP Pulse Ox O2 Del Method O2 Flow Rate 97.7 F 84 24 146/59 H 95 Room Air 1 06/06/25 16:00 06/06/25 16:00 06/06/25 16:00 06/06/25 16:00 06/06/25 16:00 06/06/25 16:00 06/06/25 15:00 Laboratory Results - last 24 hr 06/05/25 17:56: WBC 13.0 H, RBC 4.05 L, Hgb 12.6 L, Hct 37.6 L, MCV 92.8, MCH 31.1, MCHC 33.5, RDW 16.1, Plt Count 100 L, MPV 11.5 H, Neut % (Auto) 78.5, Lymph % (Auto) 10.0, [place] % (Auto) 6.4, Eos % (Auto) 0.8, Baso % (Auto) 0.4, Neut # (Auto) 10.2 H, Lymph # (Auto) 1.3, [place] # (Auto) 0.8, Eos # (Auto) 0.1, Baso # (Auto) 0.1, Total Counted 100, Neutrophils % (Manual) 77 H, Lymphocytes % (Manual) 16, Monocytes % (Manual) 5, Eosinophils % (Manual) 1, Basophils % (Manual) 1.0, Platelet Estimate Marked decrease, RBC Morphology Normal, PT 12.2, INR 1.11 H, APTT 30.8 H, D-Dimer > 8.10 H, Sodium 134 L, Potassium 4.0, Chloride 105, Carbon Dioxide 25, Anion Gap 8.0, BUN 31 H, Creatinine 0.90, Estimated Creat Clear 119, Estimated GFR 86, Est GFR ( Amer) 103, Glucose 88, Calcium 9.7, Magnesium 2.3, Total Bilirubin 3.4 H, AST 36, ALT 22, Alkaline Phosphatase 446 H, Troponin I 0.29 H, NT-Pro-B Natriuret Pep 160 H, Total Protein 5.7 L, Albumin 3.0 L, Globulin 2.7, Albumin/Globulin Ratio 1.1, Lipase 70 06/05/25 22:41: Troponin I 0.34 H 06/06/25 03:57: WBC 14.0 H, RBC 3.85 L, Hgb 12.0 L, Hct 36.0 L, MCV 93.5, MCH 31.2, MCHC 33.3, RDW 16.2, Plt Count 92 L, MPV 11.8 H, Neut % (Auto) 78.0, Lymph % (Auto) 10.0, [place] % (Auto) 6.2, Eos % (Auto) 0.8, Baso % (Auto) 0.6, Neut # (Auto) 10.9 H, Lymph # (Auto) 1.4, [place] # (Auto) 0.9, Eos # (Auto) 0.1, Baso # (Auto) 0.1, Total Counted 100, Neutrophils % (Manual) 82 H, Lymphocytes % (Man ual) 8 L, Monocytes % (Manual) 9, Eosinophils % (Manual) 1, Platelet Estimate Slight decrease, RBC Morphology Normal, Sodium 133 L, Potassium 4.0, Chloride 106, Carbon Dioxide 24, Anion Gap 7.0, BUN 32 H, Creatinine 0.90, Estimated Creat Clear 116, Estimated GFR 86, Est GFR ( Amer) 103, Glucose 103 H, Calcium 9.5, Magnesium 2.2, Total Bilirubin 3.0 H, AST 42, ALT 25, Alkaline Phosphatase 496 H, Troponin I 0.43 H, Total Protein 5.1 L, Albumin 2.5 L D, Globulin 2.6, Albumin/Globulin Ratio 1.0 L 06/06/25 15:23: APTT 30.4 L, Troponin I 0.29 H I & O for Last 24 hours: Intake & Output 06/03/25 06/04/25 06/05/25 06/06/25 23:59 23:59 23:59 23:59 Intake Total 540 / 540 Output Total 0 2525 / 2525 Balance -1984 / Weight 108.771 kg 107.184 kg Constitutional Constitutional: no acute distress Comments: Anasarca. *Routine HEENT Exam Head: Present normocephalic Eye: Present EOMI and PERRL ENT: Present mucous membranes moist *Routine Neck Exam Neck: Present supple; Absent lymphadenopathy *Routine Respiratory Exam Respiratory: Present CTA bilaterally *Routine Cardiovascular Exam Cardiovascular: Present RRR *Routine Abdominal Exam Abdominal: Present soft, normoactive bowel sounds and distended; Absent tenderness *Routine Extremities Exam Extremities: Absent cyanosis, clubbing or edema Comments: Left upper extremity, bilateral lower extremity pitting edema 3+. Distended abdomen *Routine Skin Exam Skin: Present warm; Absent rash *Routine Neurological Exam Neurological: Present alert and oriented X3 Assessment and Plan *Assessment and plan (1) Acute hypoxemic respiratory failure: Status: Acute Category: Medical Code(s): J96.01 - Acute respiratory failure with hypoxia (2) Pleural effusion: Status: Acute Category: Medical Code(s): J90 - Pleural effusion, not elsewhere classified (3) Non-ST elevation [place] (NSTEMI): Status: Acute Category: Medical Code(s): I21.4 - Non-ST elevation (NSTEMI) myocardial infarction (4) Metastatic signet ring cell carcinoma: Status: Acute Category: Medical Code(s): C79.9 - Secondary malignant neoplasm of unspecified site (5) HTN (hypertension): Status: Acute Category: Medical Code(s): I10 - Essential (primary) hypertension (6) Hyperlipidemia: Status: Acute Category: Medical Code(s): E78.5 - Hyperlipidemia, unspecified Plan Deshawn Sierra is a 60-year-old male with 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 Presented with shortness of breath and back pain. Found to have bilateral pleural effusions, anasarca. #Acute hypoxic respiratory failure, resolved #Anasarca #Bilateral pleural effusions #Ascites #Metastatic signet cell carcinoma #History of DVT ? Presented with shortness of breath, CT chest/abdomen/pelvis on 06/05/2025 radha wed moderate bilateral pleural effusions, moderate volume ascites around liver and spleen, large hydrocele and edema, anasarca of the abdomen and pelvis. ? Initial BNP insignificant at 160, low suspicion for heart failure. Liver ultrasound unremarkable for cirrhosis. Follow-up ECHO. ? Patient has asymmetrical left upper extremity swelling with pitting edema. ? Venous Dopplers of lower extremities, left upper extremity unremarkable for DVT. ? Unclear where anasarca is coming from, possibly from metastatic signet cell carcinoma. ? Discussed with IR and pulmonology, thoracentesis and paracentesis scheduled for 06/07/2025. ? D-dimer significantly elevated > 8.10. Discussed with cardiology, recommended CTA to evaluate for PE with mild RV strain. However, patient apparently previously went asystolic with contrast. Will avoid CTA chest. ? Started IV Bumex 2 mg twice daily, spironolactone 50 mg. Follow-up urine output, renal function, electrolytes. ? Continue to hold Eliquis with upcoming procedures. ? Follow-up morning CMP. ? Plan to follow-up with Dr. Burch, oncology for signet cell carcinoma. #NSTEMI #CAD ? Troponins peaked at 0.43, down trended to 0.29. EKG without acute ischemic changes. ? Started heparin drip, hold at 6 AM for upcoming Thora centesis and paracentesis tomorrow. ? Cardiology consulted, noted mild coronary artery calcification on CT chest. ECHO shows normal biventricular systolic function with mild RV dilatation. ? Hold aspirin with upcoming procedures tomorrow. Previously intolerant to statins. #Left hip pain ? Patient complains of left hip pain, popping noise after climbing up stairs day before admission. ? He is able to ambulate without much distress. Will consider imaging if clinically worsens. Resume famotidine 20 mg daily for GERD Resume home BuSpar 15 mg twice daily for anxiety Back pain and history of neuropathy: Initiate gabapentin 100 mg 3 times a day, Dilaudid 1 mg IV every 4 hours as needed for severe breakthrough pain, Tylenol for mild pain, and hydrocodone 5 mg/325 1 tablet every 4 hours as needed for moderate to severe pain. Monitor for toxicity Metastatic signet ring cell carcinoma: resume dexamethasone 4 mg daily started by his oncologist for swelling will continue to have goals of care discussions; pending results from thoracentesis Full code Holding Eliquis due to potential thoracentesis Regular diet
[2025-06-06 23:03] LABS: PTT Heparin (inpatient only) 54.6 Seconds (50-75)
[2025-06-07] VITALS (12 sets, daily range): BP systolic 116–162; BP diastolic 70–83; PULSE 60–101; RESP 10–30; TEMP 36.4–37.1; O2SAT 93–98; BMI 30.7; BMI 29.3
[2025-06-07] MEDS: HYDROMORPHONE 2MG/ML SYRINGE 1 MG IV (00:30)
--- NOTE | 2025-06-07 02:50 | PC.NURSE ---
Patient was placed onto 1 L of oxygen via nasal cannula at this time due to decreasing oxygen saturations (maintaining between 85% to 87%). Previously, he was tolerating room air very well during wakeful periods and light resting intervals. Upon assessment, he was observed to be resting in bed with eyes closed and did not arouse from me entering the room. Respirations were noted to be even and unlabored. Continuous pulse ox remains intact with an accurate pleth. After oxygen application, the patient's oxygen saturations increased to 93%. Patient did not verbalize any complaints and returned to resting.
--- NOTE | 2025-06-07 04:05 | PC.NURSE ---
Addendum entered by Otilia Aguilar RN 06/07/25 05:00: Abdomen soft and slightly firm to touch, large and rounded in appearance. Original Note: Patient is alert and oriented x4. Soft-spoken. He has had numerous family members visit him yesterday evening; daughter has remained at the bedside throughout the night. Patient was observed to be resting in bed with eyes closed, respirations even and unlabored, and no apparent distress since approximately 01:00 this shift. Nasal cannula (1 L) was applied around 02:48; oxygen saturations remain > 90%. He has complained of having right hip pain of which was treated with [place] and Dilautid per MAR for relief. Diminished but clear lung sounds, regular heart rhythm, and active bowel sounds were heard upon auscultation. Occasional productive cough reported. Moderate swelling (+2) noted to bilateral lower extremities and left arm. Legs are elevated, SCDs in place. On telemetry + continuous pulse ox. Patient ambulates in his room/to the bathroom with standby assistance. Urine output documented accordingly. Daughter and patient stated that last bowel movement has not occurred in > 1 week ; states that day shift provider is aware (will reiterate this again). Scheduled medications and breathing treatments (given by RTs) administered per OCT. Heparin drip continues to infuse at 20 mL/hr. At this time, the patient is resting in bed without any further complaints. No acute changes noted thus far. Call light within reach.
[2025-06-07 06:09] LABS: Albumin Level 2.9 g/dl (3.5-5.0); Chloride 101 mmol/L (98-107); Potassium 3.4 mmoL/L (3.5-5.1); Sodium 132 mmol/L (136-145)
[2025-06-07 06:12] LABS: Alanine Aminotransferase 28 U/L (12-78); Albumin/Globulin Ratio 1.0 (1.1-1.8); Alkaline Phosphatase 507 U/L (38-126); Anion Gap 8.4 mEq/L (5-15); Aspartate Amino Transferase 36 U/L (17-59); Bilirubin,Total 2.8 mg/dl (0.2-1.3); Calcium 9.9 mg/dl (8.4-10.2); Carbon Dioxide 26 mmol/L (22.0-30.0); Globulin 2.9 g/dL (1.3-3.2); Glucose 136 mg/dl (74-100); Magnesium 2.2 mg/dl (1.6-2.3); Total Protein,Serum 5.8 g/dl (6.3-8.2)
[2025-06-07 06:20] LABS: Hematocrit 33.7 % (42.0-52.0); Hemoglobin 11.4 g/dL (14.1-18.0); Immature Granulocytes % 4.5 %; Mean Corpuscular HGB Conc 33.8 g/dL (31.8-35.4); Mean Corpuscular Hemoglobin 31.4 pg (27.0-31.2); Mean Corpuscular Volume 92.8 fl (80-94); Nucleated Red Blood Cells % 0.1 %; Platelet Count 102 K/mm3 (142-424); Red Blood Count 3.63 M/mm3 (4.60-6.20); Red Cell Distribution Width-SD 53.2 fL; White Blood Count 13.7 K/mm3 (4.8-10.8)
[2025-06-07] MEDS: IPRATROPIUM/ALBUTEROL 3 ML NEB IH ×2 (06:21→18:44)
[2025-06-07 06:35] LABS: PTT Heparin (inpatient only) 53.3 Seconds (50-75)
--- NOTE | 2025-06-07 06:42 | PC.NURSE ---
Spoke with Sissy at [facility] who reports that patient PTT remains WNL. She states that heparin gtt should remain at current dose of 1000 un/hr and next PTT draw order is placed at 1200 on 06/07/25. Information relayed to PATI LIN patient primary nurse.
[2025-06-07 07:34] LABS: Blood Urea Nitrogen 28 mg/dl (9-20); Creatinine Clearance Estimated 121 mL/min (50-200); Creatinine,Serum 1.00 mg/dl (0.66-1.25); Estimated Glomerular Filt Rate 76 ml/min (>60); GFR (African American) 92 ML/MIN (>60)
[2025-06-07 07:46] LABS: RBC Morphology Normal; Total Cells Counted 100
[2025-06-07] MEDS: GABAPENTIN 100MG CAPSULE 100 MG PO ×3 (08:25→20:56)
[2025-06-07] MEDS: DEXAMETHASONE 4MG TABLET 4 MG PO (08:25)
[2025-06-07] MEDS: FAMOTIDINE 20MG TABLET 20 MG PO (08:25)
[2025-06-07] MEDS: BUSPIRONE HCL 10 MG TABLET 15 MG PO ×2 (08:25→20:56)
[2025-06-07] MEDS: BUMETANIDE 1MG/4ML VIAL 2 MG IV ×3 (08:26→20:56)
[2025-06-07] MEDS: SPIRONOLACTONE 25MG TABLET 50 MG PO (08:29)
--- NOTE | 2025-06-07 08:39 | PC.NURSE ---
heparin gtt paused at 0815 per hospitalist note for gtt to be paused this AM for paracentesis and thoracentesis today
[2025-06-07] MEDS: POTASSIUM CHLORIDE 20MEQ TAB 40 MEQ PO ×2 (09:07→12:37)
[2025-06-07] MEDS: HYDROCODONE/APAP 5/325 MG TABLET 1 TAB PO (09:12)
--- NOTE | 2025-06-07 09:49 | P.PN_ITS ---
Subjective *Date: 06/07/25 *Time: 13:10 Interval history: No acute respiratory events overnight. Patient admits continued improvement in his respiratory symptoms Pulmonology Exam Inpatient Vital signs and Labs for Last 24 Hours: Temp Pulse Resp BP Pulse Ox O2 Del Method O2 Flow Rate 97.5 F L 91 H 18 145/73 H 95 Room Air 1 06/07/25 07:53 06/07/25 07:53 06/07/25 07:53 06/07/25 07:53 06/07/25 07:53 06/07/25 07:53 06/07/25 06:50 Laboratory Results - last 24 hr 06/06/25 03:57: BUN 32 H, Creatinine 0.90, Estimated Creat Clear 116, Estimated GFR 86, Est GFR ( Amer) 103 06/06/25 15:23: APTT 30.4 L, Troponin I 0.29 H 06/06/25 22:09: APTT 54.6 06/07/25 05:41: WBC 13.7 H, RBC 3.63 L, Hgb 11.4 L, Hct 33.7 L, MCV 92.8, MCH 31.4 H, MCHC 33.8, RDW 16.0, Plt Count 102 L, MPV 12.5 H, Neut % (Auto) 77.7, Lymph % (Auto) 9.7 L, [place] % (Auto) 7.3, Eos % (Auto) 0.4, Baso % (Auto) 0.4, Neut # (Auto) 10.6 H, Lymph # (Auto) 1.3, [place] # (Auto) 1.0, Eos # (Auto) 0.1, Baso # (Auto) 0.1, Total Counted 100, Neutrophils % (Manual) 87 H, Lymphocytes % (Manual) 7 L, Monocytes % (Manual) 6, Platelet Estimate Moderate decrease, RBC Morphology Normal, APTT 53.3, Sodium 132 L, Potassium 3.4 L, Chloride 101, Carbon Dioxide 26, Anion Gap 8.4, BUN 28 H, Creatinine 1.00, Estimated Creat C lear 121, Estimated GFR 76, Est GFR ( Amer) 92, Glucose 136 H, Calcium 9.9, Magnesium 2.2, Total Bilirubin 2.8 H, AST 36, ALT 28, Alkaline Phosphatase 507 H, Total Protein 5.8 L, Albumin 2.9 L D, Globulin 2.9, Albumin/Globulin Ratio 1.0 L Temp Pulse Resp BP Pulse Ox O2 Del Method O2 Flow Rate 97.7 F 83 28 H 167/90 H 100 Nasal Cannula 2 06/06/25 08:00 06/06/25 08:00 06/06/25 08:00 06/06/25 08:00 06/06/25 08:00 06/06/25 08:00 06/06/25 08:00 Laboratory Results - last 24 hr 06/05/25 17:56: WBC 13.0 H, RBC 4.05 L, Hgb 12.6 L, Hct 37.6 L, MCV 92.8, MCH 31.1, MCHC 33.5, RDW 16.1, Plt Count 100 L, MPV 11.5 H, Neut % (Auto) 78.5, Lymph % (Auto) 10.0, [place] % (Auto) 6.4, Eos % (Auto) 0.8, Baso % (Auto) 0.4, Neut # (Auto) 10.2 H, Lymph # (Auto) 1.3, [place] # (Auto) 0.8, Eos # (Auto) 0.1, Baso # (Auto) 0.1, Total Counted 100, Neutrophils % (Manual) 77 H, Lymphocytes % (Manual) 16, Monocytes % (Manual) 5, Eosinophils % (Manual) 1, Basophils % (Manual) 1.0, Platelet Estimate Marked decrease, RBC Morphology Normal, PT 12.2, INR 1.11 H, APTT 30.8 H, D-Dimer > 8.10 H, Sodium 134 L, Potassium 4.0, Chloride 105, Carbon Dioxide 25, Anion Gap 8.0, BUN 31 H, Creatinine 0.90, Estimated Creat Clear 119, Estimated GFR 86, Est GFR ( Amer) 103, Glucose 88, Calcium 9.7, Magnesium 2.3, Total Bilirubin 3.4 H, AST 36, ALT 22, Alkaline Phosphatase 446 H, Troponin I 0.29 H, NT-Pro-B Natriuret Pep 160 H, Total Protein 5.7 L, Albumin 3.0 L, Globulin 2.7, Albumin/Globulin Ratio 1.1, Lipase 70 06/05/25 22:41: Troponin I 0.34 H 06/06/25 03:57: WBC 14.0 H, RBC 3.85 L, Hgb 12.0 L, Hct 36.0 L, MCV 93.5, MCH 31.2, MCHC 33.3, RDW 16.2, Plt Count 92 L, MPV 11.8 H, Neut % (Auto) 78.0, Lymph % (Auto) 10.0, [place] % (Auto) 6.2, Eos % (Auto) 0.8, Baso % (Auto) 0.6, Neut # (Auto) 10.9 H, Lymph # (Auto) 1.4, [place] # (Auto) 0.9, Eos # (Auto) 0.1, Baso # (Auto) 0.1, Total Counted 100, Neutrophils % (Manual) 82 H, Lymphocytes % (Manual) 8 L, Monocytes % (Manual) 9, Eosinophils % (Manual) 1, Platelet Estimate Slight decrease, RBC Morphology Normal, Sodium 133 L, Potassium 4.0, Chloride 106, Carbon Dioxide 24, Anion Gap 7.0, Glucose 103 H, Calcium 9.5, Magnesium 2.2, Total Bilirubin 3.0 H, AST 42, ALT 25, Alkaline Phosphatase 496 H , Troponin I 0.43 H, Total Protein 5.1 L, Albumin 2.5 L D, Globulin 2.6, Albumin/Globulin Ratio 1.0 L I & O for Labs for Last 24 Hours: Intake & Output 06/04/25 06/05/25 06/06/25 06/07/25 23:59 23:59 23:59 23:59 Intake Total 880 / 1060 400 / 400 Output Total 0 / 0 3075 / 3075 425 / 425 Balance 0 / 0 -2194 / Weight 239 lb 12.8 oz 236 lb 4.8 oz 246 lb 9.6 oz Intake & Output 06/03/25 06/04/25 06/05/25 06/06/25 23:59 23:59 23:59 23:59 Intake Total 270 / 270 Output Total 0 / 0 600 / 600 Balance 0 / 0 - -330 Weight 239 lb 12.8 oz 236 lb 4.8 oz Constitutional: Present mild distress Head: Present normocephalic and atraumatic ENT: Present normal exam, normal oropharynx and mucous membranes moist Neck: Present normal inspection and full ROM Respiratory: Present respiratory distress, distant breath sounds, diminished air movement and able to speak in complete sentences; Absent prolonged expiratory phase or wheezes Cardiac: Present S1/S2, Tachycardia and radial pulses present GI: Present soft and distention; Absent tenderness or guarding Skin: Present intact; Absent cyanosis or jaundice Neuro: Present alert, awake and oriented x 3 Extremities: Present normal inspection and edema; Absent clubbing or cyanosis Psychiatric: Present normal affect and cooperative Assessment and Plan *Assessment and plan (1) Acute hypoxemic respiratory failure: Status: Acute Category: Medical Code(s): J96.01 - Acute respiratory failure with hypoxia (2) Pleural effusion: Status: Acute Category: Medical Code(s): J90 - Pleural effusion, not elsewhere classified Plan Mr. Sierra is a 61-year-old male with a recent diagnosis of metastatic signet ring cell adenocarcinoma presented to the ER complaining of right lower back pain and hip pain, also found to be in respiratory distress and pulmonary was called for further evaluation and management. Greater than [id number] smoking history. Not using any oxygen supplementation or inhalers at baseline. Afebrile. Hemodynamically stable. Mild neutrophilic predominant leukocytosis. CT chest without contrast upon admission bilateral right greater than left pleural effusions along with moderate volume ascites. Tolerated/airspace changes noted. Pleural effusions has been present on his prior imagings, significantly worse on his current imaging. Echo April 2025 diastolic dysfunction. LVEF at 55%. On examination bilateral decreased breath sounds in the lower lung jackson. No significant wheezing noted on auscultation. Bilateral lower extremity edema left greater than right. Lower extremity Doppler from April negative for DVT. Mild respiratory distress. Interval update: No acute respiratory vents overnight. Continue to remain on room air. Status post right sided thoracentesis. Chest x-ray post thoracentesis also showed significant improvement in the previously noted left effusion. Given the effusions been present on this patient's prior imaging and her pain gradually getting worse since then with concern for volume overload/diastolic heart failure as a possible etiology. Patient also receiving steroids intermittently from oncology which might also be contributing to his current volume status. Will refer to cardiology for further evaluation and management. Did not find significant pocket for paracentesis. Repeat echocardiogram normal LVEF. Diastolic dysfunction. RV size and function within normal limits. Plan: - Follow with final pleural fluid studies. - DuoNebs every 6 hours on a scheduled basis - No need for antibiotics or steroids from pulmonary standpoint There has also been a concern for PE, given echocardiogram findings concerning for elevated RVSP and eevated D-Dimer in the setting of his metastatic malignancy. Patient hypoxic respiratory failure significantly improved with diuretics. If committing the patient for anticoagulation solely for this concerning pulmonary embolism patient would benefit from premedication and undergoing CTA then discharging on long-term anticoagulation for this presumed pulmonary embolism. This patient has a CTA performed in March 2025 that did not show pulmonary embolism. # Thank you for involving pulmonary in this patient care. Will continue to follow.
--- NOTE | 2025-06-07 10:13 | XR_ITS ---
FINAL REPORT CLINICAL HISTORY: s/p thora..soa COMPARISON: 07/22/2022 FINDINGS: PA and lateral views of the chest were obtained. The cardiac and mediastinal silhouettes are within normal limits. There is new left lower lobe opacity and left pleural effusion, favor pneumonia. There is no pneumothorax. No acute osseous abnormality is identified. IMPRESSION: Favor left lung pneumonia. Recommend continued follow-up to resolution. Reviewed, Interpreted and Dictated by Anayeli Rojas MD Transcribed by Sonja Arroyo Authenticated and [facility]
[2025-06-07 11:37] LABS: Appearance,Body Fld. Cloudy; RBC,Body Fluid 1000 cells/uL (< 10 X 10^3); TNC,Body Fluid 7746 cells/uL (< 1000)
[2025-06-07 11:38] LABS: Volume,Body Fld. 1250 mL
[2025-06-07 11:45] LABS: Source, Body Fld. Pleural Fluid
--- NOTE | 2025-06-07 12:00 | US_ITS ---
FINAL REPORT CLINICAL HISTORY: Ascites -- PARACENTESIS NOT PERFORMED DUE TO LACK OF FLUID PER CASI KNOTT FINDINGS: ULTRASOUND-GUIDED THORACENTESIS HISTORY: Pleural effusion. ATTENDING PHYSICIAN: Dr. Mcfarlane PHYSICIAN EQUAL EMPLOYMENT OPPORTUNITY OFFICER: Casi Knott PA-C TECHNIQUE: Informed consent was obtained from the patient. The indications and complications were discussed with the patient prior to beginning the procedure. This included, but was not limited to pain, bleeding, infection, and pneumothorax requiring chest tube placement. The left back was then prepped and draped in sterile fashion. 1% Lidocaine was used for local anesthesia. Utilizing sonographic guidance, a standard thoracentesis needle and sheath were inserted into the pleural space and approximately 750 mL of clear pleural fluid was successfully removed without complication. The patient tolerated the procedure well. IMPRESSION: Technically successful sonographic guided right-sided thoracentesis as above. Reviewed, Interpreted and Dictated by Anayeli Rojas MD Transcribed by JELANI Mcguire Authenticated and [facility]
--- NOTE | 2025-06-07 12:00 | US_ITS ---
FINAL REPORT CLINICAL HISTORY: Pleural effusion RT - CASI PALOMARES -- 1250 ML REMOVED FINDINGS: ULTRASOUND-GUIDED THORACENTESIS HISTORY: Pleural effusion. ATTENDING PHYSICIAN: Dr. Rojas PHYSICIAN HEALTHCARE PROJECT MANAGER: Casi Avila PA-C TECHNIQUE: Informed consent was obtained from the patient. The indications and complications were discussed with the patient prior to beginning the procedure. This included, but was not limited to pain, bleeding, infection, and pneumothorax requiring chest tube placement. The left back was then prepped and draped in sterile fashion. 1% Lidocaine was used for local anesthesia. Utilizing sonographic guidance, a standard thoracentesis needle and sheath were inserted into the pleural space and approximately 750 mL of clear pleural fluid was successfully removed without complication. The patient tolerated the procedure well. IMPRESSION: Technically successful sonographic guided right-sided thoracentesis as above. Reviewed, Interpreted and Dictated by Jasper Mcfarlane MD Transcribed by JELANI Mcguire Authenticated and [facility]
[2025-06-07 12:35] LABS: Mononuclear WBCs,Body Fluid 38 %; Polynuclear WBC,Body Fluid 62 %
[2025-06-07] MEDS: POLYETHYLENE GLYCOL 3350 17 GM PACKET PO (12:36)
[2025-06-07 13:12] LABS: PTT Heparin (inpatient only) 36.7 Seconds (50-75)
[2025-06-07] MEDS: HEPARIN SODIUM 5,000 UNIT/ML VIAL 4000 UNIT IV (14:03)
[2025-06-07] MEDS: HEPARIN SODIUM,PORCINE/D5W 500 ML 28 UNIT IV (14:05)
--- NOTE | 2025-06-07 14:31 | P.PN_ITS ---
Subjective Subjective Date: 06/07/25 Time: 14:31 Principal diagnosis: Pleural effusions, elevated troponin Interval history: 60-year-old white male sitting up in bed in no acute distress. He did undergo thoracentesis earlier today with removal of 1200 mL of fluid without complications. Plans for paracentesis for aborted due to no significant pocket of fluid identified. Exam Data for Last 24 hours Vital signs and Labs for Last 24 Hours: Temp Pulse Resp BP Pulse Ox O2 Del Method O2 Flow Rate 97.8 F 80 30 H 140/82 97 Room Air 1 06/07/25 11:43 06/07/25 12:00 06/07/25 11:43 06/07/25 11:43 06/07/25 11:43 06/07/25 13:00 06/07/25 06:50 Laboratory Results - last 24 hr 06/06/25 10:24: Fluid Source Pleural fluid, Fluid Volume 1250, Fluid Appearance Cloudy, Fluid RBC (Auto) 1000, Fld Tot Nucleated Cell 7746, Fld Polynuclear WBCs % 62, Fld Mononuclear WBCs % 38 06/06/25 15:23: APTT 30.4 L, Troponin I 0.29 H 06/06/25 22:09: APTT 54.6 06/07/25 05:41: WBC 13.7 H, RBC 3.63 L, Hgb 11.4 L, Hct 33.7 L, MCV 92.8, MCH 31.4 H, MCHC 33.8, RDW 16.0, Plt Count 102 L, MPV 12.5 H, Neut % (Auto) 77.7, Lymph % (Auto) 9.7 L, [place] % (Auto) 7.3, Eos % (Auto) 0.4, Baso % (Auto) 0.4, Neut # (Auto) 10.6 H, Lymph # (Auto) 1.3, [place] # (Auto) 1.0, Eos # (Auto) 0.1, Baso # (Auto) 0.1, Total Counted 100, Neutrophils % (Manual) 87 H, Lymphocytes % (Manual) 7 L, Monocytes % (Manual) 6, Platelet Estimate Moderate decrease, RBC Morphology Normal, APTT 53.3, Sodium 132 L, Potassium 3.4 L, Chloride 101, Carbon Dioxide 26, Anion Gap 8.4, BUN 28 H, Creatinine 1.00, Estimated Creat Clear 121, Estimated GFR 76, Est GFR ( Amer) 92, Glucose 136 H, Calcium 9.9, Magnesium 2.2, Total Bilirubin 2.8 H, AST 36, ALT 28, Alkaline Phosphatase 507 H, Lactate Dehydrogenase 716 H, Total Protein 5.8 L, Albumin 2.9 L D, Globulin 2.9, Albumin/Globulin Ratio 1.0 L 06/07/25 12:22: APTT 36.7 L I & O for Last 24 hours: Intake & Output 06/05/25 06/06/25 06/07/25 06/08/25 11:59 11:59 11:59 11:59 Intake Total 270 / 270 1010 / 1010 360 / 360 Output Total 1025 / 1025 2775 / 2775 800 / 800 Balance -755 / -755 -1765 / -1765 -440 / -440 Weight 236 lb 4.8 oz 246 lb 9.6 oz Microbiology Reports for the Last 24 Hours: Microbiology 06/06/25 10:24 Thoracic Fluid Gram Stain - Final Constitutional Constitutional: no acute distress *Routine Respiratory Exam Respiratory: Present decreased breath sounds; Absent wheezes *Routine Cardiovascular Exam Cardiovascular: Present RRR; Absent murmur, gallop or rubs *Routine Extremities Exam Extremities: Present edema Progress Note: A&P Assessment and plan (1) Acute hypoxemic respiratory failure: Status: Acute (2) Pleural effusion: Status: Acute Assessment and Plan Assessment and Plan for All Diagnoses:: 1. Bilateral pleural effusion with acute hypoxic respiratory failure and hypoxia, improved with supplemental oxygen. - 1200 mL of fluid removed by thoracentesis today 2. Abdominal ascites, scrotal edema with hydrocele and moderate anasarca of the abdomen and pelvis -Plans for paracentesis aborted due to no identifiable pocket of fluid big enough to tap 3. Elevated troponin/non-STEMI with high D-dimer of 8.1 and suspected pulmonary embolus -Mild coronary artery calcification noted on chest CT -Patient intolerant of statin therapy in the past -Echo shows normal left ventricular systolic function with mild RV dilation and increased RV pressure -Unable to obtain CTA of the chest due to IV contrast allergy -Starting IV heparin therapy -Will transition to Eliquis therapy (which patient has taken before) prior to discharge 4. Metastatic signet ring cell carcinoma - PET scan at [facility], 05/2025, hypermetabolic areas in the left lower neck, right hilum, S1 and several in the lower thoracic spine Stable from a cardiac standpoint. No plans for further testing from a cardiac standpoint at this time. Transition from heparin back to home dosing of Eliquis. This will potentially cover suspected pulmonary embolus in hypercoagulable state due to metastatic cancer. Agree with Bumex and spironolactone as needed for edema. Follow-up in our office in 2 to 3 weeks.
--- NOTE | 2025-06-07 14:46 | HMH.PHAHEP ---
[facility] Pharmacy Heparin Dosing Demographic Data Admission date:: 06/05/25 Date: 06/06/25 Time: 15:00 Allergies Allergy/AdvReac Type Severity Reaction Status Date / Time Iodinated Contrast Media Allergy Unknown Verified 05/26/25 11:33 allergy reaction Height: 1.91 m Weight: 107.184 kg Indication Medication therapy:: Heparin Current Indications:: LOW DOSE PROTOCOL - NSTEMI Current Active Problems (Updated 06/06/25 @ 16:21 by JELANI [place]) Allergic to IV contrast (Acute) Acute hypoxemic respiratory failure (Acute) Pleural effusion (Acute) Hypoxia (Acute) Non-ST elevation SD (NSTEMI) (Acute) Metastatic signet ring cell carcinoma (Acute) HTN (hypertension) (Acute) Hyperlipidemia (Acute) CVA?: No Bleeding problem?: No Kidney disease?: No SD?: Yes Desired PTT range:: 50-75 seconds Comments:: BASELINE PTT: 30.4 SECONDS Labs Anticoagulation Lab Results:: 06/07/25 05:41 Hgb 11.4 L Hct 33.7 L Plt Count 102 L Monitoring Dose Monitor 1: Date: 06/06/25 Time: 15:00 PTT Result:: BASELINE PTT: 30.4 SECONDS Infusion Rate:: RECOMMEND INITIATING HEPARIN DRIP AT 1000 UNITS/HOUR = 20 ML/HOUR AND BOLUSING 4000 UNITS HEPARIN IV ONCE. Comment:: PLATELET COUNT 92,000 Dose Monitor 2: Date: 06/06/25 Time: 22:00 PTT Result:: 54.6 SECONDS Infusion Rate:: MILANA RECOMMENDED CONTINUING HEPARIN DRIP AT 1000 UNITS/HOUR = 20 ML/HOUR. Dose Monitor 3: Date: 06/07/25 Time: 06:00 PTT Result:: 53.3 SECONDS Infusion Rate:: MILANA RECOMMENDED CONTINUING HEPARIN DRIP AT 1000 UNITS/HOUR = 20 ML/HOUR. Dose Monitor 4: Date: 06/07/25 Time: 12:00 PTT Result:: 36.7 SECONDS Infusion Rate:: RECOMMENDED INCREASING HEPARIN DRIP TO 1400 UNITS/HOUR = 28 ML/HOUR AND BOLUSING 4000 UNITS HEPARIN IV ONCE. Comment:: PATIENT SWITCHED TO ELIQUIS, DRIP STOPPED 06/07/25 AT 14:39 Core Measures Is INR > or = 2 at discharge?: No Most Recent Labs:: Laboratory Results - last 24 hr 06/06/25 10:24: Fluid Source Pleural fluid, Fluid Volume 1250, Fluid Appearance Cloudy, Fluid RBC (Auto) 1000, Fld Tot Nucleated Cell 7746, Fld Polynuclear WBCs % 62, Fld Mononuclear WBCs % 38 06/06/25 15:23: APTT 30.4 L, Troponin I 0.29 H 06/06/25 22:09: APTT 54.6 06/07/25 05:41: WBC 13.7 H, RBC 3.63 L, Hgb 11.4 L, Hct 33.7 L, MCV 92.8, MCH 31.4 H, MCHC 33.8, RDW 16.0, Plt Count 102 L, MPV 12.5 H, Neut % (Auto) 77.7, Lymph % (Auto) 9.7 L, [place] % (Auto) 7.3, Eos % (Auto) 0.4, Baso % (Auto) 0.4, Neut # (Auto) 10.6 H, Lymph # (Auto) 1.3, [place] # (Auto) 1.0, Eos # (Auto) 0.1, Baso # (Auto) 0.1, Total Counted 100, Neutrophils % (Manual) 87 H, Lymphocytes % (Manual) 7 L, Monocytes % (Manual) 6, Platelet Estimate Moderate decrease, RBC Morphology Normal, APTT 53.3, Sodium 132 L, Potassium 3.4 L, Chloride 101, Carbon Dioxide 26, Anion Gap 8.4, BUN 28 H, Creatinine 1.00, Estimated Creat Clear 121, Estimated GFR 76, Est GFR ( Amer) 92, Glucose 136 H, Calcium 9.9, Magnesium 2.2, Total Bilirubin 2.8 H, AST 36, ALT 28, Alkaline Phosphatase 507 H, Lactate Dehydrogenase 716 H, Total Protein 5.8 L, Albumin 2.9 L D, Globulin 2.9, Albumin/Globulin Ratio 1.0 L 06/07/25 12:22: APTT 36.7 L Were Heparin and Warfarin started on the same day?: No If not, why?: PATIENT STARTED ON ELIQUIS.
[2025-06-07] MEDS: KETOROLAC 30MG/ML VIAL 30 MG IV (15:03)
--- NOTE | 2025-06-07 17:52 | PC.NURSE ---
Pt is A&Ox4. Vital signs stable tolerating room air. Pt heparin gtt discontinued today. Beth [id number] MAR. Pt had a thoracentesis today. Dressing to left side of back c/d/i. Pt c/o pain to right hip. PRN pain medication given per OCT. IV diuretics given with adequate urinary output. Edema to left arm and BLE. Pt resting comfortably sitting up in the chair with family at bedside with no further needs voiced at this time. Call light within reach.
--- NOTE | 2025-06-07 18:06 | EXP.PN ---
Subjective *Date: 06/07/25 *Time: 18:06 Interval history: Patient states he feels better today, volume overload improving. Continue diuresis given ongoing anasarca, reevaluate tomorrow. Exam Data for Last 24 hours Vital signs and Labs for Last 24 Hours: Temp Pulse Resp BP Pulse Ox O2 Del Method O2 Flow Rate 97.8 F 60 24 116/79 95 Room Air 1 06/07/25 16:00 06/07/25 16:00 06/07/25 16:00 06/07/25 16:00 06/07/25 16:00 06/07/25 16:00 06/07/25 06:50 Laboratory Results - last 24 hr 06/06/25 10:24: Fluid Source Pleural fluid, Fluid Volume 1250, Fluid Appearance Cloudy, Fluid RBC (Auto) 1000, Fld Tot Nucleated Cell 7746, Fld Polynuclear WBCs % 62, Fld Mononuclear WBCs % 38 06/06/25 22:09: APTT 54.6 06/07/25 05:41: WBC 13.7 H, RBC 3.63 L, Hgb 11.4 L, Hct 33.7 L, MCV 92.8, MCH 31.4 H, MCHC 33.8, RDW 16.0, Plt Count 102 L, MPV 12.5 H, Neut % (Auto) 77.7, Lymph % (Auto) 9.7 L, [place] % (Auto) 7.3, Eos % (Auto) 0.4, Baso % (Auto) 0.4, Neut # (Auto) 10.6 H, Lymph # (Auto) 1.3, [place] # (Auto) 1.0, Eos # (Auto) 0.1, Baso # (Auto) 0.1, Total Counted 100, Neutrophils % (Manual) 87 H, Lymphocytes % (Manual) 7 L, Monocytes % (Manual) 6, Platelet Estimate Moderate decrease, RBC Morphology Normal, APTT 53.3, Sodium 132 L, Potassium 3.4 L, Chloride 101, Carbon Dioxide 26, Anion Gap 8.4, BUN 28 H, Creatinine 1.00, Estimated Creat Clear 121, Estimated GFR 76, Est GFR ( Amer) 92, Glucose 136 H, Calcium 9.9, Magnesium 2.2, Total Bilirubin 2.8 H, AST 36, ALT 28, Alkaline Phosphatase 507 H, Lactate Dehydrogenase 716 H, Total Protein 5.8 L, Albumin 2.9 L D, Globulin 2.9, Albumin/Globulin Ratio 1.0 L 06/07/25 12:22: APTT 36.7 L I & O for Last 24 hours: Intake & Output 06/04/25 06/05/25 06/06/25 06/07/25 23:59 23:59 23:59 23:59 Intake Total 880 / 1060 760 / 760 Output Total 0 / 0 3075 / 3075 1525 / 1525 Balance 0 / 0 -2195 / -2014 -5 / -765 Weight 108.771 kg 107.184 kg 107.184 kg Microbiology Reports for the Last 24 Hours: Microbiology 06/06/25 10:24 Thoracic Fluid Gram Stain - Final Constitutional Constitutional: no acute distress Comments: Anasarca. *Routine HEENT Exam Head: Present normocephalic Eye: Present EOMI and PERRL ENT: Present mucous membranes moist *Routine Neck Exam Neck: Present supple; Absent lymphadenopathy *Routine Respiratory Exam Respiratory: Present CTA bilaterally *Routine Cardiovascular Exam Cardiovascular: Present RRR *Routine Abdominal Exam Abdominal: Present soft, normoactive bowel sounds and distended; Absent tenderness Comments: Scrotal edema improving *Routine Extremities Exam Extremities: Absent cyanosis, clubbing or edema Comments: Left upper extremity, bilateral lower extremity pitting edema 3+. Distended abdomen *Routine Skin Exam Skin: Present warm; Absent rash *Routine Neurological Exam Neurological: Present alert and oriented X3 Assessment and Plan *Assessment and plan (1) Acute hypoxemic respiratory failure: Status: Acute Category: Medical Code(s): J96.01 - Acute respiratory failure with hypoxia (2) Pleural effusion: Status: Acute Category: Medical Code(s): J90 - Pleural effusion, not elsewhere classified (3) Non-ST elevation [place] (NSTEMI): Status: Acute Category: Medical Code(s): I21.4 - Non-ST elevation (NSTEMI) myocardial infarction (4) Metastatic signet ring cell carcinoma: Status: Acute Category: Medical Code(s): C79.9 - Secondary malignant neoplasm of unspecified site (5) HTN (hypertension): Status: Acute Category: Medical Code(s): I10 - Essential (primary) hypertension (6) Hyperlipidemia: Status: Acute Category: Medical Code(s): E78.5 - Hyperlipidemia, unspecified Plan Deshawn Sierra is a 60-year-old male with 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 Presented with shortness of breath and back pain. Found to have bilateral pleural effusions, anasarca. #Acute hypoxic respiratory failure, resolved #Anasarca #Bilateral pleural effusions #Ascites #Scrotal edema #Metastatic signet cell carcinoma #History of DVT ? Presented with shortness of breath, CT chest/abdomen/pelvis on 06/05/2025 showed moderate bilateral pleural effusions, moderate volume ascites around liver and spleen, large hydrocele and edema, anasarca of the abdomen and pelvis. ? Initial BNP insignificant at 160, low suspicion for heart failure. Liver ultrasound unremarkable for cirrhosis. ? ECHO shows normal biventricular systolic function, without significant diastolic dysfunction. There is noted increased left LV wall thickness. ? Patient has asymmetrical left upper extremity swelling with pitting edema. ? Venous Dopplers of lower extremities, left upper extremity unremarkable for DVT. ? Unclear where anasarca is coming from, possibly from metastatic signet cell carcinoma. ? S/p IR guided in 725 thoracentesis with 1.5 L output, unable to find a pocket for paracentesis. Patient tolerated procedure well, follow-up pleural studies. ? D-dimer significantly elevated > 8.10. Low suspicion for PE at this time given patient's hypoxia significantly improved with diuresis. Discussed with pulmonology and cardiology, agreed with this. ? Increased IV Bumex 2 mg 3 times daily, spironolactone 50 mg. Follow-up urine output, renal function, electrolytes. Net -2.6 L. ? Restarted home Eliquis 5 mg twice daily for remote history of DVT in the setting of suspected malignancy. ? Follow-up morning CMP, magnesium. ? Plan to follow-up with Dr. Burch, oncology for signet cell carcinoma. #NSTEMI #CAD ? Troponins peaked at 0.43, down trended to 0.29. EKG without acute ischemic changes. ? Treated with heparin drip, discontinued today. ? Cardiology consulted, noted mild coronary artery calcification on CT chest. ECHO shows normal biventricular systolic function with mild RV dilatation. ? Discussed with cardiology, no plans for intervention at this time. Will pursue outpatient ischemic workup. ? Started aspirin 81 mg, atorvastatin 40 mg. #Left hip pain ? Patient complains of left hip pain, popping noise after climbing up stairs day before admission. ? He is able to ambulate without much distress. Will consider imaging if clinically worsens. ? Follow-up left hip x-ray. Resume famotidine 20 mg daily for GERD Resume home BuSpar 15 mg twice daily for anxiety Back pain and history of neuropathy: Initiate gabapentin 100 mg 3 times a day, Dilaudid 1 mg IV every 4 hours as needed for severe breakthrough pain, Tylenol for mild pain, and hydrocodone 5 mg/325 1 tablet every 4 hours as needed for moderate to severe pain. Monitor for toxicity Metastatic signet ring cell carcinoma: resume dexamethasone 4 mg daily started by his oncologist for swelling will continue to have goals of care discussions; pending results from thoracentesis Full code Holding Eliquis due to potential thoracentesis Regular diet
[2025-06-07] MEDS: APIXABAN 5MG TABLET 5 MG PO (20:56)
--- NOTE | 2025-06-07 21:44 | XR_ITS ---
PROCEDURE INFORMATION: Exam: XR Right Hip Exam date and time: 06/07/2025 9:48 PM Age: 60 years old Clinical indication: Hip pain; Right hip; Additional info: Acute RT hip pain TECHNIQUE: Imaging protocol: Radiologic exam of the right hip. Views: 2 or 3 views hip with pelvis when performed. COMPARISON: CT ABDOMEN PELVIS WO CON 06/05/2025 7:09 PM FINDINGS: Bones/joints: Unremarkable. No acute fracture. Soft tissues: Unremarkable. IMPRESSION: No acute findings.
[2025-06-08] VITALS (7 sets, daily range): BP systolic 120–159; BP diastolic 68–88; PULSE 70–106; RESP 14–17; TEMP 36.6–37.1; O2SAT 90–96; BMI 31.1
[2025-06-08] MEDS: IPRATROPIUM/ALBUTEROL 3 ML NEB IH ×2 (06:10→12:18)
--- NOTE | 2025-06-08 06:26 | PC.NURSE ---
dsg change to thoracentesis site at beginning of shift due to blood oozing. site continued to ooze blood, notified md and applied txa to site, bleeding has stopped at this time. around 0430, o2 sats dropped to 85% while asleep, 2l o2 applied with sats now in the mid 90s.
[2025-06-08 06:58] LABS: Albumin Level 2.6 g/dl (3.5-5.0); Chloride 102 mmol/L (98-107); Potassium 3.8 mmoL/L (3.5-5.1); Sodium 135 mmol/L (136-145)
[2025-06-08 07:00] LABS: Alanine Aminotransferase 40 U/L (12-78); Aspartate Amino Transferase 58 U/L (17-59); Hematocrit 30.0 % (42.0-52.0); Hemoglobin 9.9 g/dL (14.1-18.0); Immature Granulocytes % 5.0 %; Mean Corpuscular HGB Conc 33.0 g/dL (31.8-35.4); Mean Corpuscular Hemoglobin 30.9 pg (27.0-31.2); Mean Corpuscular Volume 93.8 fl (80-94); Nucleated Red Blood Cells % 0.2 %; Platelet Count 103 K/mm3 (142-424); Red Blood Count 3.20 M/mm3 (4.60-6.20); Red Cell Distribution Width-SD 55.1 fL; White Blood Count 13.1 K/mm3 (4.8-10.8)
[2025-06-08 07:01] LABS: Albumin/Globulin Ratio 1.0 (1.1-1.8); Alkaline Phosphatase 447 U/L (38-126); Anion Gap 8.8 mEq/L (5-15); Bilirubin,Total 2.2 mg/dl (0.2-1.3); Calcium 9.1 mg/dl (8.4-10.2); Carbon Dioxide 28 mmol/L (22.0-30.0); Globulin 2.6 g/dL (1.3-3.2); Glucose 95 mg/dl (74-100); Magnesium 2.3 mg/dl (1.6-2.3); Total Protein,Serum 5.2 g/dl (6.3-8.2)
[2025-06-08 07:58] LABS: RBC Morphology Normal; Total Cells Counted 100
--- NOTE | 2025-06-08 09:31 | P.PN_ITS ---
Subjective *Date: 06/08/25 *Time: 12:32 Interval history: No acute respiratory vents overnight. Patient admits continued improvement in his respiratory symptoms. Pulmonology Exam Inpatient Vital signs and Labs for Last 24 Hours: Temp Pulse Resp BP Pulse Ox O2 Del Method O2 Flow Rate 98 F 90 16 140/68 90 L Nasal Cannula 2 06/08/25 08:00 06/08/25 08:00 06/08/25 08:00 06/08/25 08:00 06/08/25 08:00 06/08/25 06:25 06/08/25 06:25 FiO2 28 06/08/25 06:10 Laboratory Results - last 24 hr 06/06/25 10:24: Fluid Source Pleural fluid, Fluid Volume 1250, Fluid Appearance Cloudy, Fluid RBC (Auto) 1000, Fld Tot Nucleated Cell 7746, Fld Polynuclear WBCs % 62, Fld Mononuclear WBCs % 38 06/07/25 05:41: Lactate Dehydrogenase 716 H 06/07/25 12:22: APTT 36.7 L 06/08/25 06:27: WBC 13.1 H, RBC 3.20 L, Hgb 9.9 L, Hct 30.0 L, MCV 93.8, MCH 30.9, MCHC 33.0, RDW 16.3, Plt Count 103 L, MPV 12.1 H, Neut % (Auto) 76.2, Lymph % (Auto) 10.9, [place] % (Auto) 7.0, Eos % (Auto) 0.5, Baso % (Auto) 0.4, Neut # (Auto) 10.0 H, Lymph # (Auto) 1.4, [place] # (Auto) 0.9, Eos # (Auto) 0.1, Baso # (Auto) 0.1, Total Counted 100, Neutrophils % (Manual) 80 H, Lymphocytes % (Manual) 18, Monocytes % (Manual) 2, Platelet Estimate Normal, RBC Morphology Normal, Sodium 135 L, Potassium 3.8, Chloride 102, Carbon Dioxide 28, Anion Gap 8.8, Glucose 95, Calcium 9.1, Magnesium 2.3, Total Bilirubin 2.2 H, AST 58 D, ALT 40 D, Alkaline Phosphatase 447 H, Total Protein 5.2 L, Albumin 2.6 L D, Globulin 2.6, Albumin/Globulin Ratio 1.0 L Temp Pulse Resp BP Pulse Ox O2 Del Method O2 Flow Rate 97.7 F 83 28 H 167/90 H 100 Nasal Cannula 2 06/06/25 08:00 06/06/25 08:00 06/06/25 08:00 06/06/25 08:00 06/06/25 08:00 06/06/25 08:00 06/06/25 08:00 Laboratory Results - last 24 hr 06/05/25 17:56: WBC 13.0 H, RBC 4.05 L, Hgb 12.6 L, Hct 37.6 L, MCV 92.8, MCH 31.1, MCHC 33.5, RDW 16.1, Plt Count 100 L, MPV 11.5 H, Neut % (Auto) 78.5, Lymph % (Auto) 10.0, [place] % (Auto) 6.4, Eos % (Auto) 0.8, Baso % (Auto) 0.4, Neut # (Auto) 10.2 H, Lymph # (Auto) 1.3, [place] # (Auto) 0.8, Eos # (Auto) 0.1, Baso # (Auto) 0.1, Total Counted 100, Neutrophils % (Manual) 77 H, Lymphocytes % (Manual) 16, Monocytes % (Manual) 5, Eosinophils % (Manual) 1, Basophils % (Manual) 1.0, Platelet Estimate Marked decrease, RBC Morphology Normal, PT 12.2, INR 1.11 H, APTT 30.8 H, D-Dimer > 8.10 H, Sodium 134 L, Potassium 4.0, Chloride 105, Carbon Dioxide 25, Anion Gap 8.0, BUN 31 H, Creatinine 0.90, Estimated C reat Clear 119, Estimated GFR 86, Est GFR ( Amer) 103, Glucose 88, Calcium 9.7, Magnesium 2.3, Total Bilirubin 3.4 H, AST 36, ALT 22, Alkaline Phosphatase 446 H, Troponin I 0.29 H, NT-Pro-B Natriuret Pep 160 H, Total Protein 5.7 L, Albumin 3.0 L, Globulin 2.7, Albumin/Globulin Ratio 1.1, Lipase 70 06/05/25 22:41: Troponin I 0.34 H 06/06/25 03:57: WBC 14.0 H, RBC 3.85 L, Hgb 12.0 L, Hct 36.0 L, MCV 93.5, MCH 31.2, MCHC 33.3, RDW 16.2, Plt Count 92 L, MPV 11.8 H, Neut % (Auto) 78.0, Lymph % (Auto) 10.0, [place] % (Auto) 6.2, Eos % (Auto) 0.8, Baso % (Auto) 0.6, Neut # (Auto) 10.9 H, Lymph # (Auto) 1.4, [place] # (Auto) 0.9, Eos # (Auto) 0.1, Baso # (Auto) 0.1, Total Counted 100, Neutrophils % (Manual) 82 H, Lymphocytes % (Manual) 8 L, Monocytes % (Manual) 9, Eosinophils % (Manual) 1, Platelet Estimate Slight decrease, RBC Morphology Normal, Sodium 133 L, Potassium 4.0, Chloride 106, Carbon Dioxide 24, Anion Gap 7.0, Glucose 103 H, Calcium 9.5, Magnesium 2.2, Total Bilirubin 3.0 H, AST 42, ALT 25, Alkaline Phosphatase 496 H , Troponin I 0.43 H, Total Protein 5.1 L, Albumin 2.5 L D, Globulin 2.6, Albumin/Globulin Ratio 1.0 L I & O for Labs for Last 24 Hours: Intake & Output 06/05/25 06/06/25 06/07/25 06/08/25 23:59 23:59 23:59 23:59 Intake Total 880 / 1060 2060.000 / 2060.000 17.333 / 17.333 Output Total 0 / 0 3075 / 3075 1525 / 1525 150 / 150 Balance 0 / 0 -2194 / -2015 535.000 / 535.000 -132.667 / -132.667 Weight 239 lb 12.8 oz 236 lb 4.8 oz 236 lb 4.804 oz 250 lb 3.2 oz Intake & Output 06/03/25 06/04/25 06/05/25 06/06/25 23:59 23:59 23:59 23:59 Intake Total 270 / 270 Output Total 0 / 0 600 / 600 Balance 0 / 0 -330 / -330 Weight 239 lb 12.8 oz 236 lb 4.8 oz Microbiology Reports for the Last 24 Hours: Microbiology 06/06/25 10:24 Thoracic Fluid Gram Stain - Final Constitutional: Present mild distress Head: Present normocephalic and atraumatic ENT: Present normal exam, normal oropharynx and mucous membranes moist Neck: Present normal inspection and full ROM Respiratory: Present respiratory distress, distant breath sounds, diminished air movement and able to speak in complete sentences; Absent prolonged expiratory phase or wheezes Cardiac: Present S1/S2, Tachycardia and radial pulses present GI: Present soft and distention; Absent tenderness or guarding Skin: Present intact; Absent cyanosis or jaundice Neuro: Present alert, awake and oriented x 3 Extremities: Present normal inspection and edema; Absent clubbing or cyanosis Psychiatric: Present normal affect and cooperative Assessment and Plan *Assessment and plan (1) Acute hypoxemic respiratory failure: Status: Acute Category: Medical Code(s): J96.01 - Acute respiratory failure with hypoxia (2) Pleural effusion: Status: Acute Category: Medical Code(s): J90 - Pleural effusion, not elsewhere classified Plan Mr. Sierra is a 61-year-old male with a recent diagnosis of metastatic signet ring cell adenocarcinoma presented to the ER complaining of right lower back pain and hip pain, also found to be in respiratory distress and pulmonary was called for further evaluation and management. Greater than [id number] smoking history. Not using any oxygen supplementation or inhalers at baseline. Afebrile. Hemodynamically stable. Mild neutrophilic predominant leukocytosis. CT chest without contrast upon admission bilateral right greater than left pleural effusions along with moderate volume ascites. Tolerated/airspace changes noted. Pleural effusions has been present on his prior imagings, significantly worse on his current imaging. Echo April 2025 diastolic dysfunction. LVEF at 55%. On examination bilateral decreased breath sounds in the lower lung [place]. No significant wheezing noted on auscultation. Bilateral lower extremity edema left greater than right. Lower extremity Doppler from April negative for DVT. Mild respiratory distress. Interval update: No acute respiratory vents overnight. Continue to remain on room air. Status post right sided thoracentesis. Chest x-ray post thoracentesis also showed significant improvement in the previously noted left effusion. Given the effusions been present on this patient's prior imaging and her pain gradually getting worse since then with concern for volume overload/diastolic heart failure as a possible etiology. Patient also receiving steroids intermittently from oncology which might also be contributing to his current volume status. Will refer to cardiology for further evaluation and management. Did not find significant pocket for paracentesis. Repeat echocardiogram normal LVEF. Diastolic dysfunction. RV size and function within normal limits. Continue to receive anticoagulation for his presumed lower extremity DVT from prior. Will obtain records to corroborate. Requested venous Doppler from this admission and from April did not show any evidence of DVT. Interval update: Status post thoracentesis. Continue to remain on room air. Pleural fluid LDH protein and cytology not available for review. Will follow. Serum LDH 716. Plan: - Follow with final pleural fluid studies. - DuoNebs every 6 hours on a scheduled basis - No need for antibiotics or steroids from pulmonary standpoint - Continue to receive Eliquis for the noted left IJ nonocclusive thrombus on his upper extremity ultrasound from April 2025. # Thank you for involving pulmonary in this patient care. Will follow the patient in pulmonary clinic 1 to 2 weeks postdischarge.
--- NOTE | 2025-06-08 09:32 | XR_ITS ---
FINAL REPORT TECHNIQUE: Single view chest CLINICAL HISTORY: Effusion COMPARISON: 06/07/2025 FINDINGS: A single view of the chest was obtained. The heart and mediastinum are within normal limits. Lung volumes have decreased. There has been no change in left base opacity or left pleural effusion. There is no pneumothorax. IMPRESSION: Decreasing lung volumes with stable left base opacity and left pleural effusion. Reviewed, Interpreted and Dictated by Anayeli Rojas MD Transcribed by Maria C Monge Authenticated and [facility]
[2025-06-08] MEDS: DEXAMETHASONE 4MG TABLET 4 MG PO (10:08)
[2025-06-08] MEDS: FAMOTIDINE 20MG TABLET 20 MG PO (10:08)
[2025-06-08] MEDS: BUSPIRONE HCL 10 MG TABLET 15 MG PO (10:08)
[2025-06-08] MEDS: APIXABAN 5MG TABLET 5 MG PO (10:09)
[2025-06-08] MEDS: SPIRONOLACTONE 25MG TABLET 50 MG PO (10:10)
[2025-06-08] MEDS: BUMETANIDE 1MG/4ML VIAL 2 MG IV ×2 (10:11→15:14)
[2025-06-08] MEDS: HYDROCODONE/APAP 5/325 MG TABLET 1 TAB PO ×2 (10:12→16:02)
[2025-06-08] MEDS: POLYETHYLENE GLYCOL 3350 17 GM PACKET PO (10:12)
[2025-06-08] MEDS: GABAPENTIN 100MG CAPSULE 100 MG PO ×2 (10:15→15:14)
[2025-06-08 12:11] LABS: Blood Urea Nitrogen 38 mg/dl (9-20); Creatinine Clearance Estimated 112 mL/min (50-200); Creatinine,Serum 1.10 mg/dl (0.66-1.25); Estimated Glomerular Filt Rate 68 ml/min (>60); GFR (African American) 82 ML/MIN (>60)
[2025-06-08 14:18] LABS: Albumin, Body Fluid 2.6 g/dL (Not Estab.); Glucose, Body Fluid 2 mg/dL (.); LD, Body Fluid 1254 IU/L (.)
--- NOTE | 2025-06-08 15:44 | EXP.DC.SUM ---
General Admission date:: 06/05/25 HPI HPI HPI: Mr. 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 He presented to the ER due to complaint of pain in his right lower back and right hip area over the past 2 to 3 days. States he tripped going up stairs when he felt like he pulled a muscle. Denies falling or any jorge a trauma. Caught himself but felt a pop. Pain is just gotten worse over the past few days. Came in because of that and some shortness of breath. Daughter accompanies him and states that the shortness of breath has been progressive over the past 2 to 3 weeks. On arrival, satting 83% on room air. Does not wear oxygen normally. Has marked edema in his left arm and bilateral lower extremities with some distention of his abdomen. Imaging of his chest abdomen and pelvis shows moderately sized bilateral pleural effusions. Requiring 3 L for goal sats in the 90s. White count marginally elevated at 13. Kidney function more or less at his baseline to BUN 31, creatinine 0.9. Medicine was consulted for admission and management of his acute respiratory failure with new oxygen requirement in the setting of large effusions and need for possible diagnostic and therapeutic thoracentesis. Patient also noted to have NSTEMI with troponin of 0.29. From review of his chart, he saw oncology on 05/05. Continued to complain of swelling at that time. Having mainly swelling in his scrotum, left upper extremity, legs and neck. Was started on Medrol Dosepak that helped his breathing and neck swelling but less or benefit on the swelling in his extremities and groin. Not using any diuretics at this time. He denies fevers, nausea, vomiting, syncope, confusion, chest pain. He is seeing Dr. Burch in oncology with diagnosis of his cancer, but states he is considering a second opinion. Hospital Course Hospital Course Hospital Course: Deshawn Sierra is a 60-year-old male with 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 Presented with shortness of breath and back pain. Found to have bilateral pleural effusions, anasarca. #Acute hypoxic respiratory failure, resolved #Anasarca #Bilateral pleural effusions #Ascites #Scrotal edema #Metastatic signet cell carcinoma #History of DVT ? Presented with shortness of breath, CT chest/abdomen/pelvis on 06/05/2025 showed moderate bilateral pleural effusions, moderate volume ascites around liver and spleen, large hydrocele and edema, anasarca of the abdomen and pelvis. ? Initial BNP insignificant at 160, low suspicion for heart failure. Liver ultrasound unremarkable for cirrhosis. ? ECHO shows normal biventricular systolic function, without significant diastolic dysfunction. There is noted increased left LV wall thickness. ? Patient has asymmetrical left upper extremity swelling with pitting edema. ? Venous Dopplers of lower extremities, left upper extremity unremarkable for DVT. ? Unclear where anasarca is coming from, possibly from metastatic signet cell carcinoma. ? S/p IR guided in 725 thoracentesis with 1.5 L output, unable to find a pocket for paracentesis. Patient tolerated procedure well, follow-up pleural studies. ? D-dimer significantly elevated > 8.10. Low suspicion for PE at this time given patient's hypoxia significantly improved with diuresis. Discussed with pulmonology and cardiology, agreed with this. ? Clinically improved with IV Bumex and spironolactone diuresis. Transitioned to Bumex 2 mg daily. ? Patient at this time would like to explore treatment options for metastatic signet cell adenocarcinoma. He was advised to follow-up with Dr. Burch as soon as possible. He is not interested in hospice care. ? Resume home Eliquis 5 mg twice daily for remote history of DVT in the setting of suspected malignancy. #NSTEMI #CAD ? Troponins peaked at 0.43, down trended to 0.29. EKG without acute ischemic changes. ? Treated with heparin drip, discontinued today. ? Cardiology consulted, noted mild coronary artery calcification on CT chest. ECHO shows normal biventricular systolic function with mild RV dilatation. ? Discussed with cardiology, no plans for intervention at this time. Will pursue outpatient ischemic workup. ? Started aspirin 81 mg, atorvastatin 40 mg. #Left hip pain ? Patient complains of left hip pain, popping noise after climbing up stairs day before admission. ? He is able to ambulate without much distress. Will consider imaging if clinically worsens. ? Hip x-ray without acute findings. Discharged with meloxicam 7.5 mg twice daily as needed. Resume famotidine 20 mg daily for GERD Resume home BuSpar 15 mg twice daily for anxiety Back pain and history of neuropathy: Initiate gabapentin 100 mg 3 times a day. Metastatic signet ring cell carcinoma: resume dexamethasone 4 mg daily started by his oncologist for swelling will continue to have goals of care discussions; pending results from thoracentesis. Total time spent on discharge: 32 minutes on chart review, counseling, documentation, and direct care with patient. Exam Data for Last 24 hours Vital signs and Labs for Last 24 Hours: Temp Pulse Resp BP Pulse Ox O2 Del Method O2 Flow Rate 98.1 F 79 17 159/86 H 95 Nasal Cannula 2 06/08/25 12:00 06/08/25 12:19 06/08/25 12:00 06/08/25 12:00 06/08/25 12:00 06/08/25 06:25 06/08/25 06:25 FiO2 28 06/08/25 06:10 Laboratory Results - last 24 hr 06/06/25 10:24: Fluid Glucose 2, Fluid Total Protein 3.9, Fluid Albumin 2.6, Fluid LDH 1254 06/08/25 06:27: WBC 13.1 H, RBC 3.20 L, Hgb 9.9 L, Hct 30.0 L, MCV 93.8, MCH 30.9, MCHC 33.0, RDW 16.3, Plt Count 103 L, MPV 12.1 H, Neut % (Auto) 76.2, Lymph % (Auto) 10.9, [place] % (Auto) 7.0, Eos % (Auto) 0.5, Baso % (Auto) 0.4, Neut # (Auto) 10.0 H, Lymph # (Auto) 1.4, [place] # (Auto) 0.9, Eos # (Auto) 0.1, Baso # (Auto) 0.1, Total Counted 100, Neutrophils % (Manual) 80 H, Lymphocytes % (Manual) 18, Monocytes % (Manual) 2, Platelet Estimate Normal, RBC Morphology Normal, Sodium 135 L, Potassium 3.8, Chloride 102, Carbon Dioxide 28, Anion Gap 8.8, BUN 38 H D, Creatinine 1.10, Estimated Creat Clear 112, Estimated GFR 68, Est GFR ( Amer) 82, Glucose 95, Calcium 9.1, Magnesium 2.3, Total Bilirubin 2.2 H, AST 58 D, ALT 40 D, Alkaline Phosphatase 447 H, Total Protein 5.2 L, Albumin 2.6 L D, Globulin 2.6, Albumin/Globulin Ratio 1.0 L I & O for Last 24 hours: Intake & Output 06/05/25 06/06/25 06/07/25 06/08/25 23:59 23:59 23:59 23:59 Intake Total 880 / 1060 2060.000 / 2060.000 17.333 / 17.333 Output Total 0 / 0 3075 / 3075 1525 / 1525 150 / 150 Balance 0 / 0 -2195 / -2015 535.000 / 535.000 -132.667 / -132.667 Weight 108.771 kg 107.184 kg 107.184 kg 113.489 kg Microbiology Reports for the Last 24 Hours: Microbiology 06/06/25 10:24 Thoracic Fluid Gram Stain - Final 06/06/25 10:24 Thoracic Fluid Body Fluid Culture - Preliminary NO GROWTH AFTER 24 HOURS Constitutional Constitutional: no acute distress *Routine HEENT Exam Head: Present normocephalic Eye: Present EOMI and PERRL ENT: Present mucous membranes moist *Routine Neck Exam Neck: Present supple; Absent lymphadenopathy *Routine Respiratory Exam Respiratory: Present CTA bilaterally *Routine Cardiovascular Exam Cardiovascular: Present RRR *Routine Abdominal Exam Abdominal: Present soft, normoactive bowel sounds and distended; Absent tenderness Comments: Scrotal edema improving *Routine Extremities Exam Extremities: Present edema; Absent cyanosis or clubbing *Routine Skin Exam Skin: Present warm; Absent rash *Routine Neurological Exam Neurological: Present alert and oriented X3 Results Data Completed and Pending Labs on day of discharge: Labs from last 24 hours 06/08/25 06/06/25 06:27 10:24 WBC 13.1 H RBC 3.20 L Hgb 9.9 L Hct 30.0 L MCV 93.8 MCH 30.9 MCHC 33.0 RDW 16.3 Plt Count 103 L MPV 12.1 H Neut % (Auto) 76.2 Lymph % (Auto) 10.9 Coryell % (Auto) 7.0 Eos % (Auto) 0.5 Baso % (Auto) 0.4 Neut # (Auto) 10.0 H Lymph # (Auto) 1.4 Coryell # (Auto) 0.9 Eos # (Auto) 0.1 Baso # (Auto) 0.1 Total Counted 100 Neutrophils % (Manual) 80 H Lymphocytes % (Manual) 18 Monocytes % (Manual) 2 Platelet Estimate Normal RBC Morphology Normal Sodium 135 L Potassium 3.8 Chloride 102 Carbon Dioxide 28 Anion Gap 8.8 BUN 38 H D Creatinine 1.10 Estimated Creat Clear 112 Estimated GFR 68 Est GFR ( Amer) 82 Glucose 95 Calcium 9.1 Magnesium 2.3 Total Bilirubin 2.2 H AST 58 D ALT 40 D Alkaline Phosphatase 447 H Total Protein 5.2 L Albumin 2.6 L D Globulin 2.6 Albumin/Globulin Ratio 1.0 L Fluid Glucose 2 Fluid Total Protein 3.9 Fluid Albumin 2.6 Fluid LDH 1254 Preliminary micro results at discharge 06/06/25 10:24 Body Fluid Culture - Preliminary Thoracic Fluid NO GROWTH AFTER 24 HOURS DS: Diagnosis Discharge Diagnosis (1) Acute hypoxemic respiratory failure: Status: Acute Code(s): J96.01 - Acute respiratory failure with hypoxia (2) Pleural effusion: Status: Acute Code(s): J90 - Pleural effusion, not elsewhere classified Meds Home Medications and Allergies Home Medications ?Medication ?Instructions ?Recorded ?Confirmed ?Type mecobalamin (vitamin B12) 1,000 1,000 mcg PO DAILY #60 ea 04/06/25 06/11/25 Rx mcg lozenges famotidine 20 mg tablet (Pepcid) 20 mg PO DAILY #30 tabs 05/05/25 06/11/25 Rx Lactobacillus rhamnosus GG 20 20 cell PO DAILY 05/19/25 06/11/25 History billion cell capsule (Probiotic Digestive Care) buspirone 15 mg tablet 15 mg PO BID #60 tabs 05/19/25 06/11/25 Rx apixaban 5 mg tablet (Eliquis) 5 mg PO BID #60 tabs 05/26/25 06/11/25 Rx aspirin 81 mg tablet 81 mg PO DAILY #30 tabs 06/08/25 06/11/25 Rx atorvastatin 40 mg tablet (Lipitor) 40 mg PO HS #30 tabs 06/08/25 06/11/25 Rx bumetanide 2 mg tablet 2 mg PO DAILY 30 days #30 tabs 06/08/25 06/11/25 Rx gabapentin 100 mg capsule 100 mg PO TID 30 days #90 caps 06/08/25 06/11/25 Rx spironolactone 25 mg tablet 25 mg PO DAILY 30 days #30 tabs 06/08/25 06/11/25 Rx dexamethasone 4 mg tablet 4 mg PO DAILY 06/11/25 06/11/25 History hydroxyzine HCl 25 mg tablet 25 mg PO TIDP PRN anxiety 06/11/25 06/11/25 History meloxicam 7.5 mg tablet 7.5 mg PO BIDP PRN Mild Pain 06/11/25 06/11/25 History (Scale Score 1-4) New Prescriptions to Start Prescriptions: aspirin Francisco,Mega atorvastatin [Lipitor] Francisco,Mega bumetanide Francisco,Mega gabapentin Francsico,Mega spironolactone Francisco,Mega Allergies Allergy/AdvReac Type Severity Reaction Status Date / Time Iodinated Contrast Media Allergy Unknown Verified 05/26/25 11:33 allergy reaction Discharge Plan Disposition Patient Disposition: Home, Self-Care Condition: Fair Discharge Order Discharge Orders: Discharge Order (Routine); Ordered 06/08/25 Ordered By: Mega Singh Follow up Plan Follow up with: Dionne Lorenzana APRN [Nurse Practitioner, Medical] - 06/17/25 11:45 am Dannie Burch MD [Staff Physician, Oncology] - 06/23/25 1:30 pm Ladi Nunn MD [Physician, Pulmonology] - 06/23/25 1:00 pm Will Gutierrez MD [Staff Physician, Cardiology] - 06/14/25 1:30 pm Prescriptions/Medication Reconciliation: New spironolactone 25 mg Tablet 25 mg PO DAILY 30 Days Qty: 30 0RF gabapentin 100 mg Capsule 100 mg PO TID 30 Days Qty: 90 0RF bumetanide 2 mg tablet 2 mg PO DAILY 30 Days Qty: 30 0RF aspirin 81 mg tablet 81 mg PO DAILY Qty: 30 0RF atorvastatin [Lipitor] 40 mg tablet 40 mg PO HS Qty: 30 0RF Continued famotidine [Pepcid] 20 mg tablet 20 mg PO DAILY Qty: 30 3RF Eliquis 5 mg tablet 5 mg PO BID Qty: 60 2RF Probiotic Digestive Care 20 billion cell capsule 20 cell PO DAILY buspirone 15 mg tablet 15 mg PO BID Qty: 60 2RF mecobalamin (vitamin B12) 1,000 mcg lozenge 1,000 mcg PO DAILY Qty: 60 2RF Discontinued furosemide [Lasix] 20 mg tablet 20 mg PO BID PRN (Reason: edema) Qty: 60 2RF No Action dexamethasone 4 mg tablet 4 mg PO DAILY meloxicam 7.5 mg tablet 7.5 mg PO BIDP PRN (Reason: Mild Pain (Scale Score 1-4)) hydroxyzine HCl 25 mg tablet 25 mg PO TIDP PRN (Reason: anxiety) Problem Reconciliation Problems Reviewed?: Yes Patient Discharge Instructions Patient Instructions: DI for Abdominal Paracentesis, DI for Thoracentesis, DI for Surgical Site Infection, DI for Respiratory Failure, DI for Pleural Effusion Print Language: Albanian Providers Primary Care Provider: Rupesh Arvizu Admit Provider: Carlos Noguera Attending Provider: Carlos Noguera
--- NOTE | 2025-06-09 11:33 | SW/DCPLANNER ---
Spoke with patient's daughter on the phone. Patient's daughter stated that he is doing okay. Patient's daughter stated that he is in some pain and not moving around alot. Patient's daughter stated that she is aware of his upcoming appointments. Patient's daughter stated that they were able to get his new medicine picked up from [facility]. Patient's daughter stated that she has no concerns or questions at this time. Panda MSAON Retouching Operator
== END 2025-06-08 18:00 | disposition home or self-care (01) | DRG 843 ==
LOC: ER 21:07 → 2ND 23:40
PROVIDERS: Nurse Practitioner; Student in an Organized Health Care Education/Training Program; Admitting Provider Internal Medicine Adolescent Medicine; Emergency Provider Emergency Medicine; PCP Internal Medicine; Visit Provider Internal Medicine Adolescent Medicine
DX: C80.1 Malignant (primary) neoplasm, unspecified (principal); E43 Unspecified severe protein-calorie malnutrition; I21.4 Non-ST elevation (NSTEMI) myocardial infarction; J96.01 Acute respiratory failure with hypoxia; J18.9 Pneumonia, unspecified organism; R18.8 Other ascites; N17.9 Acute kidney failure, unspecified; K56.7 Ileus, unspecified; C79.51 Secondary malignant neoplasm of bone; C77.3 Secondary and unspecified malignant neoplasm of axilla and upper limb lymph nodes; J91.0 Malignant pleural effusion; I10 Essential (primary) hypertension; K76.1 Chronic passive congestion of liver; I25.10 Atherosclerotic heart disease of native coronary artery without angina pectoris; N50.89 Other specified disorders of the male genital organs; N43.3 Hydrocele, unspecified; E78.5 Hyperlipidemia, unspecified; K59.03 Drug induced constipation; K21.9 Gastro-esophageal reflux disease without esophagitis; F41.9 Anxiety disorder, unspecified; M54.9 Dorsalgia, unspecified; M25.552 Pain in left hip; G62.9 Polyneuropathy, unspecified; T50.995A Adverse effect of other drugs, medicaments and biological substances, initial encounter; Z51.5 Encounter for palliative care; Z68.26 Body mass index [BMI] 26.0-26.9, adult; Z86.718 Personal history of other venous thrombosis and embolism; Z87.891 Personal history of nicotine dependence; Z91.041 Radiographic dye allergy status; Z79.01 Long term (current) use of anticoagulants; Z79.899 Other long term (current) drug therapy
CPT/HCPCS: 32555; 36415; 71045; 71046; 71250; 73502; 74018; 74176; 76705; 80048; 80053; 80076; 80202; 82042; 82607; 82728; 82746; 82803; 82945; 82977; 83010; 83540; 83550; 83605; 83615; 83690; 83735; 83880; 83986; 84157; 84484; 84550; 85007; 85025; 85378; 85610; 85730; 87040; 87070; 87077; 87081; 87186; 87205; 88112; 88305; 89051; 89220; 93005; 93306; 93970; 93971; 94640; 94761; 97163; 97165; 97530; 99284; 99285; J0692; J1171; J1308; J1644; J1885; J1939; J2003; J2020; J2270; J2360; J2405; J2470; J2550; J3360; J3373; J3375; J3480; J7040; J7050; J7120; J8540

== ENCOUNTER 2025-06-10 14:58 | Inpatient (IN) | payer OTHER, SELFPAY ==
--- OUTSIDE RECORDS SUMMARY | 2025-05-03 09:23 | XMS_ITS | Encounter Summary ---
Author Organization [employer] ([place], [place], [place], [place]) Address [address] [place] [address] Care Team Providers Care Lead Caster Helper Name Role Phone Unavailable Primary Care Provider Unavailabl e Reason for Referral * CAT Scan (Routine) - New Request Specialty Diagnoses / Procedures Referred By Dg zafar Referred To Contact Radiology Diagnoses Malignant neoplasm of body of stomach (HCC) Procedures PET/CT Skull Base-Mid Thigh (Whole Body) Dannie Burch MD [address] [place] [address] Phone: tel: fax: Referral ID Status Reason Start Date Expiration Date V isits Requested Visits Authorized [id number] New Request 04/28/2025 04/28/2026 1 1 Reason for Visit * CAT Scan (Routine) - New Request Specialty Diagnoses / Procedures Referred By Dg zafar Referred To Contact Radiology Diagnoses Malignant neoplasm of body of stomach (HCC) Procedures PET/CT Skull Base-Mid Thigh (Whole Body) Dannie Burch MD [address] [place] [address] Phone: tel: fax: Referral ID Status Reason Start Date Expiration Date V isits Requested Visits Authorized [id number] New Request 04/28/2025 04/28/2026 1 1 Encounter Details Date Type Department Care Team (Latest Contact Info) Description 05/03/2025 9:23 AM EDT - 05/03/2025 11:59 PM EDT Hospital Encounter [facility] PET CT - [address] [employer] [address] [place] [address] Dannie Burch MD [address] [place] [address] Malignant neoplasm of body of stomach (HCC) Discharge Disposition: Home or Self Care Social History Tobacco Use Types Packs/Day Years Used Date Smoking Tobacco: Never Assessed Sex and Gender Information Value Date Recorded Sex Assigned at Not on file Legal Sex Male 4:55 PM CDT Gender Identity Not on file Sexual Orientation Not on file documented as of this encounter Plan of Treatment Not on file documented as of this encounter Procedures Procedure Name Priority Date/Time Associated Diagnosis Comments P.E.T./CT SKULL BASE TO MID-THIGH Routine 05/03/2025 11:39 AM EDT Malignant neoplasm of body of stomach (HCC) documented in this encounter Results * PET/CT Skull Base-Mid Thigh (Whole Body) (05/03/2025 11:39 AM EDT) Anatomical Region Laterality Modality Positron Emissio n Tomography (PET) 05/03/2025 12:3 3 PM EDT Impressions 05/03/2025 1:04 PM EDT S1 hypermetabolic lesion compatible with metastatic disease. Hypermetabolism in the left lower neck, right hilum, and lower thoracic spine within the range for malignancy. Moderate bilateral pleural effusions. Images reviewed, interpreted, and dictated by Dr. Lolis Branham. Transcribed by Son Santiago PA-C. Narrative 05/03/2025 1:04 PM EDT PROCEDURE: PET/CT IMAGING, SKULL BASE TO MID THIGH INDICATION: Metastatic signet ring cell cancer, initial staging. TECHNIQUE: 16.9 mCi of 18-FDG was injected intravenously with a fasting blood glucose of 98 mg/dl. PET/CT images were obtained from skull base to mid thigh. COMPARISON: None FINDINGS: There are several small hypermetabolic left lower neck lymph nodes with a maximum SUV of 5.4. There are moderate bilateral pleural effusions, right greater than left. There is hypermetabolism in the right hilum with a maximum SUV of 4.9. There are no foci of hypermetabolism in the lungs. There is an 18 mm left axillary lymph node which is not hypermetabolic. The liver, spleen, renal collecting systems, and bladder demonstrate expected FDG uptake. There is no suprarenal hypermetabolism to suggest adrenal metastasis. GI uptake is normal. There is no hypermetabolic abdominal or pelvic lymphadenopathy. Hypermetabolic lesion within S1 with a maximum SUV of 12.5. There are several hypermetabolic lesions within the lower thoracic spine. For example hypermetabolism in the T9 vertebrae demonstrate a maximum SUV of 4.6. Procedure Note Lolis Branham MD - 05/03/2025 PROCEDURE: PET/CT IMAGING, SKULL BASE TO MID THIGH INDICATION: Metastatic signet ring cell cancer, initial staging. TECHNIQUE: 16.9 mCi of 18-FDG was injected intravenously with a fasting blood glucose of 98 mg/dl. PET/CT images were obtained from skull base to mid thigh. COMPARISON: None FINDINGS: There are several small hypermetabolic left lower neck lymph nodes with a maximum SUV of 5.4. There are moderate bilateral pleural effusions, right greater than left. There is hypermetabolism in the right hilum with a maximum SUV of 4.9. There are no foci of hypermetabolism in the lungs. There is an 18 mm left axillary lymph node which is not hypermetabolic. The liver, spleen, renal collecting systems, and bladder demonstrate expected FDG uptake. There is no suprarenal hypermetabolism to suggest adrenal metastasis. GI uptake is normal. There is no hypermetabolic abdominal or pelvic lymphadenopathy. Hypermetabolic lesion within S1 with a maximum SUV of 12.5. There are several hypermetabolic lesions within the lower thoracic spine. For example hypermetabolism in the T9 vertebrae demonstrate a maximum SUV of 4.6. IMPRESSION: S1 hypermetabolic lesion compatible with metastatic disease. Hypermetabolism in the left lower neck, right hilum, and lower thoracic spine within the range for malignancy. Moderate bilateral pleural effusions. Images reviewed, interpreted, and dictated by Dr. Lolis Branham. Transcribed by Son Santiago PA-C. Dannie Burch MD IMG CT ORDERABLES Final Result documented in this encounter Visit Diagnoses Diagnosis Malignant neoplasm of body of stomach (HCC) Malignant neoplasm of body of stomach documented in this encounter
[2025-06-10] VITALS (13 sets, daily range): BP systolic 120–145; BP diastolic 75–108; PULSE 71–98; RESP 16–37; TEMP 36.6–36.8; O2SAT 91–100; BMI 28.7; BMI 29.2
--- NOTE | 2025-06-10 15:07 | ED_ITS ---
Discharge Plan Disposition Patient Disposition: Admitted Condition: Fair Clinical Impressions Clinical Impression: Community acquired pneumonia, Acute hypoxic respiratory failure, Bilateral pleural effusion Discharge ED Provider: Jaycob Farr HPI General Chief Complaint: Shortness of Breath/Dyspnea Stated Complaint: SOB Time Seen by Provider: 06/10/25 15:08 History of Present Illness HPI narrative: This is a 60-year-old male patient, with past medical history of metastatic signet ring cell carcinoma, history of bilateral pleural effusions, who is presenting to the emergency department today for evaluation of dyspnea. Patient was seen by oncology on 05 05 secondary to continued swelling at that time. Swelling included the scrotum, left upper extremity, legs and neck. He was told by Medrol Dosepak that helped with his breathing and had less benefit on the swelling he was experiencing. He presented to the emergency department last week and was admitted for pleural effusions in the setting of an NSTEMI. We optimize his diuretic regimen and discharged him home on 2 mg of Bumex daily Patient states that he has had worsening shortness of breath since discharge home. His family states that he is still experiencing baseline swelling of the left upper extremity and left lower extremity. Regarding hospice care, he states that he is still not ready to pursue hospice. He is not having any chest pain. No abdominal pain. He arrived to the hospital on 15 L nonrebreather. Related Data Home Medications ?Medication ?Instructions ?Recorded ?Confirmed Lactobacillus rhamnosus GG 20 20 cell PO DAILY 5 06/05/25 billion cell capsule (Probiotic Digestive Care) Previous Rx's ?Medication ?Instructions ?Recorded mecobalamin (vitamin B12) 1,000 1,000 mcg PO DAILY #60 ea 04/06/25 mcg lozenges dexamethasone 4 mg tablet 4 mg PO DAILY #30 tabs 05/05 famotidine 20 mg tablet (Pepcid) 20 mg PO DAILY #30 ta bs 05/05/25 buspirone 15 mg tablet 15 mg PO BID #60 tabs hydroxyzine HCl 25 mg tablet 25 mg PO TID PRN anxiety #30 tabs 05/19/25 apixaban 5 mg tablet (Eliquis) 5 mg PO BID #60 tabs aspirin 81 mg tablet 81 mg PO DAILY #30 tabs 04/25 atorvastatin 40 mg tablet (Lipitor) 40 mg PO HS #30 ta bs 06/08/25 bumetanide 2 mg tablet 2 mg PO DAILY 30 days #30 ta bs 06/08/25 gabapentin 100 mg capsule 100 mg PO TID 30 days #90 ca ps 06/08/25 meloxicam 7.5 mg tablet 7.5 mg PO BIDP PRN pain 7 da ys #14 06/08/25 tabs spironolactone 25 mg tablet 25 mg PO DAILY 30 days #30 tabs 06/08/25 Allergies Allergy/AdvReac Type Severity Reaction Status Date / Time Iodinated Contrast Media Allergy Unknown Verified 05/26/25 11:33 allergy reaction [facility] Disclaimer: The information contained in this section may have been updated after the patient was seen, as this information can be updated by other users. Medical History Metastatic signet ring cell carcinoma Carotid stenosis Constipation Nasal bleeding Paralysis of right vocal cord Dysphonia Distal radius fracture, left Urinary tract infection Osteophyte History of tobacco abuse Weight loss Hoarseness of voice Laryngitis Hernia, umbilical Vertigo Urinary problem in male Cough Surgical History Hx of cardiac cath Family History Other Family history of diabetes mellitus type II Social History Smoking Status: Never smoker smoking status stop date: 2014 how long ago did patient quit smokin alcohol intake: never substance use type: denies use current occupational status: employed Travel in the last 8 weeks?: None household members: none housing: house lives independently: Yes marital status: single special hallie needs: No agree to transfusion: No do you feel safe at home: Yes victim of physical abuse: No victim of emotional abuse: No victim of sexual abuse: No would you like helpful sources: No Have you lived/traveled outside [place] in past 30 days?: No Contact w/someone who lives/traveled outside [place] past 30 days?: No Exposure to someone with infectious disease in past 14 days?: No Do you have a fever (greater than 100.4 F or 38 C)?: No Have you tested positive for COVID-19?: No Exposed to someone with COVID-19 in past 14 days?: No Do you have a sore throat?: No Do you have a cough?: No Do you have any weakness?: No Do you have any diarrhea?: No Are you experiencing any unusual bleeding?: No Do you have any muscle aches/pain?: No Do you have any abdominal pain?: No Are you experiencing loss of taste or smell?: No Other Medical History Have you received the Flu Vaccine for this season: No Have you received the Pneumonia Vaccine: No ROS Obtained: Yes Systems reviewed as appropriate & no additional complaints except as documented Physical Exam General General appearance: other (See MDM) Respiratory Respiratory exam: Present other (See MDM) Cardiovascular Cardiovascular exam: Present other (See MDM) Neurological Exam Neurological exam: Present other (See MDM) HEART Score HEART Score HEART Score assessment performed?: No Critical Care Critical Care Time Critical Care Time: No Medical Decision Making Medical Records Medical records reviewed: Yes I reviewed the patient's medical records. Jamil Inquiry Pt receiving controlled substance: No Jamil was queried for this patient: No Vital Signs Vital Signs: 06/10/25 15:06 06/10/25 15:06 06/10/25 15:10 Temperature 98.0 F Temperature Source Oral Pulse Rate 85 Pulse Rate [Left Radial] 93 H Respiratory Rate 16 18 Blood Pressure 130/84 Blood Pressure [Right Arm] 126/82 Blood Pressure Mean Blood Pressure Mean [Right Arm] 96 02 Sat by Pulse Oximetry 99 97 95 Oxygen Delivery Method Nasal Cannula Nasal Cannula Room Air Oxygen Flow Rate (LPM) 2 3 06/10/25 15:30 06/10/25 16:00 06/10/25 16:18 Temperature Temperature Source Pulse Rate 95 H 92 H Pulse Rate [Left Radial] Respiratory Rate 23 28 H Blood Pressure 129/85 126/108 H 120/84 Blood Pressure [Right Arm] Blood Pressure Mean 97 Blood Pressure Mean [Right Arm] 02 Sat by Pulse Oximetry 96 97 97 Oxygen Delivery Method Room Air Nasal Cannula Nasal Cannula Nasal Cannula Oxygen Flow Rate (LPM) 3 3 3 06/10/25 16:30 06/10/25 17:00 06/10/25 17:30 Temperature Temperature Source Pulse Rate 90 91 H 98 H Pulse Rate [Left Radial] Respiratory Rate 22 31 H 19 Blood Pressure 122/89 135/91 H 128/88 Blood Pressure [Right Arm] Blood Pressure Mean Blood Pressure Mean [Right Arm] 02 Sat by Pulse Oximetry 97 94 L 92 L Oxygen Delivery Method Nasal Cannula Nasal Cannula Nasal Cannula Oxygen Flow Rate (LPM) 3 2 2 06/10/25 18:00 06/10/25 18:26 Temperature Temperature Source Pulse Rate 93 H Pulse Rate [Left Radial] Respiratory Rate 37 H Blood Pressure 121/75 121/84 Blood Pressure [Right Arm] Blood Pressure Mean Blood Pressure Mean [Right Arm] 02 Sat by Pulse Oximetry 91 L 100 Oxygen Delivery Method Nasal Cannula Nasal Cannula Oxygen Flow Rate (LPM) 2 2 Lab Data Labs: Lab Results 06/10/25 15:08: VBG pH 7.36, VBG pCO2 46.8, VBG pO2 34.9, VBG HCO3 26.0, VBG Total CO2 27.5 H, VBG O2 Saturation 60.8, VBG Base Excess 0.6, VBG Lactic Acid 2.1 H 06/10/25 15:45: WBC 15.9 H, RBC 2.97 L, Hgb 9.5 L, Hct 28.6 L, MCV 96.3 H, MCH 32.0 H, MCHC 33.2, RDW 17.6 H, Plt Count 143 D, MPV 11.1 H, Neut % (Auto) 74.7, Lymph % (Auto) 10.0, [place] % (Auto) 6.6, Eos % (Auto) 0.6, Baso % (Auto) 0.5, N eut # (Auto) 11.8 H, Lymph # (Auto) 1.6, [place] # (Auto) 1.1 H, Eos # (Auto) 0.1, Baso # (Auto) 0.1, Total Counted 100, Neutrophils % (Manual) 76, Lymphocytes % (Manual) 9 L, Monocytes % (Manual) 10 H, Basophils % (Manual) 1, Myelocytes % 4 H, Nucleated RBCs 4, Platelet Estimate Normal, Polychromasia 1+, Poikilocytosis 1+, Basophilic Stippling 1+, Anisocytosis 1+, Microcytosis 1+, Macrocytosis 1+, Spherocytes 1+, Target Cells 1+, Tear Drop Cells 1+, Helmet Cells 1+, Sodium 134 L, Potassium 4.2, Chloride 98, Carbon Dioxide 29, Anion Gap 11.2, BUN 52 H D, C reatinine 1.40 H D, Estimated Creat Clear 81, Estimated GFR 51 L, Est GFR ( Amer) 62 D, Glucose 108 H, Calcium 9.5, Total Bilirubin 2.6 H, AST 46, ALT 45, Alkaline Phosphatase 538 H, Troponin I 0.62 H, NT-Pro-B Natriuret Pep 407 H, Total Protein 6.0 L, Albumin 3.2 L, Globulin 2.8, Albumin/Globulin Ratio 1.1, Lipase 52 06/10/25 15:45 06/10/25 15:45 Response Orders (Tests/Meds): ED MEDICATIONS Generic Name Dose Route Start Last Admin Trade Name Freq PRN Reason Stop Dose Admin Acetaminophen 650 mg 06/10/25 18:40 Acetaminophen 325mg Tab PO 07/10/25 18:39 Q4HP PRN Fever or Mild Pain (1-3) Hydrocodone Bitart/Acetaminophen 1 tab 06/10/25 18:40 Hydrocodone/Apap 5/325 Mg Tablet PO 07/10/25 18:39 Q4HP PRN Mild to Moderate Pain (1-6) Bumetanide 2 mg 06/10/25 21:00 Bumetanide 1mg/4ml Vial IV 07/10/25 20:59 BID [facility] Vancomycin HCl 2,500 mg/ 500 mls @ 250 mls/hr 06/10/25 18:30 Sodium Chloride IV 06/10/25 20:29 ONCE ONE Cefepime HCl 2 gm/ Sodium 100 mls @ 200 mls/hr 06/10/25 18:45 Chloride IV 06/20/25 18:44 Q12H [facility] Miscellaneous 1 each 06/10/25 18:30 Vancomycin Consult Request NOTAPPLIC 07/10/25 18:29 CONSULT PHARMACY [facility] Miscellaneous 1 each 06/10/25 18:45 Vancomycin Consult Request NOTAPPLIC 07/10/25 18:44 CONSULT PHARMACY [facility] Morphine Sulfate 2 mg 06/10/25 19:01 Morphine 2mg/Ml Syringe IV 07/10/25 19:00 Q4HP PRN Severe Pain (7-10) Ondansetron HCl 4 mg 06/10/25 18:40 Ondansetron 4mg/2ml Vial IV 07/10/25 18:39 Q8HP PRN Nausea Sodium Chloride 3 ml 06/10/25 18:20 Sodium Chloride 3% 15ml Neb IH 07/10/25 18:19 ONCE PRN INDUCE SPUTUM COLLECTION Sodium Chloride 3 ml 06/10/25 18:40 Sodium Chloride 3% 15ml Neb IH 07/10/25 18:39 ONCE PRN INDUCE SPUTUM COLLECTION Spironolactone 25 mg 06/11/25 09:00 Spironolactone 25mg Tablet PO 07/11/25 08:59 DAILY [facility] Discontinued Medications Generic Name Dose Route Start Last Admin Trade Name Freq PRN Reason Stop Dose Admin Aspirin 325 mg 06/10/25 15:08 06/10/25 15:43 Aspirin 325mg Tablet PO 06/10/25 15:09 325 mg ONCE ONE Administration Morphine Sulfate 4 mg 06/10/25 16:32 06/10/25 16:42 Morphine 4mg/Ml Syringe IV 06/10/25 16:33 4 mg ONCE ONE Administration Ondansetron HCl 4 mg 06/10/25 16:40 06/10/25 16:42 Ondansetron 4mg/2ml Vial IV 06/10/25 16:41 4 mg ONCE ONE Administration ORDERS Category Date Time Status CXR --portable [XR chest portable] Stat Exams 06/10/25 15:08 Completed POCUS Point of Care (ER Only) Stat Exams 06/10/25 17:14 Completed BNP [NT Pro Brain Natriuretic Pep.] Stat Lab 06/10/25 15:45 Completed CBC w/Auto Diff [Complete Blood Count Auto Diff] Stat Lab 06/10/25 15:45 Completed CMP [Comprehensive Metabolic Panel] Stat Lab 06/10/25 15:45 Completed Lipase Stat Lab 06/10/25 15:45 Completed Troponin I Q3H Lab 06/10/25 19:06 Received Troponin I Q3H Lab 06/10/25 21:15 Ordered Troponin I Stat Lab 06/10/25 15:45 Completed Blood Culture Stat Micro 06/10/25 19:06 Received Sputum Culture & Gram Stain Stat Micro 06/10/25 18:20 Ordered VBG [Venous Blood Gas] Stat RT 06/10/25 15:08 Completed ECG Data Tracing #1: Attestation: I reviewed this ECG and interpreted as documented below: ECG Narrative: EKG personally turbid by me demonstrates normal sinus rhythm at a rate of 91 bpm, normal axis, no VA prolongation, narrow QRS, no QTc prolongation. No ST elevation or depression. No overt signs of STEMI. There is an isolated T wave inversion in lead III, incomplete right bundle branch but morphology. MDM Narrative Medical Decision Narrative: In summary this is a 60-year-old gentleman who is chronically ill from metastatic signet ring cell carcinoma who presented to the emergency department today for evaluation of shortness of breath. He arrives on nonrebreather. He is not having chest pain. His comorbidities include obvious metastatic signet ring cell carcinoma as well as recurrent pleural effusions and volume overload for which he is on diuretics. On initial evaluation of the patient he had been transitioned off of nonrebreather and was on 3 L of nasal cannula. He appears to have increased work of breathing. His lung sounds are decreased in the lateral bases. He has abdominal distention with no tenderness to palpation. He has asymmetric extremity edema the left upper extremity and left lower extremity. His family tells me that this is chronic and is not unchanged from prior and he has been compliant with his Bumex and Eliquis 5 mg p.o. twice daily at home Differential diagnosis includes ACS/PA, recurrent pleural effusion, pulmonary edema, community-acquired pneumonia, among others. The patient has metastatic lesions present in his spine so he is having significant pain in his back and is requesting pain medication. We have administered 4 mg of morphine and 4 mg of Zofran. Workup was initiated with hematologic labs. The patient is allergic to iodinated contrast so we were unable to obtain a CT PE study here in the emergency department. Chest x-ray was personally interpreted by me and demonstrates bilateral infiltrates in the lung jackson as well as hypoinflation. This could be due to underlying pneumonia. I have interviewed the patient and family again at the bedside and they do state that he has been coughing more recently. Additionally, I have reviewed a Gram stain from thoracic fluid cultures obtained on 06/06/2025 which showed gram-positive cocci. At this time we have extended the patient out to include vancomycin and Rocephin for community-acquired pneumonia. Labs were personally interpreted by me and demonstrate a leukocytosis of 15.9 which is likely due to infectious etiology. His anemia is stable from prior with an H&H of 9.5/28.6. His VBG shows no evidence of hypercapnia or acidosis. Creatinine is mildly increased from prior at 1.4 today, 1.1 prior. He has no significant electrolyte derangements. His troponin did result significantly elevated at 0.62. This is much higher than prior which was 0.29. This is consistent with an NSTEMI as his EKG shows no evidence of ST elevations. I discussed this case directly Dr. Dupont. He remembers this patient and states that he improved during his last hospitalization with diuretics. He feels that it is reasonable to keep the patient on anticoagulation and admit him to the hospital for diuretic therapy as well as supplemental oxygen. Therefore I had an interactive discussion with the internal medicine service who agreed to evaluate the patient the emergency department. After our discussion and their evaluation they have agreed to admit the patient to their service and accept primary responsibility the patient moving forward.
--- NOTE | 2025-06-10 15:08 | XR_ITS ---
PROCEDURE INFORMATION: Exam: XR Chest Exam date and time: 06/10/2025 4:34 PM Age: 60 years old Clinical indication: Dyspnea TECHNIQUE: Imaging protocol: Radiologic exam of the chest. Views: 1 view. COMPARISON: CR XR CHEST PORTABLE 06/08/2025 9:36 AM FINDINGS: Lungs: Moderate increased infiltrates versus edema within the mid and lower lung zones. Pleural spaces: Unremarkable. No pleural effusion. No pneumothorax. Heart/Mediastinum: The heart size is within normal limits. Bones/joints: Unremarkable. IMPRESSION: Moderate increased infiltrates versus edema within the mid and lower lung zones.
[2025-06-10] MEDS: ASPIRIN 325MG TABLET 325 MG PO (15:43)
[2025-06-10 15:58] LABS: Hematocrit 28.6 % (42.0-52.0); Hemoglobin 9.5 g/dL (14.1-18.0); Immature Granulocytes % 7.6 %; Mean Corpuscular HGB Conc 33.2 g/dL (31.8-35.4); Mean Corpuscular Hemoglobin 32.0 pg (27.0-31.2); Mean Corpuscular Volume 96.3 fl (80-94); Nucleated Red Blood Cells % 1.7 %; Platelet Count 143 K/mm3 (142-424); Red Blood Count 2.97 M/mm3 (4.60-6.20); Red Cell Distribution Width-SD 59.2 fL; White Blood Count 15.9 K/mm3 (4.8-10.8)
[2025-06-10 15:59] LABS: VBG HCO3 26.0 mmol/L (23-30); VBG PCO2 46.8 mmol/L (35-51); VBG PH 7.36 mmol/L (7.31-7.41); VBG PO2 34.9 mmol/L (28-40)
[2025-06-10 16:00] LABS: Lactate Venous 2.1 mmol/L (0.4-2.0)
[2025-06-10 16:04] LABS: Alanine Aminotransferase 45 U/L (12-78); Albumin Level 3.2 g/dl (3.5-5.0); Albumin/Globulin Ratio 1.1 (1.1-1.8); Alkaline Phosphatase 538 U/L (38-126); Anion Gap 11.2 mEq/L (5-15); Aspartate Amino Transferase 46 U/L (17-59); Bilirubin,Total 2.6 mg/dl (0.2-1.3); Blood Urea Nitrogen 52 mg/dl (9-20); Calcium 9.5 mg/dl (8.4-10.2); Carbon Dioxide 29 mmol/L (22.0-30.0); Chloride 98 mmol/L (98-107); Creatinine Clearance Estimated 81 mL/min (50-200); Creatinine,Serum 1.40 mg/dl (0.66-1.25); Estimated Glomerular Filt Rate 51 ml/min (>60); GFR (African American) 62 ML/MIN (>60); Globulin 2.8 g/dL (1.3-3.2); Glucose 108 mg/dl (74-100); Lipase 52 U/L (23-300); Potassium 4.2 mmoL/L (3.5-5.1); Sodium 134 mmol/L (136-145); Total Protein,Serum 6.0 g/dl (6.3-8.2)
[2025-06-10 16:13] LABS: NT Pro Brain Natriuretic Pep. 407 pg/mL (0-125)
[2025-06-10 16:18] LABS: Troponin I 0.62 ng/ml (0.00-0.034)
--- NOTE | 2025-06-10 16:22 | ECG_ITS ---
APPROVED REPORT Exam: Resting ECG HR:91 bpm ECG Measurements Heart Rate 91 AXES AZ 148 P 8 QRSd 112 QRS 23 QT 351 T 3 QTc 400 Conclusion SINUS RHYTHM POSSIBLE RIGHT VENTRICULAR CONDUCTION DELAY [RSR (QR) IN V1/V2] Electronically signed by : Jaycob Farr, 06/11/2025 01:29:43
[2025-06-10 16:25] LABS: Total Cells Counted 100
[2025-06-10 16:28] LABS: Anisocytosis 1+
[2025-06-10 16:29] LABS: Basophilic Stippling 1+; Macrocytosis 1+; Microcytosis 1+; Poikilocytosis 1+; Polychromasia 1+; Target Cells 1+
[2025-06-10 16:33] LABS: Helmet Cells 1+; Tear Drop Cells 1+
[2025-06-10 16:35] LABS: Spherocytes 1+
[2025-06-10] MEDS: ONDANSETRON 4MG/2ML VIAL 4 MG IV (16:42)
[2025-06-10] MEDS: MORPHINE 4MG/ML SYRINGE 4 MG IV (16:42)
--- NOTE | 2025-06-10 18:32 | PC.NURSE ---
call made to [facility] for bed assignment
--- NOTE | 2025-06-10 18:47 | PC.NURSE ---
attempted to call report, nurse busy, unable to call report after [phone]
--- NOTE | 2025-06-10 18:54 | PC.NURSE ---
attempting to obtain cultures pt hard stick, only able to use the right arm due to edema on left arm.
--- NOTE | 2025-06-10 18:55 | P.HP_ITS ---
<Statement entered by Mega Singh MD - 06/14/25 12:39> Agree with the plan of care as outlined by the WATCH LEADER below. History of Present Illness *Admission Date: 06/10/25 *Reason for visit:: Shortness of breath *History of present illness: This is a 60-year-old male who is well-known to our service line and has a past medical history significant for metastatic signet ring cell carcinoma, NSTEMI, carotid stenosis, bilateral pleural effusion, umbilical hernia, vertigo, and pulmonary embolism who presents with a chief complaint of shortness of breath. Due to patient's symptoms, presented to the emergency room for evaluation. While in the emergency room, patient was requiring supplemental oxygen. Chest x-ray obtained in the emergency room showed moderate increased infiltrates versus edema within the mid and lower lung zones. As result of th gisell findings, patient has been admitted for further management. During my evaluation of patient, patient states that shortness of breath started today and progressively gotten worse. He reports he has been compliant with his Bumex that he was prescribed at discharge. Patient reports that he was having shortness of air that worsened with activity. Daughter reports that his pain got worse when he started to experience pain. She states that supplemental oxygen did help with some of his pain and he is breathing easier. She reports he does not have supplemental oxygen established at home. Patient was recently admitted on 06 05 due to NSTEMI and bilateral pleural effusions with possible pulmonary embolism. He was prescribed DOAC therapy but was not deemed a candidate for left heart cath. Patient did undergo thoracentesis on 06/07, and he had 750 mL of pleural fluid removed during medication. Patient is currently denying any chest pain, lightheadedness, dizziness, fever, chills, rigors, PND, orthopnea, cough, nausea, vomiting, or diarrhea. Additional pertinent values include a white blood cell count of 15.9, red blood cell count of 2.97, hemoglobin 9.5, hematocrit 28.6, sodium 134, BUN 52, creatinine 1.40, GFR 51, blood glucose 108, total bilirubin 2.6, alkaline phosphate of 538, troponin 0.62, BNP of 407, total protein is 6, and albumin 3.2. [facility] Disclaimer: The information contained in this section may have been updated after the patient was seen, as this information can be updated by other users. Medical History Metastatic signet ring cell carcinoma Carotid stenosis Constipation Nasal bleeding Paralysis of right vocal cord Dysphonia Distal radius fracture, left Urinary tract infection Osteophyte History of tobacco abuse Weight loss Hoarseness of voice Laryngitis Hernia, umbilical Vertigo Urinary problem in male Cough Surgical History Hx of cardiac cath Family History Other Family history of diabetes mellitus type II Social History Smoking Status: Never smoker smoking status stop date: 2014 how long ago did patient quit smokin alcohol intake: never substance use type: denies use current occupational status: employed Travel in the last 8 weeks?: None household members: none housing: house lives independently: Yes marital status: single special hallie needs: No agree to transfusion: No do you feel safe at home: Yes victim of physical abuse: No victim of emotional abuse: No victim of sexual abuse: No would you like helpful sources: No Have you lived/traveled outside [place] in past 30 days?: No Contact w/someone who lives/traveled outside [place] past 30 days?: No Exposure to someone with infectious disease in past 14 days?: No Do you have a fever (greater than 100.4 F or 38 C)?: No Have you tested positive for COVID-19?: No Exposed to someone with COVID-19 in past 14 days?: No Do you have a sore throat?: No Do you have a cough?: No Do you have any weakness?: No Do you have any diarrhea?: No Are you experiencing any unusual bleeding?: No Do you have any muscle aches/pain?: No Do you have any abdominal pain?: No Are you experiencing loss of taste or smell?: No Other Medical History Have you received the Flu Vaccine for this season: No Have you received the Pneumonia Vaccine: No Review of Systems Review of Systems Review of systems:: pertinent systems reviewed and negative unless documented below Constitutional Constitutional: Reports fatigue Eyes Eyes: Reports system reviewed and no additional complaints, except as documented ENT Ears, Nose, Mouth, and Throat: Reports system reviewed and no additional complaints, except as documented *Cardiovascular Cardiovascular: Reports dyspnea, Reports dyspnea on exertion, Reports edema and Reports leg edema *Respiratory Respiratory: Reports dyspnea and Reports dyspnea on exertion *Gastrointestinal Gastrointestinal: Reports bloating *Genitourinary Genitourinary: Reports system reviewed and no additional complaints, except as documented *Musculoskeletal Musculoskeletal: Reports system reviewed and no additional complaints, except as documented Integumentary/Breasts Skin/Breast: Reports system reviewed and no additional complaints, except as documented *Neurologic Neurologic: Reports system reviewed and no additional complaints, except as documented Psychiatric Psychiatric: Reports system reviewed and no additional complaints, except as documented Endocrine Endocrine: Reports fatigue Hematologic/Lymphatic Hematologic/Lymphatic: Reports system reviewed and no additional complaints, except as documented Allergic/Immunologic Allergic/Immunologic: Reports system reviewed and no additional complaints, except as documented Meds Home Medications and Allergies Home Medications ?Medication ?Instructions ?Recorded ?Confirmed ?Type mecobalamin (vitamin B12) 1,000 1,000 mcg PO DAILY #60 ea 04/06/25 06/05/25 Rx mcg lozenges dexamethasone 4 mg tablet 4 mg PO DAILY #30 tabs 05/0506/05/25 Rx famotidine 20 mg tablet (Pepcid) 20 mg PO DAILY #30 ta bs 05/05/25 06/05/25 Rx Lactobacillus rhamnosus GG 20 20 cell PO DAILY 5 06/05/25 History billion cell capsule (Probiotic Digestive Care) buspirone 15 mg tablet 15 mg PO BID #60 tabs 06/05/25 Rx hydroxyzine HCl 25 mg tablet 25 mg PO TID PRN anxiety #30 tabs 05/19/25 06/05/25 Rx apixaban 5 mg tablet (Eliquis) 5 mg PO BID #60 tabs 06/05/25 Rx aspirin 81 mg tablet 81 mg PO DAILY #30 tabs 04/25 Rx atorvastatin 40 mg tablet (Lipitor) 40 mg PO HS #30 ta bs 06/08/25 Rx bumetanide 2 mg tablet 2 mg PO DAILY 30 days #30 ta bs 06/08/25 Rx gabapentin 100 mg capsule 100 mg PO TID 30 days #90 ca ps 06/08/25 Rx meloxicam 7.5 mg tablet 7.5 mg PO BIDP PRN pain 7 da ys #14 06/08/25 Rx tabs spironolactone 25 mg tablet 25 mg PO DAILY 30 days #30 tabs 06/08/25 Rx New Prescriptions to Start Prescriptions: Allergies Allergy/AdvReac Type Severity Reaction Status Date / Time Iodinated Contrast Media Allergy Unknown Verified 05/26/25 11:33 allergy reaction Exam Data for Last 24 hours Vital signs and Labs for Last 24 Hours: Temp Pulse Resp BP Pulse Ox O2 Del Method O2 Flow Rate 98.0 F 93 H 37 H 121/84 100 Nasal Cannula 2 06/10/25 15:06 06/10/25 18:00 06/10/25 18:26 06/10/25 18:26 06/10/25 18:26 06/10/25 18:26 06/10/25 18:26 Laboratory Results - last 24 hr 06/10/25 15:08: VBG pH 7.36, VBG pCO2 46.8, VBG pO2 34.9, VBG HCO3 26.0, VBG Total CO2 27.5 H, VBG O2 Saturation 60.8, VBG Base Excess 0.6, VBG Lactic Acid 2.1 H 06/10/25 15:45: WBC 15.9 H, RBC 2.97 L, Hgb 9.5 L, Hct 28.6 L, MCV 96.3 H, MCH 32.0 H, MCHC 33.2, RDW 17.6 H, Plt Count 143 D, MPV 11.1 H, Neut % (Auto) 74.7, Lymph % (Auto) 10.0, [place] % (Auto) 6.6, Eos % (Auto) 0.6, Baso % (Auto) 0.5, Neut # (Auto) 11.8 H, Lymph # (Auto) 1.6, [place] # (Auto) 1.1 H, Eos # (Auto) 0.1, Baso # (Auto) 0.1, Total Counted 100, Neutrophils % (Manual) 76, Lymphocytes % (Manual) 9 L, Monocytes % (Manual) 10 H, Basophils % (Manual) 1, Myelocytes % 4 H, Nucleated RBCs 4, Platelet Estimate Normal, Polychromasia 1+, Poikilocytosis 1+, Basophilic Stippling 1+, Anisocytosis 1+, Microcytosis 1+, Macrocytosis 1+, Spherocytes 1+, Target Cells 1+, Tear Drop Cells 1+, Helmet Cells 1+, Sodium 134 L, Potassium 4.2, Chloride 98, Carbon Dioxide 29, Anion Gap 11.2, BUN 52 H D, Creatinine 1.40 H D, Estimated Creat Clear 81, Estimated GFR 51 L, Est GFR ( Amer) 62 D, Glucose 108 H, Calcium 9.5, Total Bilirubin 2.6 H, AST 46, ALT 45, Alkaline Phosphatase 538 H, Troponin I 0.62 H, NT-Pro-B Natriuret Pep 407 H, Total Protein 6.0 L, Albumin 3.2 L, Globulin 2.8, Albumin/Globulin Ratio 1.1, Lipase 52 I & O for Last 24 hours: Intake & Output 06/07/25 06/08/25 06/09/25 06/10/25 23:59 23:59 23:59 23:59 Weight 104.326 kg Constitutional Constitutional: mild distress, thin and chronically ill appearing *Routine HEENT Exam Head: Present normocephalic and atraumatic Eye: Present EOMI and PERRL ENT: Present mucous membranes moist *Routine Neck Exam Neck: Present supple, full ROM and trachea midline *Routine Respiratory Exam Respiratory: Present decreased breath sounds, respiratory distress, wheezes, diminished air movement, able to speak in complete sentences and symmetric chest movement *Routine Cardiovascular Exam Cardiovascular: Present RRR, Normal S1 and Normal S2 *Routine Abdominal Exam Abdominal: Present soft, normoactive bowel sounds and distended *Routine Rectal Exam Rectal:: deferred *Routine Genitalia Exam Genitalia:: deferred *Routine Extremities Exam Extremities: Present edema, pulses intact and normal capillary refill Routine Back/Spine/Pelvis Exam Back/Spine: Present full ROM *Routine Skin Exam Skin: Present intact, dry and warm *Routine Neurological Exam Neurological: Present alert, oriented X3, CN II-XII intact, moving all extremities and normal speech Routine Psychiatric Exam Psychiatric: Present normal affect, normal thought process, cooperative, good insight and good judgment H&P: Result Impressions 60-year-old male bilateral pleural effusions and prior STEMI without left heart cath presents with shortness of air requiring supplemental oxygen. Concerns for some superimposed pneumonia. Assessment and Plan *Assessment and plan (1) Pneumonia: Status: Acute Qualifiers: Pneumonia type: due to unspecified organism Laterality: bilateral Lung location: lower lobe of lung Qualified Code(s): J18.9 - Pneumonia, unspecified organism Category: Medical Code(s): J18.9 - Pneumonia, unspecified organism (2) Acute hypoxemic respiratory failure: Status: Acute Category: Medical Code(s): J96.01 - Acute respiratory failure with hypoxia (3) HALLIE (acute kidney injury): Status: Acute Category: Medical Code(s): N17.9 - Acute kidney failure, unspecified (4) Pleural effusion: Status: Acute Category: Medical Code(s): J90 - Pleural effusion, not elsewhere classified (5) Non-ST elevation [place] (NSTEMI): Status: Acute Category: Medical Code(s): I21.4 - Non-ST elevation (NSTEMI) myocardial infarction (6) Metastatic signet ring cell carcinoma: Status: Acute Category: Medical Code(s): C79.9 - Secondary malignant neoplasm of unspecified site (7) Anemia: Status: Acute Qualifiers: Anemia type: other cause Other causes of anemia: other cause, not classified Qualified Code(s): D64.89 - Other specified anemias Category: Medical Code(s): D64.9 - Anemia, unspecified (8) Hypervolemia: Status: Acute Qualifiers: Hypervolemia type: unspecified Qualified Code(s): E87.70 - Fluid overload, unspecified Category: Medical Code(s): E87.70 - Fluid overload, unspecified Plan Assessment: Possible superimposed community-acquired pneumonia: Most likely bacterial - Will continue cefepime 2 g IV twice daily - Vancomycin IV twice daily - Sputum for culture - Blood cultures x 2 Bilateral pleural effusion Acute hypoxic respiratory failure Hypervolemia - Patient reports being compliant with Bumex at home - He does report an increase in edema to lower extremities - Will continue 2 mg of Bumex IV push twice daily - 25 mg of spironolactone p.o. daily - Once patient is closer to euvolemia we will try to discharge patient home - Will give patient supplemental oxygen to maintain oxygen saturation greater 94% - Prior to discharge will perform walk test to see if patient requires supplemental oxygen Acute kidney injury - Most likely prerenal in the setting of intravascular volume depletion and diuretics - Will trend creatinine daily - Will avoid nephrotoxic drugs - Will obtain urine studies and renal ultrasound if creatinine worsens; however, I suspect due to diuresis patient creatinine may worsen will monitor for acute tubular necrosis NSTEMI - Will continue to trend troponins - Currently patient's chest pain-free - He was not deemed a left heart candidate in the past - Last 2D echo revealed an EF of 55% - Will monitor patient closely and consider jewellery designer consultation if patient decompensates from a cardiovascular standpoint - Will continue DOAC therapy once med rec is updated Metastatic signet ring carcinoma - Will encourage a patient follow-up with patient's oncologist team - To understand the patient is not a candidate for treatment Macrocytic anemia: May be due to vitamin B12 deficiency - Will monitor patient's hemoglobin hematocrit daily - If less than 8 and symptomatic we will transfuse 1 unit of packed red blood cells. If patient hemoglobin is less than 7 will transfuse until patient's hemoglobin is close to baseline - No evidence of acute bleed Plan: Admit patient to the MedSurg unit Daily weight Cardiac diet CBC/BMP daily Patient did receive full dose of aspirin Emergency room 5 mg [place] p.o. every 4 hours as needed moderate pain 2 mg of morphine IV push every 4 hours as needed severe pain 4 mg Zofran IV push every 8 hours pain nausea vomiting Full code I have discussed this case with attending physician Dr. Singh and I look forward to more input those
--- NOTE | 2025-06-10 18:59 | PC.NURSE ---
pt is a difficult stick. new IV access established, it will not draw. [place] [employer] attempted to straight stick for cultures but was unsuccessful. Lab bedside attempting to obtain cultures and 2nd trop
[2025-06-10] MEDS: VANCOMYCIN HCL 2,500 MG in 0.9 % SODIUM CHLORIDE 500 ML 250 MG IV (19:30)
--- NOTE | 2025-06-10 19:41 | PC.NURSE ---
report called to Marlee KRUEGER
[2025-06-10 19:55] LABS: Troponin I 0.56 ng/ml (0.00-0.034)
--- NOTE | 2025-06-10 19:57 | PC.NURSE ---
Critical trop of 0.56. Results reported to primary floor RN Jeri, hospitalist, and ER physician since patient is being transported upstairs to his admitted room at this time.
[2025-06-10 20:01] LABS: Reflex Lactic Add Lactic Reflex
--- NOTE | 2025-06-10 20:02 | PC.NURSE ---
Pt arrived to the floor @2001
[2025-06-10] MEDS: SODIUM CHLORIDE 3% 15ML NEB 3 ML IH (20:18)
[2025-06-10] MEDS: BUMETANIDE 1MG/4ML VIAL 2 MG IV (20:46)
[2025-06-10] MEDS: HYDROCODONE/APAP 5/325 MG TABLET 1 TAB PO (21:02)
[2025-06-10] MEDS: CEFEPIME HCL 2 GM in 0.9 % SODIUM CHLORIDE 100 ML IV (22:11)
[2025-06-10 23:47] LABS: Lactic Acid Follow Up (RFLX 1) 1.6 mmol/L (0.7-2.1)
[2025-06-11] VITALS: BP 128/88; BP 135/71; PULSE 101; PULSE 86; RESP 20; TEMP 36.7; TEMP 36.9; O2SAT 96
[2025-06-11] MEDS: MORPHINE 2MG/ML SYRINGE 2 MG IV ×5 (00:32→19:21)
[2025-06-11 04:00] VITALS: BP 107/67; PULSE 80; RESP 16; TEMP 36.4; O2SAT 93; BMI 29.2
[2025-06-11] MEDS: HYDROCODONE/APAP 5/325 MG TABLET 1 TAB PO ×2 (04:04→08:23)
--- NOTE | 2025-06-11 04:27 | PC.NURSE ---
Pt new admit this shift. AOx4 with some intermittent bouts of confusion. The pt's daughter reports this is not his normal. Pt is tolerating 3L O2. Reports being RA at baseline. BSC with assist. Family members at bedside. Pt is currently resting in bed with eyes closed. Respirations even and unlabored. Bed is low, locked and call light is in reach.
[2025-06-11] MEDS: CEFEPIME HCL 2 GM in 0.9 % SODIUM CHLORIDE 100 ML IV ×3 (05:51→21:03)
--- NOTE | 2025-06-11 07:46 | EXP.PHA.CONS ---
Pharmacy Consult Date: 06/11/25 Time: 07:46 Referring provider: DR LACKEY Reason for Consult:: VANCOMYCIN DOSING CONSULT Allergies Allergy/AdvReac Type Severity Reaction Status Date / Time Iodinated Contrast Media Allergy Unknown Verified 05/26/25 11:33 allergy reaction Home Medications ?Medication ?Instructions ?Recorded ?Confirmed ?Type mecobalamin (vitamin B12) 1,000 1,000 mcg PO DAILY #60 ea 04/06/25 06/10/25 Rx mcg lozenges famotidine 20 mg tablet (Pepcid) 20 mg PO DAILY #30 tabs 05/05/25 06/10/25 Rx Lactobacillus rhamnosus GG 20 20 cell PO DAILY 05/19/25 06/10/25 History billion cell capsule (Probiotic Digestive Care) buspirone 15 mg tablet 15 mg PO BID #60 tabs 05/19/25 06/10/25 Rx hydroxyzine HCl 25 mg tablet 25 mg PO TID PRN anxiety #30 tabs 05/19/25 06/10/25 Rx apixaban 5 mg tablet (Eliquis) 5 mg PO BID #60 tabs 05/26/25 06/10/25 Rx aspirin 81 mg tablet 81 mg PO DAILY #30 tabs 06/08/25 06/10/25 Rx atorvastatin 40 mg tablet (Lipitor) 40 mg PO HS #30 tabs 06/08/25 06/10/25 Rx bumetanide 2 mg tablet 2 mg PO DAILY 30 days #30 tabs 06/08/25 06/10/25 Rx gabapentin 100 mg capsule 100 mg PO TID 30 days #90 caps 06/08/25 06/10/25 Rx meloxicam 7.5 mg tablet 7.5 mg PO BIDP PRN pain 7 days #14 06/08/25 06/10/25 Rx tabs spironolactone 25 mg tablet 25 mg PO DAILY 30 days #30 tabs 06/08/25 06/10/25 Rx New Prescriptions to Start Prescriptions: Height: 1.91 m Weight: 106.821 kg Laboratory Results:: Laboratory Results - last 24 hr 06/10/25 15:08: VBG pH 7.36, VBG pCO2 46.8, VBG pO2 34.9, VBG HCO3 26.0, VBG Total CO2 27.5 H, VBG O2 Saturation 60.8, VBG Base Excess 0.6, VBG Lactic Acid 2.1 H 06/10/25 15:45: WBC 15.9 H, RBC 2.97 L, Hgb 9.5 L, Hct 28.6 L, MCV 96.3 H, MCH 32.0 H, MCHC 33.2, RDW 17.6 H, Plt Count 143 D, MPV 11.1 H, Neut % (Auto) 74.7, Lymph % (Auto) 10.0, [place] % (Auto) 6.6, Eos % (Auto) 0.6, Baso % (Auto) 0.5, Neut # (Auto) 11.8 H, Lymph # (Auto) 1.6, [place] # (Auto) 1.1 H, Eos # (Auto) 0.1, Baso # (Auto) 0.1, Total Counted 100, Neutrophils % (Manual) 76, Lymphocytes % (Manual) 9 L, Monocytes % (Manual) 10 H, Basophils % (Manual) 1, Myelocytes % 4 H, Nucleated RBCs 4, Platelet Estimate Normal, Polychromasia 1+, Poikilocytosis 1+, Basophilic Stippling 1+, Anisocytosis 1+, Microcytosis 1+, Macrocytosis 1+, Spherocytes 1+, Target Cells 1+, Tear Drop Cells 1+, Helmet Cells 1+, Sodium 134 L, Potassium 4.2, Chloride 98, Carbon Dioxide 29, Anion Gap 11.2, BUN 52 H D, Creatinine 1.40 H D, Estimated Creat Clear 81, Estimated GFR 51 L, Est GFR ( Amer) 62 D, Glucose 108 H, Calcium 9.5, Total Bilirubin 2.6 H, AST 46, ALT 45, Alkaline Phosphatase 538 H, Troponin I 0.62 H, NT-Pro-B Natriuret Pep 407 H, Total Protein 6.0 L, Albumin 3.2 L, Globulin 2.8, Albumin/Globulin Ratio 1.1, Lipase 52 06/10/25 19:06: Troponin I 0.56 H 06/10/25 23:25: Lactate 1.6 Medical History: Medical History (Updated 06/10/25 @ 19:44 by Jaycob Farr DO) Metastatic signet ring cell carcinoma Carotid stenosis Constipation Nasal bleeding Paralysis of right vocal cord Dysphonia Distal radius fracture, left Urinary tract infection Osteophyte History of tobacco abuse Weight loss Hoarseness of voice Laryngitis Hernia, umbilical Vertigo Urinary problem in male Cough Assessment and Plan Assessment and plan all Dx Assessment and Plan for all problems:: Pharmacokinetic dosing service Objective: Age: 60 yo Serum creatinine: 1.4 mg/dL Height: 75.2 Inches Weight (kg): 106.821 Diagnosis: PNEUMONIA Assessment: IBW (kg): 84.96 Dosing wt(kg): 106.821 Estimated Creatinine clearance (ml/min): 65.7 CRCL method: Cockcroft and Gault using ibw(default). Drug selected: Vancomycin Loading dose (mg): 2500 MG Vd (liters): 74.8 (factor used: 0.7 L/kg) [place] (hr-1): 0.059 Half life (hrs): 11.75 CLvanco=?? 4.413 L/hr Recommended dose: 1750 mg Interval: 18 hrs Infusion time (hrs): 2.0 Predicted peak (mcg/mL): 33.7 Predicted trough (mcg/mL): 13.11 Total body weight is being used for vancomycin dosing. Recommendations: Give Vancomycin 1750 mg q 18 hrs with an expected Cpeak of 33.7 mcg/ml and an expected Ctrough of 13.11 mcg/ml TO START 06/11/25 AT 1330, PATIENT RECEIVED ONE TIME LOADING DOSE OF VANCOMYCIN 2500 MG IV IN THE ED 06/10/25 AT 19:30. AUC 0-24 /NATHANIEL Data: NATHANIEL 0.5 mcg/mL:?? AUC/NATHANIEL:? 1057.5 NATHANIEL 1.0 mcg/mL:?? AUC/NATHANIEL:? 528.7 --------- NATHANIEL 1.5 mcg/mL:?? AUC/NATHANIEL:? 352.5 NATHANIEL 2.0 mcg/mL:?? AUC/NATHANIEL:? 264.4 Thank you for the consult
[2025-06-11 07:50] LABS: Hematocrit 25.7 % (42.0-52.0); Immature Granulocytes % 5.2 %; Mean Corpuscular HGB Conc 32.7 g/dL (31.8-35.4); Mean Corpuscular Hemoglobin 31.7 pg (27.0-31.2); Mean Corpuscular Volume 97.0 fl (80-94); Nucleated Red Blood Cells % 1.8 %; Platelet Count 154 K/mm3 (142-424); Red Blood Count 2.65 M/mm3 (4.60-6.20); Red Cell Distribution Width-SD 59.5 fL; White Blood Count 15.4 K/mm3 (4.8-10.8)
[2025-06-11 08:00] VITALS: BP 130/80; PULSE 81; RESP 18; TEMP 36.5; O2SAT 97
[2025-06-11 08:15] LABS: Anion Gap 14.1 mEq/L (5-15); Blood Urea Nitrogen 54 mg/dl (9-20); Calcium 9.3 mg/dl (8.4-10.2); Carbon Dioxide 23 mmol/L (22.0-30.0); Chloride 100 mmol/L (98-107); Creatinine Clearance Estimated 83 mL/min (50-200); Creatinine,Serum 1.40 mg/dl (0.66-1.25); Estimated Glomerular Filt Rate 51 ml/min (>60); GFR (African American) 62 ML/MIN (>60); Glucose 116 mg/dl (74-100); Potassium 4.1 mmoL/L (3.5-5.1); Sodium 133 mmol/L (136-145)
--- NOTE | 2025-06-11 08:54 | HMH.ITSTN ---
PATI Pinedo to call back about pt's allergy to contrast
--- NOTE | 2025-06-11 09:01 | HMH.ITSTN ---
proceeding with scans per PATI Pinedo & hospitalist - stated he is not allergic to contrast, however it is listed as an allergy in his chart, no pre medication happening.
[2025-06-11 09:02] LABS: Total Cells Counted 100
[2025-06-11 09:03] LABS: RBC Morphology Normal
[2025-06-11 09:04] LABS: Hemoglobin 8.4 g/dL (14.1-18.0)
--- NOTE | 2025-06-11 09:51 | HMH.PHAINT1 ---
Pharmacy Intervention Comments: MEDICATION RECONCILIATION COMPLETE USING EXTERNAL PHARMACY FILL HISTORY AND RECENT HOSPITAL DISCHARGE NOTE.
[2025-06-11] MEDS: SPIRONOLACTONE 25MG TABLET 50 MG PO (10:09)
[2025-06-11] MEDS: BUMETANIDE 1MG/4ML VIAL 2 MG IV (10:10)
[2025-06-11 10:55] LABS: Alanine Aminotransferase 37 U/L (12-78); Albumin Level 2.6 g/dl (3.5-5.0); Alkaline Phosphatase 505 U/L (38-126); Aspartate Amino Transferase 44 U/L (17-59); Bilirubin,Direct 0.8 mg/dl (0.0-0.4); Bilirubin,Indirect 1.2 mg/dL (0.0-0.9); Bilirubin,Total 2.0 mg/dl (0.2-1.3); Bilirubin,Unconjugated 1.2 mg/dL (0.0-1.1); Total Protein,Serum 5.0 g/dl (6.3-8.2)
[2025-06-11 11:23] LABS: Gamma Glutamyl Transpeptidase 164 U/L (15-73); Uric Acid 8.5 mg/dl (3.5-8.5)
[2025-06-11] MEDS: BELLADONNA ALKALOIDS 60 ML ML PO ×2 (12:14→22:46)
[2025-06-11] MEDS: ONDANSETRON 4MG/2ML VIAL 4 MG IV ×2 (12:15→20:02)
[2025-06-11] MEDS: BUMETANIDE 10 MG in 0.9 % SODIUM CHLORIDE 60 ML 5 MG IV (12:23)
[2025-06-11] MEDS: HYDROCODONE 10MG/APAP 325MG TAB 1 TAB PO ×2 (13:54→22:03)
[2025-06-11] MEDS: VANCOMYCIN/WATER FOR INJ (PEG) 1.75 GM/350 ML PIGGYBACK IV (14:48)
[2025-06-11] MEDS: BISACODYL 5MG TABLET 10 MG PO (14:51)
[2025-06-11] MEDS: POLYETHYLENE GLYCOL 3350 17 GM PACKET 34 GM PO (14:52)
[2025-06-11] MEDS: FAMOTIDINE 20MG TABLET 20 MG PO (14:56)
[2025-06-11] MEDS: ASPIRIN EC 81MG TABLET 81 MG PO (14:56)
[2025-06-11 16:00] VITALS: BP 139/83; PULSE 91; RESP 20; TEMP 36.4; O2SAT 97
--- NOTE | 2025-06-11 17:49 | P.PN_ITS ---
Subjective *Date: 06/11/25 *Time: 17:49 Interval history: Patient nervous about prognosis, not interested in goals of care discussion today. Started Bumex drip, follow-up output. Exam Data for Last 24 hours Vital signs and Labs for Last 24 Hours: Temp Pulse Resp BP Pulse Ox O2 Del Method O2 Flow Rate 97.5 F L 91 H 20 139/83 97 Nasal Cannula 2 06/11/25 16:00 06/11/25 16:00 06/11/25 16:00 06/11/25 16:00 06/11/25 16:00 06/11/25 16:00 06/11/25 16:00 Laboratory Results - last 24 hr 06/10/25 19:06: Troponin I 0.56 H 06/10/25 23:25: Lactate 1.6 06/11/25 06:45: WBC 15.4 H, RBC 2.65 L, Hgb 8.4 L D, Hct 25.7 L, MCV 97.0 H, MCH 31.7 H, MCHC 32.7, RDW 17.6 H, Plt Count 154, MPV 11.5 H, Neut % (Auto) 81.7 H, Lymph % (Auto) 7.0 L, [place] % (Auto) 5.1, Eos % (Auto) 0.5, Baso % (Auto) 0.5, Neut # (Auto) 12.6 H, Lymph # (Auto) 1.1, [place] # (Auto) 0.8, Eos # (Auto) 0.1, Baso # (Auto) 0.1, Total Counted 100, Neutrophils % (Manual) 84 H, Lymphocytes % (Manual) 8 L, Monocytes % (Manual) 7, Basophils % (Manual) 1.0, Platelet Estimate Normal, RBC Morphology Normal, Sodium 133 L, Potassium 4.1, Chloride 100, Carbon Dioxide 23, Anion Gap 14.1, BUN 54 H, Creatinine 1.40 H, Estimated Creat Clear 83, Estimated GFR 51 L, Est GFR ( Amer) 62, Glucose 116 H, Calcium 9.3 06/11/25 06:48: Uric Acid 8.5, Total Bilirubin 2.0 H, Direct Bilirubin 0.8 H, Conjugated Bilirubin 0.0, Indirect Bilirubin 1.2 H, Unconjugated Bilirubin 1.2 H , GGT 164 H, AST 44, ALT 37, Alkaline Phosphatase 505 H, Lactate Dehydrogenase > 1000 H, Total Protein 5.0 L, Albumin 2.6 L D I & O for Last 24 hours: Intake & Output 06/08/25 06/09/25 06/10/25 06/11/25 23:59 23:59 23:59 23:59 Intake Total 600 / 1080 1030 / 1030 Output Total 150 / 350 1200 / 1200 Balance 450 / 730 -170 / -170 Weight 106.821 kg 106.821 kg Constitutional Constitutional: no acute distress Comments: Anasarca. *Routine HEENT Exam Head: Present normocephalic Eye: Present EOMI and PERRL ENT: Present mucous membranes moist *Routine Neck Exam Neck: Present supple; Absent lymphadenopathy *Routine Respiratory Exam Respiratory: Present CTA bilaterally *Routine Cardiovascular Exam Cardiovascular: Present RRR *Routine Abdominal Exam Abdominal: Present soft, normoactive bowel sounds and distended; Absent tenderness *Routine Extremities Exam Extremities: Absent cyanosis, clubbing or edema Comments: Left upper extremity, bilateral lower extremity pitting edema 3+. Distended abd omen *Routine Skin Exam Skin: Present warm; Absent rash *Routine Neurological Exam Neurological: Present alert and oriented X3 Assessment and Plan *Assessment and plan (1) Acute hypoxemic respiratory failure: Status: Acute Category: Medical Code(s): J96.01 - Acute respiratory failure with hypoxia (2) Pleural effusion: Status: Acute Category: Medical Code(s): J90 - Pleural effusion, not elsewhere classified (3) Non-ST elevation PR (NSTEMI): Status: Acute Category: Medical Code(s): I21.4 - Non-ST elevation (NSTEMI) myocardial infarction (4) Metastatic signet ring cell carcinoma: Status: Acute Category: Medical Code(s): C79.9 - Secondary malignant neoplasm of unspecified site (5) HTN (hypertension): Status: Acute Category: Medical Code(s): I10 - Essential (primary) hypertension (6) Hyperlipidemia: Status: Acute Category: Medical Code(s): E78.5 - Hyperlipidemia, unspecified Plan Deshawn Sierra is a 60-year-old male with 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 Presented with shortness of breath and back pain. Found to have bilateral pleural effusions, anasarca. 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 Unfortunately, patient returns with shortness of breath, weakness, significant anasarca. Patient was discharged 2 days prior to admission, states he drank a lot of water at home but reports adherence to diuretics and other medications. ? CXR on admission showed worsened bibasilar opacities suggestive of worsening edema versus pneumonia. ? CT chest/abdomen/pelvis on 06/05/2025 showed moderate bilateral pleural effusions, moderate volume ascites around liver and spleen, large hydrocele and edema, anasarca of the abdomen and pelvis. ? ECHO shows normal biventricular systolic function, without significant diastolic dysfunction. There is noted increased left LV wall thickness. ? Initial BNP 407. Liver ultrasound unremarkable for cirrhosis. ? Patient has asymmetrical left upper extremity swelling with pitting edema. ? Venous Dopplers of lower extremities, left upper extremity on previous adm ission unremarkable for DVT. ? Unclear where anasarca is coming from, possibly from metastatic signet cell adenocarcinoma. Lower suspicion for heart failure and cirrhosis. ? S/p IR guided in 725 thoracentesis on previous admission with 1.5 L output, unable to find a pocket for paracentesis. Pleural studies show Staph epidermidis growth sensitive to vancomycin, likely contaminant will will treat given guarded condition. ? D-dimer significantly elevated > 8.10 on previous admission. Low suspicion for PE at this time given patient's hypoxia significantly improved on last admission. Discussed with pulmonology and cardiology, agreed with this. ? Started Bumex drip today as patient did not have good diuresis overnight. Follow-up urine output, renal function, electrolytes. ? Continue home Eliquis 5 mg twice daily for remote history of DVT in the setting of suspected malignancy. ? Discussed with family, in the setting of signet cell adenocarcinoma that is known to be aggressive and very challenging to treat family wonders if patient she did not pursue hospice care. Patient recently followed up with oncology noted very difficult nature trying to treat signet cell carcinoma. Source not able to be identified on scans, EGD/colonoscopy. Patient at this time not ready for hospice care discussion. Will reevaluate tomorrow. ? Follow-up morning CMP, magnesium. #NSTEMI #CAD ? Troponins peaked at 0.62, down trended to 0.56. EKG without acute ischemic changes. ED discussed with Dr. Dupont, advised to diurese as low suspicion for ACS. ? Cardiology consulted on previous admission, noted mild coronary artery calcification on CT chest. ECHO shows normal biventricular systolic function with mild RV dilatation. ? Discussed with cardiology, no plans for intervention at this time. Will pursue outpatient ischemic workup. ? Continue aspirin 81 mg, atorvastatin 40 mg. #Left hip pain ? Patient complains of left hip pain, popping noise after climbing up stairs day before admission. ? He is able to ambulate without much distress. Left hip x-ray on previous admission unremarkable for acute findings. ? Continue multimodal pain management with Tylenol, [place], morphine. Resume famotidine 20 mg daily for GERD Resume home BuSpar 15 mg twice daily for anxiety Back pain and history of neuropathy: Continue gabapentin 100 mg 3 times a day, Tylenol for mild pain, and hydrocodone 5 mg/325 1 tablet every 4 hours as needed for moderate to severe pain. Monitor for toxicity Metastatic signet ring cell carcinoma: resume dexamethasone 4 mg daily started by his oncologist for swelling will continue to have goals of care discussions. Full code DVT prophylaxis: Home Eliquis
[2025-06-11 19:40] VITALS: BMI 29.2
[2025-06-11 20:00] VITALS: BP 121/75; PULSE 59; RESP 20; O2SAT 96
--- NOTE | 2025-06-11 20:02 | PC.NURSE ---
patient has complained of generalized pain throughout the day, pain is being treated per MAR. Patient's respirations appear labored, skin and mucosa are jaundiced, abd is distended. Patient has remained alert and oriented during my shift. Pt is very lethargic and weakness has increased throughout the day. Feet appear mottled bilaterally, cap refill has become more sluggish throughout the day. MD updated regarding changes.
[2025-06-11] MEDS: APIXABAN 5MG TABLET 5 MG PO (21:03)
[2025-06-11] MEDS: GABAPENTIN 100MG CAPSULE 100 MG PO (21:04)
[2025-06-11] MEDS: ATORVASTATIN 40MG TABLET 40 MG PO (21:07)
[2025-06-11] MEDS: BUSPIRONE HCL 5 MG TABLET 15 MG PO (21:08)
[2025-06-12] MEDS: MORPHINE 2MG/ML SYRINGE 2 MG IV ×3 (03:18→19:45)
[2025-06-12] MEDS: CEFEPIME HCL 2 GM in 0.9 % SODIUM CHLORIDE 100 ML IV ×3 (03:18→19:44)
[2025-06-12 04:00] VITALS: BP 124/70; PULSE 82; RESP 18; TEMP 36.8; O2SAT 93; BMI 29.7
[2025-06-12] MEDS: BUMETANIDE 10 MG in 0.9 % SODIUM CHLORIDE 60 ML 5 MG IV (04:00)
[2025-06-12 06:43] LABS: Hematocrit 23.7 % (42.0-52.0); Hemoglobin 7.6 g/dL (14.1-18.0); Immature Granulocytes % 3.7 %; Mean Corpuscular HGB Conc 32.1 g/dL (31.8-35.4); Mean Corpuscular Hemoglobin 31.0 pg (27.0-31.2); Mean Corpuscular Volume 96.7 fl (80-94); Nucleated Red Blood Cells % 1.0 %; Platelet Count 151 K/mm3 (142-424); Red Blood Count 2.45 M/mm3 (4.60-6.20); Red Cell Distribution Width-SD 60.2 fL; White Blood Count 13.5 K/mm3 (4.8-10.8)
--- NOTE | 2025-06-12 06:50 | PC.NURSE ---
a&o x4. c/o pain t/o shift, treating per mar with some relief. pt c/o nausea and heartburn/indigestion at beginning of shift, treated both per mar with relief, no complaints since then. rested well. 1800 pt is awake and states he feels better . o2 on 3l nc. pt would frequently take off t/o night and sats would drop to 81%.
[2025-06-12 07:05] LABS: Chloride 97 mmol/L (98-107); Potassium 3.6 mmoL/L (3.5-5.1); Sodium 132 mmol/L (136-145)
[2025-06-12 07:08] LABS: Blood Urea Nitrogen 51 mg/dl (9-20); Creatinine Clearance Estimated 90 mL/min (50-200); Creatinine,Serum 1.30 mg/dl (0.66-1.25); Estimated Glomerular Filt Rate 56 ml/min (>60); GFR (African American) 68 ML/MIN (>60)
[2025-06-12 07:09] LABS: Anion Gap 8.6 mEq/L (5-15); Calcium 9.3 mg/dl (8.4-10.2); Carbon Dioxide 30 mmol/L (22.0-30.0); Glucose 116 mg/dl (74-100)
[2025-06-12 08:00] VITALS: BP 150/84; PULSE 83; RESP 18; TEMP 36.5; O2SAT 94; O2SAT 96
[2025-06-12] MEDS: VANCOMYCIN/WATER FOR INJ (PEG) 1.75 GM/350 ML PIGGYBACK IV (08:27)
[2025-06-12] MEDS: GABAPENTIN 100MG CAPSULE 100 MG PO ×3 (08:27→19:44)
[2025-06-12] MEDS: APIXABAN 5MG TABLET 5 MG PO ×2 (08:28→19:45)
[2025-06-12] MEDS: SPIRONOLACTONE 25MG TABLET 50 MG PO (08:28)
[2025-06-12] MEDS: FAMOTIDINE 20MG TABLET 20 MG PO (08:28)
[2025-06-12] MEDS: BUSPIRONE HCL 5 MG TABLET 15 MG PO ×2 (08:28→20:59)
[2025-06-12] MEDS: ASPIRIN EC 81MG TABLET 81 MG PO (08:28)
[2025-06-12] MEDS: ONDANSETRON 4MG/2ML VIAL 4 MG IV ×2 (10:16→19:54)
[2025-06-12] MEDS: HYDROCODONE 10MG/APAP 325MG TAB 1 TAB PO (10:16)
[2025-06-12 10:52] LABS: Albumin Level 2.4 g/dl (3.5-5.0)
[2025-06-12 10:54] LABS: Iron 75 ug/dL (49-181)
[2025-06-12 10:55] LABS: Alanine Aminotransferase 30 U/L (12-78); Alkaline Phosphatase 425 U/L (38-126); Aspartate Amino Transferase 31 U/L (17-59); Bilirubin,Direct 0.6 mg/dl (0.0-0.4); Bilirubin,Indirect 1.1 mg/dL (0.0-0.9); Bilirubin,Total 1.7 mg/dl (0.2-1.3); Bilirubin,Unconjugated 1.1 mg/dL (0.0-1.1); Total Protein,Serum 4.9 g/dl (6.3-8.2)
[2025-06-12 11:04] LABS: Total Iron Binding Capacity 213 ug/dL (261-462)
[2025-06-12 11:52] VITALS: BP 124/72; PULSE 89; RESP 18; TEMP 36.6; O2SAT 92
[2025-06-12 11:53] LABS: Vitamin B12 > 1000 pg/mL (239-931)
--- NOTE | 2025-06-12 12:17 | [facility].PTEV ---
Physical Therapy Evaluation Rehab PT IP Evaluation Start: 06/11/25 08:51 Freq: ONCE Status: Active Protocol: Document 06/12/25 12:08 SOSASULTANA (Rec: 06/12/25 12:17 ROGELIOAZRA [id number]) Subjective/History History History This is a 60-year-old male who is well-known to our service line and has a past medical history significant for metastatic signet ring cell carcinoma, NSTEMI, carotid stenosis, bilateral pleural effusion, umbilical hernia, vertigo, and pulmonary embolism who presents with a chief complaint of shortness of breath. Due to patient's symptoms, presented to the emergency room for evaluation. While in the emergency room, patient was requiring supplemental oxygen. Chest x-ray obtained in the emergency room showed moderate increased infiltrates versus edema within the mid and lower lung zones. As result of these findings, patient has been admitted for further management. During my evaluation of patient, patient states that shortness of breath started today and progressively gotten worse. He reports he has been compliant with his Bumex that he was prescribed at discharge. Patient reports that he was having shortness of air that worsened with activity. Daughter reports that his pain got worse when he started to experience pain. She states that supplemental oxygen did help with some of his pain and he is breathing easier. She reports he does not have supplemental oxygen established at home. Patient was recently admitted on 06 05 due to NSTEMI and bilateral pleural effusions with possible pulmonary embolism. He was prescribed DOAC therapy but was not deemed a candidate for left heart cath. Patient did undergo thoracentesis on 06/07, and he had 750 mL of pleural fluid removed during medication. Patient is currently denying any chest pain, lightheadedness, dizziness, fever, chills, rigors, PND, orthopnea, cough , nausea, vomiting, or diarrhea. Additional pertinent values include a white blood cell count of 15.9, red blood cell count of 2.97, hemoglobin 9.5, hematocrit 28 .6, sodium 134, BUN 52, creatinine 1.40, GFR 51, blood glucose 108, total bilirubin 2.6, alkaline phosphate of 538, troponin 0.62, BNP of 407, total protein is 6, and albumin 3.2. Subjective Subjective Pt is alert and oriented x3. Pt reclined in bed upon arrival. Daughter and other family present. Pt reports that he lives alone in a house. He has 0 IFRAH. Pt reports that he did not use a walker or cane prior to admission into the hospital. Pt reports that he was fully IND with all ADLs. Pt and pt's daughter report that they have no interest in going to a usp. Pt's daughter reports that she will provide all necessary help. New diagnosis of No cancer in past 12 months? [facility] How much help from another person do you currently need... Turning from your A little back to your side while in a flat bed without using bedrails? Moving from lying on A little back to sitting on the side of a flat bed without using bedrails? Moving to and from a A little bed to a chair ( including a wheelchair)? Standing up from a A little chair using your arms? (e.g., wheelchair, bedside chair) Walking in hospital A little room? Climbing 3-5 steps A lot with a railing? Mobility Score 17 Mobility Level [facility] Mobility 5 Stand (1 or more minutes) Mobility Calculator Rehab PT IP Eval Objective Appearance Patient Behavior Appropriate,Patient Baseline Patient Orientation Person,Place,Time Difficulty following none instructions Speech Pattern Clear,Patient Baseline Ambulation Patient Able to Yes Ambulate Ambulation Observation IP General Gait Antalgic Gait,Shuffling Step Pattern Observation Ambulation Distance 12 (feet) Ambulation Assistive None Device Ambulation Ability Contact Guard/Hand Hold Balance Ability to Arise Able, uses arms to help Sitting Balance Steady, safe Standing Balance Steady, wide stance Dynamic Sitting Good Balance Ability Dynamic Standing Fair Balance Ability Transfers Bed Transfer Ability Contact Guard/Hand Hold Chair Transfer Contact Guard/Hand Hold Ability Sit to Stand Bed Contact Guard/Hand Hold Transfer Ability Sit to Stand Chair Contact Guard/Hand Hold Transfer Ability Rehab PT IP prob,goals,plan Problems Date of Evaluation: 06/12/25 PT IP Problems Bed Mobility,Transfers,Gait,Balance,Self care,Safety Rehab Potential Rehab Potential Good Equipment Needs Assistive Devices None / NA Plan PT Intervention Plan Bed Mobility,Transfers,Gait,Balance,Self care,Safety, Therapeutic Exercise PT Plan Frequency Daily Duration LOS Discharge Goals Bed Transfer Ability Independent,Total/Dependent (100%) Sit to Stand Chair Independent Transfer Ability Ambulation Assistive None Device Ambulation Distance 50 (feet) Discharge Plan PT Discharge Plan PT is recommending discharge to home with 24 hr family assist upon discharge from the hospital. If the family is unable to provide the appropriate level of assistance needed, then the pt would best benefit from further rehab prior to going home. Pt would also benefit from skilled PT during his acute stay. Eval Complexity Eval Charge Codes 72649 - High Complexity PHYSICIAN CERTIFICATION: I certify the specified therapy services for Deshawn Sierra are required, authorized, and reviewed every 30 days.
--- NOTE | 2025-06-12 12:34 | PC.NURSE ---
pt complaining of cold, sore feet @1015. toes noted to be white. doppler of bilateral dorsalis pedis pulses-pulses present and strong. pulses marked with an X. feet covered with a warm blanket and pain medicine administered per oct.
--- OUTSIDE RECORDS SUMMARY | 2025-06-12 13:54 | XMS_ITS | Clinical Summary ---
Author Organization [facility] Address [address] [place] [address] Care Team Providers Care Supervisor [employer]ery [employer] Name Role Phone Rupesh Arvizu Primary Care Provider + Allergies No known active allergies Medications furosemide (LASIX) 20 MG tablet Take 1 tablet by mouth Daily for 5 days. 5 tablet 04/02/2025 Active Encounters Date Type Department Care Team Description 04/02/2025 6:54 PM EDT - 04/02/2025 9:27 PM EDT Emergency [facility] EMERGENCY DEPARTMENT [address] [place] [address] Patric Cooney MD Edema, unspecified [...] * Telemetry Scan (04/02/2025 8:44 PM EDT) [facility] ECG ORDERABLES Final Result * (ABNORMAL) Urinalysis, Microscopic Only - Urine, Clean Catch (04/02/2025 7:50 PM EDT) RBC, UA 6-10(A) None Seen, 0-2 /HPF 04/02/2025 8:46 PM EDT [facility] WBC, UA 0-2 None Seen, 0-2 /HPF 04/02/2025 8:46 PM EDT [facility] Bacteria, UA None Seen None Seen /HPF 04/02/2025 8:46 PM EDT [facility] Squamous Epithelial Cells, UA 0-2 None Seen, 0-2 /HPF 04/02/2025 8:46 PM EDT [facility] Hyaline Casts, UA None Seen None Seen /LPF 04/02/2025 8:46 PM EDT [facility] Calcium Oxalate Crystals, UA Large/3+ None Seen /HPF 04/02/2025 8:46 PM EDT [facility] Methodology Manual Light Microscopy 04/02/2025 8:46 PM EDT [facility] Urine Urine specimen obtained by clean catch procedure / Unknown Collection / Unknown 04/02/2025 7:50 PM EDT 04/02/2025 7:57 PM EDT Oumar PALOMARES URINE ORDERABLES Final Result [facility]
[address] [place] [address], * (ABNORMAL) Urinalysis With Microscopic If Indicated (No Culture) - Urine, Clean Catch (04/02/2025 7:50 PM EDT) Color, UA Yellow Yellow, Straw 04/02/2025 8:27 PM EDT [facility] Appearance, UA Cloudy(A) Clear 04/02/2025 8:27 PM EDT [facility] pH, UA 6.5 5.0 - 8.0 04/02/2025 8:27 PM EDT [facility] Specific [place], UA 1.019 1.005 - 1.030 04/02/2025 8:27 PM EDT [facility] Glucose, UA Negative Negative 04/02/2025 8:27 PM EDT [facility] Ketones, UA Negative Negative 04/02/2025 8:27 PM EDT [facility] Bilirubin, UA Negative Negative 04/02/2025 8:27 PM EDT [facility] Blood, UA Trace(A) Negative 04/02/2025 8:27 PM EDT [facility] Protein, UA Negative Negative 04/02/2025 8:27 PM EDT [facility] Leuk Esterase, UA Negative Negative 04/02/2025 8:27 PM EDT [facility] Nitrite, UA Negative Negative 04/02/2025 8:27 PM EDT [facility] Urobilinogen, UA 1.0 E.U./dL 0.2 - 1.0 E.U./dL 04/02/2025 8:27 PM EDT [facility] Urine Urine specimen obtained by clean catch procedure / Unknown Collection / Unknown 04/02/2025 7:50 PM EDT 04/02/2025 7:57 PM EDT O[facility] PALOMARES URINE ORDERABLES Final Result [facility]
[address] [place] [address], * (ABNORMAL) CBC Auto Differential (04/02/2025 7:50 PM EDT) WBC 11.29(H) 3.40 - 10.80 10*3/mm3 04/02/2025 7:59 PM EDT [facility] RBC 5.08 4.14 - 5.80 10*6/mm3 04/02/2025 7:59 PM EDT [facility] Hemoglobin 15.3 13.0 - 17.7 g/dL 04/02/2025 7:59 PM EDT [facility] Hematocrit 47.0 37.5 - 51.0 % 04/02/2025 7:59 PM EDT [facility] MCV 92.5 79.0 - 97.0 fL 04/02/2025 7:59 PM EDT [facility] MCH 30.1 26.6 - 33.0 pg 04/02/2025 7:59 PM EDT [facility] MCHC 32.6 31.5 - 35.7 g/dL 04/02/2025 7:59 PM EDT [facility] RDW 13.7 12.3 - 15.4 % 04/02/2025 7:59 PM EDT [facility] RDW-SD 46.5 37.0 - 54.0 fl 04/02/2025 7:59 PM EDT [facility] MPV 9.3 6.0 - 12.0 fL 04/02/2025 7:59 PM EDT [facility] Platelets 380 140 - 450 10*3/mm3 04/02/2025 7:59 PM EDT [facility] Neutrophil % 70.9 42.7 - 76.0 % 04/02/2025 7:59 PM EDT [facility] Lymphocyte % 15.5(L) 19.6 - 45.3 % 04/02/2025 7:59 PM EDT [facility] Monocyte % 8.9 5.0 - 12.0 % 04/02/2025 7:59 PM EDT [facility] Eosinophil % 3.4 0.3 - 6.2 % 04/02/2025 7:59 PM EDT [facility] Basophil % 0.9 0.0 - 1.5 % 04/02/2025 7:59 PM EDT [facility] Immature Grans % 0.4 0.0 - 0.5 % 04/02/2025 7:59 PM EDT [facility] Neutrophils, Absolute 8.02(H) 1.70 - 7.00 10*3/mm3 04/02/2025 7:[facility] Lymphocytes, Absolute 1.75 0.70 - 3.10 10*3/mm3 04/02/2025 7:59 PM EDT [facility] Monocytes, Absolute 1.00(H) 0.10 - 0.90 10*3/mm3 04/02/2025 7:59 PM EDT [facility] Eosinophils, Absolute 0.38 0.00 - 0.40 10*3/mm3 04/02/2025 7:59 PM [facility] Basophils, Absolute 0.10 0.00 - 0.20 10*3/mm3 04/02/2025 7:59 PM [facility] Immature Grans, Absolute 0.04 0.00 - 0.05 10*3/mm3 04/02/2025 7:59 PM T [facility] nRBC 0.0 0.0 - 0.2 /100 WBC 04/02/2025 7:59 PM [facility] Blood Venipuncture / Unknown 04/02/2025 7:50 PM EDT 04/02/2025 7:57 PM EDT [facility] LAB BLOOD ORDERABLES Final Resu lt Performing Organization Address [facility] Co de Phone Number [facility]
[address] [place] [address], * BNP (04/02/2025 7:50 PM EDT) proBNP 107.0 0.0 - 900.0 pg/mL 04/02/2025 8:22 PM EDT [facility] Blood Venipuncture / Unknown 04/02/2025 7:50 PM EDT 04/02/2025 7:57 PM EDT Narrative [facility] - 04/02/2025 8:22 [...] ORDERABLES Final Resu lt Performing Organization Address [facility] Co de Phone Number [facility]
[address] [place] [address], [place] [phone] * (ABNORMAL) Comprehensive Metabolic Panel (04/02/2025 7:50 PM EDT) Glucose 74 65 - 99 mg/dL 04/02/2025 8:22 PM EDT [facility] BUN 13.6 8.0 - 23.0 mg/dL 04/02/2025 8:22 PM EDT [facility] Creatinine 0.99 0.76 - 1.27 mg/dL 04/02/2025 8:22 PM [facility] Sodium 139 136 - 145 mmol/L 04/02/2025 8:22 PM [facility] Potassium 4.0 3.5 - 5.2 mmol/L 04/02/2025 8:22 PM [facility] Chloride 108(H) 98 - 107 mmol/L 04/02/2025 8:22 PM [facility] CO2 24.5 22.0 - 29.0 mmol/L 04/02/2025 8:22 PM [facility] Calcium 9.6 8.6 - 10.5 mg/dL 04/02/2025 8:22 PM [facility] Total Protein 6.2 6.0 - 8.5 g/dL 04/02/2025 8:22 PM [facility] Albumin 2.9(L) 3.5 - 5.2 g/dL 04/02/2025 8:22 PM [facility] ALT (SGPT) 8 1 - 41 U/L 04/02/2025 8:22 PM [facility] AST (SGOT) 15 1 - 40 U/L 04/02/2025 8:22 PM [facility] Alkaline Phosphatase 140(H) 39 - 117 U/L 04/02/2025 8:22 PM [facility] Total Bilirubin 0.4 0.0 - 1.2 mg/dL 04/02/2025 8:22 PM [facility] Globulin 3.3 gm/dL 04/02/2025 8:22 PM [facility] Comment:Calculated Result A/G Ratio 0.9 g/dL 04/02/2025 8:22 PM [facility] BUN/Creatinine Ratio 13.7 7.0 - 25.0 04/02/2025 8:22 PM [facility] Anion Gap 6.5 5.0 - 15.0 mmol/L 04/02/2025 8:22 PM [facility] eGFR 86.1 >60.0 mL/min/1.7 3 04/02/2025 8:22 PM EDT [facility] Blood Venipuncture / Unknown 04/02/2025 7:50 PM EDT 04/02/2025 7:57 PM EDT Narrative [facility] - 04/02/2025 8:22 [...] [facility] LAB BLOOD ORDERABLES Final Resu lt [facility]
[address] [place] [address], * XR Chest 1 View (04/02/2025 7:41 PM EDT) Anatomical Region Laterality Modality Body N/A Radiographic Sejal ging 04/02/2025 7:44 PM EDT Impressions 04/02/2025 7:47 PM EDT Impression: No acute cardiopulmonary process. Electronically Signed: Israel Euceda MD 04/02/2025 7:47 PM EDT Workstation ID: [id number] Narrative 04/02/2025 7:47 PM EDT XR CHEST [...] MD 04/02/2025 7:47 PM EDT Workstation ID: [id number] Oumar [facility] IMG DIAGNOSTIC IMAGING ORDERABL ES Final Result from Last 3 Months Insurance [facility] [email or web address] [facility] Care Teams Supervisor [employer] Relationship Specialty Start Date End Date Rupesh Arvizu DO [address] [place] [address] [address] PCP - General Internal Medicine 04/02/25
--- OUTSIDE RECORDS SUMMARY | 2025-06-12 13:54 | XMS_ITS | Data Portability ---
Author Organization [facility] & TARAS Lucas ADMIN Address [address] [place] [address] Assessment Encounter Date Assessment Date Assessment LastModified [...] None recorded. Lab urinalysis, dipstick [address] [facility], [address], [place], [address], 5 12:53:03 cytology, urine [address] [place] [address] (Registration ), [address], [place], [address], 08:38:22 PSA, serum or plasma 2024 025 [facility] (Registration ), [address], [place], [address], 12:07:30 urinalysis, dipstick [address] [facility], [address], [address], 10:25:55 Referral None recorded. Procedures bladder scan (PROC) [address] [facility], [address], [place], [address], 10:25:55 Surgeries None recorded. Imaging None recorded. Medication Orders tamsulosin 0.4 mg capsule 2024 025 [email or web address] Not available 14:42:29 Patient TargetsNo targets recorded. Patient InstructionsNo instructions recorded. Reason for Referral None Reported. Results Created Date Observation Date Name Description Value Unit Range Abnormal Flag Note LastModifiedBy Organization Detail LastModifiedTime 03/31/20 25 03/31/2025 PROST ATE SPECI FIC AG (PSA) prostate specific Ag (PSA) 0.4 NG/mL 0-4.0 Not Available [facility] ([facility]) [address], [place], [address], 03/31/2025 12:07:30 03/31/20 25 04/07/2025 CYTOL OGY SPECI MEN cyto SEE SCANNE D RPT Not Available [facility] ([facility]) [address], [place], [address], 04/07/2025 09:27:54 03/31/20 25 03/31/2025 bladd er scan (PROC ) Calculated Residual Urine: 17ml Not Available [facility] [address] [address] [facility] [address], [place], [address], 03/31/2025 10:07:03 03/31/20 25 03/31/2025 urina lysis , dipst ick Leukocytes (reference range) negati ve Not Available [place] [address] [address] [facility] [address], [place], [address], 03/31/2025 10:05:34 03/31/20 25 03/31/2025 urina lysis , dipst ick Nitrite (reference range:) negati ve Not Available [place] [address] [address] [facility] [address], [place], [address], 03/31/2025 10:05:34 03/31/20 25 03/31/2025 urina lysis , dipst ick Urobilinogen (reference range) 0.2 Not Available [facility] [place] [address] [address] [facility] [address], [place], [address], 03/31/2025 10:05:34 03/31/20 25 03/31/2025 urina lysis , dipst ick Protein (reference range) negati ve Not Available [place] [address] [address] [facility] [address], [place], [address], 03/31/2025 10:05:34 03/31/20 25 03/31/2025 urina lysis , dipst ick pH (reference range 5-8.5) 7.0 Not Available [facility] [address] [address] [facility] [address], [place], [address], 03/31/2025 10:05:34 03/31/20 25 03/31/2025 urina lysis , dipst ick Blood (reference range:) non-He molyze d: Trace Not Available [place] [address] [address] [facility] [address], [place], [address], 03/31/2025 10:05:34 03/31/20 25 03/31/2025 urina lysis , dipst ick Specific [place] (reference range) 1.015 Not Available [facility] [place] [address] [address] [facility] [address], [place], [address], 03/31/2025 10:05:34 03/31/20 25 03/31/2025 urina lysis , dipst ick Ketone (reference range) negati ve Not Available [place] [address] [address] [facility] [address], [place], [address], 03/31/2025 10:05:34 03/31/20 25 03/31/2025 urina lysis , dipst ick Bilirubin (reference range) negati ve Not Available [place] [address] [address] [facility] [address], [place], [address], 03/31/2025 10:05:34 03/31/20 25 03/31/2025 urina lysis , dipst ick Glucose (reference range) negati ve Not Available [place] [address] [address] [facility] [address], [place], [address], 03/31/2025 10:05:34 03/31/20 25 03/31/2025 urina lysis , dipst ick Color (reference range: yellow-brown ) Yellow Not Available [place] [address] [address] [facility] [address], [place], [address], 03/31/2025 10:05:34 04/01/20 25 04/01/2025 urina lysis , dipst ick Leukocytes (reference range) negati ve Not Available [place] [address] [address] [facility] [address], [place], [address], 04/01/2025 11:42:25 04/01/20 25 04/01/2025 urina lysis , dipst ick Nitrite (reference range:) negati ve Not Available [place] [address] [address] [facility] [address], [place], [address], 04/01/2025 11:42:25 04/01/20 25 04/01/2025 urina lysis , dipst ick Urobilinogen (reference range) 0.2 Not Available [place] [address] [address] [facility] [address], [place], [address], 04/01/2025 11:42:25 04/01/20 25 04/01/2025 urina lysis , dipst ick Protein (reference range) negati ve Not Available [place] [address] [address] [facility] [address], [place], [address], 04/01/2025 11:42:25 04/01/20 25 04/01/2025 urina lysis , dipst ick pH (reference range 5-8.5) 5.0 Not Available [place] [address] [address] [facility] [address], [place], [address], 04/01/2025 11:42:25 04/01/20 25 04/01/2025 urina lysis , dipst ick Blood (reference range:) negati ve Not Available [place] [address] [address] [facility] [address], [place], [address], 04/01/2025 11:42:25 04/01/20 25 04/01/2025 urina lysis , dipst ick Specific [place] (reference range) 1.000 Not Available [place] [address] [address] [facility] [address], [place], [address], 04/01/2025 11:42:25 04/01/20 25 04/01/2025 urina lysis , dipst ick Ketone (reference range) negati ve Not Available [place] [address] [address] [facility] [address], [place], [address], 04/01/2025 11:42:25 04/01/20 25 04/01/2025 urina lysis , dipst ick Bilirubin (reference range) negati ve Not Available [place] [address] [address] [facility] [address], [place], [address], 04/01/2025 11:42:25 04/01/20 25 04/01/2025 urina lysis , dipst ick Glucose (reference range) negati ve Not Available [place] [address] [address] [facility] [address], [place], [address], 04/01/2025 11:42:25 04/01/20 25 04/01/2025 urina lysis , dipst ick Color (reference range: yellow-brown ) Yellow Not Available [place] [address] [address] [facility] [address], [place], [address], 04/01/2025 11:42:25 Result Notes None recorded. Problems Name Problem SNOMED Code Status Onset Date Resolution Date Notes Provider Name and Address Organization Details Recorded Time Edema of scrotum 61044181 Active 2024 KLEBER LIM MD [address], [place], [address] , [facility] & [place] 5 10:24:40 Microscopic hematuria 264045964 Active [address], [facility] [address] , [facility] & [place] 5 10:24:47 Poor stream of urine 800703971 Active [address], [facility] [address] , [facility] & [place] 10:25:08 Problem Notes None recorded. Procedures Surgical History Date Name Laterality Status Provider Name and Address Organization Details Recorded Time 04/01/2025 Cystoscopy -Male completed MD [address], [facility] [address], [facility] & [place] 04/01/2025 12:15:26 Imaging Results None recorded. Procedure [...] Address Organization Details Last Updated DateTime 5 594295. 51 g 94 % 94 % 74 /min 130/80 mm[Hg] Adeline Holliday [facility] & [place] 10:04:51 Date Recorded Body height Body mass index (BMI) Body weight Oxygen saturation Oxygen saturation in Arterial blood by Pulse oximetry Systolic And Diastolic Provider Name and Address Organization Details Last Updated DateTime 190.5 cm 30.6 kg/m2 384084. 41 g 98 % 98 % 134/84 mm[Hg] Annette Moran [place] - [facility] - [place] & [place] 11:40:00 Social History None recorded. Functional Status None recorded. Mental Status None recorded. Family History Nothing Reported. Medical History No medical history recorded. Past Encounters Encounter ID Performer Location Encounter Start Date Encounter Closed Date Diagnosis/Indication Diagnosis SNOMED-CT Code Diagnosis ICD10 Code Diagnosis IMO Codes Diagnosis Note [id number] KLEBER LIM MD [facility] [address] [facility] [address] [place] [address] 03/31/2025 09:47:08 03/31/2025 10:35:25 Edema of scrotum 13123695 N50.89 472519 Microscopic hematuria 19 7061771 R31.29 292121 Finding of tobacco use and exposure 206469819 Z87.100 1512127 Poor stream of urine 162 759080 R39.12 74071 [id number] KLEBER LIM MD [facility] U[facility]-1 [address] [facility] [address] [place] [address] 04/01/2025 11:16:25 04/01/2025 12:19:52 Microscopic hematuria 801276951 R31.29 244261 Health Concerns Section Related Observation LastModified by Organization Detai ls LastModified Time None Recorded Concern Status LastModified by Organization Details LastModified Time None Recorded Advance Directives Directive None Recorded Payers Insurance Date Sequence Insurance Name Policy Number Policy Arciniega Covered Member ID Arciniega Member ID Guarantor Name 04/01/2025 1 [employer]ET[employer] [facility] (MEDICAID HMO) Deshawn Sierra [id number] Deshawn Sierra Notes Date Note Type Note Provider Name and Address Organization Details Recorded Time 03/31/2025 text/html 03/31/25 20-fgii-aej-year present to my office for swollen testicles.Deshawn [...] it as a small green pill. 03/31/25 97-frvj-xhf-year present to my office for swollen testicles. 03/18/25 CT chest w ([facility]): Impression: 1. Suboptimal bolus. No acute pulmonary [...] axillary lymph nodes. 03/18/25 CT abd/pel w ([facility]): Impression: 1. Tiny pericardia effusion, tiny bilateral [...] no growth 48hrs KLEBER LIM MD [address], [place], [address], [place] - [facility] - [place] & [place] 04/05/2025 07:54:01 04/01/2025 text/html 04/01/25 Patient returns to my office for cystoscopy.Deshawn Sierra is a 60-year-old male who presents [...] echocardiogram, which was reported as normal. 03/31/25 89-kvkq-crx-year present to my office for swollen testicles.Deshawn [...] testicles. 03/31/[address] chest w ([facility]): Impression: 1. Suboptimal bolus. No acute pulmonary [...] left axillary lymph nodes.03/18/25 CT abd/pel w ([facility]): Impression: 1. Tiny pericardia effusion, tiny bilateral [...] UC: no growth 48hrs KLEBER LIM MD [address], [place], [address], [facility] - [place] & [place] 04/05/2025 07:36:04
--- OUTSIDE RECORDS SUMMARY | 2025-06-12 13:54 | XMS_ITS | Referral Summary ---
Author Organization [employer] ([place], [place], [place], [place]) Address [address] [place] [address] Care Team Providers Care Bobbin Painter Name Role Phone Unavailable Primary Care Provider Unavailabl e Encounters Date Type Department Care Team Description 05/03/2025 9:23 AM EDT - 05/03/2025 11:59 PM EDT Hospital Encounter [facility] PET CT - [address] [place] [address] Dannie Burch MD Malignant neoplasm of body [...] Result from Last 3 Months Insurance [employer]ET[employer] [facility] [place]
--- OUTSIDE RECORDS SUMMARY | 2025-06-12 13:54 | XMS_ITS | Clinical Summary ---
Author Organization [employer] ([place], [place], [place], [place]) Address [address] [place] [address] Care Team Providers Care Cloth Bale Header Name Role Phone Unavailable Primary Care Provider Unavailabl e Encounters Date Type Department Care Team Description 05/03/2025 9:23 AM EDT - 05/03/2025 11:59 PM EDT Hospital Encounter [facility] PET CT - [address] [place] [address] Dannie Burch MD Malignant neoplasm [...] by Son Santiago PA-C. Dannie Burch MD [facility] ORDERABLES Final Result from Last 3 Months Insurance [employer]ET[employer] [facility]
[2025-06-12 14:30] LABS: Ferritin 2640 ng/ml (17.9-464)
[2025-06-12 16:00] VITALS: BP 125/74; PULSE 94; RESP 18; TEMP 36.6; O2SAT 95
--- NOTE | 2025-06-12 16:00 | EXP.EVENT.NO ---
Advance care planning note. Patient, patient's daughter (Tracey Rodriguez), and I were present during this conversation. Patient's active diagnoses are of sufficient risk that focused discussion on advanced care planning is indicated in order to allow the patient to thoughtfully consider personal goals of care; and, if situations arise that prevent the ability to personally give input, to ensure appropriate representation of their personal desires through documentation or informed surrogate decision makers. 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 Unfortunately, patient returns with shortness of breath, weakness, significant anasarca. Patient was discharged 2 days prior to admission, states he drank a lot of water at home but reports adherence to diuretics and other medications. ? Discussed with family, in the setting of signet cell adenocarcinoma that is known to be aggressive and very challenging to treat family wonders if patient should pursue hospice care. Patient recently followed up with oncology (Dr. Burch) who noted very difficult nature trying to treat signet cell carcinoma but Dr Burch did state chemotherapy could be an option. Source not able to be identified on scans, EGD/colonoscopy. Extensively discussed with patient regarding prognosis, and both treatment and palliative options. At this time, patient is not ready for hospice care. He would like to at least try treatment before considering hospice. Time spent: Total time spent [id number] in education and discussion directly related to advance care plannin
[2025-06-12] MEDS: POLYETHYLENE GLYCOL 3350 17 GM PACKET PO (16:45)
--- NOTE | 2025-06-12 18:16 | PC.NURSE ---
pt resting supine in bed with family at bedside. treated with pain medication per mar with relief of symptoms. bumex infusing at 5ml/hr. purewick in place. mepilex placed on pt bottom to prevent pressure area. no needs at this time. call light within reach
[2025-06-12] MEDS: ATORVASTATIN 40MG TABLET 40 MG PO (19:45)
[2025-06-12] MEDS: BELLADONNA ALKALOIDS 60 ML ML PO (19:55)
[2025-06-12 20:00] VITALS: BP 130/61; PULSE 89; RESP 20; TEMP 36.2; O2SAT 3; O2SAT 94
--- NOTE | 2025-06-12 21:58 | P.PN_ITS ---
Subjective *Date: 06/12/25 *Time: 21:58 Interval history: Patient is diuresing well, feeling better today. Breathing easier, anasarca improving. Extensive discussion about goals of care, patient wants to try treatment for signet cell adenocarcinoma before considering hospice care. Exam Data for Last 24 hours Vital signs and Labs for Last 24 Hours: Temp Pulse Resp BP Pulse Ox O2 Del Method O2 Flow Rate 97.2 F L 89 20 130/61 3 L Nasal Cannula 3 06/12/25 20:00 06/12/25 20:00 06/12/25 20:00 06/12/25 20:00 06/12/25 20:00 06/12/25 21:00 06/12/25 21:00 Laboratory Results - last 24 hr 06/12/25 06:39: WBC 13.5 H, RBC 2.45 L, Hgb 7.6 L, Hct 23.7 L, MCV 96.7 H, MCH 31.0, MCHC 32.1, RDW 18.0 H, Plt Count 151, MPV 11.1 H, Neut % (Auto) 81.1 H, Lymph % (Auto) 8.2 L, [place] % (Auto) 6.2, Eos % (Auto) 0.5, Baso % (Auto) 0.3, Neut # (Auto) 10.9 H, Lymph # (Auto) 1.1, [place] # (Auto) 0.8, Eos # (Auto) 0.1, Baso # (Auto) 0.0, Sodium 132 L, Potassium 3.6, Chloride 97 L, Carbon Dioxide 30, Anion Gap 8.6, BUN 51 H, Creatinine 1.30 H, Estimated Creat Clear 90, Estimated GFR 56 L, Est GFR ( Amer) 68, Glucose 116 H, Calcium 9.3, Iron 75, TIBC 213 L, Iron Saturation 35.36460, Ferritin 2640 H D, Total Bilirubin 1.7 H, Direct Bilirubin 0.6 H, Conjugated Bilirubin 0.0, Indirect Bilirubin 1.1 H, Unconjugated Bilirubin 1.1, AST 31 D, ALT 30, Alkaline Phosphatase 425 H, Total Protein 4.9 L, Albumin 2.4 L, Vitamin B12 > 1000 H I & O for Last 24 hours: Intake & Output 10/09/25 10/10/25 10/11/25 10/12/25 23:59 23:59 23:59 23:59 Intake Total 600 / 1080 1130 / 1130 968.083 / 968.083 Output Total 150 / 350 1900 / 1900 3000 / 3000 Balance 450 / 730 -770 / -770 -2031.917 / -2031.917 Weight 106.821 kg 106.821 kg 108.55 kg Microbiology Reports for the Last 24 Hours: Microbiology 06/10/25 19:06 Blood Blood Culture - Preliminary NO GROWTH AFTER 48 HOURS 06/10/25 19:06 Blood Blood Culture - Preliminary NO GROWTH AFTER 48 HOURS 06/12/25 15:00 Sputum - Expectorated Sputum Gram Stain - Final Constitutional Constitutional: no acute distress Comments: Anasarca. *Routine HEENT Exam Head: Present normocephalic Eye: Present EOMI and PERRL ENT: Present mucous membranes moist *Routine Neck Exam Neck: Present supple; Absent lymphadenopathy *Routine Respiratory Exam Respiratory: Present CTA bilaterally *Routine Cardiovascular Exam Cardiovascular: Present RRR *Routine Abdominal Exam Abdominal: Present soft, normoactive bowel sounds and distended; Absent tenderness *Routine Extremities Exam Extremities: Absent cyanosis, clubbing or edema Comments: Left upper extremity, bilateral lower extremity pitting edema 3+. Distended abdomen *Routine Skin Exam Skin: Present warm; Absent rash *Routine Neurological Exam Neurological: Present alert and oriented X3 Assessment and Plan *Assessment and plan (1) Acute hypoxemic respiratory failure: Status: Acute Category: Medical Code(s): J96.01 - Acute respiratory failure with hypoxia (2) Pleural effusion: Status: Acute Category: Medical Code(s): J90 - Pleural effusion, not elsewhere classified (3) Non-ST elevation AL (NSTEMI): Status: Acute Category: Medical Code(s): I21.4 - Non-ST elevation (NSTEMI) myocardial infarction (4) Metastatic signet ring cell carcinoma: Status: Acute Category: Medical Code(s): C79.9 - Secondary malignant neoplasm of unspecified site (5) HTN (hypertension): Status: Acute Category: Medical Code(s): I10 - Essential (primary) hypertension (6) Hyperlipidemia: Status: Acute Category: Medical Code(s): E78.5 - Hyperlipidemia, unspecified Plan Deshawn Sierra is a 60-year-old male with 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 Presented with shortness of breath and back pain. Found to have bilateral pleural effusions, anasarca. 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 Unfortunately, patient returns with shortness of breath, weakness, significant anasarca. Patient was discharged 2 days prior to admission, states he drank a lot of water at home but reports adherence to diuretics and other medications. ? CXR on admission showed worsened bibasilar opacities suggestive of worsening edema versus pneumonia. ? CT chest/abdomen/pelvis on 06/05/2025 showed moderate bilateral pleural effusions, moderate volume ascites around liver and spleen, large hydrocele and edema, anasarca of the abdomen and pelvis. ? ECHO shows normal biventricular systolic function, without significant diastolic dysfunction. There is noted increased left LV wall thickness. ? Initial BNP 407. Liver ultrasound unremarkable for cirrhosis. ? Patient has asymmetrical left upper extremity swelling with pitting edema. ? Venous Dopplers of lower extremities, left upper extremity on previous admission unremarkable for DVT. ? Unclear where anasarca is coming from, likely from metastatic signet cell adenocarcinoma of defined primary location. Lower suspicion for heart failure and cirrhosis. ? S/p IR guided in 06/07/25 thoracentesis on previous admission with 1.5 L output, unable to find a pocket for paracentesis. Pleural cytology shows significant L adenocarcinoma. Pleural culture showed Staph epidermidis growth sensitive to vancomycin, likely contaminant will will treat given guarded condition. ? D-dimer significantly elevated > 8.10 on previous admission. Low suspicion for PE at this time given patient's hypoxia significantly improved on last admission. Discussed with pulmonology and cardiology, agreed with this. ? Anasarca, jaundice improved today. Patient also feels better. Breathing easier. Continues to require 3 L nasal cannula. ? Increased Bumex drip to 0.75 mg/h, diuresing well net -2.8 L. Continue to follow-up urine output, renal function, electrolytes. ? Continue home Eliquis 5 mg twice daily for history of DVT. ? Discussed with family, in the setting of signet cell adenocarcinoma that is known to be aggressive and very challenging to treat family wonders if patient she did not pursue hospice care. Patient recently followed up with oncology noted very difficult nature trying to treat signet cell carcinoma with Dr Burch did state chemotherapy could be an option. Source not able to be identified on scans, EGD/colonoscopy. At this time, patient is not ready for hospice care. He would like to at least try treatment before considering hospice. He would also like a referral to oncology, will reach out to the referral center. ? Follow-up morning CMP, magnesium. #NSTEMI #CAD ? Troponins peaked at 0.62, down trended to 0.56. EKG without acute ischemic changes. No chest pain. ED discussed with Dr. Dupont, advised to diurese as low suspicion for ACS. ? Cardiology consulted on previous admission, noted mild coronary artery calcification on CT chest. ECHO shows normal biventricular systolic function with mild RV dilatation. ? Continue aspirin 81 mg, atorvastatin 40 mg. #Left hip pain ? Patient complains of left hip pain, popping noise after climbing up stairs day before admission. ? He is able to ambulate without much distress. Left hip x-ray on previous admission unremarkable for acute findings. ? Continue multimodal pain management with Tylenol, Crum Lynne, morphine. Resume famotidine 20 mg, started Protonix 40 mg daily for GERD Resume home BuSpar 15 mg twice daily for anxiety Back pain and history of neuropathy: Continue gabapentin 100 mg 3 times a day, Tylenol for mild pain, and hydrocodone 5 mg/325 1 tablet every 4 hours as needed for moderate to severe pain. Monitor for toxicity Metastatic signet ring cell carcinoma: resume dexamethasone 4 mg daily started by his oncologist for swelling will continue to have goals of care discussions. Full code DVT prophylaxis: Home Eliquis
[2025-06-12] MEDS: BUMETANIDE 10 MG in 0.9 % SODIUM CHLORIDE 60 ML 7.5 MG IV (23:04)
[2025-06-13] VITALS: BP 136/82; PULSE 95; RESP 18; TEMP 37.1; O2SAT 93
[2025-06-13] MEDS: MORPHINE 2MG/ML SYRINGE 2 MG IV ×2 (00:46→03:39)
[2025-06-13 01:12] LABS: Vancomycin,Trough 18.1 ug/mL (5.0-10.0)
[2025-06-13] MEDS: PHA TO NURSING INSTRUCTION 1 EACH NOTAPPLIC (03:36)
[2025-06-13] MEDS: CEFEPIME HCL 2 GM in 0.9 % SODIUM CHLORIDE 100 ML IV ×3 (03:40→20:26)
[2025-06-13] MEDS: VANCOMYCIN/WATER FOR INJ (PEG) 1.75 GM/350 ML PIGGYBACK IV ×2 (03:41→21:16)
[2025-06-13 04:00] VITALS: BP 132/74; PULSE 84; RESP 18; TEMP 36.3; O2SAT 93; BMI 28.3
--- NOTE | 2025-06-13 04:30 | PC.NURSE ---
gi cocktail provided early in the shift with relief of indigestion. frequent c/o pain, treated per oct. remains on 3l nc, pt would often take o2 off in his sleep and sats would drop to 81% but recovers quickly once o2 is put back on. alert and oriented x4 this shift. daughter has been at bs.
[2025-06-13] MEDS: HYDROCODONE/APAP 5/325 MG TABLET 1 TAB PO ×3 (06:49→17:47)
[2025-06-13 07:23] LABS: Albumin Level 2.8 g/dl (3.5-5.0); Chloride 97 mmol/L (98-107); Potassium 3.8 mmoL/L (3.5-5.1); Sodium 130 mmol/L (136-145)
[2025-06-13 07:26] LABS: Alanine Aminotransferase 21 U/L (12-78); Albumin/Globulin Ratio 0.9 (1.1-1.8); Alkaline Phosphatase 424 U/L (38-126); Anion Gap 11.8 mEq/L (5-15); Aspartate Amino Transferase 67 U/L (17-59); Bilirubin,Total 1.9 mg/dl (0.2-1.3); Blood Urea Nitrogen 45 mg/dl (9-20); Calcium 8.5 mg/dl (8.4-10.2); Carbon Dioxide 25 mmol/L (22.0-30.0); Creatinine Clearance Estimated 86 mL/min (50-200); Creatinine,Serum 1.30 mg/dl (0.66-1.25); Estimated Glomerular Filt Rate 56 ml/min (>60); GFR (African American) 68 ML/MIN (>60); Globulin 3.0 g/dL (1.3-3.2); Glucose 83 mg/dl (74-100); Total Protein,Serum 5.8 g/dl (6.3-8.2)
[2025-06-13 07:45] VITALS: BP 123/72; PULSE 81; RESP 17; TEMP 36.7; O2SAT 94
--- NOTE | 2025-06-13 07:52 | P.PN_ITS ---
Subjective *Date: 06/13/25 *Time: 07:52 Medical Exam Vital signs and Labs for Last 24 Hours: Vital Signs Temp Pulse Resp BP Pulse Ox O2 Del Method O2 Flow Rate 06/13/25 07:45 98.1 F 81 17 123/72 94 L Nasal Cannula 06/13/25 06:30 Nasal Cannula 3 06/13/25 05:00 Nasal Cannula 3 06/13/25 04:00 97.4 F L 84 18 132/74 93 L Nasal Cannula 3 06/13/25 03:00 Nasal Cannula 3 06/13/25 01:00 Nasal Cannula 3 06/13/25 00:00 98.7 F 95 H 18 136/82 93 L Nasal Cannula 3 06/12/25 23:00 Nasal Cannula 3 06/12/25 21:00 Nasal Cannula 3 06/12/25 20:00 3 L Nasal Cannula 06/12/25 20:00 97.2 F L 89 20 130/61 94 L Nasal Cannula 3 06/12/25 18:34 Nasal Cannula 2 06/12/25 17:00 Room Air 06/12/25 16:00 98 F 94 H 18 125/74 95 Nasal Cannula 3 06/12/25 15:00 Room Air 06/12/25 13:00 Room Air 06/12/25 11:52 98 F 89 18 124/72 92 L Room Air 06/12/25 11:00 Room Air 06/12/25 08:44 Room Air 06/12/25 08:00 96 Nasal Cannula 3 06/12/25 08:00 97.7 F 83 18 150/84 H 94 L Nasal Cannula 3 Intake and Output 06/12/25 06/12/25 06/13/25 15:59 23:59 07:59 Intake Total 450 / 1183.416 195.333 / 1183.416 570 / 570 Output Total 1900 / 3500 1100 / 3500 900 / 900 Balance -1450 / -2316.584 -904.667 / -2316.584 -330 / -330 Intake: Intake, Oral Amount 120 / 120 Intake, Total IV Amount 450 / 823.416 195.333 / 823.416 450 / 450 Bumetanide 10 mg In 0.9 % 95.333 / 173.416 Sodium Chloride 60 ml @ 7.5 mls /hr IV .[id number] [facility] Rx#: [id number] Cefepime HCl 2 gm In 0.9 % 100 / 300 100 / 300 100 / 100 Sodium Chloride 100 ml @ 200 mls/hr IV Q8H [facility] Rx#:[id number] Vancomycin/Water For Inj (Peg) 350 / 350 350 / 350 1.75 gm In 350 ml @ 175 mls/hr IV Q18H [facility] Rx#:[id number] Output: Output, Urine Amount 1900 / 3500 1100 / 3500 900 / 900 Other: Number of Unmeasured Voids 0 0 0 Weight 103.504 kg Patient Weight 06/13/25 23:59 Weight 103.504 kg Laboratory Results - last 24 hr 06/12/25 06:39: Iron 75, TIBC 213 L, Iron Saturation 35.50119, Ferritin 2640 H D , Total Bilirubin 1.7 H, Direct Bilirubin 0.6 H, Conjugated Bilirubin 0.0, Indirect Bilirubin 1.1 H, Unconjugated Bilirubin 1.1, AST 31 D, ALT 30, Alkaline Phosphatase 425 H, Total Protein 4.9 L, Albumin 2.4 L, Vitamin B12 > 1000 H 06/13/25 00:40: Vancomycin Trough 18.1 H 06/13/25 : Sodium 130 L, Potassium 3.8, Chloride 97 L, Carbon Dioxide 25, Anion Gap 11.8, BUN 45 H, Creatinine 1.30 H, Estimated Creat Clear 86, Estimated GFR 56 L, Est GFR ( Amer) 68, Glucose 83, Calcium 8.5, Total Bilirubin 1.9 H, AST 67 H D, ALT 21 D, Alkaline Phosphatase 424 H, Total Protein 5.8 L, Albumin 2.8 L D, Globulin 3.0, Albumin/Globulin Ratio 0.9 L I & O for Labs for Last 24 Hours: Intake & Output 06/10/25 06/11/25 06/12/25 06/13/25 23:59 23:59 23:59 23:59 Intake Total 600 / 1080 1130 / 1130 1063.416 / 1183.416 570 / 570 Output Total 150 / 350 1900 / 1900 3500 / 3500 900 / 900 Balance 450 / 730 -770 / -770 -2436.584 / -2316.584 -330 / -330 Weight 106.821 kg 106.821 kg 108.55 kg 103.504 kg Microbiology Reports for the Last 24 Hours: Microbiology 06/10/25 19:06 Blood Blood Culture - Preliminary NO GROWTH AFTER 48 HOURS 06/10/25 19:06 Blood Blood Culture - Preliminary NO GROWTH AFTER 48 HOURS 06/12/25 15:00 Sputum - Expectorated Sputum Gram Stain - Final The patient's infection will respond to the chosen ABx?: Yes (SPUTUM PENDING, BLOOD CX NO GROWTH AT 48 HR, AFEBRILE OVER 24 HR) Is the patient receiving the right drug, dose, and route?: Yes Could a more targeted ABx be ordered?: No How long ABx needed (days)?: 5
[2025-06-13 08:00] VITALS: O2SAT 94
[2025-06-13] MEDS: ASPIRIN EC 81MG TABLET 81 MG PO (08:17)
[2025-06-13] MEDS: APIXABAN 5MG TABLET 5 MG PO ×2 (08:17→20:25)
[2025-06-13] MEDS: FAMOTIDINE 20MG TABLET 20 MG PO (08:19)
[2025-06-13] MEDS: GABAPENTIN 100MG CAPSULE 100 MG PO ×3 (08:19→20:25)
[2025-06-13] MEDS: SPIRONOLACTONE 25MG TABLET 50 MG PO (08:19)
[2025-06-13] MEDS: POLYETHYLENE GLYCOL 3350 17 GM PACKET PO (08:20)
[2025-06-13] MEDS: DEXAMETHASONE 4MG TABLET 4 MG PO (08:21)
[2025-06-13] MEDS: BUSPIRONE HCL 5 MG TABLET 15 MG PO ×2 (08:29→20:26)
--- NOTE | 2025-06-13 09:40 | EXP.PHA.CONS ---
Pharmacy Consult Date: 06/13/25 Time: 09:40 Referring provider: DR. LACKEY Reason for Consult:: VANCOMYCIN LEVEL Allergies Allergy/AdvReac Type Severity Reaction Status Date / Time Iodinated Contrast Media Allergy Unknown Verified 05/26/25 11:33 allergy reaction Home Medications ?Medication ?Instructions ?Recorded ?Confirmed ?Type mecobalamin (vitamin B12) 1,000 1,000 mcg PO DAILY #60 ea 04/06/25 06/11/25 Rx mcg lozenges famotidine 20 mg tablet (Pepcid) 20 mg PO DAILY #30 tabs 05/05/25 06/11/25 Rx Lactobacillus rhamnosus GG 20 20 cell PO DAILY 05/19/25 06/11/25 History billion cell capsule (Probiotic Digestive Care) buspirone 15 mg tablet 15 mg PO BID #60 tabs 05/19/25 06/11/25 Rx apixaban 5 mg tablet (Eliquis) 5 mg PO BID #60 tabs 05/26/25 06/11/25 Rx aspirin 81 mg tablet 81 mg PO DAILY #30 tabs 06/08/25 06/11/25 Rx atorvastatin 40 mg tablet (Lipitor) 40 mg PO HS #30 tabs 06/08/25 06/11/25 Rx bumetanide 2 mg tablet 2 mg PO DAILY 30 days #30 tabs 06/08/25 06/11/25 Rx gabapentin 100 mg capsule 100 mg PO TID 30 days #90 caps 06/08/25 06/11/25 Rx spironolactone 25 mg tablet 25 mg PO DAILY 30 days #30 tabs 06/08/25 06/11/25 Rx dexamethasone 4 mg tablet 4 mg PO DAILY 06/11/25 06/11/25 History hydroxyzine HCl 25 mg tablet 25 mg PO TIDP PRN anxiety 06/11/25 06/11/25 History meloxicam 7.5 mg tablet 7.5 mg PO BIDP PRN Mild Pain 06/11/25 06/11/25 History (Scale Score 1-4) New Prescriptions to Start Prescriptions: Height: 1.91 m Weight: 103.504 kg Laboratory Results:: Laboratory Results - last 24 hr 06/12/25 06:39: Iron 75, TIBC 213 L, Iron Saturation 35.15465, Ferritin 2640 H D, Total Bilirubin 1.7 H, Direct Bilirubin 0.6 H, Conjugated Bilirubin 0.0, Indirect Bilirubin 1.1 H, Unconjugated Bilirubin 1.1, AST 31 D, ALT 30, Alkaline Phosphatase 425 H, Total Protein 4.9 L, Albumin 2.4 L, Vitamin B12 > 1000 H 06/13/25 00:40: Vancomycin Trough 18.1 H 06/13/25 : Sodium 130 L, Potassium 3.8, Chloride 97 L, Carbon Dioxide 25, Anion Gap 11.8, BUN 45 H, Creatinine 1.30 H, Estimated Creat Clear 86, Estimated GFR 56 L, Est GFR ( Amer) 68, Glucose 83, Calcium 8.5, Total Bilirubin 1.9 H, AST 67 H D, ALT 21 D, Alkaline Phosphatase 424 H, Total Protein 5.8 L, Albumin 2.8 L D, Globulin 3.0, Albumin/Globulin Ratio 0.9 L Medical History: Medical History (Updated 06/10/25 @ 19:44 by Jaycob Farr DO) Metastatic signet ring cell carcinoma Carotid stenosis Constipation Nasal bleeding Paralysis of right vocal cord Dysphonia Distal radius fracture, left Urinary tract infection Osteophyte History of tobacco abuse Weight loss Hoarseness of voice Laryngitis Hernia, umbilical Vertigo Urinary problem in male Cough Assessment and Plan Assessment and plan all Dx Assessment and Plan for all problems:: PATIENT'S VANCOMYCIN TROUGH LEVEL OVERNIGHT WAS 18.0 MCG/ML. RECOMMEND CONTINUING WITH VANCOMYCIN 1750 MG Q18H AT THIS TIME.
[2025-06-13 10:12] LABS: Hematocrit 23.2 % (42.0-52.0); Hemoglobin 7.8 g/dL (14.1-18.0); Immature Granulocytes % 4.4 %; Mean Corpuscular HGB Conc 33.6 g/dL (31.8-35.4); Mean Corpuscular Hemoglobin 31.8 pg (27.0-31.2); Mean Corpuscular Volume 94.7 fl (80-94); Nucleated Red Blood Cells % 0.9 %; Platelet Count 185 K/mm3 (142-424); Red Blood Count 2.45 M/mm3 (4.60-6.20); Red Cell Distribution Width-SD 59.9 fL; White Blood Count 12.1 K/mm3 (4.8-10.8)
--- NOTE | 2025-06-13 10:30 | SW/DCPLANNER ---
I spoke w/ patient's daughter regarding plans once medically stable for discharge. PT evaluated patient and recommended SNF level of care vs home w/ 24-7 assistance. Per daughter patient will return home w/ family assistance. Patient/family are not interested in placement at this time. I did explain to family that I will not be able to establish home health services due to insurance. Daughter is agreeable for patient to return home. Discharge date is unknown at this time. CM will continue to follow up.
[2025-06-13 10:49] LABS: Total Cells Counted 100
[2025-06-13 10:51] LABS: Polychromasia 1+
--- NOTE | 2025-06-13 11:59 | DIET.NUTRFU ---
Addendum entered by Leatha Francis RD, LD 06/15/25 09:28: Patient continues to refuse meals yesterday, no supplement intake either. No BM since admit due to poor intake. RD reviewed chart, patient qualifies for severe protein calorie malnutrition under the Diamond Criteria secondary to edema +2 upon admit with thorcentesis on 06/07 and insufficient meal intake. Upon visit yesterday, fat loss to face and shoulder area present. Provider was notified. Metastatic signet ring carcinoma, patient is not a candidate for treatment per admitting provider. Family is not ready for hospice. Original Note: Patient has been refusing multiple meals and not drinking the ensure either. He dislikes strawberry, was willing to try chocolate. Reviewed other supplements available and would like to try clear boost. He is also on cardiac diet, typically uses salt at home. Based on risk of malnutrition, reviewed it with provider and changed to regular diet. He is also on fluid restriction of 1500ml/day- nursing is monitoring.
[2025-06-13 12:00] VITALS: BP 133/71; PULSE 69; RESP 16; TEMP 36.7; O2SAT 93
[2025-06-13] MEDS: SENNOSIDES 8.6MG/DOCUSATE 50MG TABLET 1 TAB PO ×2 (12:09→20:25)
[2025-06-13] MEDS: MAGNESIUM CITRATE 296ML BOTTLE 296 ML PO (12:09)
[2025-06-13] MEDS: BUMETANIDE 10 MG in 0.9 % SODIUM CHLORIDE 60 ML IV ×2 (12:48→22:54)
--- NOTE | 2025-06-13 13:03 | HMH.OTEV ---
OT Evaluation Rehab OT IP Evaluation Start: 06/13/25 10:28 Freq: ONCE Status: Active Protocol: Document 06/13/25 12:02 DARYDAMIÁN (Rec: 06/13/25 13:03 WINIFRED [id number]) Rehab OT IP Assessment Subjective History This is a 60-year-old male who is well-known to our service line and has a past medical history significant for metastatic signet ring cell carcinoma, NSTEMI, carotid stenosis, bilateral pleural effusion, umbilical hernia, vertigo, and pulmonary embolism who presents with a chief complaint of shortness of breath. Due to patient's symptoms, presented to the emergency room for evaluation. While in the emergency room, patient was requiring supplemental oxygen. Chest x-ray obtained in the emergency room showed moderate increased infiltrates versus edema within the mid and lower lung zones. As result of these findings, patient has been admitted for further management. During my evaluation of patient, patient states that shortness of breath started today and progressively gotten worse. He reports he has been compliant with his Bumex that he was prescribed at discharge. Patient reports that he was having shortness of air that worsened with activity. Daughter reports that his pain got worse when he started to experience pain. She states that supplemental oxygen did help with some of his pain and he is breathing easier. She reports he does not have supplemental oxygen established at home. Patient was recently admitted on 06 05 due to NSTEMI and bilateral pleural effusions with possible pulmonary embolism. He was prescribed DOAC therapy but was not deemed a candidate for left heart cath. Patient did undergo thoracentesis on 06/07, and he had 750 mL of pleural fluid removed during medication. Patient is currently denying any chest pain, lightheadedness, dizziness, fever, chills, rigors, PND, orthopnea, cough , nausea, vomiting, or diarrhea. Additional pertinent values include a white blood cell count of 15.9, red blood cell count of 2.97, hemoglobin 9.5, hematocrit 28 .6, sodium 134, BUN 52, creatinine 1.40, GFR 51, blood glucose 108, total bilirubin 2.6, alkaline phosphate of 538, troponin 0.62, BNP of 407, total protein is 6, and albumin 3.2. Patient lives alone with family who comes and visit and assist as needed. Independent with ADLs and fx'l mobility prior to hospitalization. Was still working ~2 months ago with [employer]. Subjective I'm just tired. Instructed Patient on proper hand and foot placement to complete bed mobility from supine->sit @ EOB->stand with Mod Ax2. 3L of 02. 97% of SPO2. Patient required extended time to complete bed mobility and standing tolerance due to fatigue and pain in abdominal area. Swelling noted in R UE. Objective Patient Orientation Person,Place,Name,Age Right Upper WFL Extremity Gross ROM Left Upper Extremity WFL Gross ROM Bed Mobility bed mobility - supine/sit Assist Level Moderate x 2 (50% assist) Transfer Training Sit/Stand Transfer,Sit/Stand/Step Transfer Assist Level Moderate x 2 (50% assist) Rehab OT IP prob,goals,plan Problems Date of Evaluation: 06/13/25 Rehab Potential Rehab Potential Innapropriate for Skilled Therapy Discharge Plan OT Discharge Plan Patient is unable to tolerate therapy at this time. Patient appears to be at a new baseline with ADLs and fx'l mobility. Recommend Hospice Care at this time. However Care Management stated family/patient has refused hospice care prior when recommended. Recommend / care after medical d/c from [facility]. Eval Complexity Eval Charge Codes 89939 - Low Complexity PHYSICIAN CERTIFICATION: I certify the specified therapy services for Deshawn Sierra are required, authorized, and reviewed every 30 days.
--- NOTE | 2025-06-13 13:41 | P.PN_ITS ---
Subjective *Date: 06/13/25 *Time: 13:41 Medical Exam Vital signs and Labs for Last 24 Hours: Vital Signs Temp Pulse Resp BP Pulse Ox O2 Del Method O2 Flow Rate 06/13/25 12:00 98.1 F 69 16 133/71 93 L Nasal Cannula 06/13/25 11:05 Nasal Cannula 3 06/13/25 09:00 Nasal Cannula 3 06/13/25 08:00 94 L Nasal Cannula 3 06/13/25 07:45 98.1 F 81 17 123/72 94 L Nasal Cannula 06/13/25 06:30 Nasal Cannula 3 06/13/25 05:00 Nasal Cannula 3 06/13/25 04:00 97.4 F L 84 18 132/74 93 L Nasal Cannula 3 06/13/25 03:00 Nasal Cannula 3 06/13/25 01:00 Nasal Cannula 3 06/13/25 00:00 98.7 F 95 H 18 136/82 93 L Nasal Cannula 3 06/12/25 23:00 Nasal Cannula 3 06/12/25 21:00 Nasal Cannula 3 06/12/25 20:00 3 L Nasal Cannula 06/12/25 20:00 97.2 F L 89 20 130/61 94 L Nasal Cannula 3 06/12/25 18:34 Nasal Cannula 2 06/12/25 17:00 Room Air 06/12/25 16:00 98 F 94 H 18 125/74 95 Nasal Cannula 3 06/12/25 15:00 Room Air Intake and Output 06/12/25 06/13/25 06/13/25 23:59 07:59 15:59 Intake Total 195.333 / 1183.416 570 / 770 200 / 770 Output Total 1100 / 3500 900 / 2100 1200 / 2100 Balance -904.667 / -2316.584 -330 / -1330 -1000 / -1330 Intake: Intake, Oral Amount 120 / 120 0 / 120 Intake, Total IV Amount 195.333 / 823.416 450 / 650 200 / 650 Bumetanide 10 mg In 0.9 % 95.333 / 173.416 100 / 100 Sodium Chloride 60 ml @ 7.5 mls /hr IV .[id number] [facility] Rx#: [id number] Cefepime HCl 2 gm In 0.9 % 100 / 300 100 / 200 100 / 200 Sodium Chloride 100 ml @ 200 mls/hr IV Q8H [facility] Rx#:[id number] Vancomycin/Water For Inj (Peg) 350 / 350 1.75 gm In 350 ml @ 175 mls/hr IV Q18H [facility] Rx#:[id number] Output: Output, Urine Amount 1100 / 3500 900 / 2100 1200 / 2100 Other: Number of Unmeasured Voids 0 0 Weight 103.504 kg 103.504 kg Patient Weight 06/13/25 23:59 Weight 103.504 kg Laboratory Results - last 24 hr 06/12/25 06:39: Ferritin 2640 H D 06/13/25 00:40: Vancomycin Trough 18.1 H 06/13/25 10:00: WBC 12.1 H, RBC 2.45 L, Hgb 7.8 L, Hct 23.2 L, MCV 94.7 H, MCH 31.8 H, MCHC 33.6, RDW 17.9 H, Plt Count 185, MPV 10.8 H, Neut % (Auto) 78.9, Lymph % (Auto) 7.7 L, [place] % (Auto) 8.2, Eos % (Auto) 0.5, Baso % (Auto) 0.3, Neut # (Auto) 9.6 H, Lymph # (Auto) 0.9, [place] # (Auto) 1.0, Eos # (Auto) 0.1, Baso # (Auto) 0.0, Total Counted 100, Neutrophils % (Manual) 84 H, Lymphocytes % (Manual) 9 L, Monocytes % (Manual) 2, Eosinophils % (Manual) 2, Metamyelocytes % 1.0, Promyelocytes % 2, Nucleated RBCs 1, Platelet Estimate Normal, Polychromasia 1+ 06/13/25 : Sodium 130 L, Potassium 3.8, Chloride 97 L, Carbon Dioxide 25, Anion Gap 11.8, BUN 45 H, Creatinine 1.30 H, Estimated Creat Clear 86, Estimated GFR 56 L, Est GFR ( Amer) 68, Glucose 83, Calcium 8.5, Total Bilirubin 1.9 H, AST 67 H D, ALT 21 D, Alkaline Phosphatase 424 H, Total Protein 5.8 L, Albumin 2.8 L D, Globulin 3.0, Albumin/Globulin Ratio 0.9 L I & O for Labs for Last 24 Hours: Intake & Output 06/10/25 06/11/25 06/12/2525 23:59 23:59 23:59 23:59 Intake Total 600 / 1080 1130 / 1130 1063.416 / 1183.416 770 / 770 Output Total 150 / 350 1900 / 1900 3500 / 3500 2100 / 2100 Balance 450 / 730 -770 / -770 -2436.584 / -2316.584 -1330 / -1330 Weight 106.821 kg 106.821 kg 108.55 kg 103.504 kg Microbiology Reports for the Last 24 Hours: Microbiology 06/10/25 19:06 Blood Blood Culture - Preliminary NO GROWTH AFTER 48 HOURS 06/10/25 19:06 Blood Blood Culture - Preliminary NO GROWTH AFTER 48 HOURS 06/12/25 15:00 Sputum - Expectorated Sputum Gram Stain - Final Assessment and Plan *Assessment and plan (1) Acute hypoxemic respiratory failure: Status: Acute Category: Medical Code(s): J96.01 - Acute respiratory failure with hypoxia (2) Bilateral pleural effusion: Status: Acute Category: Medical Code(s): J90 - Pleural effusion, not elsewhere classified (3) Non-ST elevation OR (NSTEMI): Status: Acute Category: Medical Code(s): I21.4 - Non-ST elevation (NSTEMI) myocardial infarction (4) Metastatic signet ring cell carcinoma: Status: Acute Category: Medical Code(s): C79.9 - Secondary malignant neoplasm of unspecified site (5) HTN (hypertension): Status: Acute Category: Medical Code(s): I10 - Essential (primary) hypertension (6) Hyperlipidemia: Status: Acute Category: Medical Code(s): E78.5 - Hyperlipidemia, unspecified Plan Deshawn Sierra is a 60-year-old male with 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 Presented with shortness of breath and back pain. Found to have bilateral pleural effusions, anasarca. Appears to have recurrence of effusions. Review of patient's chart showed pathology earlier this month was positive for malignancy in his effusions. Will consult pulmonology to reevaluate today. Needs discussion about goals of care and PleurX drains as these effusions will likely continue to recur. Problems addressed as follows: #Acute hypoxic respiratory failure, resolved #Anasarca #Bilateral malignant pleural effusions #Ascites #Scrotal edema #Metastatic signet cell adenocarcinoma #History of IJ DVT #Congestive hepatopathy ? Unfortunately, patient returns with shortness of breath, weakness, significant anasarca. Patient was discharged 2 days prior to admission, states he drank a lot of water at home but reports adherence to diuretics and other medications. ? CXR on admission showed worsened bibasilar opacities suggestive of worsening edema versus pneumonia. ? CT chest/abdomen/pelvis on 06/05/2025 showed moderate bilateral pleural effusions, moderate volume ascites around liver and spleen, large hydrocele and edema, anasarca of the abdomen and pelvis. ? ECHO shows normal biventricular systolic function, without significant diastolic dysfunction. There is noted increased left LV wall thickness. -Pulmonology consulted to evaluate for repeat thoracentesis and possible referral for PleurX drain placement. Path reviewed as stated above from last visit showing malignancy. Effusions are likely a mix of malignant effusion along with CHF component. Strong concern that diuretics alone will not control effusion development. ? Patient has asymmetrical left upper extremity swelling with pitting edema. ? Venous Dopplers of lower extremities, left upper extremity on previous admission unremarkable for DVT. ? Unclear where anasarca is coming from, likely from metastatic signet cell adenocarcinoma of defined primary location. Lower suspicion for heart failure and cirrhosis. ? S/p IR guided in 06/07/25 thoracentesis on previous admission with 1.5 L output, unable to find a pocket for paracentesis. Pleural cytology shows significant L adenocarcinoma. Pleural culture showed Staph epidermidis growth sensitive to vancomycin, likely contaminant will will treat given guarded condition. -Stable on 3 L oxygen. Wean for goal sats greater 90%. -Continue Bumex drip, 1 mg/h. Diuresing well. ? Continue home Eliquis 5 mg twice daily for history of DVT. ? Discussed with family, in the setting of signet cell adenocarcinoma that is k nown to be aggressive and very challenging to treat family wonders if patient she did not pursue hospice care. Patient recently followed up with oncology noted very difficult nature trying to treat signet cell carcinoma with Dr Burch did state chemotherapy could be an option. Source not able to be identified on scans, EGD/colonoscopy. At this time, patient is not ready for hospice care. He would like to at least try treatment before considering hospice. He would also like a referral to oncology, will reach out to the referral center. -CMP with kidney function stable, BUN 45, creatinine 1.3. Potassium 3.8. Replace per protocol. Repeat CBC, CMP, magnesium ordered for the morning #NSTEMI #CAD ? Troponins peaked at 0.62, down trended to 0.56. EKG without acute ischemic changes. No chest pain. ED discussed with Dr. Dupont, advised to diurese as low suspicion for ACS. ? Cardiology consulted on previous admission, noted mild coronary artery calcification on CT chest. ECHO shows normal biventricular systolic function with mild RV dilatation. ? Continue aspirin 81 mg, atorvastatin 40 mg. #Left hip pain ? Patient complains of left hip pain, popping noise after climbing up stairs day before admission. ? He is able to ambulate without much distress. Left hip x-ray on previous admission unremarkable for acute findings. ? Continue multimodal pain management with Tylenol, [place], morphine. Severe constipation: Patient states he has not had a bowel movement in over a week. States this is not abnormal for him. Initiated on magnesium citrate 10 mL x 1, continue docusate senna scheduled twice daily. 1 dose of MiraLAX this morning. Enema this evening if no bowel movement by this afternoon. Resume famotidine 20 mg, started Protonix 40 mg daily for GERD Resume home BuSpar 15 mg twice daily for anxiety Back pain and history of neuropathy: Continue gabapentin 100 mg 3 times a day, Tylenol for mild pain, and hydrocodone 5 mg/325 1 tablet every 4 hours as needed for moderate to severe pain. Monitor for toxicity Metastatic signet ring cell carcinoma: resume dexamethasone 4 mg daily started by his oncologist for swelling will continue to have goals of care discussions. Full code DVT prophylaxis: Home Eliquis
[2025-06-13] MEDS: CALCIUM CARBONATE 500MG CHEWTAB 500 MG PO (18:22)
[2025-06-13 18:32] LABS: Folate 9.98 ng/mL
[2025-06-13 20:00] VITALS: BP 140/79; PULSE 78; RESP 18; TEMP 35.9; O2SAT 96; O2SAT 97
[2025-06-13] MEDS: PANTOPRAZOLE 40MG TABLET 40 MG PO (20:25)
[2025-06-13] MEDS: ATORVASTATIN 40MG TABLET 40 MG PO (21:17)
[2025-06-14] VITALS (7 sets, daily range): BP systolic 115–140; BP diastolic 63–76; PULSE 74–87; RESP 16–20; TEMP 36.2–37.1; O2SAT 91–98; BMI 28.3
[2025-06-14] MEDS: MORPHINE 2MG/ML SYRINGE 2 MG IV ×5 (01:14→20:56)
[2025-06-14] MEDS: ONDANSETRON 4MG/2ML VIAL 4 MG IV ×2 (01:15→20:56)
[2025-06-14] MEDS: CEFEPIME HCL 2 GM in 0.9 % SODIUM CHLORIDE 100 ML IV ×3 (03:31→20:55)
--- NOTE | 2025-06-14 04:01 | PC.NURSE ---
Pt AOx4. Pt still has not had bowel movement and states that he currently does not want to do an enema. Pt had one episode of vomiting with relief from zofran. Currently resting in bed with eyes closed. Respirations even and unlabored. Tolerating 3L O2. Bed low, locked, and call light is in reach. Daughter at bedside.
[2025-06-14] MEDS: MINERAL OIL ENEMA 133ML 133 ML RC ×4 (06:34→21:22)
--- NOTE | 2025-06-14 07:53 | P.PN_ITS ---
Subjective *Date: 06/14/25 *Time: 07:53 Medical Exam Vital signs and Labs for Last 24 Hours: Vital Signs Temp Pulse Resp BP Pulse Ox O2 Del Method O2 Flow Rate 06/14/25 06:56 Nasal Cannula 3 06/14/25 05:00 Nasal Cannula 3 06/14/25 04:00 97.1 F L 84 20 140/70 96 Nasal Cannula 3 06/14/25 03:00 Nasal Cannula 3 06/14/25 01:00 Nasal Cannula 3 06/14/25 00:00 97.4 F L 86 20 135/73 95 Nasal Cannula 3 06/13/25 23:00 Nasal Cannula 3 06/13/25 21:00 Nasal Cannula 3 06/13/25 20:00 96.7 F L 78 18 140/79 97 Nasal Cannula 3 06/13/25 20:00 96 Nasal Cannula 3 06/13/25 18:46 Nasal Cannula 3 06/13/25 17:20 Nasal Cannula 3 06/13/25 15:20 Nasal Cannula 3 06/13/25 13:00 Nasal Cannula 3 06/13/25 12:00 98.1 F 69 16 133/71 93 L Nasal Cannula 06/13/25 11:05 Nasal Cannula 3 06/13/25 09:00 Nasal Cannula 3 06/13/25 08:00 94 L Nasal Cannula 3 Intake and Output 06/13/25 06/13/25 06/14/25 15:59 23:59 07:59 Intake Total 320 / 1500 610 / 1500 100 / 100 Output Total 1200 / 3450 1350 / 3450 Balance -880 / -1950 -740 / -1950 100 / 100 Intake: Intake, Oral Amount 120 / 300 60 / 300 Intake, Total IV Amount 200 / 1200 550 / 1200 100 / 100 Bumetanide 10 mg In 0.9 % 100 / 200 100 / 200 Sodium Chloride 60 ml @ 7.5 mls /hr IV .[id number] [facility] Rx#: [id number] Cefepime HCl 2 gm In 0.9 % 100 / 300 100 / 300 100 / 100 Sodium Chloride 100 ml @ 200 mls/hr IV Q8H [facility] Rx#:[id number] Vancomycin/Water For Inj (Peg) 350 / 700 1.75 gm In 350 ml @ 175 mls/hr IV Q18H [facility] Rx#:[id number] Output: Output, Urine Amount 1200 / 3450 1350 / 3450 Other: Number of Unmeasured Voids 1 Weight 103.504 kg 103.5 kg Patient Weight 06/14/25 23:59 Weight 103.5 kg Laboratory Results - last 24 hr 06/13/25 10:00: WBC 12.1 H, RBC 2.45 L, Hgb 7.8 L, Hct 23.2 L, MCV 94.7 H, MCH 31.8 H, MCHC 33.6, RDW 17.9 H, Plt Count 185, MPV 10.8 H, Neut % (Auto) 78.9, Lymph % (Auto) 7.7 L, [place] % (Auto) 8.2, Eos % (Auto) 0.5, Baso % (Auto) 0.3, Neut # (Auto) 9.6 H, Lymph # (Auto) 0.9, [place] # (Auto) 1.0, Eos # (Auto) 0.1, Baso # (Auto) 0.0, Total Counted 100, Neutrophils % (Manual) 84 H, Lymphocytes % (Manual) 9 L, Monocytes % (Manual) 2, Eosinophils % (Manual) 2, Metamyelocytes % 1.0, Promyelocytes % 2, Nucleated RBCs 1, Platelet Estimate Normal, Polychromasia 1+ 06/13/25 16:33: Folate 9.98 I & O for Labs for Last 24 Hours: Intake & Output 06/11/25 06/12/25 06/13/25 06/14/25 23:59 23:59 23:59 23:59 Intake Total 1130 / 1130 1063.416 / 5245.475 4053 / 1500 100 / 100 Output Total 1900 / 1900 3500 / 3500 3450 / 3450 Balance -770 / -770 -2436.584 / -2316.584 -1950 / -1950 100 / 100 Weight 106.821 kg 108.55 kg 103.504 kg 103.5 kg The patient's infection will respond to the chosen ABx?: Yes (BLOOD CX NO GROWTH,SPUTUM PENDING, THORACIC FLUID STAPH EPI, AFEBRILE 24 HR) Is the patient receiving the right drug, dose, and route?: Yes Could a more targeted ABx be ordered?: No How long ABx needed (days)?: 5
[2025-06-14 07:56] LABS: Hematocrit 27.0 % (42.0-52.0); Immature Granulocytes % 4.5 %; Mean Corpuscular HGB Conc 33.7 g/dL (31.8-35.4); Mean Corpuscular Hemoglobin 31.5 pg (27.0-31.2); Mean Corpuscular Volume 93.4 fl (80-94); Nucleated Red Blood Cells % 1.4 %; Platelet Count 226 K/mm3 (142-424); Red Blood Count 2.89 M/mm3 (4.60-6.20); Red Cell Distribution Width-SD 59.2 fL; White Blood Count 15.5 K/mm3 (4.8-10.8)
[2025-06-14 07:57] LABS: Hemoglobin 9.1 g/dL (14.1-18.0)
[2025-06-14 08:29] LABS: Albumin Level 2.9 g/dl (3.5-5.0); Chloride 93 mmol/L (98-107); Potassium 3.4 mmoL/L (3.5-5.1); Sodium 134 mmol/L (136-145)
[2025-06-14 08:32] LABS: Alanine Aminotransferase 25 U/L (12-78); Albumin/Globulin Ratio 0.9 (1.1-1.8); Alkaline Phosphatase 433 U/L (38-126); Anion Gap 9.4 mEq/L (5-15); Aspartate Amino Transferase 36 U/L (17-59); Bilirubin,Total 1.2 mg/dl (0.2-1.3); Blood Urea Nitrogen 45 mg/dl (9-20); Calcium 9.5 mg/dl (8.4-10.2); Carbon Dioxide 35 mmol/L (22.0-30.0); Creatinine Clearance Estimated 86 mL/min (50-200); Creatinine,Serum 1.30 mg/dl (0.66-1.25); Estimated Glomerular Filt Rate 56 ml/min (>60); GFR (African American) 68 ML/MIN (>60); Globulin 3.2 g/dL (1.3-3.2); Glucose 129 mg/dl (74-100); Total Protein,Serum 6.1 g/dl (6.3-8.2)
[2025-06-14 09:02] LABS: Total Cells Counted 100
[2025-06-14 09:03] LABS: Polychromasia 1+
[2025-06-14] MEDS: BUMETANIDE 10 MG in 0.9 % SODIUM CHLORIDE 60 ML IV ×2 (09:18→19:28)
--- NOTE | 2025-06-14 09:24 | EXP.PULM.CON ---
History of Present Illness History of present illness: Mr. 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 [facility] Disclaimer: The information contained in this section may have been updated after the patient was seen, as this information can be updated by other users. Medical History Metastatic signet ring cell carcinoma Carotid stenosis Constipation Nasal bleeding Paralysis of right vocal cord Dysphonia Distal radius fracture, left Urinary tract infection Osteophyte History of tobacco abuse Weight loss Hoarseness of voice Laryngitis Hernia, umbilical Vertigo Urinary problem in male Cough Surgical History Hx of cardiac cath Family History Other Family history of diabetes mellitus type II Social History Smoking Status: Never smoker smoking status stop date: 2014 how long ago did patient quit smokin alcohol intake: never substance use type: denies use current occupational status: employed Travel in the last 8 weeks?: None household members: none housing: house lives independently: Yes marital status: single special hallie needs: No agree to transfusion: No do you feel safe at home: Yes victim of physical abuse: No victim of emotional abuse: No victim of sexual abuse: No would you like helpful sources: No Have you lived/traveled outside [place] in past 30 days?: No Contact w/someone who lives/traveled outside US past 30 days?: No Exposure to someone with infectious disease in past 14 days?: No Do you have a fever (greater than 100.4 F or 38 C)?: No Have you tested positive for COVID-19?: No Exposed to someone with COVID-19 in past 14 days?: No Do you have a sore throat?: No Do you have a cough?: No Do you have any weakness?: No Do you have any diarrhea?: No Are you experiencing any unusual bleeding?: No Do you have any muscle aches/pain?: No Do you have any abdominal pain?: No Are you experiencing loss of taste or smell?: No Review of Systems Constitutional Constitutional: Reports anorexia, Reports body ache(s) and Reports fatigue Eyes Eyes: Denies eye discharge, Denies dry eyes, Denies irritation and Denies itchy eyes ENT Ears, Nose, Mouth, and Throat: Denies epistaxis, Denies facial pain, Denies lip swelling and Denies throat swelling *Cardiovascular Cardiovascular: Reports dyspnea, Reports dyspnea on exertion, Reports leg edema, Reports orthopnea and Reports pedal edema *Respiratory Respiratory: Reports chest congestion, Reports cough, Reports dyspnea, Reports dyspnea on exertion, Denies excessive phlegm production, Denies hemoptysis, Denies pain on inspiration, Denies pain with cough and Denies wheezing *Gastrointestinal Gastrointestinal: Reports constipation *Musculoskeletal Musculoskeletal: Reports back pain and Reports other (No small joint swelling or Pain) *Neurologic Neurologic: Reports system reviewed and no additional complaints, except as documented Psychiatric Psychiatric: Denies homicidal ideation and Denies suicidal ideation Endocrine Endocrine: Reports fatigue and Denies heat intolerance Hematologic/Lymphatic Hematologic/Lymphatic: Denies easy bleeding and Denies lymphadenopathy Allergic/Immunologic Allergic/Immunologic: Denies itchy eyes, Denies lip swelling, Denies throat swelling and Denies wheezing Pulmonology Exam Inpatient Vital signs and Labs for Last 24 Hours: Temp Pulse Resp BP Pulse Ox O2 Del Method O2 Flow Rate 97.1 F L 84 20 140/70 96 Nasal Cannula 3 06/14/25 04:00 06/14/25 04:00 06/14/25 04:00 06/14/25 04:00 06/14/25 04:00 06/14/25 06:56 06/14/25 06:56 Laboratory Results - last 24 hr 06/13/25 10:00: WBC 12.1 H, RBC 2.45 L, Hgb 7.8 L, Hct 23.2 L, MCV 94.7 H, MCH 31.8 H, MCHC 33.6, RDW 17.9 H, Plt Count 185, MPV 10.8 H, Neut % (Auto) 78.9, Lymph % (Auto) 7.7 L, [place] % (Auto) 8.2, Eos % (Auto) 0.5, Baso % (Auto) 0.3, Neut # (Auto) 9.6 H, Lymph # (Auto) 0.9, [place] # (Auto) 1.0, Eos # (Auto) 0.1, Baso # (Auto) 0.0, Total Counted 100, Neutrophils % (Manual) 84 H, Lymphocytes % (Manual) 9 L, Monocytes % (Manual) 2, Eosinophils % (Manual) 2, Metamyelocytes % 1.0, Promyelocytes % 2, Nucleated RBCs 1, Platelet Estimate Normal, Polychromasia 1+ 06/13/25 16:33: Folate 9.98 06/14/25 07:48: WBC 15.5 H D, RBC 2.89 L, Hgb 9.1 L D, Hct 27.0 L, MCV 93.4, MCH 31.5 H, MCHC 33.7, RDW 18.5 H, Plt Count 226, MPV 10.7 H, Neut % (Auto) 80.0, Lymph % (Auto) 7.4 L, [place] % (Auto) 7.7, Eos % (Auto) 0.1, Baso % (Auto) 0.3, Neut # (Auto) 12.4 H, Lymph # (Auto) 1.1, [place] # (Auto) 1.2 H, Eos # (Auto) 0.0, Baso # (Auto) 0.0, Total Counted 100, Neutrophils % (Manual) 88 H, Lymphocytes % (Manual) 6 L, Atypical Lymphs % 1.0, Monocytes % (Manual) 5, Platelet Estimate Normal, RBC Morphology Not Reportable, Polychromasia 1+, Sodium 134 L, Potassium 3.4 L, Chloride 93 L, Carbon Dioxide 35 H, Anion Gap 9.4, BUN 45 H, Creatinine 1.30 H, Estimated Creat Clear 86, Estimated GFR 56 L, Est GFR ( Amer) 68, Glucose 129 H, Calcium 9.5, Total Bilirubin 1.2, AST 36 D, ALT 25, Alkaline Phosphatase 433 H, Total Protein 6.1 L, Albumin 2.9 L, Globulin 3.2, Albumin/Globulin Ratio 0.9 L I & O for Labs for Last 24 Hours: Intake & Output 06/11/25 06/12/25 06/13/25 06/14/25 23:59 23:59 23:59 23:59 Intake Total 1130 / 1130 1063.416 / 7293.751 3269 / 1500 200 / 200 Output Total 1900 / 1900 3500 / 3500 3450 / 3450 Balance -770 / -770 -2436.584 / -2316.584 -1950 / -1950 200 / 200 Weight 235 lb 8 oz 239 lb 5 oz 228 lb 3 oz 228 lb 2.855 oz Microbiology Reports for the Last 24 Hours: Microbiology 06/12/25 15:00 Sputum - Expectorated Sputum Gram Stain - Final 06/12/25 15:00 Sputum - Expectorated Sputum Sputum Culture - Final Constitutional: Present moderate distress Head: Present normocephalic and atraumatic ENT: Present normal exam, normal oropharynx and mucous membranes moist Neck: Present normal inspection and full ROM Respiratory: Present respiratory distress, rhonchi, distant breath sounds and able to speak in complete sentences; Absent prolonged expiratory phase or wheezes Cardiac: Present S1/S2, Tachycardia and radial pulses present GI: Present soft and distention; Absent tenderness or guarding Skin: Present intact; Absent cyanosis or jaundice Neuro: Present alert, awake and oriented x 3 Extremities: Present normal inspection and edema; Absent clubbing or cyanosis Psychiatric: Present normal affect and cooperative Meds Home Medications and Allergies Home Medications ?Medication ?Instructions ?Recorded ?Confirmed ?Type mecobalamin (vitamin B12) 1,000 1,000 mcg PO DAILY #60 ea 04/06/25 06/11/25 Rx mcg lozenges famotidine 20 mg tablet (Pepcid) 20 mg PO DAILY #30 tabs 05/05/25 06/11/25 Rx Lactobacillus rhamnosus GG 20 20 cell PO DAILY 05/19/25 06/11/25 History billion cell capsule (Probiotic Digestive Care) buspirone 15 mg tablet 15 mg PO BID #60 tabs 05/19/25 06/11/25 Rx apixaban 5 mg tablet (Eliquis) 5 mg PO BID #60 tabs 05/26/25 06/11/25 Rx aspirin 81 mg tablet 81 mg PO DAILY #30 tabs 06/08/25 06/11/25 Rx atorvastatin 40 mg tablet (Lipitor) 40 mg PO HS #30 tabs 06/08/25 06/11/25 Rx bumetanide 2 mg tablet 2 mg PO DAILY 30 days #30 tabs 06/08/25 06/11/25 Rx gabapentin 100 mg capsule 100 mg PO TID 30 days #90 caps 06/08/25 06/11/25 Rx spironolactone 25 mg tablet 25 mg PO DAILY 30 days #30 tabs 06/08/25 06/11/25 Rx dexamethasone 4 mg tablet 4 mg PO DAILY 06/11/25 06/11/25 History hydroxyzine HCl 25 mg tablet 25 mg PO TIDP PRN anxiety 06/11/25 06/11/25 History meloxicam 7.5 mg tablet 7.5 mg PO BIDP PRN Mild Pain 06/11/25 06/11/25 History (Scale Score 1-4) New Prescriptions to Start Prescriptions: Allergies Allergy/AdvReac Type Severity Reaction Status Date / Time Iodinated Contrast Media Allergy Unknown Verified 05/26/25 11:33 allergy reaction Results Laboratory Findings 06/14/25 07:48 06/14/25 07:48 Abnormal lab findings: Abnormal Labs 06/10/25 06/10/25 06/10/25 15:08 15:45 19:06 WBC 15.9 H RBC 2.97 L Hgb 9.5 L Hct 28.6 L MCV 96.3 H MCH 32.0 H RDW 17.6 H MPV 11.1 H Neut % (Auto) Lymph % (Auto) Neut # (Auto) 11.8 H [place] # (Auto) 1.1 H Neutrophils % (Manual) Lymphocytes % (Manual) 9 L Monocytes % (Manual) 10 H Myelocytes % 4 H VBG Total CO2 27.5 H VBG Lactic Acid 2.1 H Sodium 134 L Potassium Chloride Carbon Dioxide BUN 52 H D Creatinine 1.40 H D Estimated GFR 51 L Glucose 108 H TIBC Ferritin Total Bilirubin 2.6 H Direct Bilirubin Indirect Bilirubin Unconjugated Bilirubin GGT AST Alkaline Phosphatase 538 H Lactate Dehydrogenase Troponin I 0.62 H 0.56 H NT-Pro-B Natriuret Pep 407 H Total Protein 6.0 L Albumin 3.2 L Albumin/Globulin Ratio Vitamin B12 Vancomycin Trough 06/11/25 06/11/25 06/12/25 06:45 06:48 06:39 WBC 15.4 H 13.5 H RBC 2.65 L 2.45 L Hgb 8.4 L D 7.6 L Hct 25.7 L 23.7 L MCV 97.0 H 96.7 H MCH 31.7 H RDW 17.6 H 18.0 H MPV 11.5 H 11.1 H Neut % (Auto) 81.7 H 81.1 H Lymph % (Auto) 7.0 L 8.2 L Neut # (Auto) 12.6 H 10.9 H [place] # (Auto) Neutrophils % (Manual) 84 H Lymphocytes % (Manual) 8 L Monocytes % (Manual) Myelocytes % VBG Total CO2 VBG Lactic Acid Sodium 133 L 132 L Potassium Chloride 97 L Carbon Dioxide BUN 54 H 51 H Creatinine 1.40 H 1.30 H Estimated GFR 51 L 56 L Glucose 116 H 116 H TIBC 213 L Ferritin 2640 H D Total Bilirubin 2.0 H 1.7 H Direct Bilirubin 0.8 H 0.6 H Indirect Bilirubin 1.2 H 1.1 H Unconjugated Bilirubin 1.2 H GGT 164 H AST Alkaline Phosphatase 505 H 425 H Lactate Dehydrogenase > 1000 H Troponin I NT-Pro-B Natriuret Pep Total Protein 5.0 L 4.9 L Albumin 2.6 L D 2.4 L Albumin/Globulin Ratio Vitamin B12 > 1000 H Vancomycin Trough 06/13/25 06/13/25 06/13/25 00:40 10:00 Unknown WBC 12.1 H RBC 2.45 L Hgb 7.8 L Hct 23.2 L MCV 94.7 H MCH 31.8 H RDW 17.9 H MPV 10.8 H Neut % (Auto) Lymph % (Auto) 7.7 L Neut # (Auto) 9.6 H [place] # (Auto) Neutrophils % (Manual) 84 H Lymphocytes % (Manual) 9 L Monocytes % (Manual) Myelocytes % VBG Total CO2 VBG Lactic Acid Sodium 130 L Potassium Chloride 97 L Carbon Dioxide BUN 45 H Creatinine 1.30 H Estimated GFR 56 L Glucose TIBC Ferritin Total Bilirubin 1.9 H Direct Bilirubin Indirect Bilirubin Unconjugated Bilirubin GGT AST 67 H D Alkaline Phosphatase 424 H Lactate Dehydrogenase Troponin I NT-Pro-B Natriuret Pep Total Protein 5.8 L Albumin 2.8 L D Albumin/Globulin Ratio 0.9 L Vitamin B12 Vancomycin Trough 18.1 H 06/14/25 07:48 WBC 15.5 H D RBC 2.89 L Hgb 9.1 L D Hct 27.0 L MCV MCH 31.5 H RDW 18.5 H MPV 10.7 H Neut % (Auto) Lymph % (Auto) 7.4 L Neut # (Auto) 12.4 H [place] # (Auto) 1.2 H Neutrophils % (Manual) 88 H Lymphocytes % (Manual) 6 L Monocytes % (Manual) Myelocytes % VBG Total CO2 VBG Lactic Acid Sodium 134 L Potassium 3.4 L Chloride 93 L Carbon Dioxide 35 H BUN 45 H Creatinine 1.30 H Estimated GFR 56 L Glucose 129 H TIBC Ferritin Total Bilirubin Direct Bilirubin Indirect Bilirubin Unconjugated Bilirubin GGT AST Alkaline Phosphatase 433 H Lactate Dehydrogenase Troponin I NT-Pro-B Natriuret Pep Total Protein 6.1 L Albumin 2.9 L Albumin/Globulin Ratio 0.9 L Vitamin B12 Vancomycin Trough Assessment and Plan *Assessment and plan (1) Acute hypoxic respiratory failure: Status: Acute Category: Medical Code(s): J96.01 - Acute respiratory failure with hypoxia (2) Pneumonia: Status: Acute Qualifiers: Pneumonia type: due to unspecified organism Laterality: bilateral Lung location: lower lobe of lung Qualified Code(s): J18.9 - Pneumonia, unspecified organism Category: Medical Code(s): J18.9 - Pneumonia, unspecified organism Plan Mr. 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 He also continued to receive anticoagulation for jugular venous thrombosis. Chest x-ray upon his admission from 06/08/2025 bilateral patchy infiltrates with no obvious effusions. Patient currently receiving Bumex drip. Also received vancomycin given his pleural fluid cultures positive for Staph epidermidis. Neutrophilic predominant leukocytosis and relatively stable since admission. Afebrile. Hemodynamically stable. HALLIE with creatinine at 1.30. Relatively stable from admission. On examination moderate respiratory distress. No significant hypoxia needed. Given worsening airspace disease in the setting of possible infection on right-sided thoracentesis the plan was made to get a CT PE protocol evaluate for possible pulmonary embolism to further determine the need for alternate anticoagulating medications. Will also follow pulmonary parenchymal changes and effusions and for the need for continuation of antibiotics for the concerning positive blood cultures from pleural fluid studies extensively discussed with the patient of the risks and benefits of CTA PE protocol and plan was made to premedicate the patient with methylprednisolone and Benadryl and then proceed with CT PE protocol. Plan: Continue vancomycin and cefepime pending blood and sputum culture results DuoNebs every 6 hours PRN Follow-up with CT PE protocol Will further determine the need for transfer to UC/outpatient follow-up Continue oxygen supplementation on as-needed basis to maintain O2 saturation goal of 90% and above
[2025-06-14] MEDS: APIXABAN 5MG TABLET 5 MG PO ×2 (11:38→20:55)
[2025-06-14] MEDS: ASPIRIN EC 81MG TABLET 81 MG PO (11:38)
[2025-06-14] MEDS: BUSPIRONE HCL 5 MG TABLET 15 MG PO ×2 (11:38→20:55)
[2025-06-14] MEDS: SENNOSIDES 8.6MG/DOCUSATE 50MG TABLET 1 TAB PO ×2 (11:39→20:55)
[2025-06-14] MEDS: SPIRONOLACTONE 25MG TABLET 50 MG PO (11:39)
[2025-06-14] MEDS: GABAPENTIN 100MG CAPSULE 100 MG PO ×2 (11:39→21:14)
[2025-06-14] MEDS: POLYETHYLENE GLYCOL 3350 17 GM PACKET PO (11:39)
[2025-06-14] MEDS: FAMOTIDINE 20MG TABLET 20 MG PO (11:39)
[2025-06-14] MEDS: DEXAMETHASONE 4MG TABLET 4 MG PO (11:39)
[2025-06-14] MEDS: HYDROCODONE/APAP 5/325 MG TABLET 1 TAB PO (11:40)
--- NOTE | 2025-06-14 12:00 | EXP.ACUTE.PN ---
Subjective *Date: 06/14/25 *Time: 19:24 Interval history: No significant change today. Stable on 3 L. Denies any fevers. White count remains elevated. Pulmonology assisting today. Will attempt to get CT of chest to evaluate effusions. No nausea or vomiting. States he is quite fatigued. Having good response to diuresis. Down 4.6 L Medical Exam Vital signs and Labs for Last 24 Hours: Vital Signs Temp Pulse Resp BP Pulse Ox O2 Del Method O2 Flow Rate 06/14/25 11:51 97.4 F L 87 20 123/69 91 L Nasal Cannula 2 06/14/25 09:30 Nasal Cannula 3 06/14/25 08:45 95 Nasal Cannula 3 06/14/25 08:00 97.2 F L 76 16 129/76 95 Nasal Cannula 3 06/14/25 06:56 Nasal Cannula 3 06/14/25 05:00 Nasal Cannula 3 06/14/25 04:00 97.1 F L 84 20 140/70 96 Nasal Cannula 3 06/14/25 03:00 Nasal Cannula 3 06/14/25 01:00 Nasal Cannula 3 06/14/25 00:00 97.4 F L 86 20 135/73 95 Nasal Cannula 3 06/13/25 23:00 Nasal Cannula 3 06/13/25 21:00 Nasal Cannula 3 06/13/25 20:00 96.7 F L 78 18 140/79 97 Nasal Cannula 3 06/13/25 20:00 96 Nasal Cannula 3 06/13/25 18:46 Nasal Cannula 3 06/13/25 17:20 Nasal Cannula 3 06/13/25 15:20 Nasal Cannula 3 06/13/25 13:00 Nasal Cannula 3 Intake and Output 06/13/25 06/14/25 06/14/25 23:59 07:59 15:59 Intake Total 610 / 1500 100 / 200 100 / 200 Output Total 1350 / 3450 75 / 75 Balance -740 / -1950 100 / 125 25 / 125 Intake: Intake, Oral Amount 60 / 300 Intake, Total IV Amount 550 / 1200 100 / 200 100 / 200 Bumetanide 10 mg In 0.9 % 100 / 200 100 / 100 Sodium Chloride 60 ml @ 10 mls/ hr IV .Q10H [facility] Rx#:[id number] Cefepime HCl 2 gm In 0.9 % 100 / 300 100 / 100 Sodium Chloride 100 ml @ 200 mls/hr IV Q8H [facility] Rx#:[id number] Vancomycin/Water For Inj (Peg) 350 / 700 1.75 gm In 350 ml @ 175 mls/hr IV Q18H [facility] Rx#:[id number] Output: Output, Urine Amount 1350 / 3450 75 / 75 Other: Number of Voids 0 Number of Unmeasured Voids 1 0 Weight 103.5 kg Patient Weight 06/14/25 23:59 Weight 103.5 kg Laboratory Results - last 24 hr 06/13/25 16:33: Folate 9.98 06/14/25 07:48: WBC 15.5 H D, RBC 2.89 L, Hgb 9.1 L D, Hct 27.0 L, MCV 93.4, MCH 31.5 H, MCHC 33.7, RDW 18.5 H, Plt Count 226, MPV 10.7 H, Neut % (Auto) 80.0, Lymph % (Auto) 7.4 L, [place] % (Auto) 7.7, Eos % (Auto) 0.1, Baso % (Auto) 0.3, Neut # (Auto) 12.4 H, Lymph # (Auto) 1.1, [place] # (Auto) 1.2 H, Eos # (Auto) 0.0, Baso # (Auto) 0.0, Total Counted 100, Neutrophils % (Manual) 88 H, Lymphocytes % (Manual) 6 L, Atypical Lymphs % 1.0, Monocytes % (Manual) 5, Platelet Estimate Normal, RBC Morphology Not Reportable, Polychromasia 1+, Sodium 134 L, Potassium 3.4 L, Chloride 93 L, Carbon Dioxide 35 H, Anion Gap 9.4, BUN 45 H, Creatinine 1.30 H, Estimated Creat Clear 86, Estimated GFR 56 L, Est GFR ( Amer) 68, Glucose 129 H, Calcium 9.5, Total Bilirubin 1.2, AST 36 D, ALT 25, Alkaline Phosphatase 433 H, Total Protein 6.1 L, Albumin 2.9 L, Globulin 3.2, Albumin/Globulin Ratio 0.9 L I & O for Labs for Last 24 Hours: Intake & Output 06/11/25 06/12/25 06/13/25 06/14/25 23:59 23:59 23:59 23:59 Intake Total 1130 / 1130 1063.416 / 0914.998 8685 / 1500 200 / 200 Output Total 1900 / 1900 3500 / 3500 3450 / 3450 75 / 75 Balance -770 / -770 -2436.584 / -2316.584 -1950 / -1950 125 / 125 Weight 106.821 kg 108.55 kg 103.504 kg 103.5 kg Microbiology Reports for the Last 24 Hours: Microbiology 06/12/25 15:00 Sputum - Expectorated Sputum Gram Stain - Final 06/12/25 15:00 Sputum - Expectorated Sputum Sputum Culture - Final Constitutional: Present mild distress, average body habitus, chronically ill appearing and cooperative Head: Present atraumatic and normocephalic ENT: Present normal exam Respiratory: Present crackles (Bases bilaterally) and normal respiratory effort; Absent rhonchi or wheezes Cardiac: Present Reg Rate and Rhythm GI: Present soft, distention and hypoactive bowel sounds; Absent tenderness Extremities: Present full ROM Comment:: Edema of legs and left upper extremity, 2+ Skin: Present intact; Absent erythema Neuro: Present Grossly Intact, alert, awake, oriented x 3 and moves all extremities Assessment and Plan *Assessment and plan (1) Acute hypoxemic respiratory failure: Status: Acute Category: Medical Code(s): J96.01 - Acute respiratory failure with hypoxia (2) Bilateral pleural effusion: Status: Acute Category: Medical Code(s): J90 - Pleural effusion, not elsewhere classified (3) Non-ST elevation [place] (NSTEMI): Status: Acute Category: Medical Code(s): I21.4 - Non-ST elevation (NSTEMI) myocardial infarction (4) Metastatic signet ring cell carcinoma: Status: Acute Category: Medical Code(s): C79.9 - Secondary malignant neoplasm of unspecified site (5) HTN (hypertension): Status: Acute Category: Medical Code(s): I10 - Essential (primary) hypertension (6) Hyperlipidemia: Status: Acute Category: Medical Code(s): E78.5 - Hyperlipidemia, unspecified Plan Deshawn Sierra is a 60-year-old male with 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 Presented with shortness of breath and back pain. Found to have bilateral pleural effusions, anasarca. Appears to have recurrence of effusions. Review of patient's chart showed pathology earlier this month was positive for malignancy in his effusions. Will consult pulmonology to reevaluate today. Needs discussion about goals of care and PleurX drains as these effusions will likely continue to recur. Problems addressed as follows: #Acute hypoxic respiratory failure, resolved #Anasarca #Bilateral malignant pleural effusions #Ascites #Scrotal edema #Metastatic signet cell adenocarcinoma #History of IJ DVT #Congestive hepatopathy ? Unfortunately, patient returns with shortness of breath, weakness, significant anasarca. Patient was discharged 2 days prior to admission, states he drank a lot of water at home but reports adherence to diuretics and other medications. ? CXR on admission showed worsened bibasilar opacities suggestive of worsening edema versus pneumonia. ? CT chest/abdomen/pelvis on 06/05/2025 showed moderate bilateral pleural effusions, moderate volume ascites around liver and spleen, large hydrocele and edema, anasarca of the abdomen and pelvis. ? ECHO shows normal biventricular systolic function, without significant diastolic dysfunction. There is noted increased left LV wall thickness. -Pulmonology consulted to evaluate for repeat thoracentesis and possible referral for PleurX drain placement. Path reviewed as stated above from last visit showing malignancy. Effusions are likely a mix of malignant effusion along with CHF component. Strong concern that diuretics alone will not control effusion development. ? Patient has asymmetrical left upper extremity swelling with pitting edema. ? Venous Dopplers of lower extremities, left upper extremity on previous admission unremarkable for DVT. ? Unclear where anasarca is coming from, likely from metastatic signet cell adenocarcinoma of defined primary location. Lower suspicion for heart failure and cirrhosis. ? S/p IR guided in 06/07/25 thoracentesis on previous admission with 1.5 L output, unable to find a pocket for paracentesis. Pleural cytology shows significant L adenocarcinoma. Pleural culture showed Staph epidermidis growth sensitive to vancomycin, likely contaminant will will treat given guarded condition. -Stable on 3 L oxygen. Wean for goal sats greater 90%. - Discontinue Bumex drip. Initiate Bumex 2 mg IV twice daily. - neg 4.6 L since admission. - Discussed case with pulmonology, recommend CT of the chest. Patient does not want contrast. Will evaluate effusions and further intrathoracic pathology. Further discussion about consultation with oncology at [facility] pending image findings ? Continue home Eliquis 5 mg twice daily for history of DVT. ? Discussed with family, in the setting of signet cell adenocarcinoma that is known to be aggressive and very challenging to treat family wonders if patient she did not pursue hospice care. Patient recently followed up with oncology noted very difficult nature trying to treat signet cell carcinoma with Dr Burch did state chemotherapy could be an option. Source not able to be identified on scans, EGD/colonoscopy. At this time, patient is not ready for hospice care. He would like to at least try treatment before considering hospice. He would also like a referral to oncology, will reach out to the referral center. -BUN 45, creatinine 1.3. Responding well with potassium 3.4, replace per protocol. Repeat CBC, CMP, magnesium ordered for the morning #NSTEMI #CAD ? Troponins peaked at 0.62, down trended to 0.56. EKG without acute ischemic changes. No chest pain. ED discussed with Dr. Dupont, advised to diurese as low suspicion for ACS. ? Cardiology consulted on previous admission, noted mild coronary artery calcification on CT chest. ECHO shows normal biventricular systolic function with mild RV dilatation. ? Continue aspirin 81 mg, atorvastatin 40 mg. #Left hip pain ? Patient complains of left hip pain, popping noise after climbing up stairs day before admission. ? He is able to ambulate without much distress. Left hip x-ray on previous admission unremarkable for acute findings. ? Continue multimodal pain management with Tylenol, [place], morphine. Severe constipation: Continue aggressive bowel regimen. Repeat enema this morning. states this is not abnormal for him. continue docusate/senna scheduled twice daily. MiraLAX daily. Mineral oil p.o. nightly. Continue famotidine 20 mg, Protonix 40 mg daily for GERD Continue BuSpar 15 mg twice daily for anxiety Back pain and history of neuropathy: Continue gabapentin 100 mg 3 times a day, Tylenol for mild pain, and hydrocodone 5 mg/325 1 tablet every 4 hours as needed for moderate to severe pain. Monitor for toxicity Metastatic signet ring cell carcinoma: continue dexamethasone 4 mg daily started by his oncologist for swelling will continue to have goals of care discussions. Full code DVT prophylaxis: Home Eliquis
--- NOTE | 2025-06-14 14:56 | [facility].PHAAMS2 ---
- Antimicrobial Stewardship Review 48 hour timeout review Stewardship interventions: 48 hour timeout review, reviewed - no change Comments: pt on cefepime and vancomycin , cultures indeterminate, empiric therapy
[2025-06-14] MEDS: VANCOMYCIN/WATER FOR INJ (PEG) 1.75 GM/350 ML PIGGYBACK IV (15:10)
--- NOTE | 2025-06-14 16:36 | CT_ITS ---
PROCEDURE INFORMATION: Exam: CT Chest Without Contrast; Diagnostic Exam date and time: 06/14/2025 8:21 PM Age: 60 years old Clinical indication: Shortness of breath; Additional info: SOB TECHNIQUE: Imaging protocol: Diagnostic computed tomography of the chest without contrast. Radiation optimization: All CT scans at this facility use at least one of these dose optimization techniques: automated exposure control; mA and/or kV adjustment per patient size (includes targeted exams where dose is matched to clinical indication); or iterative reconstruction. COMPARISON: CT CHEST WO CON 06/05/2025 7:03 PM FINDINGS: Lungs: Bilateral compressive subsegmental atelectasis. Interstitial prominence. [place] B-lines. Pleural spaces: Moderately large bilateral pleural effusions. Heart: Tiny pericardial effusion. Coronary arteries: No atherosclerotic calcification of coronary arteries. Lymph nodes: Unremarkable. No enlarged lymph nodes. Vasculature: Unremarkable. No aortic aneurysm. Intraperitoneal space: Perihepatic ascites. Bones/joints: No acute findings. Soft tissues: Unremarkable. IMPRESSION: 1. CHF/pulmonary edema with tiny pericardial and bilateral pleural effusions. 2. Perihepatic ascites.
--- NOTE | 2025-06-14 17:23 | PC.NURSE ---
pt was to have CT scan with contrast per dr long and pt and daughter talked about it and are not sure they want to have it with contrast because of a prior reaction to the contrast. CT asked if they could cancel the CT and i told them yes for now. Dr guerrero called back to see if it was completed and he said he would like the CT with or without contrast. I asked the daughter again if they could come do it without contrast and the pt was asleep and did not sleep well last night so she is letting him rest. if he decides he wants it when he wakes up she will let me know or they can try again tomorrow.
[2025-06-14] MEDS: PANTOPRAZOLE 40MG TABLET 40 MG PO (20:55)
[2025-06-14] MEDS: ATORVASTATIN 40MG TABLET 40 MG PO (20:55)
[2025-06-14] MEDS: BELLADONNA ALKALOIDS 60 ML ML PO (21:51)
[2025-06-15] MEDS: HYDROCODONE/APAP 5/325 MG TABLET 1 TAB PO (01:27)
[2025-06-15] MEDS: MORPHINE 2MG/ML SYRINGE 2 MG IV ×5 (03:40→14:07)
[2025-06-15] MEDS: CEFEPIME HCL 2 GM in 0.9 % SODIUM CHLORIDE 100 ML IV ×3 (03:49→20:40)
[2025-06-15 04:00] VITALS: BP 126/81; PULSE 74; RESP 18; TEMP 36.1; O2SAT 96; BMI 28.1
--- NOTE | 2025-06-15 04:53 | PC.NURSE ---
Pt is alert and oriented with some confusion at time. He has remained on 3l nasal cannula. Enema given with no BM this shift. Pt did go down for a CT of the chest. He has complained of generalized pain and nausea throughout the shift and was medicated per OCT. Purewick has remained in place. He has received IV abx. Family has remained at bedside. Currently resting with call light within reach.
[2025-06-15 08:54] LABS: Hematocrit 26.2 % (42.0-52.0); Hemoglobin 8.8 g/dL (14.1-18.0); Immature Granulocytes % 4.3 %; Mean Corpuscular HGB Conc 33.6 g/dL (31.8-35.4); Mean Corpuscular Hemoglobin 32.1 pg (27.0-31.2); Mean Corpuscular Volume 95.6 fl (80-94); Nucleated Red Blood Cells % 2.8 %; Platelet Count 248 K/mm3 (142-424); Red Blood Count 2.74 M/mm3 (4.60-6.20); Red Cell Distribution Width-SD 60.9 fL; White Blood Count 16.9 K/mm3 (4.8-10.8)
--- NOTE | 2025-06-15 09:21 | DIET.NUTRFU ---
RD re-eval for severe protein calorie malnutrition. Meal refusal yesterday, visited and changed to boost clear which was also refused. Based on meal intake nutritional needs are not being met. He was admitted with +2 edema [address] in [address]. Had last thorcentesis on 06/07. Based on [place] Criteria patient qualifies for severe protein calorie malnutrition, he also has Metastatic signet ring carcinoma, patient is not a candidate for treatment per provider note. Provider also indicated family is not ready for hospice
[2025-06-15] MEDS: VANCOMYCIN/WATER FOR INJ (PEG) 1.75 GM/350 ML PIGGYBACK IV (09:32)
[2025-06-15] MEDS: BUMETANIDE 1MG/4ML VIAL 2 MG IV (09:32)
[2025-06-15] MEDS: ONDANSETRON 4MG/2ML VIAL 4 MG IV ×2 (09:41→23:14)
[2025-06-15 09:44] LABS: Albumin Level 2.9 g/dl (3.5-5.0); Chloride 96 mmol/L (98-107); Sodium 134 mmol/L (136-145)
[2025-06-15 09:45] LABS: Potassium 3.4 mmoL/L (3.5-5.1)
[2025-06-15 09:47] LABS: Alanine Aminotransferase 24 U/L (12-78); Anion Gap 11.4 mEq/L (5-15); Aspartate Amino Transferase 35 U/L (17-59); Blood Urea Nitrogen 57 mg/dl (9-20); Carbon Dioxide 30 mmol/L (22.0-30.0); Creatinine Clearance Estimated 74 mL/min (50-200); Creatinine,Serum 1.50 mg/dl (0.66-1.25); Estimated Glomerular Filt Rate 47 ml/min (>60); GFR (African American) 57 ML/MIN (>60)
[2025-06-15 09:48] LABS: Albumin/Globulin Ratio 1.0 (1.1-1.8); Alkaline Phosphatase 456 U/L (38-126); Bilirubin,Total 1.1 mg/dl (0.2-1.3); Calcium 9.4 mg/dl (8.4-10.2); Globulin 3.0 g/dL (1.3-3.2); Glucose 109 mg/dl (74-100); Total Protein,Serum 5.9 g/dl (6.3-8.2)
--- NOTE | 2025-06-15 09:52 | PC.NURSE ---
Meds will given by family after they clean him up and his nausea med has time.
[2025-06-15 09:54] LABS: Total Cells Counted 100
[2025-06-15 09:56] LABS: Polychromasia 1+
--- NOTE | 2025-06-15 09:56 | PC.NURSE ---
emesis times one.
--- NOTE | 2025-06-15 10:00 | XR_ITS ---
FINAL REPORT CLINICAL HISTORY: no bowel movement distended belly. FINDINGS: A single supine view of the abdomen was obtained. There is no prior for comparison. There is gaseous distention of small-bowel loops. A loop in the left lower quadrant measures 4.9 cm in diameter. Stool is seen in the proximal colon. There is no evidence of renal stones. Osseous structures are within normal limits. IMPRESSION: Small bowel dilatation may represent ileus or partial small bowel obstruction. Reviewed, Interpreted and Dictated by Anayeli Rojas MD Transcribed by Abby Yao Authenticated and . [facility]
[2025-06-15] MEDS: BISACODYL 10MG SUPP 10 MG RC (11:41)
[2025-06-15] MEDS: HYDROCODONE 10MG/APAP 325MG TAB 1 TAB PO (15:22)
[2025-06-15] MEDS: GABAPENTIN 100MG CAPSULE 100 MG PO ×2 (15:25→20:41)
[2025-06-15] MEDS: KETOROLAC 15MG/ML VIAL 15 MG IV ×2 (16:06→23:14)
--- NOTE | 2025-06-15 17:11 | PC.NURSE ---
assumed care of pt around 1230. pt a &ox4. pt has had numerous episodes of severe pain and was treated per mar. pt was also treated per mar for anxiety. family assists pt in toileting care and frequent turns. pt requiring 3LNC to maintain sats >90%. episode of vomiting this morning. no episodes since. pt is currently NPO. family currently at bedside. no needs at this time. call light within reach.
--- NOTE | 2025-06-15 18:15 | PC.NURSE ---
pt assisted to bedside commode at this time. pt requested some time on the toilet with only daughter at bedside. call light within reach
--- NOTE | 2025-06-15 18:32 | P.PN_ITS ---
Subjective *Date: 06/15/25 *Time: 19:54 Interval history: Remains short of breath today on 3 L. Still no bowel movement as of morning rounds. Belly more distended. Had large emesis today. Concern for development of ileus. Will obtain KUB. No peritoneal signs but stomach is uncomfortable. Denies chest pain. No fever. Family at bedside. Medical Exam Vital signs and Labs for Last 24 Hours: Vital Signs Temp Pulse Resp BP Pulse Ox O2 Del Method O2 Flow Rate 06/15/25 16:51 Nasal Cannula 3 06/15/25 15:00 Nasal Cannula 3 06/15/25 13:00 Nasal Cannula 3 06/15/25 10:09 Nasal Cannula 2 06/15/25 09:00 Nasal Cannula 2 06/15/25 08:00 Nasal Cannula 3 06/15/25 06:41 Nasal Cannula 3 06/15/25 05:00 Nasal Cannula 3 06/15/25 04:00 96.9 F L 74 18 126/81 96 Nasal Cannula 3 06/15/25 03:00 Nasal Cannula 3 06/15/25 01:00 Nasal Cannula 3 06/14/25 23:00 Nasal Cannula 3 06/14/25 21:00 Nasal Cannula 3 06/14/25 20:00 Nasal Cannula 3 06/14/25 20:00 98.7 F 74 20 131/63 94 L Nasal Cannula 3 06/14/25 19:02 Nasal Cannula 3 Intake and Output 06/15/25 06/15/25 06/15/25 07:59 15:59 23:59 Intake Total 530 / 980 450 / 980 Balance 530 / 980 450 / 980 Intake: Intake, Oral Amount 300 / 300 Intake, Total IV Amount 230 / 680 450 / 680 Bumetanide 10 mg In 0.9 % 30 / 30 Sodium Chloride 60 ml @ 10 mls/ hr IV .Q10H [facility] Rx#:[id number] Cefepime HCl 2 gm In 0.9 % 200 / 300 100 / 300 Sodium Chloride 100 ml @ 200 mls/hr IV Q8H [facility] Rx#:[id number] Vancomycin/Water For Inj (Peg) 350 / 350 1.75 gm In 350 ml @ 175 mls/hr IV Q18H [facility] Rx#:[id number] Other: Weight 102.739 kg Patient Weight 06/15/25 23:59 Weight 102.739 kg Laboratory Results - last 24 hr 06/15/25 08:30: WBC 16.9 H, RBC 2.74 L, Hgb 8.8 L, Hct 26.2 L, MCV 95.6 H, MCH 32.1 H, MCHC 33.6, RDW 19.1 H, Plt Count 248, MPV 11.1 H, Neut % (Auto) 79.7, Lymph % (Auto) 7.8 L, [place] % (Auto) 7.3, Eos % (Auto) 0.5, Baso % (Auto) 0.4, Neut # (Auto) 13.5 H, Lymph # (Auto) 1.3, [place] # (Auto) 1.2 H, Eos # (Auto) 0.1, Baso # (Auto) 0.1, Total Counted 100, Neutrophils % (Manual) 77 H, Band Neutrophils % 1.0, Lymphocytes % (Manual) 13, Monocytes % (Manual) 7, Metamyelocytes % 1.0, Promyelocytes % 1, Platelet Estimate Normal, Polychromasia 1+, Sodium 134 L, Potassium 3.4 L, Chloride 96 L, Carbon Dioxide 30, Anion Gap 11.4, BUN 57 H D, Creatinine 1.50 H, Estimated Creat Clear 74, Estimated GFR 47 L, Est GFR ( Amer) 57 L, Glucose 109 H, Calcium 9.4, Total Bilirubin 1.1, AST 35, ALT 24, Alkaline Phosphatase 456 H, Total Protein 5.9 L, Albumin 2.9 L, Globulin 3.0, Albumin/Globulin Ratio 1.0 L I & O for Labs for Last 24 Hours: Intake & Output 06/12/25 06/13/25 06/14/25 06/15/25 23:59 23:59 23:59 23:59 Intake Total 1063.416 / 7863.834 0787 / 1500 750 / 1050 980 / 980 Output Total 3500 / 3500 3450 / 3450 575 / 575 Balance -2436.584 / -2316.584 -1950 / -1950 175 / 475 980 / 980 Weight 108.55 kg 103.504 kg 103.5 kg 102.739 kg Microbiology Reports for the Last 24 Hours: Microbiology 06/10/25 19:06 Blood Blood Culture - Preliminary NO GROWTH AFTER 4 DAYS 06/10/25 19:06 Blood Blood Culture - Preliminary NO GROWTH AFTER 4 DAYS Constitutional: Present mild distress, average body habitus, chronically ill appearing and cooperative Head: Present atraumatic and normocephalic ENT: Present normal exam Respiratory: Present crackles (Bases bilaterally) and normal respiratory effort; Absent rhonchi or wheezes Cardiac: Present Reg Rate and Rhythm GI: Present soft, distention, tenderness (Nonfocal, mild), normal bowel sounds and hypoactive bowel sounds; Absent guarding, rebound or rigidity Extremities: Present full ROM Comment:: Edema of legs and left upper extremity, 2+ Skin: Present intact; Absent erythema Neuro: Present Grossly Intact, alert, awake, oriented x 3 and moves all extremities Assessment and Plan *Assessment and plan (1) Acute hypoxemic respiratory failure: Status: Acute Category: Medical Code(s): J96.01 - Acute respiratory failure with hypoxia (2) Bilateral pleural effusion: Status: Acute Category: Medical Code(s): J90 - Pleural effusion, not elsewhere classified (3) Non-ST elevation VA (NSTEMI): Status: Acute Category: Medical Code(s): I21.4 - Non-ST elevation (NSTEMI) myocardial infarction (4) Metastatic signet ring cell carcinoma: Status: Acute Category: Medical Code(s): C79.9 - Secondary malignant neoplasm of unspecified site (5) HTN (hypertension): Status: Acute Category: Medical Code(s): I10 - Essential (primary) hypertension (6) Hyperlipidemia: Status: Acute Category: Medical Code(s): E78.5 - Hyperlipidemia, unspecified (7) Ileus: Status: Acute Category: Medical Code(s): K56.7 - Ileus, unspecified Plan Deshawn Sierra is a 60-year-old male with 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 Presented with shortness of breath and back pain. Found to have bilateral pleural effusions, anasarca. Appears to have recurrence of effusions. Review of patient's chart showed pathology earlier this month was positive for malignancy in his effusions. Will consult pulmonology to reevaluate today. Needs discussion about goals of care and PleurX drains as these effusions will likely continue to recur. Problems addressed as follows: #Acute hypoxic respiratory failure, resolved #Anasarca #Bilateral malignant pleural effusions #Ascites #Scrotal edema #Metastatic signet cell adenocarcinoma #History of IJ DVT #Congestive hepatopathy ? Unfortunately, patient returns with shortness of breath, weakness, significant anasarca. Patient was discharged 2 days prior to admission, states he drank a lot of water at home but reports adherence to diuretics and other medications. ? CXR on admission showed worsened bibasilar opacities suggestive of worsening edema versus pneumonia. ? CT chest/abdomen/pelvis on 06/05/2025 showed moderate bilateral pleural effusions, moderate volume ascites around liver and spleen, large hydrocele and edema, anasarca of the abdomen and pelvis. ? ECHO shows normal biventricular systolic function, without significant diastolic dysfunction. There is noted increased left LV wall thickness. -Pulmonology consulted to evaluate for repeat thoracentesis and possible referral for PleurX drain placement. Path reviewed as stated above from last visit showing malignancy. Effusions are likely a mix of malignant effusion along with CHF component. Strong concern that diuretics alone will not control effusion development. ? Patient has asymmetrical left upper extremity swelling with pitting edema. ? Venous Dopplers of lower extremities, left upper extremity on previous admission unremarkable for DVT. ? Unclear where anasarca is coming from, likely from metastatic signet cell adenocarcinoma of defined primary location. Lower suspicion for heart failure and cirrhosis. ? S/p IR guided in 06/07/25 thoracentesis on previous admission with 1.5 L output, unable to find a pocket for paracentesis. Pleural cytology shows significant L adenocarcinoma. Pleural culture showed Staph epidermidis growth sensitive to vancomycin, likely contaminant will will treat given guarded condition. -Stable on 3 L oxygen. Wean for goal sats greater 90%. -Continue Bumex today due to nausea and vomiting and poor p.o. intake. -CT chest per my review showing moderate bilateral pleural effusions, discussed case with pulmonology, consider thoracentesis if breathing is worse. ? Continue home Eliquis 5 mg twice daily for history of DVT. ?Discussed case with family, considering hospice due to patient's continued decline. - White count remains elevated at 16, kidney function stable with BUN 57, creatinine 1.5. - Repeat CBC, CMP, magnesium ordered for the morning #NSTEMI, resolved #CAD ? Cardiology consulted on previous admission, noted mild coronary artery calcification on CT chest. ECHO shows normal biventricular systolic function with mild RV dilatation. ? Continue aspirin 81 mg, atorvastatin 40 mg. #Left hip pain ? Patient complains of left hip pain, popping noise after climbing up stairs day before admission. ? He is able to ambulate without much distress. Left hip x-ray on previous admission unremarkable for acute findings. ? Continue multimodal pain management with Tylenol, [place], morphine. Severe constipation: Continue aggressive bowel regimen. Repeat enema this morning. states this is not abnormal for him. continue docusate/senna scheduled twice daily. MiraLAX daily. Mineral oil p.o. nightly. Continue famotidine 20 mg, Protonix 40 mg daily for GERD Continue BuSpar 15 mg twice daily for anxiety Back pain and history of neuropathy: Continue gabapentin 100 mg 3 times a day, Tylenol for mild pain, and hydrocodone 5 mg/325 1 tablet every 4 hours as needed for moderate to severe pain. Monitor for toxicity Metastatic signet ring cell carcinoma: continue dexamethasone 4 mg daily started by his oncologist for swelling will continue to have goals of care discussions. Full code DVT prophylaxis: Home Beth
--- NOTE | 2025-06-15 18:32 | EXP.EVENT.NO ---
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 Discussion: Persons present and participating in discussion: Daughter and patient, myself and bedside nurse Discussion: Extensive discussion about patient's goals of care including what aggressive life-prolonging measures look like and aggressive comfort measures look like. At this time I am concerned the patient has developed an ileus secondary to medications, chronic constipation, acute illness. Discussed that if he does not have bowel movement by morning, will need to consider NG to be aggressive about decompression and treatment of ileus along with possible repeat therapeutic thoracentesis. Patient is unsure if he wants to do these things. Discussed that if he does not want to take measures to prolong life and treat acute issues, we can focus aggressively on comfort and consider hospice care. He is strongly considering this. He understands that his cancer is terminal and any treatment at best would be palliative. Discussed what his last good day look like. How much he enjoyed being with family, sharing stories memories, seeing them smile. Would like to have more days like this. He appears to be struggling with excepting that his condition is not curable but he also appears to have good support and family at bedside specially with his daughter. Questions were answered. Discussed treatment goal for the night including enema to promote bowel movement. Will revisit patient's condition and potential treatment options in the morning along with potential consultation of hospice at patient's discretion. Time spent: Total time spent [id number] in education and discussion directly related to advance care plannin minutes Carlos Noguera 06/15/2025 5:30 PM to 6:08 PM
[2025-06-15] MEDS: SENNOSIDES 8.6MG/DOCUSATE 50MG TABLET 1 TAB PO (20:41)
[2025-06-15] MEDS: MINERAL OIL ENEMA 133ML 133 ML RC (20:41)
[2025-06-15] MEDS: PANTOPRAZOLE 40MG TABLET 40 MG PO (20:41)
[2025-06-15] MEDS: BUSPIRONE HCL 5 MG TABLET 15 MG PO (20:41)
[2025-06-15] MEDS: ATORVASTATIN 40MG TABLET 40 MG PO (20:41)
[2025-06-15] MEDS: APIXABAN 5MG TABLET 5 MG PO (20:41)
--- NOTE | 2025-06-16 | US_ITS ---
FINAL REPORT CLINICAL HISTORY: RT PL 400ml removed FINDINGS: ULTRASOUND GUIDED THORACENTESIS HISTORY: Pleural effusion TECHNIQUE: The right posterior chest was prepped and routine sterile fashion. Appropriate pocket was localized for drainage. The patient was prepped and draped in routine fashion. Local anesthesia was achieved with 1% lidocaine. Using imaging guidance with images acquired, an 18-gauge sheath needle was directed into the pleural fluid. Approximately 400 mL's liters of fluid was aspirated. IMPRESSION: Successful ultrasound guided thoracentesis Authenticated and ERN
[2025-06-16] MEDS: MORPHINE 2MG/ML SYRINGE 2 MG IV ×5 (00:21→20:12)
--- NOTE | 2025-06-16 01:40 | PC.NURSE ---
Patient's Daughter instructed to me that they could get him on the bedside commode by themselves I proceded to ask if they needed my help and the daughter said they can handle it. I went back in there to check on the patient and the patient was to scared to get up to the bedside commode, so the daughter is currently trying to get him on the bedpan and I asked if they needed my help the daughter stated for me to close the curtain and they would come get me if they needed me. -
[2025-06-16 02:00] LABS: Vancomycin,Trough 36.9 ug/mL (5.0-10.0)
--- NOTE | 2025-06-16 03:06 | PC.NURSE ---
Pt is alert and oriented but has had has some episodes of confusion. He has remained on 3L nasal cannula. Pt and family has refused vitals at 2000 and 0000. Pt was given an enema and placed on a bedpan. He had a very small liquid BM. He hs complained of pain and nausea and was medicated per OCT. A critical vanc through was reported. director call center sales pharmacy was notified and 0130 dose was cancelled . Family has remained at bedside. Currently resting with call light within reach.
[2025-06-16] MEDS: CEFEPIME HCL 2 GM in 0.9 % SODIUM CHLORIDE 100 ML IV ×2 (03:45→13:46)
[2025-06-16 04:00] VITALS: BP 106/58; PULSE 80; RESP 12; TEMP 37.1; O2SAT 93; BMI 28.3
[2025-06-16] MEDS: KETOROLAC 15MG/ML VIAL 15 MG IV ×3 (07:46→18:33)
[2025-06-16] MEDS: ONDANSETRON 4MG/2ML VIAL 4 MG IV ×2 (07:46→20:09)
[2025-06-16 08:00] VITALS: BP 125/66; PULSE 77; RESP 20; TEMP 36.6; O2SAT 96
[2025-06-16] MEDS: DEXAMETHASONE 4MG TABLET 4 MG PO (08:59)
[2025-06-16] MEDS: APIXABAN 5MG TABLET 5 MG PO (08:59)
[2025-06-16] MEDS: SPIRONOLACTONE 25MG TABLET 50 MG PO (09:00)
[2025-06-16] MEDS: BUSPIRONE HCL 5 MG TABLET 15 MG PO (09:00)
[2025-06-16] MEDS: GABAPENTIN 100MG CAPSULE 100 MG PO (09:00)
[2025-06-16] MEDS: POLYETHYLENE GLYCOL 3350 17 GM PACKET PO (09:00)
[2025-06-16] MEDS: ASPIRIN EC 81MG TABLET 81 MG PO (09:00)
[2025-06-16] MEDS: FAMOTIDINE 20MG TABLET 20 MG PO (09:00)
[2025-06-16] MEDS: SENNOSIDES 8.6MG/DOCUSATE 50MG TABLET 1 TAB PO (09:00)
--- NOTE | 2025-06-16 09:38 | P.PN_ITS ---
Subjective *Date: 06/16/25 *Time: 11:43 Interval history: No acute respiratory events overnight. Patient denies any new respiratory complaints. Pulmonology Exam Inpatient Vital signs and Labs for Last 24 Hours: Temp Pulse Resp BP Pulse Ox O2 Del Method O2 Flow Rate 98 F 77 20 125/66 96 Nasal Cannula 3 06/16/25 08:00 06/16/25 08:00 06/16/25 08:00 06/16/25 08:00 06/16/25 08:00 06/16/25 09:00 06/16/25 09:00 Laboratory Results - last 24 hr 06/15/25 08:30: Total Counted 100, Neutrophils % (Manual) 77 H, Band Neutrophils % 1.0, Lymphocytes % (Manual) 13, Monocytes % (Manual) 7, Metamyelocytes % 1.0, Promyelocytes % 1, Platelet Estimate Normal, Polychromasia 1+, Sodium 134 L, Potassium 3.4 L, Chloride 96 L, Carbon Dioxide 30, Anion Gap 11.4, BUN 57 H D, Creatinine 1.50 H, Estimated Creat Clear 74, Estimated GFR 47 L, Est GFR ( Amer) 57 L, Glucose 109 H, Calcium 9.4, Total Bilirubin 1.1, AST 35, ALT 24, Alkaline Phosphatase 456 H, Total Protein 5.9 L, Albumin 2.9 L, Globulin 3.0, Albumin/Globulin Ratio 1.0 L 06/16/25 00:47: Vancomycin Trough 36.9 H Temp Pulse Resp BP Pulse Ox O2 Del Method O2 Flow Rate 97.1 F L 84 20 140/70 96 Nasal Cannula 3 06/14/25 04:00 06/14/25 04:00 06/14/25 04:00 06/14/25 04:00 06/14/25 04:00 06/14/25 06:56 06/14/25 06:56 Laboratory Results - last 24 hr 06/13/25 10:00: WBC 12.1 H, RBC 2.45 L, Hgb 7.8 L, Hct 23.2 L, MCV 94.7 H, MCH 31.8 H, MCHC 33.6, RDW 17.9 H, Plt Count 185, MPV 10.8 H, Neut % (Auto) 78.9, Lymph % (Auto) 7.7 L, [place] % (Auto) 8.2, Eos % (Auto) 0.5, Baso % (Auto) 0.3, Neut # (Auto) 9.6 H, Lymph # (Auto) 0.9, [place] # (Auto) 1.0, Eos # (Auto) 0.1, Baso # (Auto) 0.0, Total Counted 100, Neutrophils % (Manual) 84 H, Lymphocytes % (Manual) 9 L, Monocytes % (Manual) 2, Eosinophils % (Manual) 2, Metamyelocytes % 1.0, Promyelocytes % 2, Nucleated RBCs 1, Platelet Estimate Normal, Polychromasia 1+ 06/13/25 16:33: Folate 9.98 06/14/25 07:48: WBC 15.5 H D, RBC 2.89 L, Hgb 9.1 L D, Hct 27.0 L, MCV 93.4, MCH 31.5 H, MCHC 33.7, RDW 18.5 H, Plt Count 226, MPV 10.7 H, Neut % (Auto) 80.0, Lymph % (Auto) 7.4 L, [place] % (Auto) 7.7, Eos % (Auto) 0.1, Baso % (Auto) 0.3, Neut # (Auto) 12.4 H, Lymph # (Auto) 1.1, [place] # (Auto) 1.2 H, Eos # (Auto) 0.0, Baso # (Auto) 0.0, Total Counted 100, Neutrophils % (Manual) 88 H, Lymphocytes % (Manual) 6 L, Atypical Lymphs % 1.0, Monocytes % (Manual) 5, Platelet Estimate Normal, RBC Morphology Not Reportable, Polychromasia 1+, Sodium 134 L, Potassium 3.4 L, Chloride 93 L, Carbon Dioxide 35 H, Anion Gap 9.4, BUN 45 H, Creatinine 1.30 H, Estimated Creat Clear 86, Estimated GFR 56 L, Est GFR ( Amer) 68, Glucose 129 H, Calcium 9.5, Total Bilirubin 1.2, AST 36 D, ALT 25, Alkaline Phosphatase 433 H, Total Protein 6.1 L, Albumin 2.9 L, Globulin 3.2, Albumin/Globulin Ratio 0.9 L I & O for Labs for Last 24 Hours: Intake & Output 06/13/25 06/14/25 06/15/25 06/16/25 23:59 23:59 23:59 23:59 Intake Total 1500 / 1500 750 / 1050 1080 / 1130 150 / 150 Output Total 3450 / 3450 575 / 575 100 / 100 Balance -1950 / -1950 175 / 475 1080 / 1130 50 / 50 Weight 228 lb 3 oz 228 lb 2.855 oz 226 lb 8 oz 227 lb 8 oz Intake & Output 06/11/25 06/12/25 06/13/25 06/14/25 23:59 23:59 23:59 23:59 Intake Total 1130 / 1130 1063.416 / 5618.624 0690 / 1500 200 / 200 Output Total 1900 / 1900 3500 / 3500 3450 / 3450 Balance -770 / -770 -2436.584 / -2316.584 -1949 / -1950 200 / 200 Weight 235 lb 8 oz 239 lb 5 oz 228 lb 3 oz 228 lb 2.855 oz Microbiology Reports for the Last 24 Hours: Microbiology 06/10/25 19:06 Blood Blood Culture - Final NO GROWTH AFTER 5 DAYS 06/10/25 19:06 Blood Blood Culture - Final NO GROWTH AFTER 5 DAYS Microbiology 06/12/25 15:00 Sputum - Expectorated Sputum Gram Stain - Final 06/12/25 15:00 Sputum - Expectorated Sputum Sputum Culture - Final Constitutional: Present moderate distress Head: Present normocephalic and atraumatic ENT: Present normal exam, normal oropharynx and mucous membranes moist Neck: Present normal inspection and full ROM Respiratory: Present respiratory distress, rhonchi, distant breath sounds and able to speak in complete sentences; Absent prolonged expiratory phase Cardiac: Present S1/S2, Tachycardia and radial pulses present GI: Present soft and distention; Absent tenderness or guarding Skin: Present intact; Absent cyanosis or jaundice Neuro: Present alert and awake; Absent oriented x 3 Extremities: Present normal inspection and edema; Absent clubbing or cyanosis Psychiatric: Present normal affect and cooperative Assessment and Plan *Assessment and plan (1) Acute hypoxic respiratory failure: Status: Acute Category: Medical Code(s): J96.01 - Acute respiratory failure with hypoxia (2) Pneumonia: Status: Acute Qualifiers: Laterality: bilateral Lung location: lower lobe of lung Pneumonia type: due to unspecified organism Qualified Code(s): J18.9 - Pneumonia, unspecified organism Category: Medical Code(s): J18.9 - Pneumonia, unspecified organism Plan Mr. 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 He also continued to receive anticoagulation for jugular venous thrombosis. Chest x-ray upon his admission from 06/08/2025 bilateral patchy infiltrates with no obvious effusions. Patient currently receiving Bumex drip. Also received vancomycin given his pleural fluid cultures positive for Staph epidermidis. Neutrophilic predominant leukocytosis and relatively stable since admission. Afebrile. Hemodynamically stable. HALLIE with creatinine at 1.30. Relatively stable from admission. On examination moderate respiratory distress. Interval update: CT chest bilateral effusions left greater than right. No dense consolidative airspace changes. Adjacent atelectasis. Continue to receive vancomycin and cefepime. Blood and sputum cultures no growth so far. DWorsening Leucocytosis. Worsenign renal function. MRSA culture negative Ongoing goals of care discussion. Plan: Repeat thoracentesis Discontinue cefepime. Change vancomycin to linezolid pending repeat pleural fluid culture results as prior cultures concerning for Staph epidermidis infection DuoNebs every 6 hours PRN Continue oxygen supplementation on as-needed basis to maintain O2 saturation goal of 90% and above
[2025-06-16 09:39] LABS: Hematocrit 27.3 % (42.0-52.0); Hemoglobin 8.7 g/dL (14.1-18.0); Immature Granulocytes % 3.7 %; Mean Corpuscular HGB Conc 31.9 g/dL (31.8-35.4); Mean Corpuscular Hemoglobin 31.5 pg (27.0-31.2); Mean Corpuscular Volume 98.9 fl (80-94); Nucleated Red Blood Cells % 3.6 %; Platelet Count 244 K/mm3 (142-424); Red Blood Count 2.76 M/mm3 (4.60-6.20); Red Cell Distribution Width-SD 65.1 fL; White Blood Count 14.8 K/mm3 (4.8-10.8)
[2025-06-16 09:47] LABS: Albumin Level 2.9 g/dl (3.5-5.0); Chloride 93 mmol/L (98-107); Sodium 130 mmol/L (136-145)
[2025-06-16 09:50] LABS: Alanine Aminotransferase 20 U/L (12-78); Anion Gap 8.9 mEq/L (5-15); Aspartate Amino Transferase 33 U/L (17-59); Blood Urea Nitrogen 66 mg/dl (9-20); Carbon Dioxide 31 mmol/L (22.0-30.0); Creatinine Clearance Estimated 51 mL/min (50-200); Creatinine,Serum 2.20 mg/dl (0.66-1.25); Estimated Glomerular Filt Rate 30 ml/min (>60); GFR (African American) 37 ML/MIN (>60)
[2025-06-16 09:51] LABS: Albumin/Globulin Ratio 1.0 (1.1-1.8); Alkaline Phosphatase 457 U/L (38-126); Bilirubin,Total 1.4 mg/dl (0.2-1.3); Calcium 9.1 mg/dl (8.4-10.2); Globulin 2.8 g/dL (1.3-3.2); Glucose 113 mg/dl (74-100); Total Protein,Serum 5.7 g/dl (6.3-8.2)
[2025-06-16 09:53] LABS: Potassium 2.9 mmoL/L (3.5-5.1)
[2025-06-16 10:31] LABS: Magnesium 3.4 mg/dl (1.6-2.3)
[2025-06-16 10:40] LABS: Total Cells Counted 100
[2025-06-16 10:41] LABS: Polychromasia 1+
[2025-06-16] MEDS: LACTATED RINGERS 1000ML 500 ML 250 ML IV (11:11)
[2025-06-16] MEDS: BISACODYL 10MG SUPP 10 MG RC (11:12)
[2025-06-16 15:05] LABS: Appearance,Body Fld. Bloody; Source, Body Fld. Thoracentesis Fluid
[2025-06-16 15:08] LABS: RBC,Body Fluid 571000 cells/uL (< 10 X 10^3); TNC,Body Fluid 1320 cells/uL (< 1000); Volume,Body Fld. 81 mL
--- NOTE | 2025-06-16 15:27 | P.PN_ITS ---
Subjective *Date: 06/16/25 *Time: 22:33 Interval history: Two small BMs yesterday, one pellety stool and one small loose stool. More confused today, Irritable, distended abdomen. Responds to voice on command, but not opening eyes. Stable O2 requirement or 3L. No Nausea or emesis. Medical Exam Vital signs and Labs for Last 24 Hours: Vital Signs Temp Pulse Resp BP Pulse Ox O2 Del Method O2 Flow Rate 06/16/25 13:00 Nasal Cannula 3 06/16/25 11:00 Nasal Cannula 3 06/16/25 09:00 Nasal Cannula 3 06/16/25 08:00 Nasal Cannula 3 06/16/25 08:00 98 F 77 20 125/66 96 Nasal Cannula 06/16/25 06:48 Nasal Cannula 3 06/16/25 05:00 Nasal Cannula 3 06/16/25 04:00 98.7 F 80 12 106/58 L 93 L Nasal Cannula 2.5 06/16/25 02:59 Nasal Cannula 3 06/16/25 01:00 Nasal Cannula 3 06/15/25 23:00 Nasal Cannula 3 06/15/25 21:00 Nasal Cannula 3 06/15/25 20:00 Nasal Cannula 3 06/15/25 18:44 Nasal Cannula 3 06/15/25 16:51 Nasal Cannula 3 Intake and Output 06/15/25 06/16/25 06/16/25 23:59 07:59 15:59 Intake Total 100 / 1130 150 / 750 600 / 750 Output Total 100 / 550 450 / 550 Balance 100 / 1130 50 / 200 150 / 200 Intake: Intake, Oral Amount 50 / 50 Intake, Total IV Amount 100 / 780 100 / 700 600 / 700 Cefepime HCl 2 gm In 0.9 % 100 / 400 100 / 200 100 / 200 Sodium Chloride 100 ml @ 200 mls/hr IV Q8H [facility] Rx#:[id number] Lactated Ringers 1000ML 500 ml 500 / 500 @ 250 mls/hr IV .Q2H ONE Rx#: [id number] Output: Output, Urine Amount 100 / 550 450 / 550 Other: Number of Unmeasured Voids 1 Number of Bowel Movements 1 1 Weight 103.192 kg Patient Weight 06/16/25 23:59 Weight 103.192 kg Laboratory Results - last 24 hr 06/16/25 00:47: Vancomycin Trough 36.9 H 06/16/25 09:29: WBC 14.8 H, Corrected WBC 13.8 H, RBC 2.76 L, Hgb 8.7 L, Hct 27.3 L, MCV 98.9 H, MCH 31.5 H, MCHC 31.9, RDW 20.1 H, Plt Count 244, MPV 10.6 H , Neut % (Auto) 83.7 H, Lymph % (Auto) 5.1 L, [place] % (Auto) 6.5, Eos % (Auto) 0.6, Baso % (Auto) 0.4, Neut # (Auto) 12.4 H, Lymph # (Auto) 0.8, [place] # (Auto) 1.0, Eos # (Auto) 0.1, Baso # (Auto) 0.1, Total Counted 100, Neutrophils % (Manual) 82 H, Lymphocytes % (Manual) 12, Monocytes % (Manual) 2, Eosinophils % (Manual) 1, Metamyelocytes % 2.0 H, Promyelocytes % 1, Nucleated RBCs 7, Platelet Estimate Normal, Polychromasia 1+, Sodium 130 L, Potassium 2.9 L*, Chloride 93 L, Carbon Dioxide 31 H, Anion Gap 8.9, BUN 66 H, Creatinine 2.20 H D , Estimated Creat Clear 51, Estimated GFR 30 L, Est GFR ( Amer) 37 L D, Glucose 113 H, Calcium 9.1, Magnesium 3.4 H, Total Bilirubin 1.4 H, AST 33, ALT 20, Alkaline Phosphatase 457 H, Lactate Dehydrogenase 480, Total Protein 5.7 L, Albumin 2.9 L, Globulin 2.8, Albumin/Globulin Ratio 1.0 L 06/16/25 12:40: Fluid Source Thoracentesis fluid, Fluid Volume 81, Fluid Appearance Bloody, Fluid RBC (Auto) 799230, Fld Tot Nucleated Cell 1320 I & O for Labs for Last 24 Hours: Intake & Output 06/13/25 06/14/25 06/15/25 06/16/25 23:59 23:59 23:59 23:59 Intake Total 1500 / 1500 750 / 1050 1080 / 1130 750 / 750 Output Total 3450 / 3450 575 / 575 550 / 550 Balance -1950 / -1950 175 / 475 1080 / 1130 200 / 200 Weight 103.504 kg 103.5 kg 102.739 kg 103.192 kg Microbiology Reports for the Last 24 Hours: Microbiology 06/14/25 00:40 Nose - Nasal MRSA Culture - Final Negative 06/10/25 19:06 Blood Blood Culture - Final NO GROWTH AFTER 5 DAYS 06/10/25 19:06 Blood Blood Culture - Final NO GROWTH AFTER 5 DAYS Constitutional: Present mild distress, average body habitus, chronically ill appearing and somnolent Head: Present atraumatic and normocephalic ENT: Present normal exam Respiratory: Present crackles (Bases bilaterally) and normal respiratory effort; Absent rhonchi or wheezes Cardiac: Present Reg Rate and Rhythm GI: Present soft, distention, tenderness (Nonfocal, mild), normal bowel sounds and hypoactive bowel sounds; Absent guarding, rebound or rigidity Extremities: Present full ROM Comment:: Edema of legs and left upper extremity, 2+ Skin: Present intact; Absent erythema Neuro: Present Grossly Intact, alert, awake and moves all extremities Comment:: awakens to voice, tolerant of exam, more confused today Assessment and Plan *Assessment and plan (1) Acute hypoxemic respiratory failure: Status: Acute Category: Medical Code(s): J96.01 - Acute respiratory failure with hypoxia (2) Bilateral pleural effusion: Status: Acute Category: Medical Code(s): J90 - Pleural effusion, not elsewhere classified (3) Non-ST elevation MA (NSTEMI): Status: Acute Category: Medical Code(s): I21.4 - Non-ST elevation (NSTEMI) myocardial infarction (4) Metastatic signet ring cell carcinoma: Status: Acute Category: Medical Code(s): C79.9 - Secondary malignant neoplasm of unspecified site (5) HTN (hypertension): Status: Acute Category: Medical Code(s): I10 - Essential (primary) hypertension (6) Hyperlipidemia: Status: Acute Category: Medical Code(s): E78.5 - Hyperlipidemia, unspecified (7) Ileus: Status: Acute Category: Medical Code(s): K56.7 - Ileus, unspecified (8) Metabolic encephalopathy: Status: Acute Category: Medical Code(s): G93.41 - Metabolic encephalopathy (9) Severe protein-calorie malnutrition: Status: Acute Category: Medical Code(s): E43 - Unspecified severe protein-calorie malnutrition Plan Deshawn Sierra is a 60-year-old male with 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 Presented with shortness of breath and back pain. Found to have bilateral pleural effusions, anasarca. Appears to have recurrence of effusions. Review of patient's chart showed pathology earlier this month was positive for malignancy in his effusions. Pulmonology performed thoracentesis today, bloody effusion drained. More confused today, abdomen with persistent ileus, prognosis poor, condition serious. Problems addressed as follows: #Acute hypoxic respiratory failure, resolved #Anasarca #Bilateral malignant pleural effusions #Ascites #Scrotal edema #Metastatic signet cell adenocarcinoma #History of IJ DVT #Congestive hepatopathy HALLIE ? Unfortunately, patient returns with shortness of breath, weakness, significant anasarca. Patient was discharged 2 days prior to admission, states he drank a lot of water at home but reports adherence to diuretics and other medications. ? CXR on admission showed worsened bibasilar opacities suggestive of worsening edema versus pneumonia. ? CT chest/abdomen/pelvis on 06/05/2025 showed moderate bilateral pleural effusions, moderate volume ascites around liver and spleen, large hydrocele and edema, anasarca of the abdomen and pelvis. ? ECHO shows normal biventricular systolic function, without significant diastolic dysfunction. There is noted increased left LV wall thickness. -Pulmonology consulted to evaluate for repeat thoracentesis and possible referral for PleurX drain placement. Path reviewed as stated above from last visit showing malignancy. Effusions are likely a mix of malignant effusion along with CHF component. Strong concern that diuretics alone will not control effusion development. ? Patient has asymmetrical left upper extremity swelling with pitting edema. ? Venous Dopplers of lower extremities, left upper extremity on previous admission unremarkable for DVT. ? Unclear where anasarca is coming from, likely from metastatic signet cell adenocarcinoma of defined primary location. Lower suspicion for heart failure and cirrhosis. ? Transition to Zyvox 600mg BID due to worsening renal function -Stable on 3 L oxygen. Wean for goal sats greater 90%. -Discontinued Bumex yesterday afternoon. ? Continue home Eliquis 5 mg twice daily for history of DVT. ?Discussed case with family, considering hospice due to patient's continued decline. - White count remains elevated at 14.8, Thoracentesis performed, culture and stain pending. - kidney function slightly worse today with [id number] in Cr to 2.2 and BUN to 66 - Repeat CBC, CMP, magnesium ordered for the morning - due to HALLIE, 500cc bolus over 2 hrs administered #NSTEMI, resolved #CAD ? Cardiology consulted on previous admission, noted mild coronary artery calcification on CT chest. ECHO shows normal biventricular systolic function with mild RV dilatation. ? Continue aspirin 81 mg, atorvastatin 40 mg. #Left hip pain ? Patient complains of left hip pain, popping noise after climbing up stairs day before admission. ? He is able to ambulate without much distress. Left hip x-ray on previous admission unremarkable for acute findings. ? Continue multimodal pain management with Tylenol, [place], morphine. Severe constipation: repeat enema today, 2 small BMs yesterday, still with distended abdomen, continue docusate/senna scheduled twice daily. MiraLAX daily. Mineral oil p.o. nightly. Continue famotidine 20 mg, Protonix 40 mg daily for GERD Continue BuSpar 15 mg twice daily for anxiety Back pain and history of neuropathy: Continue gabapentin 100 mg 3 times a day, Tylenol for mild pain, and hydrocodone 5 mg/325 1 tablet every 4 hours as needed for moderate to severe pain. Monitor for toxicity Metastatic signet ring cell carcinoma: continue dexamethasone 4 mg daily started by his oncologist for swelling will continue to have goals of care discussions. Severe protein calorie malnutrition. Poor p.o. intake. Patient developing worsening confusion with his illness. Findings consistent with acute metabolic encephalopathy, likely secondary to his cancer and worsening nutrition. Full code DVT prophylaxis: Home Eliquis Clear liquid diet
--- NOTE | 2025-06-16 15:28 | PC.NURSE ---
techs notified this RN of moderate size blood tinged puddle under thoracentisis site. pt cleaned and pressure dressing applied to the area.
[2025-06-16 15:44] LABS: Mononuclear WBCs,Body Fluid 74 %; Polynuclear WBC,Body Fluid 26 %
[2025-06-16 16:00] VITALS: BP 126/64; PULSE 76; RESP 18; TEMP 36.7; O2SAT 96
[2025-06-16] MEDS: POTASSIUM CHLORIDE 20 MEQ, LIDOCAINE HCL/PF 3 ML in 0.9 % SODIUM CHLORIDE 100 ML 56.5 MEQ IV ×2 (16:06→18:24)
--- NOTE | 2025-06-16 17:03 | P.PCN_ITS ---
[facility] Procedure Note Date: 06/16/25 Time: 17:03 Procedure Note:: Right thoracentesis Indication for procedure: Pleural Effusion, Hypoxic Respiratory failure A time out was performed, and the chest x-ray was reviewed, the appropriate side was confirmed and marked. My hands were washed immediately prior to the procedure. I wore a surgical cap, mask with protective eyewear, sterile gown, and sterile gloves throughout the procedure. The patient was prepped and draped in a sterile manner using chlorhexidine scrub after the appropriate level was percussed and confirmed by ultrasound. 1% lidocaine was used to anesthetize the skin, subcutaneous tissue, superior aspect of the rib periosteum and parietal pleura. A finder needle was then introduced at the seventh intercoastal space posteriorly to locate the pleural fluid blood-tinged fluid was aspirated. A 10- blade scalpel was used to wilber the skin at the insertion site. The Pafz-r-Dyeluoie needle was then introduced through the skin incision into the pleural space using negative aspiration pressure and the red colorimetric indicator to confirm appropriate positioning of the needle. The thoracentesis catheter was then threaded without difficulty. 420 ml of fluid was removed without difficulty. The catheter was then removed. No immediate complications were noted during the procedure. A post-procedure chest X-ray is pending at the time of this note. The fluid will be sent for routine pleural studies, cultures along with cytopathology. Patient tolerated the procedure well Estimated blood loss is 2cc.
--- NOTE | 2025-06-16 17:18 | PC.NURSE ---
pt a &ox4, with brief episodes of confusion. pt has had numerous episodes of severe pain and was treated per mar. pt was also treated per oct for anxiety. family assists pt in toileting care and frequent turns. pt requiring 3LNC to maintain sats >90%. pt will have periods where he rips nasal cannula off, causing sats to drop. family and this RN attempts to place NC back on. one episode of spitting up bile colored fluid. thoracetisis completed this shift. 400ml drained and sent to lab. dressing placed over access site. family currently at bedside. no needs at this time. call light within reach.
[2025-06-16 23:39] VITALS: BP 109/69; PULSE 80; RESP 14; O2SAT 88
[2025-06-17] VITALS (7 sets, daily range): BP systolic 90–142; BP diastolic 53–68; PULSE 79–101; RESP 14–18; TEMP 36.3–36.7; O2SAT 89–95; BMI 27.5
[2025-06-17] MEDS: PROMETHAZINE HCL 25MG/ML 1ML VIAL 12.5 MG IV (00:13)
[2025-06-17] MEDS: SODIUM CHLORIDE 0.9% 25ML BAG 25 ML IV (00:13)
[2025-06-17] MEDS: MORPHINE 2MG/ML SYRINGE 2 MG IV ×2 (01:28→04:44)
[2025-06-17] MEDS: diazePAM 10MG/2ML SYRINGE 2 MG IV ×2 (03:16→07:14)
[2025-06-17] MEDS: CEFEPIME HCL 2 GM in 0.9 % SODIUM CHLORIDE 100 ML IV ×3 (03:29→20:31)
[2025-06-17] MEDS: ONDANSETRON 4MG/2ML VIAL 4 MG IV (04:44)
--- NOTE | 2025-06-17 05:51 | XR_ITS ---
FINAL REPORT CLINICAL HISTORY: NG tube placement COMPARISON: 06/15/2025 FINDINGS: A single supine view of the abdomen was obtained. An NG tube is present in the proximal stomach. There are dilated small bowel loops in the upper abdomen. IMPRESSION: NG tube in the proximal stomach. Reviewed, Interpreted and Dictated by Anayeli Rojas MD Transcribed by Abby Yao Authenticated and [facility]
--- NOTE | 2025-06-17 08:12 | PC.NURSE ---
Addendum entered by Yari Horan RN 06/17/25 08:36: ng 60cm in lt gloria Original Note: on assessment pt was agitated, restless and complaining of severe pain. treated pain per mar with some relieve. active bowel sounds, abd large, round, and hard. pt moaning and rolling around in bed and keeps rubbing his stomach and motioning up his chest. daughter stated he did not tolerate the iv potassium well and wanted to hold off till pt calmed down. unable to take po meds this shift. called nurse juan m carvalho for something for restlessness/anxiety because his current med was in po form. iv valium 2mg order with great relief for about 30 mins, per family. around 0100 complaints of nausea were still present, called deven for different nausea meds. was about to take the nausea meds in and pt began vomiting a decent amount of brown odorous liquid. notified deven, she came to bedside and talked with daughter jorge about an ng tube and daughter ref at that time. 2 hrs later pt vomited again, decent amount of brown odors liquid. pt verbalized he wanted something done to make this stop . pt himself agreed to an ng tube. tolerated well after insertion of ng tube pt began having multiple bm. dnr signed by daughter
[2025-06-17] MEDS: LIDOCAINE 2% JELLY 5ML TUBE 5 ML TP (08:34)
[2025-06-17] MEDS: MORPHINE 4MG/ML SYRINGE 2 MG IV ×2 (10:06→21:31)
[2025-06-17 10:55] LABS: Albumin Level 2.7 g/dl (3.5-5.0); Chloride 96 mmol/L (98-107); Potassium 3.4 mmoL/L (3.5-5.1); Sodium 133 mmol/L (136-145)
[2025-06-17 10:57] LABS: Hematocrit 29.0 % (42.0-52.0); Hemoglobin 9.1 g/dL (14.1-18.0); Immature Granulocytes % 2.1 %; Mean Corpuscular HGB Conc 31.4 g/dL (31.8-35.4); Mean Corpuscular Hemoglobin 31.7 pg (27.0-31.2); Mean Corpuscular Volume 101.0 fl (80-94); Nucleated Red Blood Cells % 4.6 %; Platelet Count 277 K/mm3 (142-424); Red Blood Count 2.87 M/mm3 (4.60-6.20); Red Cell Distribution Width-SD 70.7 fL; White Blood Count 9.1 K/mm3 (4.8-10.8)
[2025-06-17 10:58] LABS: Alanine Aminotransferase 24 U/L (12-78); Albumin/Globulin Ratio 1.0 (1.1-1.8); Alkaline Phosphatase 429 U/L (38-126); Anion Gap 10.4 mEq/L (5-15); Aspartate Amino Transferase 37 U/L (17-59); Bilirubin,Total 1.1 mg/dl (0.2-1.3); Calcium 9.0 mg/dl (8.4-10.2); Carbon Dioxide 30 mmol/L (22.0-30.0); Globulin 2.8 g/dL (1.3-3.2); Glucose 112 mg/dl (74-100); Total Protein,Serum 5.5 g/dl (6.3-8.2)
[2025-06-17 11:06] LABS: Creatinine Clearance Estimated 47 mL/min (50-200); Creatinine,Serum 2.30 mg/dl (0.66-1.25); Estimated Glomerular Filt Rate 29 ml/min (>60); GFR (African American) 35 ML/MIN (>60)
[2025-06-17 11:17] LABS: Blood Urea Nitrogen 84 mg/dl (9-20)
--- NOTE | 2025-06-17 11:22 | EXP.PULM.PN ---
Subjective *Date: 06/17/25 *Time: 12:44 Interval history: No acute respiratory events overnight Pulmonology Exam Inpatient Vital signs and Labs for Last 24 Hours: Temp Pulse Resp BP Pulse Ox O2 Del Method O2 Flow Rate 98.0 F 100 H 18 90/60 L 90 L Room Air 3 06/17/25 08:00 06/17/25 08:00 06/17/25 08:00 06/17/25 08:00 06/17/25 08:00 06/17/25 08:00 06/16/25 20:00 Laboratory Results - last 24 hr 06/16/25 09:29: Lactate Dehydrogenase 480 06/16/25 12:40: Fluid Source Thoracentesis fluid, Fluid Volume 81, Fluid Appearance Bloody, Fluid RBC (Auto) 191801, Fld Tot Nucleated Cell 1320, Fld Polynuclear WBCs % 26, Fld Mononuclear WBCs % 74 06/17/25 10:15: WBC 9.1 D, RBC 2.87 L, Hgb 9.1 L, Hct 29.0 L, MCV 101.0 H, MCH 31.7 H, MCHC 31.4 L, RDW 21.0 H, Plt Count 277, MPV 11.2 H, Neut % (Auto) 83.7 H, Lymph % (Auto) 6.5 L, [place] % (Auto) 7.5, Eos % (Auto) 0.1, Baso % (Auto) 0.1, Neut # (Auto) 7.6, Lymph # (Auto) 0.6 L, [place] # (Auto) 0.7, Eos # (Auto) 0.0, Baso # (Auto) 0.0, Sodium 133 L, Potassium 3.4 L, Chloride 96 L, Carbon Dioxide 30, Anion Gap 10.4, BUN 84 H D, Creatinine 2.30 H, Estimated Creat Clear 47, Estimated GFR 29 L, Est GFR ( Amer) 35 L, Glucose 112 H, Calcium 9.0, Total Bilirubin 1.1, AST 37, ALT 24, Alkaline Phosphatase 429 H, Total Protein 5.5 L, Albumin 2.7 L, Globulin 2.8, Albumin/Globulin Ratio 1.0 L Temp Pulse Resp BP Pulse Ox O2 Del Method O2 Flow Rate 97.1 F L 84 20 140/70 96 Nasal Cannula 3 06/14/25 04:00 06/14/25 04:00 06/14/25 04:00 06/14/25 04:00 06/14/25 04:00 06/14/25 06:56 06/14/25 06:56 Laboratory Results - last 24 hr 06/13/25 10:00: WBC 12.1 H, RBC 2.45 L, Hgb 7.8 L, Hct 23.2 L, MCV 94.7 H, MCH 31.8 H, MCHC 33.6, RDW 17.9 H, Plt Count 185, MPV 10.8 H, Neut % (Auto) 78.9, Lymph % (Auto) 7.7 L, [place] % (Auto) 8.2, Eos % (Auto) 0.5, Baso % (Auto) 0.3, Neut # (Auto) 9.6 H, Lymph # (Auto) 0.9, [place] # (Auto) 1.0, Eos # (Auto) 0.1, Baso # (Auto) 0.0, Total Counted 100, Neutrophils % (Manual) 84 H, Lymphocytes % (Manual) 9 L, Monocytes % (Manual) 2, Eosinophils % (Manual) 2, Metamyelocytes % 1.0, Promyelocytes % 2, Nucleated RBCs 1, Platelet Estimate Normal, Polychromasia 1+ 06/13/25 16:33: Folate 9.98 06/14/25 07:48: WBC 15.5 H D, RBC 2.89 L, Hgb 9.1 L D, Hct 27.0 L, MCV 93.4, MCH 31.5 H, MCHC 33.7, RDW 18.5 H, Plt Count 226, MPV 10.7 H, Neut % (Auto) 80.0, Lymph % (Auto) 7.4 L, [place] % (Auto) 7.7, Eos % (Auto) 0.1, Baso % (Auto) 0.3, Neut # (Auto) 12.4 H, Lymph # (Auto) 1.1, [place] # (Auto) 1.2 H, Eos # (Auto) 0.0, Baso # (Auto) 0.0, Total Counted 100, Neutrophils % (Manual) 88 H, Lymphocytes % (Manual) 6 L, Atypical Lymphs % 1.0, Monocytes % (Manual) 5, Platelet Estimate Normal, RBC Morphology Not Reportable, Polychromasia 1+, Sodium 134 L, Potassium 3.4 L, Chloride 93 L, Carbon Dioxide 35 H, Anion Gap 9.4, BUN 45 H, Creatinine 1.30 H, Estimated Creat Clear 86, Estimated GFR 56 L, Est GFR ( Amer) 68, Glucose 129 H, Calcium 9.5, Total Bilirubin 1.2, AST 36 D, ALT 25, Alkaline Phosphatase 433 H, Total Protein 6.1 L, Albumin 2.9 L, Globulin 3.2, Albumin/Globulin Ratio 0.9 L I & O for Labs for Last 24 Hours: Intake & Output 06/14/25 06/15/25 06/16/25 06/17/25 23:59 23:59 23:59 23:59 Intake Total 750 / 1050 1080 / 1130 863 / 863 Output Total 575 / 575 550 / 550 270 / 270 Balance 175 / 475 1080 / 1130 313 / 313 -270 / -270 Weight 228 lb 2.855 oz 226 lb 8 oz 227 lb 8 oz 221 lb 3.2 oz Intake & Output 06/11/25 06/12/25 06/13/25 06/14/25 23:59 23:59 23:59 23:59 Intake Total 1130 / 1130 1063.416 / 5612.127 2934 / 1500 200 / 200 Output Total 1900 / 1900 3500 / 3500 3450 / 3450 Balance -770 / -770 -2436.584 / -2316.584 -1950 / -1950 200 / 200 Weight 235 lb 8 oz 239 lb 5 oz 228 lb 3 oz 228 lb 2.855 oz Microbiology Reports for the Last 24 Hours: Microbiology 06/16/25 12:40 Pleural Fluid Gram Stain - Final 06/14/25 00:40 Nose - Nasal MRSA Culture - Final Negative Microbiology 06/12/25 15:00 Sputum - Expectorated Sputum Gram Stain - Final 06/12/25 15:00 Sputum - Expectorated Sputum Sputum Culture - Final Constitutional: Present moderate distress Head: Present normocephalic and atraumatic ENT: Present normal exam, normal oropharynx and mucous membranes moist Neck: Present normal inspection and full ROM Respiratory: Present respiratory distress, rhonchi, distant breath sounds and able to speak in complete sentences; Absent prolonged expiratory phase Cardiac: Present S1/S2, Tachycardia and radial pulses present GI: Present soft and distention; Absent tenderness or guarding Skin: Present intact; Absent cyanosis or jaundice Neuro: Present alert and awake; Absent oriented x 3 Extremities: Present normal inspection and edema; Absent clubbing or cyanosis Psychiatric: Present normal affect and cooperative Assessment and Plan *Assessment and plan (1) Acute hypoxic respiratory failure: Status: Acute Category: Medical Code(s): J96.01 - Acute respiratory failure with hypoxia (2) Pneumonia: Status: Acute Qualifiers: Laterality: bilateral Lung location: lower lobe of lung Pneumonia type: due to unspecified organism Qualified Code(s): J18.9 - Pneumonia, unspecified organism Category: Medical Code(s): J18.9 - Pneumonia, unspecified organism Plan Mr. 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 He also continued to receive anticoagulation for jugular venous thrombosis. Chest x-ray upon his admission from 06/08/2025 bilateral patchy infiltrates with no obvious effusions. Patient currently receiving Bumex drip. Also received vancomycin given his pleural fluid cultures positive for Staph epidermidis. Neutrophilic predominant leukocytosis and relatively stable since admission. Afebrile. Hemodynamically stable. HALLIE with creatinine at 1.30. Relatively stable from admission. CT chest bilateral effusions left greater than right. No dense consolidative airspace changes. Adjacent atelectasis. MRSA culture negative Interval update: Status post right-sided thoracentesis removal of 420 mL blood-tinged pleural fluid. Awaiting repeat cultures to determine the possibility of pleural fluid infection/the need for continuation of antibiotics. Platelet normal. Hemoglobin relatively stable. Stable oxygen requirements. Improving leukocytosis. Continue to receive linezolid and cefepime. Pleural fluid staining continue to show frequent gram-positive cocci. Will continue linezolid pending final culture results. Plan: Follow with final pleural fluid cultures and labs Continue linezolid for concerning pleural fluid infection pending repeat pleural fluid studies. DuoNebs every 6 hours PRN Continue oxygen supplementation on as-needed basis to maintain O2 saturation goal of 90% and above
[2025-06-17 12:09] LABS: Vancomycin,Trough 23.5 ug/mL (5.0-10.0)
--- NOTE | 2025-06-17 13:07 | SW/DCPLANNER ---
Addendum entered by Cari Sena 06/20/25 13:56: Patient will discharge home w/ Hospice services today. Addendum entered by Cari Sena 06/17/25 14:38: Pauline at bedside to speak w/ family. Family requested additional time to speak w/ patient prior to making any decisions. I will update MD. Original Note: Per MD request patient information faxed to [facility]. I will follow up once they review referral.
[2025-06-17] MEDS: APIXABAN 5MG TABLET 5 MG PO ×2 (13:45→20:30)
[2025-06-17] MEDS: BUSPIRONE HCL 5 MG TABLET 15 MG PO ×2 (13:46→20:30)
[2025-06-17] MEDS: ASPIRIN EC 81MG TABLET 81 MG PO (13:46)
[2025-06-17] MEDS: GABAPENTIN 100MG CAPSULE 100 MG PO ×2 (13:46→20:30)
[2025-06-17] MEDS: DEXAMETHASONE 4MG TABLET 4 MG PO (13:46)
[2025-06-17] MEDS: SPIRONOLACTONE 25MG TABLET 50 MG PO (13:47)
[2025-06-17] MEDS: LINEZOLID 600 MG/300 ML IV.SOLN 300 MG IV (14:11)
--- NOTE | 2025-06-17 18:25 | EXP.ACUTE.PN ---
Subjective *Date: 06/17/25 *Time: 21:41 Interval history: NG placed overnight. Has had multiple bowel movements since. Belly softer today. Still somewhat confused today. Daughter at bedside. Discussed goals of care and considering hospice consult. Would like to at least hear from hospice to make informed decision about next steps clinically. Afebrile overnight. Medical Exam Vital signs and Labs for Last 24 Hours: Vital Signs Temp Pulse Resp BP Pulse Ox O2 Del Method O2 Flow Rate 06/17/25 17:15 Room Air 06/17/25 16:00 97.8 F 84 18 115/53 L 06/17/25 15:20 Nasal Cannula 2 06/17/25 13:20 Room Air 06/17/25 12:00 97.4 F L 84 14 99/63 L 94 L Room Air 06/17/25 11:40 Room Air 06/17/25 09:40 Room Air 06/17/25 08:45 90 L Nasal Cannula 06/17/25 08:00 98.0 F 100 H 18 90/60 L 90 L Room Air 06/17/25 05:00 Room Air 06/17/25 04:00 97.8 F 101 H 16 116/54 L 89 L Room Air 06/17/25 03:00 Room Air 06/17/25 01:00 Room Air 06/16/25 23:39 80 14 109/69 L 88 L Room Air 06/16/25 23:00 Room Air 06/16/25 21:00 Room Air 06/16/25 20:00 Nasal Cannula 3 06/16/25 18:48 Room Air Intake and Output 06/17/25 06/17/25 06/17/25 07:59 15:59 23:59 Intake Total 100 / 500 400 / 500 Output Total 270 / 270 0 / 270 Balance -170 / 230 400 / 230 Intake: Intake, Total IV Amount 100 / 500 400 / 500 Cefepime HCl 2 gm In 0.9 % 100 / 200 100 / 200 Sodium Chloride 100 ml @ 200 mls/hr IV Q8H [facility] Rx#:[id number] Linezolid 600 mg In 300 ml @ 300 / 300 300 mls/hr IV Q12H [facility] Rx#: [id number] Output: Output, Urine Amount 270 / 270 0 / 270 Other: Number of Unmeasured Voids 1 Number of Bowel Movements 2 1 1 Weight 100.335 kg Patient Weight 06/17/25 23:59 Weight 100.335 kg Laboratory Results - last 24 hr 06/17/25 10:15: WBC 9.1 D, RBC 2.87 L, Hgb 9.1 L, Hct 29.0 L, MCV 101.0 H, MCH 31.7 H, MCHC 31.4 L, RDW 21.0 H, Plt Count 277, MPV 11.2 H, Neut % (Auto) 83.7 H, Lymph % (Auto) 6.5 L, [place] % (Auto) 7.5, Eos % (Auto) 0.1, Baso % (Auto) 0.1, Neut # (Auto) 7.6, Lymph # (Auto) 0.6 L, [place] # (Auto) 0.7, Eos # (Auto) 0.0, Baso # (Auto) 0.0, Sodium 133 L, Potassium 3.4 L, Chloride 96 L, Carbon Dioxide 30, Anion Gap 10.4, BUN 84 H D, Creatinine 2.30 H, Estimated Creat Clear 47, Estimated GFR 29 L, Est GFR ( Amer) 35 L, Glucose 112 H, Calcium 9.0, Total Bilirubin 1.1, AST 37, ALT 24, Alkaline Phosphatase 429 H, Total Protein 5.5 L, Albumin 2.7 L, Globulin 2.8, Albumin/Globulin Ratio 1.0 L, Vancomycin Trough 23.5 H I & O for Labs for Last 24 Hours: Intake & Output 06/14/25 06/15/25 06/16/25 06/17/25 23:59 23:59 23:59 23:59 Intake Total 750 / 1050 1080 / 1130 863 / 863 500 / 500 Output Total 575 / 575 550 / 550 270 / 270 Balance 175 / 475 1080 / 1130 313 / 313 230 / 230 Weight 103.5 kg 102.739 kg 103.192 kg 100.335 kg Microbiology Reports for the Last 24 Hours: Microbiology 06/16/25 12:40 Pleural Fluid Gram Stain - Final 06/16/25 12:40 Pleural Fluid Body Fluid Culture - Preliminary NO GROWTH AFTER 24 HOURS Constitutional: Present mild distress, average body habitus, chronically ill appearing and somnolent Head: Present atraumatic and normocephalic ENT: Present normal exam Respiratory: Present crackles (Bases bilaterally) and normal respiratory effort; Absent rhonchi or wheezes Cardiac: Present Reg Rate and Rhythm GI: Present soft, tenderness (Significant improvement from day before after having multiple bowel movements) and normal bowel sounds; Absent distention, guarding, rebound or rigidity Extremities: Present full ROM Comment:: Edema of legs and left upper extremity, 2+ Skin: Present intact; Absent erythema Neuro: Present Grossly Intact, alert, awake and moves all extremities Comment:: awakens to voice, tolerant of exam, confused today Assessment and Plan *Assessment and plan (1) Acute hypoxemic respiratory failure: Status: Acute Category: Medical Code(s): J96.01 - Acute respiratory failure with hypoxia (2) Bilateral pleural effusion: Status: Acute Category: Medical Code(s): J90 - Pleural effusion, not elsewhere classified (3) Non-ST elevation [place] (NSTEMI): Status: Acute Category: Medical Code(s): I21.4 - Non-ST elevation (NSTEMI) myocardial infarction (4) Metastatic signet ring cell carcinoma: Status: Acute Category: Medical Code(s): C79.9 - Secondary malignant neoplasm of unspecified site (5) HTN (hypertension): Status: Acute Category: Medical Code(s): I10 - Essential (primary) hypertension (6) Hyperlipidemia: Status: Acute Category: Medical Code(s): E78.5 - Hyperlipidemia, unspecified (7) Ileus: Status: Acute Category: Medical Code(s): K56.7 - Ileus, unspecified (8) Metabolic encephalopathy: Status: Acute Category: Medical Code(s): G93.41 - Metabolic encephalopathy (9) Severe protein-calorie malnutrition: Status: Acute Category: Medical Code(s): E43 - Unspecified severe protein-calorie malnutrition Plan Deshawn Sierra is a 60-year-old male with 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 Presented with shortness of breath and back pain. Found to have bilateral pleural effusions, anasarca. Appears to have recurrence of effusions. Review of patient's chart showed pathology earlier this month was positive for malignancy in his effusions. After NG last night, had multiple bowel movements. Belly feeling better. Still confused today. Further discussion with family, will have hospice consult today to make informed decision moving forward. Continue antibiotics and NG for decompression. Problems addressed as follows: #Acute hypoxic respiratory failure, resolved #Anasarca #Bilateral malignant pleural effusions #Ascites #Scrotal edema #Metastatic signet cell adenocarcinoma #History of IJ DVT #Congestive hepatopathy # HALLIE ? Unfortunately, patient returned with shortness of breath, weakness, significant anasarca. Patient was discharged 2 days prior to admission, states he drank a lot of water at home but reports adherence to diuretics and other medications. ? CXR on admission showed worsened bibasilar opacities suggestive of worsening edema versus pneumonia. ? CT chest/abdomen/pelvis on 06/05/2025 showed moderate bilateral pleural effusions, moderate volume ascites around liver and spleen, large hydrocele and edema, anasarca of the abdomen and pelvis. ? ECHO shows normal biventricular systolic function, without significant diastolic dysfunction. There is noted increased left LV wall thickness. -Pulmonology consulted to evaluate for repeat thoracentesis and possible referral for PleurX drain placement. Path reviewed as stated above from last visit showing malignancy. Effusions are likely a mix of malignant effusion along with CHF component. Strong concern that diuretics alone will not control effusion development. ? Patient has asymmetrical left upper extremity swelling with pitting edema. ? Venous Dopplers of lower extremities, left upper extremity on previous admission unremarkable for DVT. ? Unclear where anasarca is coming from, likely from metastatic signet cell adenocarcinoma of defined primary location. Lower suspicion for heart failure and cirrhosis. ? Continue Zyvox 600 mg twice daily awaiting culture results from thoracentesis - Stable on 3 L oxygen. Wean for goal sats greater 90%. ? Continue home Eliquis 5 mg twice daily for history of DVT. ?Discussed case with family, will have hospice evaluate today and at least provide information for informed decision - Holding diuresis due to worsening kidney function. - Labs today with improved white count of 9, hemoglobin 9. Platelets 277. Sodium 133, potassium 3.4. BUN elevated to 84 with creatinine 2.3. - Repeat CBC, CMP, magnesium ordered for the morning #NSTEMI, resolved #CAD ? Cardiology consulted on previous admission, noted mild coronary artery calcification on CT chest. ECHO shows normal biventricular systolic function with mild RV dilatation. ? Continue aspirin 81 mg, atorvastatin 40 mg. #Left hip pain ? Patient complains of left hip pain, popping noise after climbing up stairs day before admission. ? Continue multimodal pain management with Tylenol, [place], morphine. Severe constipation/Ileus: NG placed overnight. Had good response. Multiple bowel movements. Belly softer today. Overall feeling better. Slowly advance to clear diet if patient tolerates Continue famotidine 20 mg, Protonix 40 mg daily for GERD Continue BuSpar 15 mg twice daily for anxiety Back pain and history of neuropathy: Continue gabapentin 100 mg 3 times a day, Tylenol for mild pain, and hydrocodone 5 mg/325 1 tablet every 4 hours as needed for moderate to severe pain. Monitor for toxicity Metastatic signet ring cell carcinoma: continue dexamethasone 4 mg daily started by his oncologist for swelling will continue to have goals of care discussions. Severe protein calorie malnutrition. Poor p.o. intake. Patient developing worsening confusion with his illness. Findings consistent with acute metabolic encephalopathy, likely secondary to his cancer and worsening nutrition. Full code DVT prophylaxis: Home Eliquis Clear liquid diet
[2025-06-17] MEDS: PANTOPRAZOLE 40MG VIAL 40 MG IV (20:30)
[2025-06-18] MEDS: MORPHINE 4MG/ML SYRINGE 2 MG IV ×2 (00:44→04:33)
[2025-06-18] MEDS: ONDANSETRON 4MG/2ML VIAL 4 MG IV (00:48)
--- NOTE | 2025-06-18 01:42 | PC.NURSE ---
Pt AOx4 with intermittent episodes of confusion. While changing pt arouns 0000, the pt grabbed his NG tube and pulled it out. Provider was notified and gave orders not to replace NG and allow pt to try clear liquids. Pt is now on a purewick. Resting in bed with eyes closed. Respirations even and unlabored. Bed is low, locked, and call light is in reach. Daughter at bedside.
[2025-06-18] MEDS: LINEZOLID 600 MG/300 ML IV.SOLN 300 MG IV ×2 (01:56→13:48)
[2025-06-18] MEDS: CEFEPIME HCL 2 GM in 0.9 % SODIUM CHLORIDE 100 ML IV ×2 (03:05→15:08)
[2025-06-18 04:00] VITALS: BP 120/55; PULSE 74; RESP 18; TEMP 36.4; O2SAT 95; BMI 26.2
[2025-06-18 08:00] VITALS: BP 104/49; PULSE 77; RESP 18; TEMP 36.3; O2SAT 94
[2025-06-18 08:47] LABS: Hematocrit 25.9 % (42.0-52.0); Immature Granulocytes % 3.8 %; Mean Corpuscular HGB Conc 31.7 g/dL (31.8-35.4); Mean Corpuscular Hemoglobin 32.2 pg (27.0-31.2); Mean Corpuscular Volume 101.6 fl (80-94); Nucleated Red Blood Cells % 2.7 %; Platelet Count 226 K/mm3 (142-424); Red Blood Count 2.55 M/mm3 (4.60-6.20); Red Cell Distribution Width-SD 74.2 fL; White Blood Count 11.0 K/mm3 (4.8-10.8)
[2025-06-18 08:49] LABS: Hemoglobin 8.2 g/dL (14.1-18.0)
[2025-06-18 08:53] LABS: Albumin Level 2.4 g/dl (3.5-5.0); Chloride 97 mmol/L (98-107); Potassium 3.1 mmoL/L (3.5-5.1); Sodium 133 mmol/L (136-145)
[2025-06-18 08:56] LABS: Alanine Aminotransferase 22 U/L (12-78); Alkaline Phosphatase 362 U/L (38-126); Aspartate Amino Transferase 33 U/L (17-59); Bilirubin,Total 0.9 mg/dl (0.2-1.3); Calcium 9.0 mg/dl (8.4-10.2); Carbon Dioxide 31 mmol/L (22.0-30.0); Creatinine Clearance Estimated 55 mL/min (50-200); Creatinine,Serum 1.90 mg/dl (0.66-1.25); Estimated Glomerular Filt Rate 36 ml/min (>60); GFR (African American) 44 ML/MIN (>60); Glucose 98 mg/dl (74-100); Total Protein,Serum 5.0 g/dl (6.3-8.2)
[2025-06-18 08:57] LABS: Magnesium 3.5 mg/dl (1.6-2.3)
[2025-06-18 09:12] LABS: Albumin/Globulin Ratio 0.9 (1.1-1.8); Anion Gap 8.1 mEq/L (5-15); Blood Urea Nitrogen 84 mg/dl (9-20); Globulin 2.6 g/dL (1.3-3.2)
--- NOTE | 2025-06-18 10:03 | PC.NURSE ---
pt is resting in bed with family at the bedside. pt seems very tired today and does not feel like taking morning po medications at this time.
[2025-06-18] MEDS: BUSPIRONE HCL 5 MG TABLET 15 MG PO ×2 (10:09→21:53)
[2025-06-18] MEDS: DEXAMETHASONE 4MG TABLET 4 MG PO (10:10)
[2025-06-18] MEDS: ASPIRIN EC 81MG TABLET 81 MG PO (10:10)
[2025-06-18] MEDS: SPIRONOLACTONE 25MG TABLET 50 MG PO (10:10)
[2025-06-18] MEDS: FAMOTIDINE 20MG/2ML VIAL 20 MG IV (10:10)
[2025-06-18] MEDS: APIXABAN 5MG TABLET 5 MG PO ×2 (10:11→21:53)
[2025-06-18] MEDS: SENNOSIDES 8.6MG/DOCUSATE 50MG TABLET 1 TAB PO ×2 (10:11→21:54)
[2025-06-18] MEDS: GABAPENTIN 100MG CAPSULE 100 MG PO ×3 (10:12→21:53)
[2025-06-18] MEDS: POLYETHYLENE GLYCOL 3350 17 GM PACKET PO (10:39)
--- NOTE | 2025-06-18 11:00 | EXP.ACUTE.PN ---
Subjective *Date: 06/18/25 *Time: 13:40 Interval history: Somewhat more interactive today. Stable on room air. Had multiple bowel movements yesterday. Belly feeling better. NG came out overnight. Afebrile. No nausea or vomiting today. Family at bedside Medical Exam Vital signs and Labs for Last 24 Hours: Vital Signs Temp Pulse Resp BP Pulse Ox O2 Del Method O2 Flow Rate 06/18/25 08:00 97.3 F L 77 18 104/49 L 94 L Room Air 06/18/25 06:37 Room Air 06/18/25 05:00 Room Air 06/18/25 04:00 97.6 F 74 18 120/55 L 95 Room Air 06/18/25 03:00 Room Air 06/18/25 01:00 Room Air 06/17/25 23:58 97.5 F L 79 15 142/68 H 95 Room Air 06/17/25 23:00 Room Air 06/17/25 21:00 Room Air 06/17/25 20:00 Room Air 06/17/25 19:45 97.7 F 82 15 112/59 L 92 L Room Air 06/17/25 18:57 Room Air 06/17/25 17:15 Room Air 06/17/25 16:00 97.8 F 84 18 115/53 L 06/17/25 15:20 Nasal Cannula 2 06/17/25 13:20 Room Air 06/17/25 12:00 97.4 F L 84 14 99/63 L 94 L Room Air 06/17/25 11:40 Room Air Intake and Output 06/17/25 06/18/25 06/18/25 23:59 07:59 15:59 Intake Total 100 / 600 400 / 400 Output Total 0 / 670 500 / 700 200 / 700 Balance 100 / -70 -100 / -300 -200 / -300 Intake: Intake, Total IV Amount 100 / 600 400 / 400 Cefepime HCl 2 gm In 0.9 % 100 / 300 100 / 100 Sodium Chloride 100 ml @ 200 mls/hr IV Q8H [facility] Rx#:[id number] Linezolid 600 mg In 300 ml @ 300 / 300 300 mls/hr IV Q12H [facility] Rx#: [id number] Output: Output, Urine Amount 0 / 270 100 / 300 200 / 300 Output, Gastric Drainage Amount 400 / 400 Left Nare 400 / 400 Other: Number of Unmeasured Voids 1 1 0 Number of Bowel Movements 1 Weight 95.708 kg Patient Weight 06/18/25 23:59 Weight 95.708 kg Laboratory Results - last 24 hr 06/17/25 10:15: Sodium 133 L, Potassium 3.4 L, Chloride 96 L, Carbon Dioxide 30, Anion Gap 10.4, BUN 84 H D, Creatinine 2.30 H, Estimated Creat Clear 47, Estimated GFR 29 L, Est GFR ( Amer) 35 L, Glucose 112 H, Calcium 9.0, Total Bilirubin 1.1, AST 37, ALT 24, Alkaline Phosphatase 429 H, Total Protein 5.5 L, Albumin 2.7 L, Globulin 2.8, Albumin/Globulin Ratio 1.0 L, Vancomycin Trough 23.5 H 06/18/25 08:44: WBC 11.0 H, RBC 2.55 L, Hgb 8.2 L, Hct 25.9 L, MCV 101.6 H, MCH 32.2 H, MCHC 31.7 L, RDW 20.6 H, Plt Count 226, MPV 10.6 H, Neut % (Auto) 78.3, Lymph % (Auto) 8.8 L, [place] % (Auto) 7.8, Eos % (Auto) 1.0, Baso % (Auto) 0.3, Neut # (Auto) 8.6 H, Lymph # (Auto) 1.0, [place] # (Auto) 0.9, Eos # (Auto) 0.1, Baso # (Auto) 0.0, Sodium 133 L, Potassium 3.1 L, Chloride 97 L, Carbon Dioxide 31 H, Anion Gap 8.1, BUN 84 H, Creatinine 1.90 H, Estimated Creat Clear 55, Estimated GFR 36 L, Est GFR ( Amer) 44 L D, Glucose 98, Calcium 9.0, Magnesium 3.5 H, Total Bilirubin 0.9, AST 33, ALT 22, Alkaline Phosphatase 362 H, Total Protein 5.0 L, Albumin 2.4 L D, Globulin 2.6, Albumin/Globulin Ratio 0.9 L I & O for Labs for Last 24 Hours: Intake & Output 06/15/25 06/16/25 06/17/25 06/18/25 23:59 23:59 23:59 23:59 Intake Total 1080 / 1130 863 / 863 600 / 600 400 / 400 Output Total 550 / 550 270 / 670 700 / 700 Balance 1080 / 1130 313 / 313 330 / -70 -300 / -300 Weight 102.739 kg 103.192 kg 100.335 kg 95.708 kg Microbiology Reports for the Last 24 Hours: Microbiology 06/16/25 12:40 Pleural Fluid Gram Stain - Final 06/16/25 12:40 Pleural Fluid Body Fluid Culture - Preliminary NO GROWTH AFTER 48 HOURS Constitutional: Present mild distress, average body habitus, chronically ill appearing and cooperative Head: Present atraumatic and normocephalic ENT: Present normal exam Respiratory: Present crackles (Bases bilaterally) and normal respiratory effort; Absent rhonchi or wheezes Cardiac: Present Reg Rate and Rhythm GI: Present soft, tenderness (Mild) and normal bowel sounds; Absent distention, guarding, rebound or rigidity Extremities: Present full ROM Comment:: Edema of legs and left upper extremity, 2+ Skin: Present intact; Absent erythema Neuro: Present Grossly Intact, alert, awake and moves all extremities Comment:: awakens to voice, tolerant of exam, oriented to self. Assessment and Plan *Assessment and plan (1) Acute hypoxemic respiratory failure: Status: Acute Category: Medical Code(s): J96.01 - Acute respiratory failure with hypoxia (2) Bilateral pleural effusion: Status: Acute Category: Medical Code(s): J90 - Pleural effusion, not elsewhere classified (3) Non-ST elevation [place] (NSTEMI): Status: Acute Category: Medical Code(s): I21.4 - Non-ST elevation (NSTEMI) myocardial infarction (4) Metastatic signet ring cell carcinoma: Status: Acute Category: Medical Code(s): C79.9 - Secondary malignant neoplasm of unspecified site (5) HTN (hypertension): Status: Acute Category: Medical Code(s): I10 - Essential (primary) hypertension (6) Hyperlipidemia: Status: Acute Category: Medical Code(s): E78.5 - Hyperlipidemia, unspecified (7) Ileus: Status: Acute Category: Medical Code(s): K56.7 - Ileus, unspecified (8) Metabolic encephalopathy: Status: Acute Category: Medical Code(s): G93.41 - Metabolic encephalopathy (9) Severe protein-calorie malnutrition: Status: Acute Category: Medical Code(s): E43 - Unspecified severe protein-calorie malnutrition (10) HALLIE (acute kidney injury): Status: Acute Category: Medical Code(s): N17.9 - Acute kidney failure, unspecified Plan Deshawn Sierra is a 60-year-old male with 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 Presented with shortness of breath and back pain. Found to have bilateral pleural effusions, anasarca. Appears to have recurrence of effusions. Review of patient's chart showed pathology earlier this month was positive for malignancy in his effusions. After NG last night, had multiple bowel movements. Belly feeling better. NG came out. Less confusion today. Daughter plans to have conversation about hospice and goals of care with patient today. Continuing antibiotics. Condition deteriorating, prognosis poor. Continues to require inpatient management. Problems addressed as follows: #Acute hypoxic respiratory failure, resolved #Anasarca #Bilateral malignant pleural effusions #Ascites #Scrotal edema #Metastatic signet cell adenocarcinoma #History of IJ DVT #Congestive hepatopathy # HALLIE ? Unfortunately, patient returned with shortness of breath, weakness, significant anasarca. Patient was discharged 2 days prior to admission, states he drank a lot of water at home but reports adherence to diuretics and other medications. ? CXR on admission showed worsened bibasilar opacities suggestive of worsening edema versus pneumonia. ? CT chest/abdomen/pelvis on 06/05/2025 showed moderate bilateral pleural effusions, moderate volume ascites around liver and spleen, large hydrocele and edema, anasarca of the abdomen and pelvis. ? ECHO shows normal biventricular systolic function, without significant diastolic dysfunction. There is noted increased left LV wall thickness. -Pulmonology consulted to evaluate for repeat thoracentesis and possible referral for PleurX drain placement. Path reviewed as stated above from last visit showing malignancy. Effusions are likely a mix of malignant effusion along with CHF component. Strong concern that diuretics alone will not control effusion development. ? Patient has asymmetrical left upper extremity swelling with pitting edema. Venous Dopplers of lower extremities, left upper extremity on previous admission unremarkable for DVT. ? Unclear where anasarca is coming from, likely from metastatic signet cell adenocarcinoma of defined primary location. Lower suspicion for heart failure and cirrhosis. ? Continue Zyvox 600 mg twice daily awaiting culture results from thoracentesis - On room air today, goal sats of 90%. ? Continue home Eliquis 5 mg twice daily for history of DVT. ? Discussed case with family, hospice came and discussed their services yesterday with family. As patient is more alert today, daughter plans to talk with patient about hospice. Holding diuretics. - BUN remains elevated 84, creatinine 1.9. - Labs today with increase white count of 11, Repeat CBC, CMP, magnesium ordered for the morning #NSTEMI, resolved #CAD ? Cardiology consulted on previous admission, noted mild coronary artery calcification on CT chest. ECHO shows normal biventricular systolic function with mild RV dilatation. ? Continue aspirin 81 mg, atorvastatin 40 mg. Severe constipation/Ileus: Showing improvement. NG came out overnight. Having bowel movements. Continue bowel regimen. Belly soft today. Advance to full liquid diet. Continue famotidine 20 mg, Protonix 40 mg daily for GERD Continue BuSpar 15 mg twice daily for anxiety Back pain and history of neuropathy: Continue gabapentin 100 mg 3 times a day, Tylenol for mild pain, and hydrocodone 5 mg/325 1 tablet every 4 hours as needed for moderate to severe pain. Monitor for toxicity Metastatic signet ring cell carcinoma: continue dexamethasone 4 mg daily started by his oncologist for swelling will continue to have goals of care discussions. Severe protein calorie malnutrition. Poor p.o. intake. Patient developing worsening confusion with his illness. Findings consistent with acute metabolic encephalopathy, likely secondary to his cancer and worsening nutrition. Full code DVT prophylaxis: Home Eliquis Clear liquid diet
[2025-06-18 12:00] VITALS: BP 111/58; PULSE 83; RESP 16; TEMP 36.5; O2SAT 94
[2025-06-18] MEDS: KETOROLAC 15MG/ML VIAL 15 MG IV ×2 (12:23→22:08)
[2025-06-18 16:12] LABS: Albumin, Body Fluid 2.2 g/dL (Not Estab.); Glucose, Body Fluid 36 mg/dL (.); LD, Body Fluid 2068 IU/L (.)
[2025-06-18 20:00] VITALS: BP 117/73; PULSE 77; RESP 18; TEMP 36.9; O2SAT 99
[2025-06-18] MEDS: PANTOPRAZOLE 40MG VIAL 40 MG IV (21:53)
[2025-06-18] MEDS: MINERAL OIL 30 ML UDC PO (21:53)
[2025-06-19] MEDS: CEFEPIME HCL 2 GM in 0.9 % SODIUM CHLORIDE 100 ML IV ×3 (02:12→18:21)
[2025-06-19] MEDS: LINEZOLID 600 MG/300 ML IV.SOLN 300 MG IV ×2 (02:13→14:14)
[2025-06-19 04:00] VITALS: BP 119/62; PULSE 72; RESP 16; TEMP 35.9; O2SAT 92; BMI 26.3
--- NOTE | 2025-06-19 05:15 | PC.NURSE ---
Patient is alert and oriented x4. No confusion episodes were noted this shift; however, the patient is forgetful at times (for example, the patient asks about the pulse ox on his finger, is easily reoriented after explained to what it is for). He was observed to be resting in bed with eyes closed, respirations even and unlabored on room air, and no apparent distress for the majority of the night. Yesterday evening (between 20:00 and 22:00), the patient was resting upright in bed conversing with family members. Speech very soft-spoken, does become fatigued easily. He also consumed soup and [place] tea for a late dinner ; assistance and supervision was provided by daughter and nursing staff due to noticed weakness. Aspiration precautions taken (sitting patient upright 90 degrees, allowing ample time to swallow). Daughter has remained at the bedside through the night, very eager to be involved with patient's care. Repositioning/turning was performed every two hours. Chairfast/bedfast. A partial bed bath was provided this morning; patient also had an incontinence episode. Full bed linen change. During wakeful periods, the patient did express an ability to verbalize need to use the urinal. Clear but diminished lungs heard upon auscultation, heart and bowel sounds within normal findings. Moderate (+2) swelling noted to left upper extremity, swelling noted to bilateral lower extremities. Patient expelled clear, mucoid sputum a couple times yesterday evening. No nausea/vomiting, abdominal pain, shortness of breath, etc. this shift. Toradol was administered once per MAR due to intermittent leg cramping. Scheduled medications were administered per MAR. Potassium replaced via intravenously this shift per electrolyte replacement protocol; patient tolerated infusion of potassium (diluted with a concurrent infusion of normal saline) well without any complaints. Last dose of potassium is currently infusing. Remains on continuous pulse ox. At this time, the patient is resting in bed without any further complaints. No acute changes noted thus far. Call light within reach.
[2025-06-19 06:15] VITALS: TEMP 36
[2025-06-19 08:00] VITALS: BP 110/60; PULSE 70; RESP 16; TEMP 36.4; O2SAT 90
[2025-06-19 08:24] LABS: Albumin Level 2.3 g/dl (3.5-5.0); Chloride 101 mmol/L (98-107); Potassium 4.1 mmoL/L (3.5-5.1); Sodium 130 mmol/L (136-145)
[2025-06-19 08:27] LABS: Alanine Aminotransferase 18 U/L (12-78); Albumin/Globulin Ratio 0.9 (1.1-1.8); Alkaline Phosphatase 364 U/L (38-126); Anion Gap 10.1 mEq/L (5-15); Aspartate Amino Transferase 35 U/L (17-59); Bilirubin,Total 1.0 mg/dl (0.2-1.3); Calcium 8.8 mg/dl (8.4-10.2); Carbon Dioxide 23 mmol/L (22.0-30.0); Creatinine Clearance Estimated 65 mL/min (50-200); Creatinine,Serum 1.60 mg/dl (0.66-1.25); Estimated Glomerular Filt Rate 44 ml/min (>60); GFR (African American) 53 ML/MIN (>60); Globulin 2.5 g/dL (1.3-3.2); Glucose 91 mg/dl (74-100); Total Protein,Serum 4.8 g/dl (6.3-8.2)
[2025-06-19 08:32] LABS: Blood Urea Nitrogen 80 mg/dl (9-20)
[2025-06-19] MEDS: SENNOSIDES 8.6MG/DOCUSATE 50MG TABLET 1 TAB PO ×2 (09:56→23:47)
[2025-06-19] MEDS: APIXABAN 5MG TABLET 5 MG PO ×2 (09:56→23:47)
[2025-06-19] MEDS: SPIRONOLACTONE 25MG TABLET 50 MG PO (09:56)
[2025-06-19] MEDS: ASPIRIN EC 81MG TABLET 81 MG PO (09:56)
[2025-06-19] MEDS: BUSPIRONE HCL 5 MG TABLET 15 MG PO ×2 (09:57→23:47)
[2025-06-19] MEDS: KETOROLAC 15MG/ML VIAL 15 MG IV ×2 (09:57→18:16)
[2025-06-19] MEDS: DEXAMETHASONE 4MG TABLET 4 MG PO (09:57)
[2025-06-19] MEDS: FAMOTIDINE 20MG/2ML VIAL 20 MG IV (09:57)
[2025-06-19] MEDS: CALCIUM CARBONATE 500MG CHEWTAB 500 MG PO (10:00)
[2025-06-19] MEDS: GABAPENTIN 100MG CAPSULE 100 MG PO ×2 (10:07→23:47)
[2025-06-19] MEDS: POLYETHYLENE GLYCOL 3350 17 GM PACKET PO (10:10)
[2025-06-19 12:00] VITALS: BP 107/84; PULSE 67; RESP 18; TEMP 36.4; O2SAT 94
[2025-06-19 15:47] VITALS: BP 138/82; PULSE 77; RESP 16; TEMP 36.4; O2SAT 92
--- NOTE | 2025-06-19 20:07 | EXP.ACUTE.PN ---
Subjective *Date: 06/19/25 *Time: 23:27 Interval history: Patient more alert and oriented today. Interactive on exam. Passing gas but no further bowel movement. Tolerating p.o. intake. Stable on room air. Discussed case with daughter prior to discussing with patient. Given his intermittent confusion, she is concerned that he shuts down many years toward hospice. She has decided that they would like to go home with hospice as he is not strong enough to pursue therapy at this time and given the severity of his cancer. They discussed the idea yesterday and he struggles with it but he also wants to be at home, be comfortable, and remains quite weak. Medical Exam Vital signs and Labs for Last 24 Hours: Vital Signs Temp Pulse Resp BP Pulse Ox O2 Del Method 06/19/25 18:32 Room Air 06/19/25 17:00 Room Air 06/19/25 15:47 97.6 F 77 16 138/82 92 L Room Air 06/19/25 15:00 Room Air 06/19/25 13:00 Room Air 06/19/25 12:00 97.6 F 67 18 107/84 L 94 L Room Air 06/19/25 11:00 Room Air 06/19/25 09:00 Room Air 06/19/25 08:00 Room Air 06/19/25 08:00 97.5 F L 70 16 110/60 90 L Room Air 06/19/25 06:45 Room Air 06/19/25 06:15 96.8 F L 06/19/25 05:00 Room Air 06/19/25 04:00 96.6 F L 72 16 119/62 92 L Room Air 06/19/25 03:00 Room Air 06/19/25 01:00 Room Air 06/18/25 23:00 Room Air 06/18/25 21:00 Room Air Intake and Output 06/19/25 06/19/25 06/19/25 07:59 15:59 23:59 Intake Total 1500 / 2180 220 / 2180 460 / 2180 Output Total 0 / 450 350 / 450 100 / 450 Balance 1500 / 1730 -130 / 1730 360 / 1730 Intake: Intake, Oral Amount 400 / 580 120 / 580 60 / 580 Intake, Total IV Amount 1100 / 1600 100 / 1600 400 / 1600 Cefepime HCl 2 gm In 0.9 % 100 / 100 Sodium Chloride 100 ml @ 200 mls/hr IV Q12H [facility] Rx#:[id number] Cefepime HCl 2 gm In 0.9 % 100 / 200 100 / 200 Sodium Chloride 100 ml @ 200 mls/hr IV Q8H [facility] Rx#:[id number] KCl 10mEq/100ml 100 ml @ 100 700 / 700 mls/hr IV Q1H [facility] Rx#:[id number] Linezolid 600 mg In 300 ml @ 300 / 600 300 / 600 300 mls/hr IV Q12H [facility] Rx#: [id number] Output: Output, Urine Amount 0 / 450 350 / 450 100 / 450 Other: Number of Unmeasured Voids 1 0 Weight 96.162 kg Patient Weight 06/19/25 23:59 Weight 96.162 kg Laboratory Results - last 24 hr 06/19/25 08:10: Sodium 130 L, Potassium 4.1 D, Chloride 101, Carbon Dioxide 23, Anion Gap 10.1, BUN 80 H, Creatinine 1.60 H, Estimated Creat Clear 65, Estimated GFR 44 L, Est GFR ( Amer) 53 L D, Glucose 91, Calcium 8.8, Total Bilirubin 1.0, AST 35, ALT 18, Alkaline Phosphatase 364 H, Total Protein 4.8 L, Albumin 2.3 L, Globulin 2.5, Albumin/Globulin Ratio 0.9 L I & O for Labs for Last 24 Hours: Intake & Output 06/16/25 06/17/25 06/18/25 06/19/25 23:59 23:59 23:59 23:59 Intake Total 976 / 976 600 / 600 1140 / 1540 2180 / 2180 Output Total 550 / 550 270 / 670 1030 / 1030 450 / 450 Balance 426 / 426 330 / -70 110 / 510 1730 / 1730 Weight 103.192 kg 100.335 kg 95.708 kg 96.162 kg Constitutional: Present mild distress, average body habitus, chronically ill appearing and cooperative Head: Present atraumatic and normocephalic ENT: Present normal exam Respiratory: Present crackles (Bases bilaterally) and normal respiratory effort; Absent rhonchi or wheezes Cardiac: Present Reg Rate and Rhythm GI: Present soft, tenderness (Minimal) and hypoactive bowel sounds; Absent distention, guarding, rebound or rigidity Extremities: Present full ROM Comment:: Edema of legs and left upper extremity, 3+ Skin: Present intact; Absent erythema Neuro: Present Grossly Intact, alert, awake and moves all extremities Comment:: Oriented to self and place today. More interactive on exam. Globally weak Assessment and Plan *Assessment and plan (1) Acute hypoxemic respiratory failure: Status: Acute Category: Medical Code(s): J96.01 - Acute respiratory failure with hypoxia (2) Bilateral pleural effusion: Status: Acute Category: Medical Code(s): J90 - Pleural effusion, not elsewhere classified (3) Non-ST elevation [place] (NSTEMI): Status: Acute Category: Medical Code(s): I21.4 - Non-ST elevation (NSTEMI) myocardial infarction (4) Metastatic signet ring cell carcinoma: Status: Acute Category: Medical Code(s): C79.9 - Secondary malignant neoplasm of unspecified site (5) HTN (hypertension): Status: Acute Category: Medical Code(s): I10 - Essential (primary) hypertension (6) Hyperlipidemia: Status: Acute Category: Medical Code(s): E78.5 - Hyperlipidemia, unspecified (7) Ileus: Status: Acute Category: Medical Code(s): K56.7 - Ileus, unspecified (8) Metabolic encephalopathy: Status: Acute Category: Medical Code(s): G93.41 - Metabolic encephalopathy (9) Severe protein-calorie malnutrition: Status: Acute Category: Medical Code(s): E43 - Unspecified severe protein-calorie malnutrition (10) HALLIE (acute kidney injury): Status: Acute Category: Medical Code(s): N17.9 - Acute kidney failure, unspecified Plan Deshawn Sierra is a 60-year-old male with 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 Presented with shortness of breath and back pain. Found to have bilateral pleural effusions, anasarca. Has had prolonged course during admission. Finishing antibiotics today. After much discussion with patient family at bedside and on the whole, they would like to proceed with transitioning to hospice care on Friday morning and discharging home. Will facilitate discharge home with hospice at that time. No further labs in the morning. Does have some improvement in mentation today. Tolerating p.o. intake. No bowel movement 24 hours. Stable on room air. Problems addressed as follows: #Acute hypoxic respiratory failure, resolved #Anasarca #Bilateral malignant pleural effusions #Ascites #Scrotal edema #Metastatic signet cell adenocarcinoma #History of IJ DVT #Congestive hepatopathy # HALLIE ? Unfortunately, patient returned with shortness of breath, weakness, significant anasarca. Patient was discharged 2 days prior to admission, states he drank a lot of water at home but reports adherence to diuretics and other medications. ? CXR on admission showed worsened bibasilar opacities suggestive of worsening edema versus pneumonia. ? CT chest/abdomen/pelvis on 06/05/2025 showed moderate bilateral pleural effusions, moderate volume ascites around liver and spleen, large hydrocele and edema, anasarca of the abdomen and pelvis. ? ECHO shows normal biventricular systolic function, without significant diastolic dysfunction. There is noted increased left LV wall thickness. -Pulmonology consulted to evaluate for repeat thoracentesis and possible referral for PleurX drain placement. Path reviewed as stated above from last visit showing malignancy. Effusions are likely a mix of malignant effusion along with CHF component. Strong concern that diuretics alone will not control effusion development. ? Patient has asymmetrical left upper extremity swelling with pitting edema. Venous Dopplers of lower extremities, left upper extremity on previous admission unremarkable for DVT. ? Unclear where anasarca is coming from, likely from metastatic signet cell adenocarcinoma of defined primary location. Lower suspicion for heart failure and cirrhosis. ?Completing 10 days of Zosyn and Vanco/Zyvox combo - On room air today, goal sats of 90%. ? Continue home Eliquis 5 mg twice daily for history of DVT. ? Discussed case with family, hospice came and discussed their services yesterday with family. As patient is more alert today, daughter plans to talk with patient about hospice. Holding diuretics. - WithKidney function BUN 80, creatinine 1.6. labs discontinued due to goals of home hospice tomorrow #NSTEMI, resolved #CAD ? Cardiology consulted on previous admission, noted mild coronary artery calcification on CT chest. ECHO shows normal biventricular systolic function with mild RV dilatation. ? Continue aspirin 81 mg Severe constipation/Ileus: Showing improvement. NG came out overnight. Having bowel movements. Continue bowel regimen. Belly soft today. Advance to full liquid diet. Continue famotidine 20 mg, Protonix 40 mg daily for GERD Continue BuSpar 15 mg twice daily for anxiety Back pain and history of neuropathy: Continue gabapentin 100 mg 3 times a day, Tylenol for mild pain, and hydrocodone 5 mg/325 1 tablet every 4 hours as needed for moderate to severe pain. Monitor for toxicity Metastatic signet ring cell carcinoma: continue dexamethasone 4 mg daily started by his oncologist for swelling will continue to have goals of care discussions. Severe protein calorie malnutrition. Poor p.o. intake. Full code DVT prophylaxis: Home Eliquis regular diet
[2025-06-19] MEDS: PANTOPRAZOLE 40MG VIAL 40 MG IV (23:47)
[2025-06-19] MEDS: MINERAL OIL 30 ML UDC PO (23:47)
[2025-06-20] VITALS: BP 154/88; PULSE 72; RESP 14; TEMP 36.6; O2SAT 99
[2025-06-20] MEDS: KETOROLAC 15MG/ML VIAL 15 MG IV ×2 (00:07→07:00)
[2025-06-20] MEDS: CEFEPIME HCL 2 GM in 0.9 % SODIUM CHLORIDE 100 ML IV ×2 (02:36→09:51)
[2025-06-20 04:00] VITALS: BP 123/71; PULSE 73; RESP 14; TEMP 37.1; O2SAT 99; BMI 26.3
--- NOTE | 2025-06-20 04:05 | PC.NURSE ---
Patient has remained alert and oriented x4 for the majority of this shift; however, confusion to place was expressed periodically around midnight (patient asked if he changed rooms, asked where am I, but became easily reoriented when his light was turned on). He was observed to be resting in bed with eyes closed, respirations even and unlabored on room air, and no apparent distress for the majority of the night. Daughter remained at the bedside. Yesterday evening, several of the patient's family and friends visited in his room to have a pizza republican. Medication administration was late this shift due to family request to hold off due to the gathering. Vital sign assessment for 20:00 was also refused this shift. Acacia Weber APRN was made aware of this (see provider notification intervention for 21:37). Patient has had a couple large bowel movements this shift per the patient's daughter. Daughter insisted on cleaning up the patient after both bowel movements for nursing staff; she remains very involved with the patient's plan of care as well. Repositioned/turned patient accordingly. Remains bedfast due to weakness. Continues to use the urinal for voiding needs (he can occasionally verbalize the need to urinate). Moderate swelling remains noted to left upper extremity, swelling remains noted to bilateral lower extremities. Patient continues to expel small amounts of sputum during wakeful periods. No nausea/vomiting, abdominal pain, shortness of breath, etc. this shift. Toradol was administered once per MAR for generalized pain relief this shift. Remains on continuous pulse ox. At this time, the patient is resting in bed without any further complaints. No acute changes noted thus far. Call light within reach.
[2025-06-20 07:36] VITALS: BP 139/66; PULSE 71; RESP 18; TEMP 36.6; O2SAT 97
--- NOTE | 2025-06-20 07:56 | EXP.DC.SUM ---
General Admission date:: 06/10/25 Discharge date: 06/20/25 HPI HPI HPI: This is a 60-year-old male who is well-known to our service line and has a past medical history significant for metastatic signet ring cell carcinoma, NSTEMI, carotid stenosis, bilateral pleural effusion, umbilical hernia, vertigo, and pulmonary embolism who presents with a chief complaint of shortness of breath. Due to patient's symptoms, presented to the emergency room for evaluation. While in the emergency room, patient was requiring supplemental oxygen. Chest x-ray obtained in the emergency room showed moderate increased infiltrates versus edema within the mid and lower lung zones. As result of these findings, patient has been admitted for further management. During my evaluation of patient, patient states that shortness of breath started today and progressively gotten worse. He reports he has been compliant with his Bumex that he was prescribed at discharge. Patient reports that he was having shortness of air that worsened with activity. Daughter reports that his pain got worse when he started to experience pain. She states that supplemental oxygen did help with some of his pain and he is breathing easier. She reports he does not have supplemental oxygen established at home. Patient was recently admitted on 06 05 due to NSTEMI and bilateral pleural effusions with possible pulmonary embolism. He was prescribed DOAC therapy but was not deemed a candidate for left heart cath. Patient did undergo thoracentesis on 06/07, and he had 750 mL of pleural fluid removed during medication. Patient is currently denying any chest pain, lightheadedness, dizziness, fever, chills, rigors, PND, orthopnea, cough, nausea, vomiting, or diarrhea. Additional pertinent values include a white blood cell count of 15.9, red blood cell count of 2.97, hemoglobin 9.5, hematocrit 28.6, sodium 134, BUN 52, creatinine 1.40, GFR 51, blood glucose 108, total bilirubin 2.6, alkaline phosphate of 538, troponin 0.62, BNP of 407, total protein is 6, and albumin 3.2. Hospital Course Hospital Course Hospital Course: Deshawn Sierra is a 60-year-old male with 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 Presented with shortness of breath and back pain. Found to have bilateral pleural effusions, anasarca. Has had prolonged course during admission. Patient was treated with 10-day course of antibiotics. Numerous goals of care discussions during admission with family at bedside. After much discussion, they would like to proceed with transitioning to hospice care and discharging home. Patient to be discharged home. Will have hospice consult and admit at that time. Mentation has shown improvement. Is having bowel movements. Stable on room air. Problems addressed as follows: #Acute hypoxic respiratory failure, resolved #Anasarca #Bilateral malignant pleural effusions #Ascites #Scrotal edema #Metastatic signet cell adenocarcinoma #History of IJ DVT #Congestive hepatopathy # HALLIE ? Unfortunately, patient returned with shortness of breath, weakness, significant anasarca. Patient was discharged 2 days prior to admission, states he drank a lot of water at home but reports adherence to diuretics and other medications. ? CXR on admission showed worsened bibasilar opacities suggestive of worsening edema versus pneumonia. ? CT chest/abdomen/pelvis on 06/05/2025 showed moderate bilateral pleural effusions, moderate volume ascites around liver and spleen, large hydrocele and edema, anasarca of the abdomen and pelvis. ? ECHO shows normal biventricular systolic function, without significant diastolic dysfunction. There is noted increased left LV wall thickness. -Pulmonology consulted to evaluate for repeat thoracentesis and possible referral for PleurX drain placement. Path reviewed as stated above from last visit showing malignancy. Effusions are likely a mix of malignant effusion along with CHF component. Strong concern that diuretics alone will not control effusion development. Will continue Bumex 2 mg once daily for edema as patient has improved to room air. ? Patient has asymmetrical left upper extremity swelling with pitting edema. Venous Dopplers of lower extremities, left upper extremity on previous admission unremarkable for DVT. ? Unclear where anasarca is coming from, likely from metastatic signet cell adenocarcinoma of defined primary location. Lower suspicion for heart failure and cirrhosis. ?Patient was treated with broad-spectrum antibiotics including Zosyn for gram-negative coverage and Guevara/Zyvox for gram-positive coverage. Completed 10 days total of therapy. No further antibiotics at this time. Able to wean to room air during course of admission. May need supplemental oxygen as condition progresses. ? Continue home Eliquis 5 mg twice daily for history of DVT. ? Discussed case with family, hospice came and discussed their services yesterday with family. Through discussion with patient and family, decision made to transition to hospice care. #NSTEMI, resolved #CAD ? Cardiology consulted on previous admission, noted mild coronary artery calcification on CT chest. ECHO shows normal biventricular systolic function with mild RV dilatation. In light of goals of care, discontinued aspirin 81 mg Severe constipation/Ileus: Developed secondary to illness and pain medication. Necessitated NG briefly during admission with decompression. Began having bowel movements. Has maintained having bowel movements since. No further ileus at this time. Tolerating p.o. intake. Continue famotidine 20 mg, Protonix 40 mg daily for GERD Continue BuSpar 15 mg twice daily for anxiety Back pain and history of neuropathy: Continue gabapentin 100 mg 3 times a day, Tylenol for mild pain, and hydrocodone 10mg/325mg 1 tablet every 4 hours as needed for moderate to severe pain. Monitor for toxicity. On bowel regimen to promote daily bowel movements and prevent further ileus Metastatic signet ring cell carcinoma: continue dexamethasone 4 mg daily started by his oncologist for swelling will continue to have goals of care discussions. Severe protein calorie malnutrition. Poor p.o. intake. Patient will discharge home with hospice. Total time spent on discharge 35 minutes in counseling, documentation, chart review, and direct care with patient. Exam Data for Last 24 hours Vital signs and Labs for Last 24 Hours: Temp Pulse Resp BP Pulse Ox O2 Del Method O2 Flow Rate 98 F 71 18 139/66 97 Room Air 2 06/20/25 07:36 06/20/25 07:36 06/20/25 07:36 06/20/25 07:36 06/20/25 07:36 06/20/25 06:35 06/17/25 15:20 Laboratory Results - last 24 hr 06/19/25 08:10: Sodium 130 L, Potassium 4.1 D, Chloride 101, Carbon Dioxide 23, Anion Gap 10.1, BUN 80 H, Creatinine 1.60 H, Estimated Creat Clear 65, Estimated GFR 44 L, Est GFR ( Amer) 53 L D, Glucose 91, Calcium 8.8, Total Bilirubin 1.0, AST 35, ALT 18, Alkaline Phosphatase 364 H, Total Protein 4.8 L, Albumin 2.3 L, Globulin 2.5, Albumin/Globulin Ratio 0.9 L I & O for Last 24 hours: Intake & Output 06/17/25 06/18/25 06/19/25 06/20/25 23:59 23:59 23:59 23:59 Intake Total 600 / 600 1140 / 1540 2180 / 2360 280 / 280 Output Total 270 / 670 1030 / 1030 650 / 650 Balance 330 / -70 110 / 510 1530 / 1710 280 / 280 Weight 100.335 kg 95.708 kg 96.162 kg 96.12 kg Constitutional Constitutional: no acute distress, chronically ill appearing and cooperative Comments: Anasarca. *Routine HEENT Exam Head: Present normocephalic Eye: Present EOMI and PERRL ENT: Present mucous membranes moist *Routine Neck Exam Neck: Present supple; Absent lymphadenopathy *Routine Respiratory Exam Respiratory: Present crackles (bases, posterior jackson); Absent accessory muscle use, rhonchi or wheezes *Routine Cardiovascular Exam Cardiovascular: Present RRR *Routine Abdominal Exam Abdominal: Present soft, normoactive bowel sounds and distended; Absent tenderness, rebound or guarding *Routine Rectal Exam Patient deferred: visual exam *Routine Exam Patient deferred: penile exam *Routine Extremities Exam Extremities: Present edema; Absent cyanosis or clubbing *Routine Skin Exam Skin: Present intact and warm; Absent rash *Routine Neurological Exam Neurological: Present alert, oriented X3 and moving all extremities; Absent altered mental status Routine Psychiatric Exam Psychiatric: Present normal affect, cooperative, good insight and depressed Results Data Completed and Pending Labs on day of discharge: Labs from last 24 hours 06/19/25 08:10 Sodium 130 L Potassium 4.1 D Chloride 101 Carbon Dioxide 23 Anion Gap 10.1 BUN 80 H Creatinine 1.60 H Estimated Creat Clear 65 Estimated GFR 44 L Est GFR ( Amer) 53 L D Glucose 91 Calcium 8.8 Total Bilirubin 1.0 AST 35 ALT 18 Alkaline Phosphatase 364 H Total Protein 4.8 L Albumin 2.3 L Globulin 2.5 Albumin/Globulin Ratio 0.9 L Preliminary micro results at discharge 06/16/25 12:40 Body Fluid Culture - Preliminary Pleural Fluid NO GROWTH AFTER 48 HOURS DS: Diagnosis Discharge Diagnosis (1) Acute hypoxemic respiratory failure: Status: Acute Code(s): J96.01 - Acute respiratory failure with hypoxia (2) Bilateral pleural effusion: Status: Acute Code(s): J90 - Pleural effusion, not elsewhere classified (3) Non-ST elevation [place] (NSTEMI): Status: Acute Code(s): I21.4 - Non-ST elevation (NSTEMI) myocardial infarction (4) Metastatic signet ring cell carcinoma: Status: Acute Code(s): C79.9 - Secondary malignant neoplasm of unspecified site (5) HTN (hypertension): Status: Acute Code(s): I10 - Essential (primary) hypertension (6) Hyperlipidemia: Status: Acute Code(s): E78.5 - Hyperlipidemia, unspecified (7) Ileus: Status: Acute Code(s): K56.7 - Ileus, unspecified (8) Metabolic encephalopathy: Status: Acute Code(s): G93.41 - Metabolic encephalopathy (9) Severe protein-calorie malnutrition: Status: Acute Code(s): E43 - Unspecified severe protein-calorie malnutrition (10) HALLIE (acute kidney injury): Status: Acute Code(s): N17.9 - Acute kidney failure, unspecified Meds Home Medications and Allergies Home Medications ?Medication ?Instructions ?Recorded ?Confirmed ?Type famotidine 20 mg tablet (Pepcid) 20 mg PO DAILY #30 tabs 05/05/25 06/11/25 Rx buspirone 15 mg tablet 15 mg PO BID #60 tabs 05/19/25 06/11/25 Rx apixaban 5 mg tablet (Eliquis) 5 mg PO BID #60 tabs 05/26/25 06/11/25 Rx bumetanide 2 mg tablet 2 mg PO DAILY 30 days #30 tabs 06/08/25 06/11/25 Rx gabapentin 100 mg capsule 100 mg PO TID 30 days #90 caps 06/08/25 06/11/25 Rx dexamethasone 4 mg tablet 4 mg PO DAILY 06/11/25 06/11/25 History hydroxyzine HCl 25 mg tablet 25 mg PO TIDP PRN anxiety 06/11/25 06/11/25 History meloxicam 7.5 mg tablet 7.5 mg PO BIDP PRN Mild Pain 06/11/25 06/11/25 History (Scale Score 1-4) hydrocodone 10 mg-acetaminophen 1 tab PO Q6HP PRN Severe Pain 06/20/25 Rx 325 mg tablet (7-10) 3 days #12 tabs pantoprazole 40 mg tablet,delayed 40 mg PO HS 30 days #30 tabs 06/20/25 Rx release sennosides 8.6 mg-docusate sodium 1 tab PO BID 30 days #60 tabs 06/20/25 Rx 50 mg tablet (Stimulant Laxative Plus) New Prescriptions to Start Prescriptions: hydrocodone-acetaminophen Carlos Noguera pantoprazole Carlos Noguera sennosides-docusate sodium [Stimulant Laxative Plus] Carlos Noguera Allergies Allergy/AdvReac Type Severity Reaction Status Date / Time Iodinated Contrast Media Allergy Unknown Verified 05/26/25 11:33 allergy reaction Discharge Plan Disposition Patient Disposition: Hospice - Home Condition: Other Discharge Order Discharge Orders: Discharge Order (Routine); Ordered 06/20/25 Ordered By: Carlos Noguera Follow up Plan Prescriptions/Medication Reconciliation: New sennosides-docusate sodium [Stimulant Laxative Plus] 8.6-50 mg Tablet 1 tab PO BID 30 Days Qty: 60 0RF hydrocodone-acetaminophen 10-325 mg Tablet 1 tab PO Q6HP PRN (Reason: Severe Pain (7-10)) 3 Days Qty: 12 0RF pantoprazole 40 mg Tablet,Delayed Release (Dr/Ec) 40 mg PO HS 30 Days Qty: 30 0RF Continued famotidine [Pepcid] 20 mg tablet 20 mg PO DAILY Qty: 30 3RF Eliquis 5 mg tablet 5 mg PO BID Qty: 60 2RF buspirone 15 mg tablet 15 mg PO BID Qty: 60 2RF gabapentin 100 mg Capsule 100 mg PO TID 30 Days Qty: 90 0RF bumetanide 2 mg tablet 2 mg PO DAILY 30 Days Qty: 30 0RF dexamethasone 4 mg tablet 4 mg PO DAILY meloxicam 7.5 mg tablet 7.5 mg PO BIDP PRN (Reason: Mild Pain (Scale Score 1-4)) hydroxyzine HCl 25 mg tablet 25 mg PO TIDP PRN (Reason: anxiety) Discontinued Probiotic Digestive Care 20 billion cell capsule 20 cell PO DAILY mecobalamin (vitamin B12) 1,000 mcg lozenge 1,000 mcg PO DAILY Qty: 60 2RF spironolactone 25 mg Tablet 25 mg PO DAILY 30 Days Qty: 30 0RF aspirin 81 mg tablet 81 mg PO DAILY Qty: 30 0RF atorvastatin [Lipitor] 40 mg tablet 40 mg PO HS Qty: 30 0RF Problem Reconciliation Problems Reviewed?: Yes Patient Discharge Instructions ACTIVITY: Continue current activity DIET: continue same diet Patient Instructions: DI for Respiratory Failure, DI for Pleural Effusion, DI for Acute Kidney Injury, Stop Light Pneumonia Print Language: Frisian Providers Primary Care Provider: Rupesh Arvizu Admelisaebt Provider: Mega Singh Attending Provider: Mega Singh
[2025-06-20] MEDS: DEXAMETHASONE 4MG TABLET 4 MG PO (08:32)
[2025-06-20] MEDS: SENNOSIDES 8.6MG/DOCUSATE 50MG TABLET 1 TAB PO (08:32)
[2025-06-20] MEDS: GABAPENTIN 100MG CAPSULE 100 MG PO ×2 (08:32→13:31)
[2025-06-20] MEDS: HYDROCODONE 10MG/APAP 325MG TAB 1 TAB PO ×2 (08:32→17:58)
[2025-06-20] MEDS: POLYETHYLENE GLYCOL 3350 17 GM PACKET PO (08:32)
[2025-06-20] MEDS: APIXABAN 5MG TABLET 5 MG PO (08:32)
[2025-06-20] MEDS: BUSPIRONE HCL 5 MG TABLET 15 MG PO (08:33)
[2025-06-20] MEDS: SPIRONOLACTONE 25MG TABLET 50 MG PO (08:33)
[2025-06-20] MEDS: FAMOTIDINE 20MG TABLET 20 MG PO (08:36)
--- NOTE | 2025-06-20 09:32 | EXP.PULM.PN ---
Subjective *Date: 06/20/25 *Time: 11:43 Interval history: No acute respiratory vents overnight. Patient admits improving respiratory symptoms. Pulmonology Exam Inpatient Vital signs and Labs for Last 24 Hours: Temp Pulse Resp BP Pulse Ox O2 Del Method O2 Flow Rate 98 F 71 18 139/66 97 Room Air 2 06/20/25 07:36 06/20/25 07:36 06/20/25 07:36 06/20/25 07:36 06/20/25 07:36 06/20/25 07:59 06/17/25 15:20 I & O for Labs for Last 24 Hours: Intake & Output 06/17/25 06/18/25 06/19/25 06/20/25 23:59 23:59 23:59 23:59 Intake Total 600 / 600 1140 / 1540 2180 / 2360 280 / 280 Output Total 270 / 670 1030 / 1030 650 / 650 Balance 330 / -70 110 / 510 1530 / 1710 280 / 280 Weight 221 lb 3.2 oz 211 lb 212 lb 211 lb 14.533 oz Assessment and Plan *Assessment and plan (1) Acute hypoxic respiratory failure: Status: Acute Category: Medical Code(s): J96.01 - Acute respiratory failure with hypoxia (2) Pneumonia: Status: Acute Qualifiers: Laterality: bilateral Lung location: lower lobe of lung Pneumonia type: due to unspecified organism Qualified Code(s): J18.9 - Pneumonia, unspecified organism Category: Medical Code(s): J18.9 - Pneumonia, unspecified organism Plan Mr. 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 He also continued to receive anticoagulation for jugular venous thrombosis. Chest x-ray upon his admission from 06/08/2025 bilateral patchy infiltrates with no obvious effusions. Patient currently receiving Bumex drip. Also received vancomycin given his pleural fluid cultures positive for Staph epidermidis. Neutrophilic predominant leukocytosis and relatively stable since admission. Afebrile. Hemodynamically stable. HALLIE with creatinine at 1.30. Relatively stable from admission. CT chest bilateral effusions left greater than right. No dense consolidative airspace changes. Adjacent atelectasis. MRSA culture negative. Status post right-sided thoracentesis removal of 420 mL blood-tinged pleural fluid. Interval update: No acute respiratory vents overnight. Admits improving respiratory symptoms. On room air saturating 90% and above. Pleural fluid cytology resulted positive for significant cell adenocarcinoma. Pleural fluid cultures no growth 48 hours. Continue to receive cefepime.Afebrile. Hemodynamically stable. Improving leukocytosis. Patient and family decided to pursue hospice care at this point of time. Plan: Linezolid was discontinued at this point of time. Given repeat pleural fluid cultures agree with the plan. DuoNebs every 6 hours PRN Continue oxygen supplementation on as-needed basis to maintain O2 saturation goal of 90% and above. # Pulmonary will sign off at this point of time. Please call with any further questions or concerns.
[2025-06-20 16:00] VITALS: BP 122/68; PULSE 70; RESP 18; TEMP 36.6; O2SAT 97
== END 2025-06-20 18:37 | disposition hospice, home (50) | DRG 840 ==
LOC: ER 15:55 → 2ND 19:44
PROVIDERS: Internal Medicine Adolescent Medicine; Internal Medicine Pulmonary Disease; Nurse Practitioner Family; Admitting Provider Student in an Organized Health Care Education/Training Program; Emergency Provider Student in an Organized Health Care Education/Training Program; PCP Internal Medicine; Visit Provider Student in an Organized Health Care Education/Training Program
DX: C77.3 Secondary and unspecified malignant neoplasm of axilla and upper limb lymph nodes (principal); E43 Unspecified severe protein-calorie malnutrition; J18.9 Pneumonia, unspecified organism; I21.4 Non-ST elevation (NSTEMI) myocardial infarction; J96.01 Acute respiratory failure with hypoxia; R18.8 Other ascites; N17.9 Acute kidney failure, unspecified; K56.7 Ileus, unspecified; J91.0 Malignant pleural effusion; C79.51 Secondary malignant neoplasm of bone; Z51.5 Encounter for palliative care; C80.1 Malignant (primary) neoplasm, unspecified; I10 Essential (primary) hypertension; I25.10 Atherosclerotic heart disease of native coronary artery without angina pectoris; N50.89 Other specified disorders of the male genital organs; N43.3 Hydrocele, unspecified; E78.5 Hyperlipidemia, unspecified; K21.9 Gastro-esophageal reflux disease without esophagitis; F41.9 Anxiety disorder, unspecified; K76.1 Chronic passive congestion of liver; M25.552 Pain in left hip; K59.03 Drug induced constipation; G62.9 Polyneuropathy, unspecified; M54.9 Dorsalgia, unspecified; T50.995A Adverse effect of other drugs, medicaments and biological substances, initial encounter; Z86.718 Personal history of other venous thrombosis and embolism; Z87.891 Personal history of nicotine dependence; Z91.041 Radiographic dye allergy status; Z79.01 Long term (current) use of anticoagulants; Z79.899 Other long term (current) drug therapy; Z68.26 Body mass index [BMI] 26.0-26.9, adult
CPT/HCPCS: 32555; 36415; 71045; 71250; 74018; 80048; 80053; 80076; 80202; 82042; 82607; 82728; 82746; 82803; 82945; 82977; 83010; 83540; 83550; 83605; 83615; 83690; 83735; 83880; 84157; 84484; 84550; 85007; 85025; 87040; 87070; 87081; 87205; 89051; 89220; 93005; 94640; 94761; 97163; 97165; 97530; 99285; J0692; J1308; J1885; J1939; J2003; J2020; J2270; J2405; J2470; J2550; J2919; J3360; J3373; J3375; J3480; J7040; J7120; J8540